=== PATIENT | female | born 1960 | race Caucasian/White ===

== ENCOUNTER 2020-01-10 08:00 | Emergency (ER) | payer OTHER, SELFPAY ==
[2020-01-10] VITALS (7 sets, daily range): BP systolic 115–149; BP diastolic 80–103; PULSE 78–114; RESP 16–20; TEMP 36.8; O2SAT 96–97; BMI 24.5
--- NOTE | 2020-01-10 09:11 | CT_ITS ---
EXAMINATION: CT ABDOMEN AND PELVIS WITH CONTRAST CLINICAL INFORMATION: Abdominal pain COMPARISON: Previous CT scan of the abdomen and pelvis February 2019 TECHNIQUE: Multidetector volumetric images were obtained from the superior aspect of the liver through the pubic symphysis following administration 85 mL of Omnipaque 350 intravenous contrast. Sagittal and coronal reformatted images were obtained on the technologist's workstation. Oral contrast: Yes This CT examination was performed using dose optimization techniques as appropriate, variously including the following: *Automated exposure control *Adjustment of mA and/or kV according to patient size (this includes techniques or standardized protocols for targeted exams where dose is matched to indication/reason for exam; i.e. extremities or head) *Use of iterative reconstruction technique DLP: 442 mGy-cm FINDINGS: LUNG BASES: The visualized lung bases are unremarkable. LIVER, GALLBLADDER, AND BILIARY TREE: The liver is low in attenuation suggestive of fatty infiltration. The gallbladder has been removed. There is mild intrahepatic and extrahepatic biliary duct dilatation. The common bile duct measures 1.3 cm. This appears unchanged. There is a small low-attenuation lesion in the high right lobe of the liver measuring 4 mm axial image 8 series 3 that is unchanged. PANCREAS: Unremarkable. SPLEEN: Unremarkable. ADRENAL GLANDS: Unremarkable. KIDNEYS AND URETERS: The kidneys are normal in size, shape, and attenuation. No hydronephrosis, hydroureter, or calculi seen. No perinephric stranding. BLADDER: Unremarkable. GASTROINTESTINAL TRACT: There are postsurgical changes from total colectomy. There are dilated fluid-filled loops of small bowel. There is an area of nondilated small bowel seen in the right lower quadrant and pelvis adjacent to surgical suture lines. The rectum appears dilated and fluid-filled. Findings are similar to previous CT scan of the abdomen and pelvis February 2019. There is question of mild wall thickening of the small bowel loops in the left mid abdomen. For example axial image 38 series 3 and coronal reconstructed image 71. ABDOMINAL WALL: No significant hernia is appreciated. LYMPH NODES: There are prominent small bowel mesentery lymph nodes. Larger lymph nodes are upper normal in size. There is no ascites. VASCULAR: Unremarkable. PELVIC VISCERA: Unremarkable. OSSEOUS STRUCTURES: There is mild curvature of the lumbar spine to the right and degenerative change of alignment. IMPRESSION: Postsurgical changes following total colectomy. There are dilated fluid-filled loops of small bowel. There are nondistended loops of small bowel seen in the right lower quadrant and pelvis adjacent to a surgical staple lines questionable for transition point and obstruction. The rectum appears dilated and fluid-filled. Findings are similar to February 2019 exam. Question mild small bowel wall thickening in the left mid abdomen. Prominent small bowel mesentery lymph nodes. Dilated intra and extrahepatic bile ducts and fatty liver. Post cholecystectomy.
--- NOTE | 2020-01-10 09:16 | ED_ITS ---
HPI - Abdominal Pain General Chief Complaint: Abdominal Pain Stated Complaint: ABD PAIN Time Seen by Provider: 01/10/20 09:04 Source: patient Mode of arrival: ambulatory Limitations: no limitations History of Present Illness HPI narrative: THIS IS A 59 YEARS OLD FEMALE WELL KNOWN TO ME WITH CHRONIC ABDOMINAL PAIN WHO PRESENTED TO THE ED COMPLAINING OF RECURRENT ABDOMINAL PAIN VOMITING AND DIARRHEA SINCE MONDAY. DENIES ANY FEVER, CHILLS MD elicited complaint: abdominal pain Pertinent past history: other ( CHRONIC ABDOMINAL PAIN) Onset (ago): day(s) (3) Pain Consistency: constant Severity: moderate Quality: cramping Radiation: none Migration to: no migration Relieving factors: nothing Context: history of similar episodes Associated symptoms: vomiting and diarrhea Related Data Allergies Allergy/AdvReac Type Severity Reaction Status Date / Time morphine [MORPHINE] AdvReac Mild NAUSEA & Unverified 12/12/19 14:57 VOMITING Review of Systems Review of Systems Yes all other systems are reviewed and are negative Respiratory: Reports no additional respiratory complaints Musculoskeletal: Reports no additional musculoskeletal complaints Psychiatric: Reports no additional psychiatric complaints Physical Exam Vital Signs: Vital Signs: Vital Signs Temp Pulse Resp BP Pulse Ox 01/10/20 13:44 98.3 F 81 16 115/80 01/10/20 12:13 78 18 132/83 96 01/10/20 12:00 98.3 F 84 17 132/83 96 01/10/20 11:38 18 01/10/20 11:19 98.3 F 81 18 134/85 97 01/10/20 09:45 89 20 139/93 H 97 01/10/20 08:10 98.2 F 114 H 18 149/103 H 96 Body Mass Index 24.5 Const: General: cooperative and healthy appearing Orientation/consciousness: oriented to person and oriented to place HENMT: Head: Yes normal to inspection and Yes No palpable skull fracture present Eyes: General: appearance normal, both eyes and all related structures Neck: Neck: Yes normal visual inspection Chest: Chest palpation & inspection: normal inspection of the chest and normal palpation of entire chest wall Resp: Effort & Inspection: normal respiratory effort and able to speak in complete sentences Cardio: Jugular venous distension: no JVD Rate: regular rate GI: Inspection: Yes normal to inspection Percussion: Yes normal to percussion Auscultation: normal bowel sounds Skin: General skin exam: no rashes or lesions noted and elasticity normal Neuro: General: oriented to person, oriented to place and moves all extremi ties Extrem: General: Yes normal to inspection and Yes full ROM Course Reevaluation(s) Reevaluation #1: patient was re-examined and she is feeling much better labs are reassuring, CT scan is basically unchanged from a prior. I discussed the CT finding in the clinic a patient with Dr. Lauren , will discharge the patient home with abdominal pain precaution. Patient is comfortable the plan she will be returning to vomiting fever worse Time: 14:06 [facility] - Abdominal Pain Lab Data Result diagrams: 01/10/20 09:40 01/10/20 11:07 Labs: Lab Results 01/10/20 01/10/20 01/10/20 Range/Units 09:40 09:40 11:07 WBC 7.6 (4.8-10.8) X10*3/uL RBC 5.59 H (4.20-5.50) X10*6/uL Hgb 15.5 (12.0-16.0) g/dl Hct 47.5 H (37-47) % MCV 85.0 (80-98) fL MCH 27.7 (27.0-33.0) pg MCHC 32.6 (31.0-35.0) g/dl RDW 19.3 H (11.0-16.0) % Plt Count 333 (160-400) X10*3/uL MPV 9.3 L (9.4-12.3) fL Immature Gran % (Auto) 0.3 (0.0-0.4) % Neut % (Auto) 66.8 (45-73) % Lymph % (Auto) 21.1 (20-40) % [place] % (Auto) 10.6 (2-11) % Eos % (Auto) 0.5 (0-4) % Baso % (Auto) 0.7 (0-2) % Lymph # (Auto) 1.6 (1.2-4.9) X10*3/uL [place] # (Auto) 0.8 (0.1-1.2) X10*3/uL Eos # (Auto) 0.0 (0.0-0.4) X10*3/uL Baso # (Auto) 0.1 (0.0-0.2) X10*3/uL Abs Immat Gran (auto) 0.02 (0.00-0.03) X10*3/uL Absolute Neuts (auto) 5.1 (2.0-8.3) X10*3/uL Absolute Nucleated RBC 0.000 (0.0-0.012) X10*3/uL Nucleated RBC % (auto) 0.0 (0.0-0.2) /100WBC Sodium Cancelled 133 L Potassium Cancelled 4.0 Chloride Cancelled 105 Carbon Dioxide Cancelled 21 L Anion Gap Cancelled 11 L BUN Cancelled 27 H Creatinine Cancelled 0.94 Estim Creat Clear Calc Cancelled 56.3 Estimated GFR Cancelled > 60 Random Glucose Cancelled 102 Calcium Cancelled 8.1 L Total Bilirubin Cancelled 0.8 AST Cancelled 27 ALT Cancelled 16 Alkaline Phosphatase Cancelled 68 Total Protein Cancelled 5.9 L Albumin Cancelled 3.7 Lipase Cancelled 48 Urine Color Urine Appearance Urine pH (5.0-8.0) Ur Specific [place] (1.005-1.025) Urine Protein (NEG-TRACE) MG/DL Urine Glucose (UA) (NEG) MG/DL Urine Ketones (NEG) MG/DL Urine Blood (NEG) Urine Nitrite (NEG) Ur Leukocyte Esterase (NEG) Urine RBC (0) /HPF Urine WBC (0-4) /HPF Ur Squamous Epith Cells /LPF Urine Crystals /LPF Urine Bacteria /LPF Urine Mucus /LPF 01/09/ Range/Units 14:07 WBC (4.8-10.8) X10*3/uL RBC (4.20-5.50) X10*6/uL Hgb (12.0-16.0) g/dl Hct (37-47) % MCV (80-98) fL MCH (27.0-33.0) pg MCHC (31.0-35.0) g/dl RDW (11.0-16.0) % Plt Count (160-400) X10*3/uL MPV (9.4-12.3) fL Immature Gran % (Auto) (0.0-0.4) % Neut % (Auto) (45-73) % Lymph % (Auto) (20-40) % [place] % (Auto) (2-11) % Eos % (Auto) (0-4) % Baso % (Auto) (0-2) % Lymph # (Auto) (1.2-4.9) X10*3/uL [place] # (Auto) (0.1-1.2) X10*3/uL Eos # (Auto) (0.0-0.4) X10*3/uL Baso # (Auto) (0.0-0.2) X10*3/uL Abs Immat Gran (auto) (0.00-0.03) X10*3/uL Absolute Neuts (auto) (2.0-8.3) X10*3/uL Absolute Nucleated RBC (0.0-0.012) X10*3/uL Nucleated RBC % (auto) (0.0-0.2) /100WBC Sodium Potassium Chloride Carbon Dioxide Anion Gap BUN Creatinine Estim Creat Clear Calc Estimated GFR Random Glucose Calcium Total Bilirubin AST ALT Alkaline Phosphatase Total Protein Albumin Lipase Urine Color YELLOW Urine Appearance HAZY Urine pH 6.5 (5.0-8.0) Ur Specific [place] <= 1.005 (1.005-1.025) Urine Protein NEG (NEG-TRACE) MG/DL Urine Glucose (UA) NEG (NEG) MG/DL Urine Ketones 5 (NEG) MG/DL Urine Blood TRACE (NEG) Urine Nitrite NEG (NEG) Ur Leukocyte Esterase NEG (NEG) Urine RBC 0-2 (0) /HPF Urine WBC 1-4 (0-4) /HPF Ur Squamous Epith Cells TRACE /LPF Urine Crystals 3+ /LPF Urine Bacteria TRACE /LPF Urine Mucus TRACE /LPF Imaging Data CT scan - abdomen: Attestation: I personally reviewed and interpreted this imaging study as follows: Radiologist's impression: GASTROINTESTINAL TRACT: There are postsurgical changes from total colectomy. There are dilated fluid-filled loops of small bowel. There is an area of nondilated small bowel seen in the right lower quadrant and pelvis adjacent to surgical suture lines. The rectum appears dilated and fluid-filled. Findings are similar to previous CT scan of the abdomen and pelvis February 2019. There is question of mild wall thickening of the small bowel loops in the left mid abdomen. For example axial image 38 series 3 and coronal reconstructed image 71. ABDOMINAL WALL: No significant hernia is appreciated. LYMPH NODES: There are prominent small bowel mesentery lymph nodes. Larger lymph nodes are upper normal in size. There is no ascites. VASCULAR: Unremarkable. PELVIC VISCERA: Unremarkable. OSSEOUS STRUCTURES: There is mild curvature of the lumbar spine to the right and degenerative change of alignment. IMPRESSION: Postsurgical changes following total colectomy. There are dilated fluid-filled loops of small bowel. There are nondistended loops of small bowel seen in the right lower quadrant and pelvis adjacent to a surgical staple lines questionable for transition point and obstruction. The rectum appears dilated and fluid-filled. Findings are similar to February 2019 exam. Question mild small bowel wall thickening in the left mid abdomen. Prominent small bowel mesentery lymph nodes. Dilated intra and extrahepatic bile ducts and fatty liver. Post cholecystectomy. Discharge Plan Discharge Clinical Impression: Abdominal pain Qualifiers: Abdominal location: generalized Qualified Code(s): R10.84 - Generalized abdominal pain Patient Disposition: Home, Self-Care Instructions: Abdominal Pain (ED) Additional Instructions: return to the emergency department if you worsened,fever, vomiting any concerns Interventions: ED Discharge Assessment Last Done: 01/10/20 14:15 Discharge Date/Time: 01/10/20 14:15 [facility] Past Medical History Attestation statement: The following information was validated with the patient. Medical History Stomach spasm Surgical History Hx of cholecystectomy Hx of hernia repair Hx of resection of large bowel Social History Social History Smoking Status: Never smoker Use of substances other than those prescribed or required for medical reasons: No Advance Directives: No Advance Directives Information Provided: Yes
[2020-01-10] MEDS: 0.9 % Sodium Chloride 1,000 ML 999 ML IVCONT (09:41)
[2020-01-10 09:43] LABS: MANUAL DIFF FLAG NO
[2020-01-10 09:44] LABS: Basophils Absolute Auto 0.1 X10*3/uL (0.0-0.2); Basophils Percent Auto 0.7 % (0-2); Eosinophils Percent Auto 0.5 % (0-4); Hematocrit 47.5 % (37-47); Hemoglobin 15.5 g/dl (12.0-16.0); Imm Gran Abs Auto 0.02 X10*3/uL (0.00-0.03); Imm Gran Pct Auto 0.3 % (0.0-0.4); Lymphocytes Absolute Auto 1.6 X10*3/uL (1.2-4.9); Lymphocytes Percent Auto 21.1 % (20-40); Mean Corpuscular HGB Conc 32.6 g/dl (31.0-35.0); Mean Corpuscular Hemoglobin 27.7 pg (27.0-33.0); Mean Platelet Volume 9.3 fL (9.4-12.3); Monocytes Absolute Auto 0.8 X10*3/uL (0.1-1.2); Monocytes Percent Auto 10.6 % (2-11); Neutrophils Absolute Auto 5.1 X10*3/uL (2.0-8.3); Neutrophils Percent Auto 66.8 % (45-73); Platelet Count 333 X10*3/uL (160-400); Red Blood Count 5.59 X10*6/uL (4.20-5.50); Red Cell Distribution Width 19.3 % (11.0-16.0); White Blood Count 7.6 X10*3/uL (4.8-10.8)
--- NOTE | 2020-01-10 11:23 | PC.NURSE ---
pt resting in the stretcher alert and oriented, skin pwd, respirations even and unlabored. pt reports mid abd pain that radiates to her mid back and a headache, pain at 8/10, vs st able at this time,
[2020-01-10] MEDS: HYDROmorphone HCl 0.5 MG/0.5 ML SYRINGE IVPUSH (11:38)
[2020-01-10 11:39] LABS: Lipase 48 U/L (8-78)
[2020-01-10 11:45] LABS: Alanine Aminotransferase 16 U/L (0-31); Albumin Level 3.7 g/dL (3.5-5.0); Alkaline Phosphatase 68 U/L (39-117); Anion Gap 11 (12-20); Aspartate Amino Transferase 27 U/L (5-31); Bilirubin Total 0.8 mg/dL (0.0-1.0); Blood Urea Nitrogen 27 mg/dL (9-16); Calcium 8.1 mg/dL (8.4-10.2); Carbon Dioxide 21 mmol/L (22-29); Chloride 105 mmol/L (96-108); Creatinine Clr Calc Pharmacy 56.3; Estimated Glomerular Filt Rate > 60; Glucose Random 102 mg/dL (60-115); Sodium 133 mmol/L (135-145); Total Protein 5.9 g/dL (6.5-8.0)
--- NOTE | 2020-01-10 12:13 | PC.NURSE ---
pt reports feeling better pain at 2/10 after the diulated
[2020-01-10] MEDS: iohexoL 350 MG/ML 100 ML INFUS..BTL IV (12:38)
[2020-01-10 14:15] LABS: Glucose Urine UA NEG (NEG); Leukocyte Esterase Urine NEG (NEG); Nitrite Urine NEG (NEG); PH 6.5 (5.0-8.0); Specific Gravity - Urine <= 1.005 (1.005-1.025); Urine Blood TRACE (NEG); Urine Ketones 5 MG/DL (NEG); Urine Protein NEG (NEG-TRACE)
[2020-01-10 14:17] LABS: Appearance Urine HAZY; Color Urine YELLOW
[2020-01-10 14:26] LABS: Bacteria Urine TRACE /LPF; Mucus Urine TRACE /LPF; RBC Urine 0-2 /HPF (0); Squamous Epithelial Cell Urine TRACE /LPF; Urine Talc Crystals 3+ /LPF
== END 2020-01-10 14:15 | disposition home or self-care (01) ==
PROVIDERS: Emergency Provider Emergency Medicine; PCP Family Medicine
DX: R10.84 Generalized abdominal pain (principal)
CPT/HCPCS: 36415; 74177; 80053; 81001; 83690; 85025; 96361; 96374; 99284; J1170

== ENCOUNTER 2020-02-20 02:01 | Emergency (ER) | payer OTHER, SELFPAY ==
[2020-02-20 02:12] VITALS: BP 106/82; PULSE 145; RESP 20; TEMP 36.5; O2SAT 97; BMI 20.7
--- NOTE | 2020-02-20 02:31 | CT_ITS ---
EXAMINATION: CT ABDOMEN AND PELVIS WITH CONTRAST CLINICAL INFORMATION: Mid abdominal pain. Nausea and vomiting. COMPARISON: 01/10/2020 TECHNIQUE: Multidetector volumetric images were obtained from the superior aspect of the liver through the pubic symphysis following administration 85 mL of Omnipaque 350 intravenous contrast. Sagittal and coronal reformatted images were obtained on the technologist's workstation. Oral contrast: No This CT examination was performed using dose optimization techniques as appropriate, variously including the following: *Automated exposure control *Adjustment of mA and/or kV according to patient size (this includes techniques or standardized protocols for targeted exams where dose is matched to indication/reason for exam; i.e. extremities or head) *Use of iterative reconstruction technique DLP: 480 mGy-cm FINDINGS: LUNG BASES: The visualized lung bases are unremarkable. LIVER, GALLBLADDER, AND BILIARY TREE: The liver is normal in size and shape with decreased attenuation. No focal hepatic lesion or biliary ductal dilatation is present. Cholecystectomy. PANCREAS: Unremarkable. SPLEEN: Unremarkable. ADRENAL GLANDS: Unremarkable. KIDNEYS AND URETERS: The kidneys are normal in size, shape, and attenuation. No hydronephrosis, hydroureter, or calculi seen. No perinephric stranding. BLADDER: Unremarkable. GASTROINTESTINAL TRACT: The stomach is decompressed. There is diffuse small bowel dilatation extending to the region of the distal anastomosis. Status post total colectomy. The overall appearance is similar to prior imaging. No free air or free fluid. ABDOMINAL WALL: No significant hernia is appreciated. LYMPH NODES: Normal. VASCULAR: Normal caliber aorta with mild atherosclerotic calcification. PELVIC VISCERA: The uterus and adnexa are unremarkable. OSSEOUS STRUCTURES: No acute or suspicious osseous abnormality. Mild degenerative changes in the spine. CT/CT abdomen pelvis w con IMPRESSION: Similar appearance to the previous study. There is diffuse fluid-filled small bowel dilatation extending to the distal anastomosis associated with total colectomy. This could represent a chronic obstructive process.
--- NOTE | 2020-02-20 02:31 | ECG_ITS ---
Test Reason : TACHY Blood Pressure : / mmHG Vent. Rate : 137 BPM Atrial Rate : 137 BPM P-R Int : 142 ms QRS Dur : 080 ms QT Int : 280 ms P-R-T Axes : 039 040 018 degrees QTc Int : 422 ms Sinus tachycardia Nonspecific T wave abnormality Inferior leads Abnormal ECG When compared with ECG of 29-MAY-2018 01:15, Heart rate has increased T-wave inversion in Inferior leads is new Referred By: Rudi Esteves Electronically Signed By:VERNA STODDARD MD
[2020-02-20] MEDS: 0.9 % Sodium Chloride 1,000 ML 999 ML IVCONT ×2 (02:36→03:42)
[2020-02-20] MEDS: ondansetron HCL 4 MG/2 ML VIAL IVPUSH (02:37)
[2020-02-20] MEDS: Famotidine/PF 20 MG/2 ML VIAL IVPUSH (02:41)
[2020-02-20 02:43] VITALS: RESP 18
[2020-02-20] MEDS: HYDROmorphone HCl 1 MG/ML SYRINGE IVPUSH (02:43)
[2020-02-20 02:52] LABS: Basophils Percent Auto 0.3 % (0-2); Eosinophils Absolute Auto 0.1 X10*3/uL (0.0-0.4); Eosinophils Percent Auto 0.4 % (0-4); Hemoglobin 18.7 g/dl (12.0-16.0); Imm Gran Abs Auto 0.05 X10*3/uL (0.00-0.03); Imm Gran Pct Auto 0.4 % (0.0-0.4); Lymphocytes Absolute Auto 2.1 X10*3/uL (1.2-4.9); Lymphocytes Percent Auto 15.8 % (20-40); MANUAL DIFF FLAG NO; Mean Corpuscular HGB Conc 33.9 g/dl (31.0-35.0); Mean Corpuscular Hemoglobin 28.4 pg (27.0-33.0); Mean Corpuscular Volume 83.6 fL (80-98); Monocytes Absolute Auto 0.4 X10*3/uL (0.1-1.2); Monocytes Percent Auto 2.8 % (2-11); Neutrophils Absolute Auto 10.6 X10*3/uL (2.0-8.3); Neutrophils Percent Auto 80.3 % (45-73); Platelet Count 424 X10*3/uL (160-400); Red Blood Count 6.59 X10*6/uL (4.20-5.50); Red Cell Distribution Width 18.7 % (11.0-16.0); White Blood Count 13.3 X10*3/uL (4.8-10.8)
[2020-02-20 02:53] LABS: Hematocrit 55.1 % (37-47)
[2020-02-20 03:44] VITALS: BP 132/93; PULSE 98; RESP 15; TEMP 36.9; O2SAT 95
[2020-02-20 04:08] LABS: Lactic Acid 1.5 mmol/L (0.5-2.0)
[2020-02-20 04:12] LABS: Alanine Aminotransferase 26 U/L (0-31); Albumin Level 3.8 g/dL (3.5-5.0); Alkaline Phosphatase 93 U/L (39-117); Anion Gap 16 (12-20); Aspartate Amino Transferase 32 U/L (5-31); Bilirubin Direct 0.4 mg/dL (0.0-0.5); Bilirubin Total 0.7 mg/dL (0.0-1.0); Blood Urea Nitrogen 32 mg/dL (9-16); Calcium 8.2 mg/dL (8.4-10.2); Carbon Dioxide 19 mmol/L (22-29); Chloride 100 mmol/L (96-108); Creatinine Clr Calc Pharmacy 41.7; Estimated Glomerular Filt Rate 43; Glucose Random 154 mg/dL (60-115); Lipase 19 U/L (8-78); Potassium 3.2 mmol/l (3.3-5.1); Sodium 132 mmol/L (135-145); Total Protein 6.4 g/dL (6.5-8.0)
--- NOTE | 2020-02-20 04:18 | ED_ITS ---
HPI - Nausea/Vomiting/Diarrhea General Chief complaint: Nausea/Vomiting/Diarrhea Stated complaint: Vomiting/Abd pain Time Seen by Provider: 02/20/20 02:23 Source: patient Mode of arrival: ambulatory History of Present Illness HPI Narrative: 59-year-old female states of vomiting for the past several days. Abdominal pain in the mid abdomen. Patient has had bowel resection and few years ago and since then has been having problems as per patient. Patient denies fevers or chills. Denies blood in vomit patient states of mild stool movement. Patient seen here about a month ago and states since then has not been the same MD elicited complaint: nausea and vomiting Pain consistency: constant Severity: moderate Related Data Previous Rx's Medication Instructions Recorded metoclopramide HCl [Reglan] 10 mg PO .q8 PRN #20 tab 02/20/20 potassium chloride 20 meq PO BID 5 Days #30 ea 02/20/20 Allergies Allergy/AdvReac Type Severity Reaction Status Date / Time morphine [MORPHINE] AdvReac Mild NAUSEA & Verified 02/20/20 02:44 VOMITING Review of Systems Review of Systems: Constitutional : No Weight loss, No Fever, No Chills, No Night Sweats, No Fatigue, No Malaise ENT/Mouth : No Hearing loss, No Ear Pain, No Nasal Congestion, No Sinus Pain, No Hoarseness, No sore throat, No Rhinorrhea, No Swallowing Difficulty Eyes: No Eye Pain, No Swelling, No Redness, No Foreign Body, No Discharge, No Vision Changes Cardiovascular : No Chest Pain, No SOB, No Dyspnea on Exertion, No Orthopnea, No Edema, No Palpitations Respiratory : No Cough, No Sputum, No Wheezing, No Smoke Exposure, No Dyspnea Gastrointestinal : Positive Nausea, positive Vomiting, No Diarrhea, No Constipation, No abdominal Pain, No Hematochezia, No Melena Genitourinary : no irregular bleeding, No Dysuria, No Urinary Frequency, No Hematuria, No Urinary Incontinence, No Urgency, No Flank Pain, No Urinary Flow Changes, No Hesitancy Musculoskeletal : No joint pain, No Myalgias, No Joint Swelling Skin : No Skin Lesions, No rash Neuro : No Weakness, No Numbness, No Paresthesias, No Loss of Consciousness, No Dizziness, No Headache Psych : No Anxiety/Panic, No Depression, No SI/HI/AH/VH, No Social Issues, Heme/Lymph: No Bruising, No Bleeding,No Lymphadenopathy Endocrine : No Polyuria, No Polydipsia, No Temperature Intolerance [facility] Past Medical History Medical History Stomach spasm Surgical History Hx of cholecystectomy Hx of hernia repair Hx of resection of large bowel Social History Social History Smoking Status: Former smoker Smoked in Last 30 Days: No Use of substances other than those prescribed or required for medical reasons: No Advance Directives: No Physical Exam Vital Signs: Vital Signs: Last Vital Signs Temp 98.2 F 02/20/20 06:00 Pulse 100 02/20/20 06:00 Resp 15 02/20/20 06:00 BP 114/86 02/20/20 06:00 Pulse Ox 94 02/20/20 06:00 Body Mass Index 20.7 Vital signs reviewed Appearance: Alert. Oriented X3. No acute distress. Eyes: Pupils equal, round and reactive to light. ENT: Pharynx normal. Neck: Normal inspection. Neck supple. No lymph nodes noted. No crepitus CVS: Normal heart rate and rhythm. Pulses normal. Normal S1 and S2 Respiratory: No respiratory distress. Breath sounds normal. No Wheezing. No rales Abdomen: Soft and positive mid tender. No rigidity. No distention. good BS x4 Skin: Skin warm and dry. Normal skin color. Normal skin turgor. Extremities: No lower extremity edema. Neurovascular intact to all extremities. No Lacerations. No Rash Neuro: Oriented X 3. No motor deficit. No sensory deficit. Moving all extermities. No slurred speech. Course Reevaluation(s) Reevaluation #1: Heart rate of 92 much improved Records reviewed by me with CT scan done approximately a month ago with no acute changes Multiple re-evaluations done while the patient was in the ER. No signs of peritonitis with really examine the abdomen. Patient did not vomit in the ER an d she tolerated p.o. intake. CT scan of the abdomen pelvis was done which showed no changes for 1 month ago. I discussed with patient's home regimen which includes multi anti diarrheal medications in which I discussed with her to stop the next week until she follows up with her GI doctor after the holiday weekend patient agrees nontoxic appearing well-appearing vital signs improved at discharge Time: 04:20 MDM - Nausea/Vomiting/Diarrhea MDM Narrative Medical decision making narrative: 59-year-old female with a history of a total colectomy, which she complained of nausea vomiting with abdominal pain. CT scan abdomen pelvis showed no changes from 1 month ago. Tolerated p.o. in ED. Patient on large amounts of antidiarrheals, as per self treated. I discussed with her to hold and to discuss with her GI doctor, Dr. Jimenez for further instructions Lab Data Attestation: I reviewed the patient's lab results. Result diagrams: 02/20/20 02:30 02/20/20 03:33 Labs: Lab Results 02/20/20 02/20/20 02/20/20 Range/Units 02:30 02:30 02:30 WBC 13.3 H (4.8-10.8) X10*3/uL RBC 6.59 H (4.20-5.50) X10*6/uL Hgb 18.7 H D (12.0-16.0) g/dl Hct 55.1 H (37-47) % MCV 83.6 (80-98) fL MCH 28.4 (27.0-33.0) pg MCHC 33.9 (31.0-35.0) g/dl RDW 18.7 H (11.0-16.0) % Plt Count 424 H D (160-400) X10*3/uL MPV 10.0 (9.4-12.3) fL Immature Gran % (Auto) 0.4 (0.0-0.4) % Neut % (Auto) 80.3 H (45-73) % Lymph % (Auto) 15.8 L (20-40) % [place] % (Auto) 2.8 (2-11) % Eos % (Auto) 0.4 (0-4) % Baso % (Auto) 0.3 (0-2) % Lymph # (Auto) 2.1 (1.2-4.9) X10*3/uL [place] # (Auto) 0.4 (0.1-1.2) X10*3/uL Eos # (Auto) 0.1 (0.0-0.4) X10*3/uL Baso # (Auto) 0.0 (0.0-0.2) X10*3/uL Abs Immat Gran (auto) 0.05 H (0.00-0.03) X10*3/uL Absolute Neuts (auto) 10.6 H (2.0-8.3) X10*3/uL Absolute Nucleated RBC 0.000 (0.0-0.012) X10*3/uL Nucleated RBC % (auto) 0.0 (0.0-0.2) /100WBC Sodium Cancelled Potassium Cancelled Chloride Cancelled Carbon Dioxide Cancelled Anion Gap Cancelled BUN Cancelled Creatinine Cancelled Estim Creat Clear Calc Cancelled Estimated GFR Cancelled Random Glucose Cancelled Lactic Acid (0.5-2.0) mmol/L Calcium Cancelled Total Bilirubin Cancelled Direct Bilirubin Cancelled AST Cancelled ALT Cancelled Alkaline Phosphatase Cancelled Troponin I High Sens 5.0 (<3.5-17.0) ng/L Total Protein Cancelled Albumin Cancelled Lipase Cancelled 02/20/20 02/20/20 Range/Units 03:33 03:33 WBC (4.8-10.8) X10*3/uL RBC (4.20-5.50) X10*6/uL Hgb (12.0-16.0) g/dl Hct (37-47) % MCV (80-98) fL MCH (27.0-33.0) pg MCHC (31.0-35.0) g/dl RDW (11.0-16.0) % Plt Count (160-400) X10*3/uL MPV (9.4-12.3) fL Immature Gran % (Auto) (0.0-0.4) % Neut % (Auto) (45-73) % Lymph % (Auto) (20-40) % [place] % (Auto) (2-11) % Eos % (Auto) (0-4) % Baso % (Auto) (0-2) % Lymph # (Auto) (1.2-4.9) X10*3/uL [place] # (Auto) (0.1-1.2) X10*3/uL Eos # (Auto) (0.0-0.4) X10*3/uL Baso # (Auto) (0.0-0.2) X10*3/uL Abs Immat Gran (auto) (0.00-0.03) X10*3/uL Absolute Neuts (auto) (2.0-8.3) X10*3/uL Absolute Nucleated RBC (0.0-0.012) X10*3/uL Nucleated RBC % (auto) (0.0-0.2) /100WBC Sodium 132 L Potassium 3.2 L Chloride 100 Carbon Dioxide 19 L Anion Gap 16 BUN 32 H Creatinine 1.27 Estim Creat Clear Calc 41.7 Estimated GFR 43 Random Glucose 154 H D Lactic Acid 1.5 (0.5-2.0) mmol/L Calcium 8.2 L Total Bilirubin 0.7 Direct Bilirubin 0.4 AST 32 H ALT 26 Alkaline Phosphatase 93 D Troponin I High Sens (<3.5-17.0) ng/L Total Protein 6.4 L Albumin 3.8 Lipase 19 ECG Data Attestation: I personally reviewed and interpreted this ECG as follows: Interpretation: Sinus tachycardia at 137 beats per minute. Normal axis with no ST-T changes Discharge Plan Discharge Clinical Impression: Hypokalemia Abdominal pain Qualifiers: Abdominal location: generalized Qualified Code(s): R10.84 - Generalized abdominal pain Nausea & vomiting Qualifiers: Vomiting type: unspecified Vomiting Intractability: unspecified Qualified Code(s): R11.2 - Nausea with vomiting, unspecified Patient Disposition: Home, Self-Care Instructions: Hypokalemia (ED), Acute Nausea and Vomiting (ED) Additional Instructions: Thank you for visiting the emergency department today. If your symptoms worsen or do not resolve completely please return to the emergency department immediately or call 911. If you have any questions please call your primary care physician Prescriptions: New potassium chloride 20 mEq packet 20 meq PO BID 5 Days Qty: 30 RF: 0 metoclopramide HCl [Reglan] 10 mg tablet 10 mg PO .q8 PRN (Reason: nausea and vomiting) Qty: 20 RF: 0
[2020-02-20] MEDS: Potassium Chloride/H20 10 MEQ/100 ML PIGGYBACK 100 MEQ IV (05:09)
[2020-02-20] MEDS: iohexoL 350 MG/ML 100 ML INFUS..BTL IV (05:21)
[2020-02-20 06:00] VITALS: BP 114/86; PULSE 100; RESP 15; TEMP 36.8; O2SAT 94
== END 2020-02-20 06:23 | disposition home or self-care (01) ==
PROVIDERS: Emergency Provider Emergency Medicine; PCP Family Medicine
DX: E87.6 Hypokalemia (principal); R10.84 Generalized abdominal pain; R11.2 Nausea with vomiting, unspecified; Z87.891 Personal history of nicotine dependence
CPT/HCPCS: 36415; 74177; 80048; 80076; 83605; 83690; 84484; 85025; 87040; 93005; 96361; 96365; 96375; 99284; J1170; J2405; Q9967

== ENCOUNTER 2020-02-24 05:47 | Inpatient (IN) | payer OTHER, SELFPAY ==
[2020-02-24] VITALS (11 sets, daily range): BP systolic 116–141; BP diastolic 84–102; PULSE 96–148; RESP 18–20; TEMP 35.6–37; O2SAT 94–97; BMI 20.7; BMI 21.5
--- NOTE | 2020-02-24 | XR_ITS ---
EXAMINATION: XR CHEST CLINICAL INFORMATION: NG tube placement COMPARISON: Chest radiographs 02/24/2020 03/02/2019 TECHNIQUE: Portable upright AP view of the chest was obtained. FINDINGS: NG tube is present, distal end located at level of esophagogastric junction with tip directed back into the lower thoracic esophagus. Repositioning is recommended. The lungs are clear. The vascularity is normal. The costophrenic sulci are clear. The heart is normal in size. The hilar and mediastinal contours and bony structures are unremarkable. Again, there are surgical clips seen right upper abdomen. Findings called to Dr. Kern in the Emergency Department at 1327 hours. XR/XR chest 1V IMPRESSION: 1. NG tube looped at the esophagogastric junction with tip directed back within lower thoracic esophagus. Repositioning is recommended. 2. Lungs grossly clear.
--- NOTE | 2020-02-24 06:02 | ECG_ITS ---
Test Reason : TACHYCARDIA Blood Pressure : / mmHG Vent. Rate : 143 BPM Atrial Rate : 143 BPM P-R Int : 134 ms QRS Dur : 072 ms QT Int : 270 ms P-R-T Axes : 046 075 041 degrees QTc Int : 416 ms Sinus tachycardia Nonspecific T wave abnormality Inferior leads Abnormal ECG When compared with ECG of 20-FEB-2020 02:36, No significant changes seen Referred By: Macy Mayberry Electronically Signed By:VERNA STODDARD MD
--- NOTE | 2020-02-24 06:02 | XR_ITS ---
EXAMINATION: XR CHEST CLINICAL INFORMATION: Tachycardia COMPARISON: 03/02/2019 TECHNIQUE: Frontal view of the chest was obtained. FINDINGS: Cardiac leads overlie the chest. The lungs are well expanded. There is no focal consolidation, edema, or effusion. No pneumothorax. The cardiomediastinal silhouette is within normal limits. No acute osseous abnormality. XR/XR chest 1V IMPRESSION: Clear lungs.
--- NOTE | 2020-02-24 06:08 | CT_ITS ---
EXAMINATION: CT ABDOMEN AND PELVIS WITHOUT CONTRAST CLINICAL INFORMATION: Abdominal pain. COMPARISON: Abdominal CT from 02/20/2020. TECHNIQUE: Multidetector volumetric imaging was performed from the superior aspect of the liver through the pubic symphysis. Sagittal and coronal reformatted images were obtained on the technologist's workstation. This CT examination was performed using dose optimization techniques as appropriate, variously including the following: *Automated exposure control *Adjustment of mA and/or kV according to patient size (this includes techniques or standardized protocols for targeted exams where dose is matched to indication/reason for exam; i.e. extremities or head) *Use of iterative reconstruction technique DLP: 486 mGy-cm FINDINGS: As seen on the prior examination, there is significant distention of the bowel which is predominantly fluid-filled. Scattered air-fluid levels are present as well. The patient is status post a previous total colectomy. The bowel remains decompressed at the level of the anastomosis in the lower pelvis, also as seen on the prior examination. The rectum is again distended and fluid-filled distal to the anastomosis. There is significant fatty infiltration of the liver. The unenhanced spleen, kidneys, pancreas, and adrenal glands are unremarkable. There is a small anterior pericardial effusion which is mildly increased compared to the prior exam. The lungs are clear. No acute osseous abnormality is seen. Moderate spondylosis at L1-L2 again visible. No free air or free fluid is seen. The uterus remains deviated to the right of midline. The abdominal aorta is normal in caliber with mild atherosclerotic wall calcifications. No bulky adenopathy is seen. CT/CT abdomen pelvis wo con IMPRESSION: Relatively stable diffuse dilatation of the bowel with air-fluid levels, status post previous total colectomy. There remains indeterminate as to whether findings reflect functional ileus versus a chronic partial obstruction at the level of the distal anastomosis; clinically correlate. Hepatic steatosis. Mild increase in size of a small anterior pericardial effusion.
--- NOTE | 2020-02-24 06:16 | ED_ITS ---
HPI - Abdominal Pain General Chief Complaint: Abdominal Pain Stated Complaint: ABD PAIN Time Seen by Provider: 02/24/20 06:02 Source: patient History of Present Illness HPI narrative: This is a 59-year-old female who presents again with similar symptomatology as the past 2 visits mid abdominal pain with nausea and vomiting. Patient was last seen on 02/19 and at that time had a CT scan which showed liquid filled small bowel with chronic obstruction at the anastomotic site ( patient is status post colectomy). Patient states that since her last visit she has only been able to tolerate small amounts food or water and that she has been unable to contact GI, but she has stopped taking her anti diarrheal so as instructed at discharge from her last visit. Otherwise, patient denies fever, chest pain / palpitations, fevers, chills, headache, urinary pain /burning /frequency. Related Data Previous Rx's Medication Instructions Recorded metoclopramide HCl [Reglan] 10 mg PO .q8 PRN #20 tab 02/20/20 potassium chloride 20 meq PO BID 5 Days #30 ea 02/20/20 Allergies Allergy/AdvReac Type Severity Reaction Status Date / Time morphine [MORPHINE] AdvReac Mild NAUSEA & Verified 02/20/20 02:44 VOMITING Review of Systems Review of Systems Pertinent positives and negatives as stated in HPI 10 point review of systems otherwise negative. Physical Exam Vital Signs: Vital Signs: Last Vital Signs Temp 96.0 F L 02/24/20 05:57 Pulse 120 H 02/24/20 06:44 Resp 20 02/24/20 05:57 BP 122/96 H 02/24/20 05:57 Pulse Ox 95 02/24/20 05:57 Body Mass Index 20.7 VITAL SIGNS: Reviewed. GENERAL: Well developed, well nourished, in no acute distress. HEAD: Normocephalic/atraumatic, EYES: PERRLA, EOMI intact without pain, no nystagmus/pallor/icterus noted EARS: Ext canals without abnormality, TMs non-bulging and non-erythematous NOSE: Nares patent bilateral OROPHARYNX: no oral lesions noted, posterior pharynx clear and non-erythematous without noted tonsillar enlargement/erythema/exudates NECK: Supple, no adenopathy LUNGS: Normal breath sounds. No adventitious sounds or accessory muscle use. SpO2<95> CARDIOVASCULAR: Regular rate and rhythm without noted murmurs, no JVD or lower extremity edema. ABDOMEN: Soft, Mild tenderness on palpation of the epigastric region, non- distended with bowel sounds. No rigidity. No guarding. No palpable masses or hernias noted MUSCULOSKELETAL: No tenderness, deformities, or effusions noted on gross inspection. EXTREMITIES: No cyanosis, clubbing or edema. SKIN: Inspection of the skin reveals no rashes, ulcerations, jaundice, pallor, or petechiae. NEUROLOGIC: Alert and oriented x 4. Strength and sensation to light touch were grossly intact x 4. Course Course Course Narrative: This is a 59-year-old female with history and clinical presentation consistent with persistent nausea and vomiting and described to have a chronic obstruction at the anastomotic site. Patient was also noted to be significantly tachycardic although it is sinus in etiology likely secondary to moderate dehydration in addition to abdominal discomfort. Will rule out perforation , but likely will require admission for further evaluation of described chronic obstruction at anastomotic site identified on previous CT scan. Plan: Correct electrolyte abnormalities, consult surgery for recommendations regarding chronic obstruction at the anastomotic site and patient's persistent nausea, vomiting, diarrhea. Signed out to Dr Kern. MDM - Abdominal Pain Lab Data Result diagrams: 02/24/20 06:25 Labs: Lab Results 02/24/20 02/24/20 02/24/20 Range/Units 06:25 06:25 06:27 WBC 11.9 H (4.8-10.8) X10*3/uL RBC 6.75 H (4.20-5.50) X10*6/uL Hgb 19.0 H (12.0-16.0) g/dl Hct 57.4 H (37-47) % MCV 85.0 (80-98) fL MCH 28.1 (27.0-33.0) pg MCHC 33.1 (31.0-35.0) g/dl RDW 18.6 H (11.0-16.0) % Plt Count 388 (160-400) X10*3/uL MPV 9.5 (9.4-12.3) fL Immature Gran % (Auto) 0.8 H (0.0-0.4) % Neut % (Auto) 82.0 H (45-73) % Lymph % (Auto) 13.6 L (20-40) % [place] % (Auto) 3.4 (2-11) % Eos % (Auto) 0.0 (0-4) % Baso % (Auto) 0.2 (0-2) % Lymph # (Auto) 1.6 (1.2-4.9) X10*3/uL [place] # (Auto) 0.4 (0.1-1.2) X10*3/uL Eos # (Auto) 0.0 (0.0-0.4) X10*3/uL Baso # (Auto) 0.0 (0.0-0.2) X10*3/uL Abs Immat Gran (auto) 0.09 H (0.00-0.03) X10*3/uL Absolute Neuts (auto) 9.8 H (2.0-8.3) X10*3/uL Absolute Nucleated RBC 0.000 (0.0-0.012) X10*3/uL Nucleated RBC % (auto) 0.0 (0.0-0.2) /100WBC Hold Blue Top SEE NOTE Troponin I High Sens 8.0 D (<3.5-17.0) ng/L ECG Data Attestation: I personally reviewed and interpreted this ECG as follows: Interpretation: sinus tachycardia, HR -143, no evidence of acute ischemia, [place]/QRS/ QTC are within normal limits. Discharge Plan Discharge Prescriptions: No Action potassium chloride 20 mEq packet 20 meq PO BID 5 Days Qty: 30 RF: 0 metoclopramide HCl [Reglan] 10 mg tablet 10 mg PO .q8 PRN (Reason: nausea and vomiting) Qty: 20 RF: 0 PMFSH Past Medical History Source: nursing notes reviewed Medical History Stomach spasm Surgical History Hx of cholecystectomy Hx of hernia repair Hx of resection of large bowel Social History Social History Smoking Status: Former smoker Advance Directives: No
[2020-02-24] MEDS: 0.9 % Sodium Chloride 1,650 ML 100 ML IV (06:19)
[2020-02-24 06:32] LABS: MANUAL DIFF FLAG NO
[2020-02-24 06:43] LABS: Basophils Percent Auto 0.2 % (0-2); Imm Gran Abs Auto 0.09 X10*3/uL (0.00-0.03); Imm Gran Pct Auto 0.8 % (0.0-0.4); Lymphocytes Absolute Auto 1.6 X10*3/uL (1.2-4.9); Lymphocytes Percent Auto 13.6 % (20-40); Mean Corpuscular HGB Conc 33.1 g/dl (31.0-35.0); Mean Corpuscular Hemoglobin 28.1 pg (27.0-33.0); Mean Platelet Volume 9.5 fL (9.4-12.3); Monocytes Absolute Auto 0.4 X10*3/uL (0.1-1.2); Monocytes Percent Auto 3.4 % (2-11); Neutrophils Absolute Auto 9.8 X10*3/uL (2.0-8.3); Platelet Count 388 X10*3/uL (160-400); Red Blood Count 6.75 X10*6/uL (4.20-5.50); Red Cell Distribution Width 18.6 % (11.0-16.0); White Blood Count 11.9 X10*3/uL (4.8-10.8)
--- NOTE | 2020-02-24 06:44 | PC.NURSE ---
IV established, labs including BCX x 2 and lactic obtained and sent. EKG obtained. at bedside. Pt provided with multiple warm blankets and socks. VSS, awaiting CT.
--- NOTE | 2020-02-24 06:52 | PC.NURSE ---
Pt off to CT on hospital bed.
[2020-02-24 06:56] LABS: Hematocrit 57.4 % (37-47)
--- NOTE | 2020-02-24 07:38 | PC.NURSE ---
pt resting in the stretcher using her phone, pt reports sever abd pain 10/10 and nausea but no active vomiting at this time
[2020-02-24] MEDS: ondansetron HCL 4 MG/2 ML VIAL IVPUSH ×3 (08:07→20:31)
[2020-02-24] MEDS: HYDROmorphone HCl 0.5 MG/0.5 ML SYRINGE IVPUSH ×4 (08:07→20:28)
--- NOTE | 2020-02-24 08:48 | PC.NURSE ---
pt reports feeling better after the diulated, pain at 6/10
[2020-02-24 09:34] LABS: Reflex Lactate? Lactic Acid Added
[2020-02-24 09:50] LABS: Magnesium 1.9 mg/dL (1.6-2.6)
[2020-02-24 09:52] LABS: Alanine Aminotransferase 42 U/L (0-31); Albumin Level 3.4 g/dL (3.5-5.0); Alkaline Phosphatase 85 U/L (39-117); Anion Gap 15 (12-20); Aspartate Amino Transferase 46 U/L (5-31); Bilirubin Total 0.9 mg/dL (0.0-1.0); Blood Urea Nitrogen 27 mg/dL (9-16); Carbon Dioxide 21 mmol/L (22-29); Chloride 104 mmol/L (96-108); Creatinine Clr Calc Pharmacy 55.7; Estimated Glomerular Filt Rate > 60; Glucose Random 113 mg/dL (60-115); Lipase 37 U/L (8-78); Potassium 3.6 mmol/l (3.3-5.1); Sodium 136 mmol/L (135-145); Total Protein 5.8 g/dL (6.5-8.0)
--- NOTE | 2020-02-24 10:38 | PC.NURSE ---
spoke to phlebotomy about the lactic acid not being draw, pt is a hard stick, phlebotomy bharti the chemistry but did not get the lactic at the same time.
--- NOTE | 2020-02-24 11:07 | PC.NURSE ---
patient a&ox3, vss, surgeon in speaking with patient, will continue to monitor.
[2020-02-24 11:21] LABS: ~Lactic Acid-LAB USE ONLY 0.9 mmol/L (0.5-2.0)
--- NOTE | 2020-02-24 11:25 | PM.HPGS ---
History of Present Illness History of Present Illness Date of Service: 02/24/20 Chief complaint: ABD PAIN Narrative: Kala Mccloud is a 59 year old female with hx of ulcerrative colitis, s/p total colectomy with an ileal-pouch anal anastomosis, with abdominal pain periodically since last week. She was here in the ED 4-5 days ago for the same problem. A CT scan was done showing diffuse dilatation of the entire small bowel with suggestion of a stricture in the pouch anastomosis. She has been having watery stools, 3-5 times a day which she says is not unusual for her. She was discharged from the ED as she does have a history of the same CT scan picture in the past. This however kept recurring so she came back last night. She also describes some nausea and vomitting. Review of her records show she was admitted last 2018 for a similar complaint, had an NGT for a few days until she was discharged. She had followed up with her brush holder inspector Dr. Blackwell in [facility]. She had an attempted pill endoscopy last year there but she apparently failed a test pill. She eventually had endoscopy of the pouch showing mild inflammation last year. She had multiple admissions for anemia last year without gross blood per rectum. She had an endoscopic procedure for an ?angiodysplasia at some point. Her original colectomy was done in 2011 in [facility]. She had an ileostomy before and she says she had a leak at that time requiring a prolonged hospital stay and additional surgeries. She says she does not want to go back to [facility]. She continues to have watery BMs and flatus. Her main complaint now is periodic diffuse abdominal discomfort. She denies any bleeding per rectum. Review of Systems Constitutional: Constitutional: Denies chills and Denies fever(s) Cardiovascular: Cardiovascular: Denies chest pain, Denies dyspnea and Denies dyspnea on exertion Respiratory: Respiratory: Denies cough, Denies dyspnea and Denies dyspnea on exertion Gastrointestinal: Gastrointestinal: Denies hematochezia, Denies change in bowel habits and Reports diarrhea (Chronic) Genitourinary: Genitourinary: Denies hematuria Musculoskeletal: Musculoskeletal: Denies back pain and Denies limited range of motion Neurologic: Denies focal weakness and Denies convulsions Psychiatric: Psychiatric: Denies depression and Denies mood swings [facility] Past Medical History Medical History (Updated 02/24/20 @ 11:39 by Lambert Bean MD) Small bowel obstruction Stomach spasm Ulcerative colitis Surgical History Surgical History (Updated 02/24/20 @ 14:15 by Lambert Bean MD) Hx of cholecystectomy Hx of hernia repair Hx of resection of large bowel S/P total colectomy Social History Social History Alcohol intake: former Smoking Status: Never smoker Use of substances other than those prescribed or required for medical reasons: No Advance Directives: No Meds Allergies Allergy/AdvReac Type Severity Reaction Status Date / Time morphine [MORPHINE] AdvReac Mild NAUSEA & Verified 02/20/20 02:44 VOMITING Physical Exam Vital Signs: Vital Signs: Last Vital Signs Temp 98.4 F 02/24/20 11:05 Pulse 99 02/24/20 11:05 Resp 18 02/24/20 11:05 BP 141/93 H 02/24/20 11:05 Pulse Ox 97 02/24/20 09:55 Body Mass Index 20.7 Const: General: comfortable and no acute distress Orientation/consciousness: patient oriented x3 Neck: Neck: Yes no lymphadenopathy Resp: Auscultation: clear to auscultation bilaterally Cardio: Rhythm: regular rhythm GI: Palpation (GI): Soft to palpation, Tenderness to palpation present (GI) (mild diffuse), no guarding and not rigid Neuro: General: patient oriented x3 Results Results Labs: Short CBC 02/24/20 Range/Units 06:25 WBC 11.9 H (4.8-10.8) X10*3/uL Hgb 19.0 H (12.0-16.0) g/dl Hct 57.4 H (37-47) % Plt Count 388 (160-400) X10*3/uL BMP 02/24/20 02/24/20 06:40 09:18 Sodium Cancelled 136 Potassium Cancelled 3.6 Chloride Cancelled 104 Carbon Dioxide Cancelled 21 L BUN Cancelled 27 H Creatinine Cancelled 0.95 Calcium Cancelled 8.0 L Liver Function 02/24/20 02/24/20 Range/Units 06:40 09:18 Total Bilirubin Cancelled 0.9 AST Cancelled 46 H D ALT Cancelled 42 H Alkaline Phosphatase Cancelled 85 Albumin Cancelled 3.4 L Assessment and Plan (1) Small bowel obstruction: Status: Acute Review of her CT shows diffuse dilatation of the small bowel and a question of a stricture at the pouch. The area distal to the pouch however is also distended. Differentials include pouch stricture or pouchitis or severe ileus. I have reviewed her CAT scan with the radiologist. She continues to have watery BMs. In view of her smal bowel dilatation, I have recommended to her to have an NGT inserted to help with her discomfort. She had agreed to this. I will consult Dr. De La Garza who has seen her in the past. She otherwise has a benign exam.. We will start her on IV hydration. She understands that there is a small chance she will have to lose her pouch and end up with a permanent ileostomy, but she wants to ffup with her GI in [place] down the line to explore other options. She will be kept NPO for now.
[2020-02-24] MEDS: Lidocaine HCl 4 % Laryng-O-Jet 4 ML 1 APPL TOPICAL (12:54)
--- NOTE | 2020-02-24 12:55 | PC.NURSE ---
ng tube inserted
--- NOTE | 2020-02-24 13:40 | XR_ITS ---
EXAMINATION: XR CHEST CLINICAL INFORMATION: NG tube repositioning COMPARISON: Previous chest x-ray from earlier the same day TECHNIQUE: Frontal view of the chest was obtained. FINDINGS: There is a nasogastric tube with tip projecting over the proximal stomach. There are dilated loops of bowel with air-fluid levels. The cardiac and mediastinal contours are stable. The lungs are clear. There is no pleural effusion or pneumothorax. Bony structures are unremarkable. XR/XR chest 1V IMPRESSION: Nasogastric tube tip projects over the proximal stomach.
[2020-02-24] MEDS: Lactated Ringers 1,000 ML 100 ML IVCONT ×2 (13:41→22:38)
--- NOTE | 2020-02-24 13:42 | PC.NURSE ---
ng tube adjusted by provider- repeat cxr to be performed, ivf started per order, vss, will continue to monitor.
--- NOTE | 2020-02-24 15:55 | PC.NURSE ---
patient a&ox3, vss, ng tube draining, monitor worker nsr 90s, pt 10/10 abd pain-medicated per order, will continue to monitor.
--- NOTE | 2020-02-24 16:21 | PC.NURSE ---
called [facility] to give report, floor nurse to call ed back
--- NOTE | 2020-02-24 16:40 | PC.NURSE ---
patient will no longer be going to s3, pt will be going to [phone] once available, charge is aware.
[2020-02-24] MEDS: Heparin Sodium,Porcine 5,000 UNIT/ML VIAL 5000 UNIT SUBCUT (18:43)
[2020-02-24] MEDS: diazePAM 5 MG TABLET PO (21:30)
[2020-02-25] VITALS (8 sets, daily range): BP systolic 123–169; BP diastolic 80–100; PULSE 80–100; RESP 16–20; TEMP 35.5–37; O2SAT 94–98
--- NOTE | 2020-02-25 | XR_ITS ---
EXAMINATION: XR ABDOMEN KUB CLINICAL INDICATION: Follow-up for small bowel obstruction COMPARISON: Previous CT of the abdomen and pelvis from yesterday TECHNIQUE: Portable AP supine view of the abdomen and pelvis. FINDINGS: There is a nasogastric tube with tip projecting over the GE junction. There are dilated loops of small bowel similar to yesterday's CT scan. There are postsurgical changes with surgical staple line seen in the right lower quadrant and pelvis. No free air is seen. There is mild curvature of the lumbar spine to the right. XR/XR KUB IMPRESSION: Nasogastric tube tip projects over the GE junction and should be advanced into the stomach. No change in small bowel dilatation compared to yesterday's CT scan.
[2020-02-25] MEDS: HYDROmorphone HCl 0.5 MG/0.5 ML SYRINGE IVPUSH ×6 (00:32→23:34)
[2020-02-25] MEDS: ondansetron HCL 4 MG/2 ML VIAL IVPUSH ×3 (02:52→19:21)
[2020-02-25] MEDS: Heparin Sodium,Porcine 5,000 UNIT/ML VIAL 5000 UNIT SUBCUT ×2 (05:52→16:49)
--- NOTE | 2020-02-25 06:44 | PM.PNGS ---
Subjective Subjective Date of Service: 02/25/20 Interval history: says she had a good night feels better has watery stools - says this is her usual BM abdl pain better Physical Exam Vital Signs: Vital Signs: Last Vital Signs Temp 98.5 F 02/25/20 03:31 Pulse 86 02/25/20 03:31 Resp 17 02/25/20 03:31 BP 136/98 H 02/25/20 03:31 Pulse Ox 96 02/25/20 03:31 Body Mass Index 21.5 Const: General: comfortable, no acute distress and alert Resp: Effort & Inspection: normal respiratory effort Cardio: Rhythm: regular rhythm GI: Other: soft, no guarding or rebound, minimal tenderness Progress Note: A&P Assessment and plan (1) Small bowel obstruction: Status: Acute Assessment and Plan: ? obstruction at ileal pouch anastomosis, pouchitis, ileus her CT shows dilatation of remaining rectum past ileal pouch she is passing watery stools - says this is her usual BM NGT in place - output thick but not a lot check abdl xray today exam benign at this time await GI consult Fall Risk Details Current Medications: Current Medications Generic Name Dose Route Start Last Admin Trade Name Freq PRN Reason Stop Dose Admin Diazepam 5 mg 02/24/20 12:03 02/24/20 21:30 Diazepam 5 Mg Tablet PO 5 mg TID PRN Administration Anxiety Heparin Sodium (Porcine) 5,000 unit 02/24/20 17:00 02/25/20 05:52 Heparin Sodium,Porcine 5,000 Unit/Ml Vial SUBCUT 5,000 unit Q12H WENDY Administration Hydromorphone HCl 0.5 mg 02/24/20 12:03 02/25/20 05:52 Hydromorphone Hcl 0.5 Mg/0.5 Ml Syringe IVPUSH 0.5 mg Q4H PRN Administration pain Lactated Ringer's 1,000 mls @ 100 mls/hr 02/24/20 11:45 02/24/20 22:38 Lr IVCONT 100 mls/hr .Q10H WENDY Administration Ondansetron HCl 4 mg 02/24/20 11:45 02/25/20 02:52 Ondansetron Hcl 4 Mg/2 Ml Vial IVPUSH 4 mg Q6H PRN Administration Nausea Time Spent With Patient Time: Total time spent is greater than 50% in coordination of care (as documented) at patient's floor/unit and/or counseling patient: Time with patient: 15 - 24 minutes
[2020-02-25] MEDS: diazePAM 5 MG TABLET PO ×3 (07:17→23:35)
[2020-02-25 07:46] LABS: Hematocrit 44.8 % (37-47); Hemoglobin 15.1 g/dl (12.0-16.0); Mean Corpuscular HGB Conc 33.7 g/dl (31.0-35.0); Mean Corpuscular Hemoglobin 29.3 pg (27.0-33.0); Mean Platelet Volume 10.1 fL (9.4-12.3); Red Blood Count 5.15 X10*6/uL (4.20-5.50); Red Cell Distribution Width 17.7 % (11.0-16.0); White Blood Count 5.8 X10*3/uL (4.8-10.8)
[2020-02-25 07:53] LABS: Anion Gap 17 (12-20); Blood Urea Nitrogen 32 mg/dL (9-16); Calcium 7.9 mg/dL (8.4-10.2); Carbon Dioxide 16 mmol/L (22-29); Chloride 106 mmol/L (96-108); Creatinine Clr Calc Pharmacy 52.9; Estimated Glomerular Filt Rate 57; Glucose Random 93 mg/dL (60-115); Sodium 135 mmol/L (135-145)
[2020-02-25 08:58] LABS: Platelet Count 226 X10*3/uL (160-400)
[2020-02-25] MEDS: Magnesium Hydrox/Alum Hydrox 30 ML ORAL.SUSP PO (11:33)
--- NOTE | 2020-02-25 11:33 | MHC.CM.PN ---
CM met with Patient. Patient lives in a house with her and 14 yr old Daughter and she is functionally independent. Patient's goal is to return home, no services and CM has initiated and will follow for dc planning. PCP is Dr. John Buck.
--- NOTE | 2020-02-25 13:29 | PM.EVENT ---
Event Note Date of Service: 02/25/20 Event Note: NGT advanced - tip was at GE junction on KUB pt comfortable abd remains soft she is passing watery stools xray seems unchanged but clinically well continue current care
[2020-02-25] MEDS: Throat Lozenge, Medicated LOZENGE 1 LOZENGE MUCOUS MEM ×2 (16:40→19:21)
[2020-02-25] MEDS: Lactated Ringers 1,000 ML 100 ML IVCONT (19:13)
--- NOTE | 2020-02-25 19:25 | CONS_ITS ---
DATE OF SERVICE: 02/25/2020 REFERRING PHYSICIAN: Lambert Bean MD REASON FOR CONSULTATION: Small bowel obstruction. HISTORY OF PRESENT ILLNESS: The patient is a 59-year-old woman, well known to me from prior evaluation. She was admitted to the hospital on February 23 with complaints of nausea and vomiting as well as abdominal pain. Symptoms have been waxing and waning since and recurred after she ate a [place] sandwich on Monday, she developed recurrent abdominal pain with vomiting and presented to the emergency room. She was evaluated with CT scanning which is reviewed. This is interpreted as showing diffuse dilation of the small bowel with air-fluid levels, indeterminate for functional ileus versus a chronic partial obstruction at the level of the distal anastomosis. The patient is status post J-pouch and total colectomy for ulcerative colitis in 2011. She has been followed both locally and in [place] with Dr. Blackwell for chronic GI bleeding and has undergone ileoscopy in January and again in May with treatment of AVMs. Her anemia has improved and she has not required IV iron. The last ileoscopy we have available here showed no obvious stenosis at the anastomosis. She has been still passing liquid stool, which is somewhat watery, which is consistent with her baseline. NG-tube today has drained about 400 mL from 5 a.m. to about 3 p.m. She has had some improvement in her abdominal distention. PAST MEDICAL HISTORY: 1. Ulcerative colitis, status post colectomy with J-pouch. 2. Iron deficiency anemia with small bowel treatments for bleeding. 3. Hernia repair. 4. Cholecystectomy. 5. Hypertension. 6. Gastroesophageal reflux disease. CURRENT MEDICATIONS: Her current medication list is reviewed in the chart. ALLERGIES: MORPHINE. FAMILY HISTORY: This is reviewed with the patient and is noncontributory. SOCIAL HISTORY: There is no current substance abuse. REVIEW OF SYSTEMS: SKIN: No pruritus. HEENT: Negative. CARDIOPULMONARY: No shortness of breath or chest pain. GASTROINTESTINAL: As above. GENITOURINARY: Negative. NEUROPSYCHIATRIC: Negative. PHYSICAL EXAMINATION: GENERAL: Shows a pleasant female, sitting in bed. VITAL SIGNS: Reviewed in electronic medical record and are stable. SKIN: Anicteric. HEENT: Shows an NG tube in place, draining gastric secretions. NECK: Without lymphadenopathy. LUNGS: Clear. HEART: Shows a regular rate and rhythm S1, S2. No murmur. ABDOMEN: Soft without focal masses or tenderness. Bowel sounds are present. No organomegaly is noted. EXTREMITIES: Without edema. IMPRESSION: My impression is that this likely represents more of an ileus picture than an obstruction, but I did recommend she undergo a proctoscopy and this will be arranged for tomorrow. I agree with treating her supportively with IV fluids and NG suction. Thanks for asking me to see her. I will follow her in the hospital with you. MD ANITHA Verde/SOHAM / [id number]
[2020-02-25] MEDS: Famotidine/PF 20 MG/2 ML VIAL IVPUSH (21:32)
[2020-02-26] VITALS (12 sets, daily range): BP systolic 133–161; BP diastolic 85–99; PULSE 82–111; RESP 13–20; TEMP 36.2–37.2; O2SAT 91–98
[2020-02-26] MEDS: ondansetron HCL 4 MG/2 ML VIAL IVPUSH ×3 (03:20→23:17)
[2020-02-26] MEDS: HYDROmorphone HCl 0.5 MG/0.5 ML SYRINGE IVPUSH ×5 (03:20→21:45)
[2020-02-26] MEDS: Throat Lozenge, Medicated LOZENGE 1 LOZENGE MUCOUS MEM (03:24)
[2020-02-26] MEDS: Lactated Ringers 1,000 ML 100 ML IVCONT ×2 (04:58→16:38)
[2020-02-26 07:27] LABS: Anion Gap 14 (12-20); Blood Urea Nitrogen 30 mg/dL (9-16); Carbon Dioxide 26 mmol/L (22-29); Chloride 101 mmol/L (96-108); Creatinine Clr Calc Pharmacy 65.4; Estimated Glomerular Filt Rate > 60; Glucose Random 74 mg/dL (60-115); Potassium 4.1 mmol/l (3.3-5.1); Sodium 137 mmol/L (135-145)
[2020-02-26] MEDS: Famotidine/PF 20 MG/2 ML VIAL IVPUSH ×2 (07:49→21:44)
--- NOTE | 2020-02-26 08:25 | PM.PNGS ---
Subjective Subjective Date of Service: 02/26/20 Interval history: Says the NG tube is bothering her Has water stools Occasional crampy abdominal pain Unable to sleep because of roommate with dementia Physical Exam Vital Signs: Vital Signs: Last Vital Signs Temp 97.7 F 02/26/20 08:00 Pulse 98 02/26/20 08:00 Resp 18 02/26/20 08:00 BP 153/96 H 02/26/20 08:00 Pulse Ox 98 02/26/20 08:00 Body Mass Index 21.5 Chemistry 02/24/20 02/24/20 02/25/20 06:40 09:18 07:08 Sodium Cancelled 136 135 Potassium Cancelled 3.6 4.0 Carbon Dioxide Cancelled 21 L 16 L BUN Cancelled 27 H 32 H Creatinine Cancelled 0.95 1.00 Calcium Cancelled 8.0 L 7.9 L 02/26/20 05:52 Sodium 137 Potassium 4.1 Carbon Dioxide 26 BUN 30 H Creatinine 0.81 Calcium 8.0 L Hematology 02/24/20 02/25/20 06:25 07:08 WBC 11.9 H 5.8 Hgb 19.0 H 15.1 D Plt Count 388 226 D Const: General: comfortable and no acute distress Cardio: Rhythm: regular rhythm GI: Other: Mild tenderness mostly on the left with deep palpation Inspection: No distended Palpation (GI): Soft to palpation, not firm and no guarding Progress Note: A&P Assessment and plan (1) Small bowel obstruction: Status: Acute Assessment and Plan: Looks comfortable Abdomen remained benign Appreciate evaluation by Dr. Jimenez -for but pouchoscopy today Will keep NG tube for now Overall clinical picture appears to be more of pouch dysfunction Labs okay Fall Risk Details Current Medications: Current Medications Generic Name Dose Route Start Last Admin Trade Name Freq PRN Reason Stop Dose Admin Al Hydroxide/Mg Hydroxide 30 ml 02/25/20 11:24 02/25/20 11:33 Magnesium Hydrox/Alum Hydrox 30 Ml Oral.Susp PO 30 ml Q6H PRN Administration Heartburn Benzocaine 1 lozenge 02/25/20 15:38 02/26/20 03:24 Throat Lozenge, Medicated Lozenge MUCOUS MEM 1 lozenge Q2H PRN Administration Sore Throat Diazepam 5 mg 02/24/20 12:03 12/01/20 23:35 Diazepam 5 Mg Tablet PO 5 mg TID PRN Administration Anxiety Famotidine 20 mg 02/25/20 21:00 02/26/20 07:49 Famotidine/Pf 20 Mg/2 Ml Vial IVPUSH 20 mg BID WENDY Administration Heparin Sodium (Porcine) 5,000 unit 02/24/20 17:00 02/25/20 23:36 Heparin Sodium,Porcine 5,000 Unit/Ml Vial SUBCUT Not Given Q12H WENDY Hydromorphone HCl 0.5 mg 02/24/20 12:03 02/26/20 07:49 Hydromorphone Hcl 0.5 Mg/0.5 Ml Syringe IVPUSH 0.5 mg Q4H PRN Administration pain Lactated Ringer's 1,000 mls @ 100 mls/hr 02/24/20 11:45 02/26/20 04:58 Lr IVCONT 100 mls/hr .Q10H WENDY Administration Ondansetron HCl 4 mg 02/24/20 11:45 02/26/20 03:20 Ondansetron Hcl 4 Mg/2 Ml Vial IVPUSH 4 mg Q6H PRN Administration Nausea Time Spent With Patient Time: Total time spent is greater than 50% in coordination of care (as documented) at patient's floor/unit and/or counseling patient: Time with patient: 15 - 24 minutes
[2020-02-26] MEDS: diazePAM 5 MG TABLET PO ×3 (09:15→23:17)
--- NOTE | 2020-02-26 11:40 | MHC.CM.PN ---
Goal for dc is for Patient to return home, no services. Patient has a NGT and is receiving IV Pepcid & Zofran, along with IV Dilaudid. Patient has not yet been medically cleared for dc and CM will continue to follow for dc planning and possible need to adjust the dc plan.
--- NOTE | 2020-02-26 13:50 | P.CONAN_ITS ---
[facility] Past Medical History Medical History Small bowel obstruction Stomach spasm Ulcerative colitis Surgical History Surgical History Hx of cholecystectomy Hx of hernia repair Hx of resection of large bowel S/P total colectomy Social History Social History Household Members: Family Housing: House Do you presently have visiting nurse or other home services: No Alcohol intake: former Smoking Status: Never smoker Use of substances other than those prescribed or required for medical reasons: No Currently Displaying Signs/Symptoms of Drug Intoxication Withdrawal: No Any prior treatment program specific to substance use: No Do you feel safe in your current relationship?: Yes Is there a partner from a previous relationship who is making you feel unsafe now?: No Are you made to feel afraid or neglected: No Advance Directives: No Do you have thoughts of harming others: None Do you have a plan to hurt others: No Plan Recently lost weight without trying: No service: No Current occupational status: disabled Meds Allergies Allergy/AdvReac Type Severity Reaction Status Date / Time morphine [MORPHINE] AdvReac Mild NAUSEA & Verified 02/20/20 02:44 VOMITING Home Medications Medication Instructions Recorded Confirmed Type colesevelam 3 tab PO DAILY 02/24/20 02/24/20 History diazepam 1 tab PO TID PRN 02/24/20 02/24/20 History dicyclomine 1 cap PO QID 02/24/20 02/24/20 History diphenoxylate-atropine 1 - 2 tab PO QID PRN 02/24/20 02/24/20 History hydrocodone-acetaminophen 1 tab PO Q6H 02/24/20 02/24/20 History Exam Exam Date and Time: February 26, 2020 1350 Height,Weight and Vital Signs: Height 5 ft 4 in Weight 56.9 kg Last Vital Signs Temp 98.8 F 02/26/20 13:44 Pulse 95 02/26/20 13:44 Resp 18 02/26/20 13:44 BP 138/99 H 02/26/20 13:44 Pulse Ox 97 02/26/20 13:44 Pertinent Lab Results Pertinent Lab Results: Laboratory Tests 02/24/20 02/24/20 02/24/20 06:25 06:25 06:27 WBC 11.9 H RBC 6.75 H Hgb 19.0 H Hct 57.4 H MCV 85.0 MCH 28.1 MCHC 33.1 RDW 18.6 H Plt Count 388 MPV 9.5 Immature Gran % (Auto) 0.8 H Neut % (Auto) 82.0 H Lymph % (Auto) 13.6 L [place] % (Auto) 3.4 Eos % (Auto) 0.0 Baso % (Auto) 0.2 Lymph # (Auto) 1.6 [place] # (Auto) 0.4 Eos # (Auto) 0.0 Baso # (Auto) 0.0 Abs Immat Gran (auto) 0.09 H Absolute Neuts (auto) 9.8 H Absolute Nucleated RBC 0.000 Nucleated RBC % (auto) 0.0 Hold Blue Top SEE NOTE Sodium Potassium Chloride Carbon Dioxide Anion Gap BUN Creatinine Estim Creat Clear Calc Estimated GFR Random Glucose Lactic Acid Lactic Acid Fup @ 2Hr Calcium Magnesium Total Bilirubin AST ALT Alkaline Phosphatase Troponin I High Sens 8.0 D Total Protein Albumin Lipase 02/24/20 02/24/20 02/24/20 06:40 06:40 06:40 WBC RBC Hgb Hct MCV MCH MCHC RDW Plt Count MPV Immature Gran % (Auto) Neut % (Auto) Lymph % (Auto) [place] % (Auto) Eos % (Auto) Baso % (Auto) Lymph # (Auto) [place] # (Auto) Eos # (Auto) Baso # (Auto) Abs Immat Gran (auto) Absolute Neuts (auto) Absolute Nucleated RBC Nucleated RBC % (auto) Hold Blue Top Sodium Cancelled Potassium Cancelled Chloride Cancelled Carbon Dioxide Cancelled Anion Gap Cancelled BUN Cancelled Creatinine Cancelled Estim Creat Clear Calc Cancelled Estimated GFR Cancelled Random Glucose Cancelled Lactic Acid 3.0 H* Lactic Acid Fup @ 2Hr Calcium Cancelled Magnesium Cancelled Total Bilirubin Cancelled AST Cancelled ALT Cancelled Alkaline Phosphatase Cancelled Troponin I High Sens Total Protein Cancelled Albumin Cancelled Lipase Cancelled 02/24/20 02/24/20 02/24/20 09:18 09:18 09:18 WBC RBC Hgb Hct MCV MCH MCHC RDW Plt Count MPV Immature Gran % (Auto) Neut % (Auto) Lymph % (Auto) [place] % (Auto) Eos % (Auto) Baso % (Auto) Lymph # (Auto) [place] # (Auto) Eos # (Auto) Baso # (Auto) Abs Immat Gran (auto) Absolute Neuts (auto) Absolute Nucleated RBC Nucleated RBC % (auto) Hold Blue Top Sodium 136 Potassium 3.6 Chloride 104 Carbon Dioxide 21 L Anion Gap 15 BUN 27 H Creatinine 0.95 Estim Creat Clear Calc 55.7 Estimated GFR > 60 Random Glucose 113 Lactic Acid Lactic Acid Fup @ 2Hr Calcium 8.0 L Magnesium 1.9 Total Bilirubin 0.9 AST 46 H D ALT 42 H Alkaline Phosphatase 85 Troponin I High Sens Total Protein 5.8 L Albumin 3.4 L Lipase 37 02/24/20 02/25/20 02/25/20 10:54 07:08 07:08 WBC 5.8 RBC 5.15 D Hgb 15.1 D Hct 44.8 D MCV 87.0 MCH 29.3 MCHC 33.7 RDW 17.7 H Plt Count 226 D MPV 10.1 Immature Gran % (Auto) Neut % (Auto) Lymph % (Auto) [place] % (Auto) Eos % (Auto) Baso % (Auto) Lymph # (Auto) [place] # (Auto) Eos # (Auto) Baso # (Auto) Abs Immat Gran (auto) Absolute Neuts (auto) Absolute Nucleated RBC 0.000 Nucleated RBC % (auto) 0.0 Hold Blue Top Sodium 135 Potassium 4.0 Chloride 106 Carbon Dioxide 16 L Anion Gap 17 BUN 32 H Creatinine 1.00 Estim Creat Clear Calc 52.9 Estimated GFR 57 Random Glucose 93 Lactic Acid Lactic Acid Fup @ 2Hr 0.9 Calcium 7.9 L Magnesium Total Bilirubin AST ALT Alkaline Phosphatase Troponin I High Sens Total Protein Albumin Lipase 02/26/20 05:52 WBC RBC Hgb Hct MCV MCH MCHC RDW Plt Count MPV Immature Gran % (Auto) Neut % (Auto) Lymph % (Auto) [place] % (Auto) Eos % (Auto) Baso % (Auto) Lymph # (Auto) [place] # (Auto) Eos # (Auto) Baso # (Auto) Abs Immat Gran (auto) Absolute Neuts (auto) Absolute Nucleated RBC Nucleated RBC % (auto) Hold Blue Top Sodium 137 Potassium 4.1 Chloride 101 Carbon Dioxide 26 Anion Gap 14 BUN 30 H Creatinine 0.81 Estim Creat Clear Calc 65.4 Estimated GFR > 60 Random Glucose 74 Lactic Acid Lactic Acid Fup @ 2Hr Calcium 8.0 L Magnesium Total Bilirubin AST ALT Alkaline Phosphatase Troponin I High Sens Total Protein Albumin Lipase Airway Mallampati Class: II TM Dist: >3cm Neck ROM: Full Loose/Missing/Broken Teeth: No Heart: [id number] Lungs: cta b/l Assessment and Plan Assessment Anesthesia Assessment: Anesthesia Plan Discussed, PAT Visit and Chart Reviewed Final Anesthetic Review ASA Class: II Final Preanesthetic Review: No Changes in Pt Med Stat, Meds/Allgs Chart Reviewed, Consent Obtained/Reviewed and Anes Risks/Benef Reviewed Patient Risk: Intermediate Procedure Risk: Low Assessment/Block/Sedation in SS: Assess/Block/Sedation-SS Anesthetic Plan Anesthetic Plan: MAC: Disposition: Standard PACU
--- NOTE | 2020-02-26 14:31 | PM.OP ---
Brief Operative Note Date of Service: 02/26/20 Pre-op diagnosis: abd pain, abnl ct j pouch Post-op diagnosis: same (normal j pouch ileoscopy) Procedure: j pouch ileoscopy Surgeon: Tee Jimenez Anesthesia: MAC Estimated blood loss (mL): 10 Pathology: other (j pouch biopsies) Condition: stable Disposition: PACU
--- NOTE | 2020-02-26 14:33 | PM.EVENT ---
Event Note Date of Service: 02/26/20 Event Note: Ileoscopy no stricture identified mucosa mildly friable but no pouchitis or evidence of crohns disease biposies taken
--- NOTE | 2020-02-26 15:51 | PM.EVENT ---
Event Note Date of Service: 02/26/20 Event Note: Underwent a pouchoscopy with Dr. Jimenez this afternoon Ileal J-pouch not significant inflamed, anastomosis patent, able to advance scope proximally No obstruction noted Changes on imaging likely due to ileus Plan to DC NG tube today Clear liquid diet Abdomen remained soft and benign Discussed plan with patient
[2020-02-26] MEDS: Heparin Sodium,Porcine 5,000 UNIT/ML VIAL 5000 UNIT SUBCUT (16:30)
--- NOTE | 2020-02-26 19:11 | OP_ITS ---
SURGEON: Tee Jimenez MD INDICATIONS: Abnormal x-ray of the GI tract and abdominal pain. PREOPERATIVE DIAGNOSIS: POSTOPERATIVE DIAGNOSIS: PROCEDURE PERFORMED: J-pouch ileoscopy with biopsy. ESTIMATED BLOOD LOSS: COMPLICATIONS: ANESTHESIA: ASSISTANTS: SPECIMENS: MEDICATIONS: Monitored anesthesia care. DESCRIPTION OF PROCEDURE: History and physical performed. The risks and benefits of the procedure were explained to the patient. Informed consent was obtained. The patient was placed in the left lateral decubitus position. A digital rectal exam was performed and was found to be normal. The Olympus pediatric video colonoscope was introduced into the rectum and advanced through the J-pouch to about 20 to 25 cm. Examination was performed and the scope was removed. She tolerated the procedure well and was returned to recovery area in stable condition. FINDINGS: There were surgical changes consistent with her previous colectomy and J-pouch creation. The J-pouch mucosa appeared normal without evidence of masses or ulcers. Biopsies were obtained at the level of the J-pouch and closer to the ileoanal anastomosis. There were no strictures identified. The scope could only be advanced to about 20 to 25 cm due to the angulation and anatomic changes from surgery. There is no evidence of Crohn disease. No pouchitis was identified. IMPRESSION: Normal J-pouch ileoscopy. RECOMMENDATION: Follow up the biopsy results. MD ANITHA Verde/SOHAM / [id number]
[2020-02-27] VITALS (8 sets, daily range): BP systolic 129–150; BP diastolic 84–106; PULSE 76–119; RESP 16–20; TEMP 36.1–37.1; O2SAT 96–97
--- NOTE | 2020-02-27 | ECG_ITS ---
Test Reason : CHEST PAIN Blood Pressure : / mmHG Vent. Rate : 083 BPM Atrial Rate : 083 BPM P-R Int : 130 ms QRS Dur : 076 ms QT Int : 384 ms P-R-T Axes : 068 -01 003 degrees QTc Int : 451 ms Normal sinus rhythm Possible Inferior infarct , age undetermined Abnormal ECG When compared with ECG of 24-FEB-2020 06:02, Vent. rate has decreased BY 60 BPM Questionable change in QRS axis Inverted T waves have replaced nonspecific T wave abnormality in Inferior leads T wave amplitude has decreased in Anterior leads Referred By: Syd Tineo Electronically Signed By:KLAUS WILL MD
[2020-02-27] MEDS: Lactated Ringers 1,000 ML 100 ML IVCONT ×3 (02:56→19:55)
[2020-02-27] MEDS: HYDROmorphone HCl 0.5 MG/0.5 ML SYRINGE IVPUSH ×4 (03:19→20:02)
[2020-02-27] MEDS: Heparin Sodium,Porcine 5,000 UNIT/ML VIAL 5000 UNIT SUBCUT (05:26)
[2020-02-27] MEDS: Famotidine/PF 20 MG/2 ML VIAL IVPUSH ×2 (07:42→20:12)
--- NOTE | 2020-02-27 08:16 | PM.PNGS ---
Subjective Subjective Date of Service: 02/27/20 Interval history: She states she did not want the NG tube removed last night Pouchoscopy had been done yesterday by Dr. Jimenez - pouch anastomosis patent, pouch only mildly inflamed Complaints of chest pain now, pressure type Continues to have watery stools Physical Exam Vital Signs: Vital Signs: Last Vital Signs Temp 97.5 F 02/27/20 07:58 Pulse 97 02/27/20 07:58 Resp 16 02/27/20 07:58 BP 145/106 H 02/27/20 07:58 Pulse Ox 97 02/27/20 07:58 Body Mass Index 21.5 Const: General: comfortable and no acute distress Cardio: Rhythm: regular rhythm GI: Other: Mild tenderness diffusely Inspection: No distended Palpation (GI): Soft to palpation and no guarding Progress Note: A&P Assessment and plan (1) Paralytic ileus: Status: Acute Assessment and Plan: Examination of the pouch yesterday showed no obstruction of the anastomosis, no significant pouchitis Symptoms and CT scan picture likely due to ileus DC NG tube was ordered yesterday Okay to start clear liquids Patient complaining of chest pain -EKG ordered Consult hospitalist Otherwise, looks well Fall Risk Details Current Medications: Current Medications Generic Name Dose Route Start Last Admin Trade Name Freq PRN Reason Stop Dose Admin Al Hydroxide/Mg Hydroxide 30 ml 02/25/20 11:24 02/25/20 11:33 Magnesium Hydrox/Alum Hydrox 30 Ml Oral.Susp PO 30 ml Q6H PRN Administration Heartburn Benzocaine 1 lozenge 02/25/20 15:38 02/26/20 03:24 Throat Lozenge, Medicated Lozenge MUCOUS MEM 1 lozenge Q2H PRN Administration Sore Throat Diazepam 5 mg 02/24/20 12:03 02/26/20 23:17 Diazepam 5 Mg Tablet PO 5 mg TID PRN Administration Anxiety Famotidine 20 mg 02/25/20 21:00 02/27/20 07:42 Famotidine/Pf 20 Mg/2 Ml Vial IVPUSH 20 mg BID WENDY Administration Heparin Sodium (Porcine) 5,000 unit 02/24/20 17:00 02/27/20 05:26 Heparin Sodium,Porcine 5,000 Unit/Ml Vial SUBCUT 5,000 unit Q12H WENDY Administration Hydromorphone HCl 0.5 mg 02/24/20 12:03 02/27/20 07:42 Hydromorphone Hcl 0.5 Mg/0.5 Ml Syringe IVPUSH 0.5 mg Q4H PRN Administration pain Lactated Ringer's 1,000 mls @ 100 mls/hr 02/24/20 11:45 02/27/20 02:56 Lr IVCONT 100 mls/hr .Q10H WENDY Administration Ondansetron HCl 4 mg 02/24/20 11:45 02/26/20 23:17 Ondansetron Hcl 4 Mg/2 Ml Vial IVPUSH 4 mg Q6H PRN Administration Nausea Ondansetron HCl 4 mg 02/26/20 13:53 Ondansetron Hcl 4 Mg/2 Ml Vial IVPUSH ONCE PRN Nausea and Vomiting Time Spent With Patient Time: Total time spent is greater than 50% in coordination of care (as documented) at patient's floor/unit and/or counseling patient: Time with patient: 15 - 24 minutes
--- NOTE | 2020-02-27 09:15 | PM.GIPN ---
Subjective Subjective Date of Service: 02/27/20 Interval History: ngt removed this am no vomiting Physical Exam Vital Signs: Vital Signs: Last Vital Signs Temp 97.5 F 02/27/20 07:58 Pulse 97 02/27/20 07:58 Resp 16 02/27/20 07:58 BP 145/106 H 02/27/20 07:58 Pulse Ox 97 02/27/20 07:58 Body Mass Index 21.5 Const: General: cooperative, no acute distress and alert Resp: Other: lungs clear Cardio: Other: normal s1,s2 GI: Other: abdomen soft nontender, no masses or guarding Extrem: Other: without edema Objective Data Labs CBC & Chem 7: 02/25/20 07:08 02/26/20 05:52 Microbiology Microbiology Results: Microbiology 02/24/20 06:40 Blood - Venous Blood Culture - Preliminary No growth after 48 hours. 02/24/20 06:25 Blood - Venous Blood Culture - Preliminary No growth after 48 hours. Progress Note: A&P Assessment and plan (1) Paralytic ileus: Status: Acute Assessment and Plan: appears improved starting clear liquids reviewed j pouch ileoscopy findings with patient biopsies pending advance diet as tolerated. Fall Risk Details Current Medications: Current Medications Generic Name Dose Route Start Last Admin Trade Name Freq PRN Reason Stop Dose Admin Al Hydroxide/Mg Hydroxide 30 ml 02/25/20 11:24 02/25/20 11:33 Magnesium Hydrox/Alum Hydrox 30 Ml Oral.Susp PO 30 ml Q6H PRN Administration Heartburn Benzocaine 1 lozenge 02/25/20 15:38 02/26/20 03:24 Throat Lozenge, Medicated Lozenge MUCOUS MEM 1 lozenge Q2H PRN Administration Sore Throat Diazepam 5 mg 02/24/20 12:03 02/26/20 23:17 Diazepam 5 Mg Tablet PO 5 mg TID PRN Administration Anxiety Famotidine 20 mg 02/25/20 21:00 02/27/20 07:42 Famotidine/Pf 20 Mg/2 Ml Vial IVPUSH 20 mg BID WENDY Administration Heparin Sodium (Porcine) 5,000 unit 02/24/20 17:00 02/27/20 05:26 Heparin Sodium,Porcine 5,000 Unit/Ml Vial SUBCUT 5,000 unit Q12H WENDY Administration Hydromorphone HCl 0.5 mg 02/24/20 12:03 02/27/20 07:42 Hydromorphone Hcl 0.5 Mg/0.5 Ml Syringe IVPUSH 0.5 mg Q4H PRN Administration pain Lactated Ringer's 1,000 mls @ 100 mls/hr 02/24/20 11:45 02/27/20 02:56 Lr IVCONT 100 mls/hr .Q10H WENDY Administration Ondansetron HCl 4 mg 02/24/20 11:45 02/26/20 23:17 Ondansetron Hcl 4 Mg/2 Ml Vial IVPUSH 4 mg Q6H PRN Administration Nausea Ondansetron HCl 4 mg 02/26/20 13:53 Ondansetron Hcl 4 Mg/2 Ml Vial IVPUSH ONCE PRN Nausea and Vomiting Time Spent With Patient Time: Total time spent is greater than 50% in coordination of care (as documented) at patient's floor/unit and/or counseling patient: Time with patient: 15 - 24 minutes
--- NOTE | 2020-02-27 09:28 | PM.IMCN ---
History of Present Illness Data of Consult Service Date: 02/27/20 Requesting physician: Lambert Bean Primary Care Provider: John Buck MD [facility] Reason for consult: Chest pain This is a 59 yo F who admitted under the surgical services for ileus. Hospitalist services were consulted for complaints of chest pain. Patient is seen and examined in her room. She denies any current chest pain, but does endorse on and off chest pain which she reports is burning / pressure in sensation in the mid chest/epigastric region. She reports that this happened this morning and was relieved by pepcid and dilaudid. She reports that the pain lasts less than 10 minutes and she thinks that it may be due irritation from the NG that she has in it. She denies any personal or family history of CAD. She denies any anginal symptoms prior to hospitalization. She endorses a prior history of hypertension, but reports that after she lost weight, she was taken off her antihypertensives. She denies any history of tobacco use. She does prior alcohol and cocaine use which she stopped more than 20 years ago. Review of Systems Review of Systems: General - denies fevers or chills, denies weakness or fatigue HEENT -denies blurred vision, denies headache, denies sore throat Cardiovascular - denies current chest pain Respiratory - denies shortness of breath, coughing, wheezing - denies flank pain, denies dysuria, denies frequency or urgency Musculoskeletal - denies back pain, denies hip pain, denies knee pain, denies shoulder pain Neurological - denies any focal weakness or numbness Skin - denies any bruising or redness Psychiatric - denies any suicidal ideation, hallucinations, homicidal ideation Endocrinology - denies intolerance to hot / cold temperatures [facility] Medical History Small bowel obstruction Stomach spasm Ulcerative colitis Surgical History Hx of cholecystectomy Hx of hernia repair Hx of resection of large bowel S/P total colectomy Social History Household Members: Family Housing: House Do you presently have visiting nurse or other home services: No Alcohol intake: former Smoking Status: Never smoker Use of substances other than those prescribed or required for medical reasons: No Currently Displaying Signs/Symptoms of Drug Intoxication Withdrawal: No Any prior treatment program specific to substance use: No Do you feel safe in your current relationship?: Yes Is there a partner from a previous relationship who is making you feel unsafe now?: No Are you made to feel afraid or neglected: No Advance Directives: No Do you have thoughts of harming others: None Do you have a plan to hurt others: No Plan Recently lost weight without trying: No service: No Current occupational status: disabled Meds Allergies Allergy/AdvReac Type Severity Reaction Status Date / Time morphine [MORPHINE] AdvReac Mild NAUSEA & Verified 02/20/20 02:44 VOMITING Home Medications Medication Instructions Recorded Confirmed Type colesevelam 3 tab PO DAILY 02/24/20 02/24/20 History diazepam 1 tab PO TID PRN 02/24/20 02/24/20 History dicyclomine 1 cap PO QID 02/24/20 02/24/20 History diphenoxylate-atropine 1 - 2 tab PO QID PRN 02/24/20 02/24/20 History hydrocodone-acetaminophen 1 tab PO Q6H 02/24/20 02/24/20 History Physical Exam Vital Signs and Narrative: Vital Signs: Last Vital Signs Temp 97.5 F 02/27/20 07:58 Pulse 97 02/27/20 07:58 Resp 16 02/27/20 07:58 BP 145/106 H 02/27/20 07:58 Pulse Ox 97 02/27/20 07:58 Body Mass Index 21.5 Constitutional - Awake and Alert, No apparent distress Eyes - PERRLA, EOMI Cardiovascular - S1S2, RRR, No edema Respiratory - Normal lung expansion, Normal respiratory effort, No respiratory distress, CTA bilaterally Gastrointestinal - mild tenderness, no rebound - No CVA tenderness Skin - Warm/Dry Neurological - Alert & oriented x3, No focal deficit Psychological - Appropriate affect Results Labs CBC and Chem 7: 02/25/20 07:08 02/26/20 05:52 Assessment and Plan (1) Chest pain: Status: Acute This is a 59 yo F admitted under the surgical services for ileus. Medical sevices consulted this AM after she developed some chest pain. 1. Chest pain, now resolved She does not have any major CAD risk factors. Her chest pain resolved with some pepcid. EKG reviewed -- poor quality. Repeat EKG reviewed, doesn't appear to be significantly changed from admission EKG. HS Trop-I negative. Suspect that her symptoms are most likely related to her GI symptoms not cardiac. If recurrent chest pain not explained by GI symptoms -- repeat trop-I and repeat EKG and re-consult. Of note -- BP is on the higher side. She tells me she was previously on antihypertensives but stopped after she lost weight. If he remains high as her GI symptoms improve -- I have advised her to see her PCP and restart antihypertensives as before. Will sign off at this time, please reconsult if needed.
[2020-02-27] MEDS: diazePAM 5 MG TABLET PO ×2 (10:00→22:07)
[2020-02-27 10:04] LABS: Troponin-I High Sensitivity 9.9 ng/L (<3.5-17.0)
[2020-02-27] MEDS: ondansetron HCL 4 MG/2 ML VIAL IVPUSH ×2 (14:46→20:11)
--- NOTE | 2020-02-27 14:57 | HO.POSTANES ---
Post Anesthesia Evaluation Post Anesthesia Evaluation Vital Signs: Vital Signs Temp Pulse Resp BP Pulse Ox 02/27/20 11:30 97.0 F 97 18 130/98 H 96 02/27/20 07:58 97.5 F 97 16 145/106 H 97 02/27/20 06:13 97.6 F 76 18 150/96 H 96 02/27/20 05:21 18 02/27/20 03:00 98.7 F 86 20 146/95 H 97 Anesthesia: Monitored Mental Status: Awake Pain Control: Satisfactory Nausea/Vomiting: None Hydration: Adequate Anesthesia-Related Issues: No Anes. Related Issues
--- NOTE | 2020-02-27 17:34 | PC.NURSE ---
Patient blood pressure elevated 140/106, heart rate 106, patient complaining of pressure to the low mid sternal area. Non radiating, patient experiencing gas and belching and states that it is a relief. MD made aware, prior EKG was done this Am for same symptoms. MD to order repeat Troponin.
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
[2020-02-27 19:23] LABS: Troponin-I High Sensitivity 7.8 ng/L (<3.5-17.0)
[2020-02-28] MEDS: HYDROmorphone HCl 0.5 MG/0.5 ML SYRINGE IVPUSH ×2 (02:18→17:28)
[2020-02-28] MEDS: ondansetron HCL 4 MG/2 ML VIAL IVPUSH ×4 (02:20→20:10)
[2020-02-28 03:00] VITALS: BP 121/95; PULSE 75; RESP 20; TEMP 36.6; O2SAT 97
[2020-02-28] MEDS: Heparin Sodium,Porcine 5,000 UNIT/ML VIAL 5000 UNIT SUBCUT ×2 (05:48→17:24)
[2020-02-28] MEDS: Lactated Ringers 1,000 ML 100 ML IVCONT ×2 (05:49→15:52)
[2020-02-28 06:40] VITALS: BP 148/91; PULSE 86; RESP 18; TEMP 36.8; O2SAT 96
--- NOTE | 2020-02-28 07:35 | PM.PNGS ---
Subjective Subjective Date of Service: 02/28/20 Interval history: has periods of crampy abdl pain passing flatus, water stools ambulating wants to eat Physical Exam Vital Signs: Vital Signs: Last Vital Signs Temp 98.3 F 02/28/20 06:40 Pulse 86 02/28/20 06:40 Resp 18 02/28/20 06:40 BP 148/91 H 02/28/20 06:40 Pulse Ox 96 02/28/20 06:40 Body Mass Index 21.5 Const: General: no acute distress, alert and anxious Resp: Effort & Inspection: normal respiratory effort Cardio: Rhythm: regular rhythm GI: Other: mild diffuse tenderness Palpation (GI): Soft to palpation, not firm and no guarding Progress Note: A&P Assessment and plan (1) Paralytic ileus: Status: Acute Assessment and Plan: ?pouch dysfunction pouchoscopy shows patent pouch anastomosis watery stools seems c/w baseline try full liquids today, advance diet as tolerated pain meds despite periodic crampy pain, looks well Fall Risk Details Current Medications: Current Medications Generic Name Dose Route Start Last Admin Trade Name Freq PRN Reason Stop Dose Admin Al Hydroxide/Mg Hydroxide 30 ml 02/25/20 11:24 02/25/20 11:33 Magnesium Hydrox/Alum Hydrox 30 Ml Oral.Susp PO 30 ml Q6H PRN Administration Heartburn Benzocaine 1 lozenge 02/25/20 15:38 02/26/20 03:24 Throat Lozenge, Medicated Lozenge MUCOUS MEM 1 lozenge Q2H PRN Administration Sore Throat Diazepam 5 mg 02/24/20 12:03 02/27/20 22:07 Diazepam 5 Mg Tablet PO 5 mg TID PRN Administration Anxiety Famotidine 20 mg 02/25/20 21:00 02/27/20 20:12 Famotidine/Pf 20 Mg/2 Ml Vial IVPUSH 20 mg BID WENDY Administration Heparin Sodium (Porcine) 5,000 unit 02/24/20 17:00 02/28/20 05:48 Heparin Sodium,Porcine 5,000 Unit/Ml Vial SUBCUT 5,000 unit Q12H WENDY Administration Hydromorphone HCl 0.5 mg 02/24/20 12:03 02/28/20 02:18 Hydromorphone Hcl 0.5 Mg/0.5 Ml Syringe IVPUSH 0.5 mg Q4H PRN Administration pain Lactated Ringer's 1,000 mls @ 60 mls/hr 02/24/20 11:45 02/28/20 05:49 Lr IVCONT 100 mls/hr .[id number] WENDY Administration Ondansetron HCl 4 mg 02/24/20 11:45 02/28/20 02:20 Ondansetron Hcl 4 Mg/2 Ml Vial IVPUSH 4 mg Q6H PRN Administration Nausea Ondansetron HCl 4 mg 02/26/20 13:53 Ondansetron Hcl 4 Mg/2 Ml Vial IVPUSH ONCE PRN Nausea and Vomiting Time Spent With Patient Time: Total time spent is greater than 50% in coordination of care (as documented) at patient's floor/unit and/or counseling patient: Time with patient: 15 - 24 minutes
[2020-02-28] MEDS: oxyCODONE HCl Immed Release 5 MG TABLET PO ×4 (08:08→23:48)
[2020-02-28] MEDS: Famotidine/PF 20 MG/2 ML VIAL IVPUSH ×2 (08:08→20:11)
[2020-02-28 11:00] VITALS: BP 119/92; PULSE 82; RESP 18; TEMP 36.6; O2SAT 97
--- NOTE | 2020-02-28 12:57 | MHC.CM.PN ---
Patient's B/P still not controlled. Discharge plan is home no services. will provide transportation. CM will continue to follow for discharge needs.
--- NOTE | 2020-02-28 14:42 | PM.GIPN ---
Subjective Subjective Date of Service: 02/28/20 Interval History: some nausea, cramping after eating full liquids today Physical Exam Vital Signs: Vital Signs: Last Vital Signs Temp 97.8 F 02/28/20 11:00 Pulse 82 02/28/20 11:00 Resp 18 02/28/20 11:00 BP 119/92 H 02/28/20 11:00 Pulse Ox 97 02/28/20 11:00 Body Mass Index 21.5 Const: General: alert and awake GI: Other: soft no focal tenderness bowel sounds active. Extrem: Other: no edema Objective Data Labs CBC & Chem 7: 02/25/20 07:08 02/26/20 05:52 Progress Note: A&P Assessment and plan (1) Paralytic ileus: Status: Acute Assessment and Plan: gradually advance diet f/u biopsy results ambulate Time Spent With Patient Time: Total time spent is greater than 50% in coordination of care (as documented) at patient's floor/unit and/or counseling patient: Time with patient: less than 15 minutes
[2020-02-28 15:00] VITALS: BP 146/100; PULSE 100; RESP 19; TEMP 36; O2SAT 95
--- NOTE | 2020-02-28 16:11 | HO.PM.IMPN ---
Subjective Subjective Date of Service: 02/28/20 Interval History: seen and examined this AM no chest pain Physical Exam Vital Signs: Vital Signs: Last Vital Signs Temp 96.8 F 02/28/20 15:00 Pulse 100 02/28/20 15:00 Resp 19 02/28/20 15:00 BP 146/100 H 02/28/20 15:00 Pulse Ox 95 02/28/20 15:00 Body Mass Index 21.5 Const: Other: Constitutional - Awake and Alert, No apparent distress Eyes - PERRLA, EOMI Cardiovascular - S1S2, RRR, No edema Respiratory - Normal lung expansion, Normal respiratory effort, No respiratory distress, CTA bilaterally Gastrointestinal - mild tenderness, no rebound - No CVA tenderness Skin - Warm/Dry Neurological - Alert & oriented x3, No focal deficit Psychological - Appropriate affect Objective Data Current Medications Generic Name Dose Route Start Last Admin Trade Name Freq PRN Reason Stop Dose Admin Al Hydroxide/Mg Hydroxide 30 ml 02/25/20 11:24 02/25/20 11:33 Magnesium Hydrox/Alum Hydrox 30 Ml Oral.Susp PO 30 ml Q6H PRN Administration Heartburn Benzocaine 1 lozenge 02/25/20 15:38 02/26/20 03:24 Throat Lozenge, Medicated Lozenge MUCOUS MEM 1 lozenge Q2H PRN Administration Sore Throat Diazepam 5 mg 02/24/20 12:03 02/27/20 22:07 Diazepam 5 Mg Tablet PO 5 mg TID PRN Administration Anxiety Famotidine 20 mg 02/25/20 21:00 02/28/20 08:08 Famotidine/Pf 20 Mg/2 Ml Vial IVPUSH 20 mg BID WENDY Administration Heparin Sodium (Porcine) 5,000 unit 02/24/20 17:00 02/28/20 05:48 Heparin Sodium,Porcine 5,000 Unit/Ml Vial SUBCUT 5,000 unit Q12H WENDY Administration Hydromorphone HCl 0.5 mg 02/24/20 12:03 02/28/20 02:18 Hydromorphone Hcl 0.5 Mg/0.5 Ml Syringe IVPUSH 0.5 mg Q4H PRN Administration pain Lactated Ringer's 1,000 mls @ 60 mls/hr 02/24/20 11:45 02/28/20 15:52 Lr IVCONT 100 mls/hr .[id number] WENDY Administration Ondansetron HCl 4 mg 02/24/20 11:45 02/28/20 12:59 Ondansetron Hcl 4 Mg/2 Ml Vial IVPUSH 4 mg Q6H PRN Administration Nausea Ondansetron HCl 4 mg 02/26/20 13:53 Ondansetron Hcl 4 Mg/2 Ml Vial IVPUSH ONCE PRN Nausea and Vomiting Oxycodone HCl 5 mg 02/28/20 07:35 02/28/20 12:58 Oxycodone Hcl Immed Release 5 Mg Tablet PO 5 mg Q4H PRN Administration Pain, Moderate (Pain Scale 4-6 Labs CBC & Chem 7: 02/25/20 07:08 02/26/20 05:52 Microbiology Microbiology Results: Microbiology 02/24/20 06:40 Blood - Venous Blood Culture - Preliminary No growth after 48 hours. 02/24/20 06:25 Blood - Venous Blood Culture - Preliminary No growth after 48 hours. Assessment and Plan (1) Chest pain: Status: Acute Assessment and Plan: This is a 59 yo F admitted under the surgical services for ileus. Medical sevices consulted this AM after she developed some chest pain. 1. Chest pain no further episodes ekg without acute ischemic findings HS trop-I checked 12 hours apart negative symptoms likley gi +/- anxiety will sign off
[2020-02-28 19:00] VITALS: BP 147/91; PULSE 85; RESP 19; TEMP 36; O2SAT 96
[2020-02-28] MEDS: diazePAM 5 MG TABLET PO (20:11)
--- NOTE | 2020-02-28 22:56 | PC.NURSE ---
pt reported abdominal pain throughout shift, also reported nausea. She has been able to get up and ambulate to bathroom with no distress. Pt was medicated for pain and is sleeping at time of note.
[2020-02-28 23:56] VITALS: BP 147/100; PULSE 75; RESP 18; TEMP 37; O2SAT 94
[2020-02-29] VITALS (8 sets, daily range): BP systolic 110–138; BP diastolic 64–94; PULSE 74–90; RESP 16–19; TEMP 36–36.9; O2SAT 94–97
[2020-02-29] MEDS: HYDROmorphone HCl 0.5 MG/0.5 ML SYRINGE IVPUSH ×2 (02:42→07:59)
[2020-02-29] MEDS: ondansetron HCL 4 MG/2 ML VIAL IVPUSH ×3 (03:15→15:29)
[2020-02-29] MEDS: Heparin Sodium,Porcine 5,000 UNIT/ML VIAL 5000 UNIT SUBCUT ×2 (05:47→15:29)
[2020-02-29] MEDS: oxyCODONE HCl Immed Release 5 MG TABLET PO ×3 (05:48→23:43)
[2020-02-29] MEDS: Famotidine/PF 20 MG/2 ML VIAL IVPUSH (07:59)
[2020-02-29] MEDS: Lactated Ringers 1,000 ML 60 ML IVCONT (08:00)
[2020-02-29] MEDS: diazePAM 5 MG TABLET PO ×2 (10:13→16:44)
--- NOTE | 2020-02-29 10:48 | PM.PNGS ---
Subjective Subjective Date of Service: 02/29/20 <PARMINDER Anderson - Last Filed: 02/29/20 12:52> 02/29/20 <Marcelina Moses MD - Last Filed: 02/29/20 13:11> Interval history: She states she is feeling well, tolerating her liquid diet and wishes to eat something more substantial. She has had a few loose BM's. She continues to have some nausea. No new complaints. She also expresses the desire to go home. <PARMINDER Anderson - Last Filed: 02/29/20 12:52> Physical Exam Vital Signs: Vital Signs: Last Vital Signs Temp 97.7 F 02/29/20 07:00 Pulse 74 02/29/20 07:00 Resp 16 02/29/20 08:50 BP 122/86 02/29/20 07:00 Pulse Ox 97 02/29/20 07:00 Body Mass Index 21.5 <PARMINDER Anderson - Last Filed: 02/29/20 12:52> Const: General: cooperative and no acute distress <PARMINDER Anderson - Last Filed: 02/29/20 12:52> Resp: Effort & Inspection: normal respiratory effort <PARMINDER Anderson - Last Filed: 02/29/20 12:52> Cardio: Jugular venous distension: no JVD <PARMINDER Anderson - Last Filed: 02/29/20 12:52> GI: Inspection: Yes normal to inspection <PARMINDER Anderson - Last Filed: 02/29/20 12:52> Palpation (GI): Soft to palpation <PARMINDER Anderson - Last Filed: 02/29/20 12:52> Auscultation: Hyperactive bowel sounds present <PARMINDER Anderson - Last Filed: 02/29/20 12:52> Skin: General skin exam: no rashes or lesions noted <PARMINDER Anderson - Last Filed: 02/29/20 12:52> Extrem: General: Yes no calf tenderness <PARMINDER Anderson - Last Filed: 02/29/20 12:52> Psych: Speech and movement: Normal speech and movement present <PARMINDER Anderson Last Filed: 02/29/20 12:52> Progress Note: A&P Assessment and plan (1) Paralytic ileus: Problem details: Symptoms improving, ABD exam soft, no guarding. Small loose BM's <PARMINDER Anderson - Last Filed: 02/29/20 12:52> Status: Acute <PARMINDER Anderson - Last Filed: 02/29/20 12:52> Assessment and Plan: Will switch meds to PO Advance diet to regular for lunch. Told pt to take slow. Depending on how she feels after eating she may be able to go home today, likely tomorrow [facility] O[facility] <PARMINDER Anderson - Last Filed: 02/29/20 12:52> . General Surgery Attending - Bennie Moses M.D. Patient was evaluated and examined at the bedside with Mr. Wild Patino PA-C. I confirm above findings and plan as documented. Abdomen is soft and nontender. She has been tolerating liquids, thus we advanced to the regular diet. Will see how she tolerates today. <Marcelina Moses MD - Last Filed: 02/29/20 13:11> Fall Risk Details Current Medications: Current Medications Generic Name Dose Route Start Last Admin Trade Name Freq PRN Reason Stop Dose Admin Al Hydroxide/Mg Hydroxide 30 ml 02/25/20 11:24 02/25/20 11:33 Magnesium Hydrox/Alum Hydrox 30 Ml Oral.Susp PO 30 ml Q6H PRN Administration Heartburn Benzocaine 1 lozenge 02/25/20 15:38 02/26/20 03:24 Throat Lozenge, Medicated Lozenge MUCOUS MEM 1 lozenge Q2H PRN Administration Sore Throat Diazepam 5 mg 02/24/20 12:03 02/29/20 10:13 Diazepam 5 Mg Tablet PO 5 mg TID PRN Administration Anxiety Famotidine 20 mg 02/25/20 21:00 02/29/20 07:59 Famotidine/Pf 20 Mg/2 Ml Vial IVPUSH 20 mg BID WENDY Administration Heparin Sodium (Porcine) 5,000 unit 02/24/20 17:00 02/29/20 05:47 Heparin Sodium,Porcine 5,000 Unit/Ml Vial SUBCUT 5,000 unit Q12H WENDY Administration Hydromorphone HCl 0.5 mg 02/24/20 12:03 02/29/20 07:59 Hydromorphone Hcl 0.5 Mg/0.5 Ml Syringe IVPUSH 0.5 mg Q4H PRN Administration pain Lactated Ringer's 1,000 mls @ 60 mls/hr 02/24/20 11:45 02/29/20 08:00 Lr IVCONT 60 mls/hr .[id number] WENDY Administration Ondansetron HCl 4 mg 02/24/20 11:45 02/29/20 09:55 Ondansetron Hcl 4 Mg/2 Ml Vial IVPUSH 4 mg Q6H PRN Administration Nausea Ondansetron HCl 4 mg 02/26/20 13:53 Ondansetron Hcl 4 Mg/2 Ml Vial IVPUSH ONCE PRN Nausea and Vomiting Oxycodone HCl 5 mg 02/28/20 07:35 02/29/20 05:48 Oxycodone Hcl Immed Release 5 Mg Tablet PO 5 mg Q4H PRN Administration Pain, Moderate (Pain Scale 4-6 <PARMINDER Anderson - Last Filed: 02/29/20 12:52> Time Spent With Patient Time: Total time spent is greater than 50% in coordination of care (as documented) at patient's floor/unit and/or counseling patient: <PARMINDER Anderson - Last Filed: 02/29/20 12:52> Time with patient: 15 - 24 minutes <Marcelina Moses MD - Last Filed: 02/29/20 13:11>
[2020-03-01 03:00] VITALS: BP 116/76; PULSE 73; RESP 18; TEMP 36.7; O2SAT 98
[2020-03-01] MEDS: Heparin Sodium,Porcine 5,000 UNIT/ML VIAL 5000 UNIT SUBCUT (06:22)
[2020-03-01 07:44] VITALS: BP 127/88; PULSE 73; RESP 18; TEMP 36.2; O2SAT 94
[2020-03-01] MEDS: Famotidine 20 MG TABLET PO (08:25)
[2020-03-01] MEDS: diazePAM 5 MG TABLET PO (08:25)
[2020-03-01] MEDS: oxyCODONE HCl Immed Release 5 MG TABLET PO ×2 (08:25→13:30)
--- NOTE | 2020-03-01 09:17 | MHC.CM.PN ---
pt discharging home today, no services ordered.
--- NOTE | 2020-03-01 12:19 | PM.PNGS ---
Subjective Subjective Date of Service: 03/01/20 <PARMINDER Anderson - Last Filed: 03/01/20 12:22> 03/01/20 <Marcelina Moses MD - Last Filed: 03/01/20 21:47> Patient reports: no new complaints <PARMINDER Anderson - Last Filed: 03/01/20 12:22> Interval history: Kala is doing well. Tolerating a regular diet without pain. She wishes to leave. <PARMINDER Anderson - Last Filed: 03/01/20 12:22> Physical Exam Vital Signs: Vital Signs: Last Vital Signs Temp 97.2 F 03/01/20 07:44 Pulse 73 03/01/20 07:44 Resp 18 03/01/20 07:44 BP 127/88 03/01/20 07:44 Pulse Ox 94 03/01/20 07:44 Body Mass Index 21.5 <PARMINDER Anderson - Last Filed: 03/01/20 12:22> Const: General: healthy appearing and no acute distress <PARMINDER Anderson - Last Filed: 03/01/20 12:22> Progress Note: A&P Assessment and plan (1) Paralytic ileus: Problem details: Symptoms improving. She has no new complaints <PARMINDER Anderson - Last Filed: 03/01/20 12:22> Status: Acute <PARMINDER Anderson - Last Filed: 03/01/20 12:22> Assessment and Plan: We will discharge her later today to home. <PARMINDER Anderson - Last Filed: 03/01/20 12:22> . General Surgery Attending - Bennie Moses M.D. Note from rounding on patient at 8 am Monday: Patient was evaluated and examined at the bedside with Mr. Wild Patino PA-C. I confirm above findings and plan as documented. Patient tolerated regular diet. She wishes to leave. OK to discharge. <Marcelina Moses MD - Last Filed: 03/01/20 21:47> Fall Risk Details Current Medications: Current Medications Generic Name Dose Route Start Last Admin Trade Name Freq PRN Reason Stop Dose Admin Al Hydroxide/Mg Hydroxide 30 ml 02/25/20 11:24 02/25/20 11:33 Magnesium Hydrox/Alum Hydrox 30 Ml Oral.Susp PO 30 ml Q6H PRN Administration Heartburn Benzocaine 1 lozenge 02/25/20 15:38 02/26/20 03:24 Throat Lozenge, Medicated Lozenge MUCOUS MEM 1 lozenge Q2H PRN Administration Sore Throat Diazepam 5 mg 02/29/20 15:45 03/01/20 08:25 Diazepam 5 Mg Tablet PO 5 mg TID PRN Administration anxiety/restlessness Famotidine 20 mg 02/29/20 21:00 03/01/20 08:25 Famotidine 20 Mg Tablet PO 20 mg BID WENDY Administration Heparin Sodium (Porcine) 5,000 unit 02/24/20 17:00 03/01/20 06:22 Heparin Sodium,Porcine 5,000 Unit/Ml Vial SUBCUT 5,000 unit Q12H WENDY Administration Ondansetron HCl 4 mg 02/24/20 11:45 02/29/20 15:29 Ondansetron Hcl 4 Mg/2 Ml Vial IVPUSH 4 mg Q6H PRN Administration Nausea Ondansetron HCl 4 mg 02/26/20 13:53 Ondansetron Hcl 4 Mg/2 Ml Vial IVPUSH ONCE PRN Nausea and Vomiting Oxycodone HCl 5 mg 02/28/20 07:35 03/01/20 08:25 Oxycodone Hcl Immed Release 5 Mg Tablet PO 5 mg Q4H PRN Administration Pain, Moderate (Pain Scale 4-6 <PARMINDER Anderson - Last Filed: 03/01/20 12:22> Time Spent With Patient Time: Total time spent is greater than 50% in coordination of care (as documented) at patient's floor/unit and/or counseling patient: <PARMINDER Anderson - Last Filed: 03/01/20 12:22> Time with patient: less than 15 minutes <Marcelina Moses MD - Last Filed: 03/01/20 21:47>
[2020-03-01 15:05] VITALS: BP 132/90; PULSE 80; RESP 19; TEMP 36; O2SAT 95
--- NOTE | 2020-03-04 07:32 | DS_ITS ---
REASON FOR ADMISSION: Abdominal pain. INDICATIONS: The patient is a 59-year-old female with long history of ulcerative colitis status post colectomy with an ileal pouch anastomosis, who was admitted because of periodic abdominal pain. She had a CAT scan in the ER showing diffuse dilatation of the entire small bowel with question of stricture in the pouch anastomosis. She however had been having 3-5 watery stools every day. There were no other changes on her CAT scan that suggested any other inflammatory process. She had an NG tube in place because of her pain. She was kept on IV fluids. She continued to pass flatus as well as watery stools. Followup abdominal x-ray after her first hospital day showed persistent dilatation of the entire small bowel. Her exam remained benign however. A GI consult was asked in view of the question of stricture versus pouchitis, she was scheduled for a pouchoscopy by Dr. Tee Jimenez. She underwent this procedure on February 26, 2020. The pouch anastomosis appeared patent without any stricture. There was no significant inflammatory changes in the pouch. Her NG tube was therefore removed. She was started on clear liquids, which she tolerated well. She continued to have some mild periodic abdominal pain described as more of cramping. She continued to pass flatus as well as watery stools. She continued to advance her diet, which she tolerated. She was on regular food on February 29, 2020. She continued to do well. Her CAT scan imaging and x-ray imaging studies were therefore deemed to be secondary to diffuse ileus. She continued to tolerate her diet and was eventually discharged on 03/01/2020. She was instructed to see her merchant seaman in [place], Dr. Blackwell, who has been following her for history of Crohn disease. FINAL DIAGNOSES: 1. Generalized ileus. 2. History of ulcerative colitis. OTHER DIAGNOSES: 1. History of total colectomy with ileal pouch anastomosis. 2. Multiple abdominal surgeries for ulcerative colitis. PROCEDURE DONE: Pouchoscopy by Dr. Tee Jimenez. CONSULTATION: Gastroenterology with Dr. Tee Jimenez. PERTINENT LABS: White count is of 5.8, hemoglobin 15. Sodium 137, potassium 4.1, BUN 30, creatinine is 0.81. DISCHARGE MEDICATIONS: Colesevelam 3 tablets p.o. daily, diazepam 1 tab p.o. t.i.d. 0.5 mg, dicyclomine 1 capsule p.o. q.i.d., diphenoxylate/atropine 1-2 tabs q.i.d., hydrocodone/acetaminophen 1 tab p.o. q.6 hours, Reglan 10 mg p.o. q.8., and potassium supplement 20 mEq b.i.d. MD CHAYO Moffett/SOHAM / [id number] MTDD
== END 2020-03-01 15:50 | disposition home or self-care (01) | DRG 247 ==
LOC: HO.ED 11:25 → HO.S3 16:07 → HO.IMC 16:35
PROVIDERS: Family Medicine; Internal Medicine Gastroenterology; Student in an Organized Health Care Education/Training Program; Admitting Provider Surgery; Emergency Provider Internal Medicine; PCP Family Medicine; Visit Provider Surgery
PROC: 0DJD8ZZ Inspection of Lower Intestinal Tract, Via Natural or Artificial Opening Endoscopic (ICD-10-PCS; CPT 45378; principal; 2020-02-26 14:10)
DX: K56.0 Paralytic ileus (principal); R07.9 Chest pain, unspecified; Z79.1 Long term (current) use of non-steroidal anti-inflammatories (NSAID); Z87.891 Personal history of nicotine dependence; Z88.5 Allergy status to narcotic agent; Z79.891 Long term (current) use of opiate analgesic; Z79.899 Other long term (current) drug therapy
CPT/HCPCS: 36415; 71045; 74018; 74176; 80048; 80053; 83605; 83690; 83735; 84484; 85025; 85027; 87040; 88305; 93005; 96374; 96375; 96376; 99231; 99284; 99285; J1170; J2405

== ENCOUNTER 2021-02-20 09:25 | Outpatient (REF) | payer OTHER, SELFPAY ==
--- NOTE | ~2021-02-20 | XR_ITS ---
EXAMINATION: XR HAND, LEFT CLINICAL INFORMATION: Contusion of hand/left arm COMPARISON: None TECHNIQUE: PA, lateral, and oblique views of the left hand. FINDINGS: There is no visible acute fracture, dislocation or subluxation. Mild loss of PIP and DIP joint space of all digits with mild periarticular spurring PIP joint first digit is noted. 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 No abnormality seen involving the first MCP or carpo-metacarpal junction.
== END 2021-02-20 09:26 | disposition home or self-care (01) ==
LOC: HO.HMGCX 09:25
PROVIDERS: PCP Family Medicine; Visit Provider Internal Medicine
DX: S60.222D Contusion of left hand, subsequent encounter (principal)
CPT/HCPCS: 73130

== ENCOUNTER 2021-08-16 10:55 | Inpatient (IN) | payer OTHER, SELFPAY ==
[2021-08-16] VITALS (7 sets, daily range): BP systolic 110–145; BP diastolic 66–100; PULSE 76–120; RESP 14–18; TEMP 36.4–37.2; O2SAT 88–100; BMI 19.5; BMI 22.8
--- NOTE | ~2021-08-16 | XR_ITS ---
EXAMINATION: XR CHEST CLINICAL INFORMATION: Hypoxia COMPARISON: 02/24/2020 TECHNIQUE: Frontal view of the chest was obtained. FINDINGS: There is scarring in the right upper lung and right perihilar region. No change from the prior exam. No infiltrates are not seen. Heart and pulmonary vessels are normal. XR/XR chest 1V IMPRESSION: No active disease. No evidence for congestive change.
--- NOTE | ~2021-08-16 | CT_ITS ---
EXAMINATION: CT ABDOMEN AND PELVIS WITHOUT CONTRAST CLINICAL INFORMATION: Nausea, vomiting, abdominal pain and history of ulcerative colitis. COMPARISON: None TECHNIQUE: Multidetector volumetric imaging was performed from the superior aspect of the liver through the pubic symphysis. Sagittal and coronal reformatted images were obtained on the technologist's workstation. This CT examination was performed using dose optimization techniques as appropriate, variously including the following: *Automated exposure control *Adjustment of mA and/or kV according to patient size (this includes techniques or standardized protocols for targeted exams where dose is matched to indication/reason for exam; i.e. extremities or head) *Use of iterative reconstruction technique DLP: 534 mGy-cm FINDINGS: LUNG BASES: The heart size is normal. The lung bases are clear. LIVER, GALLBLADDER, AND BILIARY TREE: The liver is normal in size, shape, and fused hypoattenuation. No focal hepatic lesion or biliary ductal dilatation is present. The gallbladder has been surgically removed. PANCREAS: Unremarkable. SPLEEN: Unremarkable. ADRENAL GLANDS: Unremarkable. KIDNEYS AND URETERS: The kidneys are normal in size, shape, and attenuation. No hydronephrosis, hydroureter, or calculi seen. No perinephric stranding. BLADDER: Unremarkable. GASTROINTESTINAL TRACT: Patient is most likely a total colectomy with multiple dilated small bowel loops with air-fluid levels likely generalized ileus. There are postsurgical rodriguez along the rectum and the small bowel anastomosis in the lower pelvis with mild narrowing of the anastomotic segment.. The rectum is dilated as well. There is mild mural thickening involving the anorectal junction. Narrowing or stricture cannot be excluded. Postsurgical sutures also seen in the right midabdomen. No free air or free fluid seen. ABDOMINAL WALL: No significant hernia is appreciated. LYMPH NODES: Normal. VASCULAR: Unremarkable. PELVIC VISCERA: There is no free fluid. There is a right presacral electrode. OSSEOUS STRUCTURES: There are degenerative disc changes L1-L2 disc level with ventral and posterior spondylosis. CT/CT abdomen pelvis wo con IMPRESSION: Most likely total colectomy with 2 areas of anastomosis sigmoid small bowel in the lower pelvis and second in the right midabdomen. There is narrowing seen at both these segments. Also visualized is a mural thickening involving the distal anus with mural thickening. A stricture in this region cannot be excluded. A single rectal digital exam should be able to rule out narrowing. A rectal tube may be helpful as well. There is no free fluid or free air. Diffuse fatty infiltration of liver. Fleischner guidelines were followed.
--- NOTE | 2021-08-16 11:24 | ECG_ITS ---
Test Reason : DYSPNEA Blood Pressure : / mmHG Vent. Rate : 120 BPM Atrial Rate : 120 BPM P-R Int : 136 ms QRS Dur : 088 ms QT Int : 326 ms P-R-T Axes : 037 055 004 degrees QTc Int : 460 ms Sinus tachycardia nonspecific ST changes Abnormal ECG When compared with ECG of 27-FEB-2020 09:38, T wave amplitude has increased in Anterior leads Referred By: Generic ED Physician Electronically Signed By:Carlos A Smallwood
--- NOTE | 2021-08-16 11:56 | ED.NAVMDI ---
HPI - Nausea/Vomiting/Diarrhea General Chief complaint: Nausea/Vomiting/Diarrhea Stated complaint: dehydrated, weakness Time Seen by Provider: 08/16/21 11:56 Source: patient Mode of arrival: wheelchair Limitations: no limitations History of Present Illness HPI Narrative: Patient with N/V/D for one week. She has had a complete colectomy with gautamch. When she get these symptoms she has to come in for IV fluids. Her fingers and sides are cramping up. MD elicited complaint: nausea, vomiting and diarrhea Pertinent past history: abdominal surgery Onset (ago): week(s) Description of diarrhea: watery Location of pain: diffuse Pain consistency: intermittent Severity: mild Quality: cramping Related Data Home Medications Medication Instructions Recorded Confirmed colesevelam 625 mg tablet 3 tab PO BEDTIME 02/24/20 08/16/21 diazepam 10 mg tablet 1 tab PO TID PRN muscle spasm 02/24/20 08/16/21 dicyclomine 10 mg capsule 1 cap PO QID 02/24/20 08/16/21 diphenoxylate-atropine 2.5 1 - 2 tab PO QID PRN diarrhea 02/24/20 08/16/21 mg-0.025 mg tablet hydrocodone 10 mg-acetaminophen 1 tab PO BID 02/24/20 08/16/21 325 mg tablet esomeprazole magnesium 20 mg 20 mg PO DAILY 08/16/21 08/16/21 capsule,delayed release (Nexium) psyllium 1 packet PO DAILY 08/16/21 08/16/21 simethicone 80 mg chewable tablet 80 mg PO BID 08/16/21 08/16/21 Previous Rx's Medication Instructions Recorded dexamethasone 6 mg tablet 6 mg PO DAILY #5 tabs 08/19/21 (Decadron) Allergies Allergy/AdvReac Type Severity Reaction Status Date / Time morphine [MORPHINE] AdvReac Mild NAUSEA & Verified 02/20/21 09:14 VOMITING Review of Systems Constitutional: Constitutional: Reports no additional constitutional complaints Eyes: Eyes: Reports no additional eye complaints ENT: Denies dizziness Cardiovascular: Cardiovascular: Reports no additional cardiovascular complaints Respiratory: Respiratory: Reports as per HPI Gastrointestinal: Gastrointestinal: Reports no additional gastrointestinal complaints Genitourinary: Genitourinary: Reports no additional female genitourinary complaints Musculoskeletal: Musculoskeletal: Reports no additional musculoskeletal complaints Integumentary/Breasts: Skin/Breast: Denies rash Neurologic: Reports system reviewed and no additional complaints, except as documented, Denies dizziness and Denies Sensory deficit (Neuro) Psychiatric: Psychiatric: Denies anxiety [facility] Past Medical History Medical History Small bowel obstruction Stomach spasm Ulcerative colitis Surgical History Hx of cholecystectomy Hx of hernia repair Hx of resection of large bowel S/P total colectomy Social History Social History Household Members: Significant Other Housing: House Do you presently have visiting nurse or other home services: No Alcohol intake: never Patient Tobacco Use Status: Never used Tobacco Advance Directives Date on File: 02/24/20 service: No Current occupational status: disabled Physical Exam Vital Signs: Vital Signs: Last Vital Signs Temp 97.7 F 08/19/21 11:13 Pulse 74 08/19/21 11:13 Resp 19 08/19/21 11:13 BP 126/75 08/19/21 11:13 Pulse Ox 100 08/19/21 11:13 O2 Del Method 08/19/21 11:13 O2 Flow Rate 4 08/16/21 23:52 BMI result Body Mass Index 19.5 Const: Other: thin female, frail Orientation/consciousness: oriented to person and patient oriented x3 Limitations: no limitations HEENT: Head: Yes normal to inspection Ears: external ears normal General nose exam: Normal external nose present Mouth: Normal oral and palatal mucosa present and oropharynx normal Throat: Yes posterior oropharynx normal Eyes: General: appearance normal, both eyes and all related structures Neck: Other: supple Neck: Yes normal visual inspection Chest: Chest palpation & inspection: normal inspection of the chest Resp: Auscultation: clear to auscultation bilaterally Cardio: Jugular venous distension: no JVD Rate: regular rate Rhythm: regular rhythm Heart sounds: S1 normal heart sound present and S2 normal heart sound present GI: Inspection: Yes normal to inspection Palpation (GI): Soft to palpation, nontender and No hepatosplenomegaly present Auscultation: normal bowel sounds : General: Yes no CVA tenderness Back/Spine/Pelvis: Back: no CVA tenderness Skin: General skin exam: no rashes or lesions noted Neuro: General: oriented to person and patient oriented x3 Cranial nerves: Yes CN's II-XII intact bilaterally Motor exam (neuro): 5/5 motor strength present throughout Sensory Exam: No Sensory deficit (Neuro) Extrem: General: Yes normal to inspection Psych: Appearance: grossly normal MDM - Nausea/Vomiting/Diarrhea Lab Data Result diagrams: 08/19/21 09:18 08/19/21 08:19 Labs: Lab Results 08/16/21 08/16/21 08/16/21 Range/Units 12:25 12:25 12:25 WBC 5.9 (4.8-10.8) X10*3/uL RBC 6.95 H (4.20-5.50) X10*6/uL Hgb 15.2 (12.0-16.0) g/dl Hct 48.1 H (37.0-47.0) % MCV 69.2 L (80.0-98.0) fL MCH 21.9 L (27.0-33.0) pg MCHC 31.6 (31.0-35.0) g/dl RDW 18.9 H (11.0-16.0) % Plt Count 391 (160-400) X10*3/uL MPV 10.1 (9.4-12.3) fL Immature Gran % (Auto) 0.3 (0.0-0.4) % Neut % (Auto) 78.4 H (45-73) % Lymph % (Auto) 16.0 L (20-40) % [place] % (Auto) 5.1 (2-11) % Eos % (Auto) 0.0 (0-4) % Baso % (Auto) 0.2 (0-2) % Lymph # (Auto) 0.9 L (1.2-4.9) X10*3/uL [place] # (Auto) 0.3 (0.1-1.2) X10*3/uL Eos # (Auto) 0.0 (0.0-0.4) X10*3/uL Baso # (Auto) 0.0 (0.0-0.2) X10*3/uL Abs Immat Gran (auto) 0.02 (0.00-0.03) X10*3/uL Absolute Neuts (auto) 4.6 (2.0-8.3) x10*3/uL Absolute Nucleated RBC 0.000 (0.0-0.012) X10*3/uL Nucleated RBC % (auto) 0.0 (0.0-0.2) /100WBC O2 Saturation % ABG pH at Pt Temp (7.35-7.45) ABG pCO2 at Pt Temp (32-45) mmHg ABG pO2 at Pt Temp (83-108) mmHg ABG HCO3 (22-26) mmol/L ABG Base Excess (Actual) mmol/L Sodium 125 L (135-145) mmol/L Potassium 3.6 (3.3-5.1) mmol/L Chloride 81 L (96-108) mmol/L Carbon Dioxide 20 L (22-29) mmol/L Anion Gap 28 H (12-20) BUN 51 H (9-16) mg/dL Creatinine 3.93 H (0.5-1.4) mg/dL Estim Creat Clear Calc 12.4 Estimated GFR 12 Random Glucose 258 H (60-115) mg/dL Calcium 9.9 D (8.4-10.2) mg/dL Magnesium 2.3 (1.6-2.6) mg/dL Total Bilirubin 0.7 (0.0-1.0) mg/dL Direct Bilirubin 0.3 (0.0-0.5) mg/dL AST 116 H (5-31) U/L ALT 78 H (0-31) U/L Alkaline Phosphatase 121 H D (39-117) U/L Total Protein 9.7 H D (6.5-8.0) g/dL Albumin 5.5 H D (3.5-5.0) g/dL Lipase 86 H (8-78) U/L COVID-19 (YODIT) (Negative) COVID-19 Clin Com Influenza Type A (PCR) (Negative) Influenza Type B (PCR) (Negative) RSV RNA Qual (PCR) (Negative) SARS-CoV-2 RNA (RT-PCR) (Negative) 08/16/21 08/16/21 08/16/21 Range/Units 12:25 12:28 12:28 WBC (4.8-10.8) X10*3/uL RBC (4.20-5.50) X10*6/uL Hgb (12.0-16.0) g/dl Hct (37.0-47.0) % MCV (80.0-98.0) fL MCH (27.0-33.0) pg MCHC (31.0-35.0) g/dl RDW (11.0-16.0) % Plt Count (160-400) X10*3/uL MPV (9.4-12.3) fL Immature Gran % (Auto) (0.0-0.4) % Neut % (Auto) (45-73) % Lymph % (Auto) (20-40) % [place] % (Auto) (2-11) % Eos % (Auto) (0-4) % Baso % (Auto) (0-2) % Lymph # (Auto) (1.2-4.9) X10*3/uL [place] # (Auto) (0.1-1.2) X10*3/uL Eos # (Auto) (0.0-0.4) X10*3/uL Baso # (Auto) (0.0-0.2) X10*3/uL Abs Immat Gran (auto) (0.00-0.03) X10*3/uL Absolute Neuts (auto) (2.0-8.3) x10*3/uL Absolute Nucleated RBC (0.0-0.012) X10*3/uL Nucleated RBC % (auto) (0.0-0.2) /100WBC O2 Saturation % ABG pH at Pt Temp (7.35-7.45) ABG pCO2 at Pt Temp (32-45) mmHg ABG pO2 at Pt Temp (83-108) mmHg ABG HCO3 (22-26) mmol/L ABG Base Excess (Actual) mmol/L Sodium (135-145) mmol/L Potassium (3.3-5.1) mmol/L Chloride (96-108) mmol/L Carbon Dioxide (22-29) mmol/L Anion Gap (12-20) BUN (9-16) mg/dL Creatinine (0.5-1.4) mg/dL Estim Creat Clear Calc Estimated GFR Random Glucose (60-115) mg/dL Calcium 10.0 (8.4-10.2) mg/dL Magnesium (1.6-2.6) mg/dL Total Bilirubin (0.0-1.0) mg/dL Direct Bilirubin (0.0-0.5) mg/dL AST (5-31) U/L ALT (0-31) U/L Alkaline Phosphatase (39-117) U/L Total Protein (6.5-8.0) g/dL Albumin (3.5-5.0) g/dL Lipase (8-78) U/L COVID-19 (YDOIT) Positive A (Negative) COVID-19 Clin Com See Note Influenza Type A (PCR) NEGATIVE (Negative) Influenza Type B (PCR) NEGATIVE (Negative) RSV RNA Qual (PCR) NEGATIVE (Negative) SARS-CoV-2 RNA (RT-PCR) POSITIVE A (Negative) 08/16/21 Range/Units 13:59 WBC (4.8-10.8) X10*3/uL RBC (4.20-5.50) X10*6/uL Hgb (12.0-16.0) g/dl Hct (37.0-47.0) % MCV (80.0-98.0) fL MCH (27.0-33.0) pg MCHC (31.0-35.0) g/dl RDW (11.0-16.0) % Plt Count (160-400) X10*3/uL MPV (9.4-12.3) fL Immature Gran % (Auto) (0.0-0.4) % Neut % (Auto) (45-73) % Lymph % (Auto) (20-40) % [place] % (Auto) (2-11) % Eos % (Auto) (0-4) % Baso % (Auto) (0-2) % Lymph # (Auto) (1.2-4.9) X10*3/uL [place] # (Auto) (0.1-1.2) X10*3/uL Eos # (Auto) (0.0-0.4) X10*3/uL Baso # (Auto) (0.0-0.2) X10*3/uL Abs Immat Gran (auto) (0.00-0.03) X10*3/uL Absolute Neuts (auto) (2.0-8.3) x10*3/uL Absolute Nucleated RBC (0.0-0.012) X10*3/uL Nucleated RBC % (auto) (0.0-0.2) /100WBC O2 Saturation 90.0 % ABG pH at Pt Temp 7.58 H (7.35-7.45) ABG pCO2 at Pt Temp 20 L* (32-45) mmHg ABG pO2 at Pt Temp 88 (83-108) mmHg ABG HCO3 19 L (22-26) mmol/L ABG Base Excess (Actual) 0.6 mmol/L Sodium (135-145) mmol/L Potassium (3.3-5.1) mmol/L Chloride (96-108) mmol/L Carbon Dioxide (22-29) mmol/L Anion Gap (12-20) BUN (9-16) mg/dL Creatinine (0.5-1.4) mg/dL Estim Creat Clear Calc Estimated GFR Random Glucose (60-115) mg/dL Calcium (8.4-10.2) mg/dL Magnesium (1.6-2.6) mg/dL Total Bilirubin (0.0-1.0) mg/dL Direct Bilirubin (0.0-0.5) mg/dL AST (5-31) U/L ALT (0-31) U/L Alkaline Phosphatase (39-117) U/L Total Protein (6.5-8.0) g/dL Albumin (3.5-5.0) g/dL Lipase (8-78) U/L COVID-19 (YODIT) (Negative) COVID-19 Clin Com Influenza Type A (PCR) (Negative) Influenza Type B (PCR) (Negative) RSV RNA Qual (PCR) (Negative) SARS-CoV-2 RNA (RT-PCR) (Negative) Critical Care Time Critical Care Time Attestation: I spent 40 minutes of critical care, with interventions, assessments, speaking to patient, consultants, and family. Discharge Plan Discharge Clinical Impression: Dehydration, Acute kidney injury, COVID-19 Patient Disposition: Admitted As Inpatient Interventions: Admission Worksheet (ED) Last Done: 08/16/21 20:38 Discharge Date/Time: 08/16/21 20:51
[2021-08-16 12:32] LABS: MANUAL DIFF FLAG NO
[2021-08-16 12:33] LABS: Basophils Percent Auto 0.2 % (0-2); Hematocrit 48.1 % (37.0-47.0); Hemoglobin 15.2 g/dl (12.0-16.0); Imm Gran Abs Auto 0.02 X10*3/uL (0.00-0.03); Imm Gran Pct Auto 0.3 % (0.0-0.4); Lymphocytes Absolute Auto 0.9 X10*3/uL (1.2-4.9); Mean Corpuscular HGB Conc 31.6 g/dl (31.0-35.0); Mean Corpuscular Hemoglobin 21.9 pg (27.0-33.0); Mean Corpuscular Volume 69.2 fL (80.0-98.0); Mean Platelet Volume 10.1 fL (9.4-12.3); Monocytes Absolute Auto 0.3 X10*3/uL (0.1-1.2); Monocytes Percent Auto 5.1 % (2-11); Neutrophils Absolute Auto 4.6 x10*3/uL (2.0-8.3); Neutrophils Percent Auto 78.4 % (45-73); Platelet Count 391 X10*3/uL (160-400); Red Blood Count 6.95 X10*6/uL (4.20-5.50); Red Cell Distribution Width 18.9 % (11.0-16.0); White Blood Count 5.9 X10*3/uL (4.8-10.8)
[2021-08-16 12:52] LABS: Alanine Aminotransferase 78 U/L (0-31); Albumin Level 5.5 g/dL (3.5-5.0); Alkaline Phosphatase 121 U/L (39-117); Aspartate Amino Transferase 116 U/L (5-31); Bilirubin Direct 0.3 mg/dL (0.0-0.5); Bilirubin Total 0.7 mg/dL (0.0-1.0); Lipase 86 U/L (8-78); Magnesium 2.3 mg/dL (1.6-2.6); Total Protein 9.7 g/dL (6.5-8.0)
[2021-08-16 12:57] LABS: Blood Urea Nitrogen 51 mg/dL (9-16); Calcium 9.9 mg/dL (8.4-10.2); Carbon Dioxide 20 mmol/L (22-29); Chloride 81 mmol/L (96-108); Creatinine Clr Calc Pharmacy 12.4; Estimated Glomerular Filt Rate 12; Glucose Random 258 mg/dL (60-115); Potassium 3.6 mmol/L (3.3-5.1); Sodium 125 mmol/L (135-145)
[2021-08-16 12:58] LABS: Anion Gap 28 (12-20)
[2021-08-16 13:03] LABS: COVID-19 Test Positive (Negative); IDNOW Serial# 9DD0AD1C
[2021-08-16 13:15] LABS: Influenza A PCR NEGATIVE (Negative); Influenza B PCR NEGATIVE (Negative); Resp Syncy Virus RNA Qual PCR NEGATIVE (Negative); SARS COV2 PCR INHOUSE POSITIVE (Negative)
--- NOTE | 2021-08-16 13:36 | PC.NURSE ---
pt with low O2 sat with forehead prob it is 82-83% on 4L MD aware and oxygen increased to 6L
[2021-08-16] MEDS: 0.9 % Sodium Chloride 1,000 ML 999 ML IVCONT ×2 (13:54→21:19)
[2021-08-16] MEDS: ondansetron HCL 4 MG/2 ML VIAL IVPUSH (13:56)
[2021-08-16 14:07] LABS: ABG Base Excess 0.6 mmol/L; ABG HCO3 19 mmol/L (22-26); ABG pCO2 20 mmHg (32-45); ABG pH 7.58 (7.35-7.45); ABG pO2 88 mmHg (83-108)
[2021-08-16 14:14] LABS: ABG Refer to POC result
--- NOTE | 2021-08-16 14:17 | P.HPHOSP_ITS ---
History of Present Illness Date of Service: 08/16/21 Chief Complaint: nausea, vomitting and abdominal pain 61 year old female with hx of ulcerrative colitis, s/p total colectomy with an ileal-pouch anal anastomosis (J-pucch) who is presenting 1 week of abdominal pain, nausea and vomitting and not albe to keep oral intake down, as result has been feeling week and having cramps, J ouch seem to be fuctioning. Creatine is 3.93, baseline is less than 1. She also reports some shortness of breath and is positive for covid, oxygen saturation was 88% on room, she is not at all vaccinated. Review of Systems Review of Systems: Gen: no fever Resp: + sob, no cough CV: no chest, no ZALDIVAR, no leg edema GI: + n/v, + abd pain Neuro: No confusion PMFSH Medical History Small bowel obstruction Stomach spasm Ulcerative colitis Pertinent family history: Family history of heart disease Surgical History Hx of cholecystectomy Hx of hernia repair Hx of resection of large bowel S/P total colectomy Social History Household Members: Family Housing: House Do you presently have visiting nurse or other home services: No Alcohol intake: former Advance Directives: Yes Advance Directives on File: Yes Advance Directives Date on File: 02/24/20 service: No Current occupational status: disabled Meds Allergies Allergy/AdvReac Type Severity Reaction Status Date / Time morphine [MORPHINE] AdvReac Mild NAUSEA & Verified 02/20/21 09:14 VOMITING Active Medications: Current Medications Pharmacy Consult (Consult Rx Perform Med Rec) 1 each MISCELLANE ONCE PRN PRN Reason: Consult order Home Medications Medication Instructions Recorded Confirmed Last Taken Type colesevelam 625 mg tablet 3 tab PO DAILY 02/24/20 02/24/20 Unknown History diazepam 10 mg tablet 1 tab PO TID PRN 02/24/20 02/24/20 Unknown History dicyclomine 10 mg capsule 1 cap PO QID 02/24/20 02/24/20 Unknown History diphenoxylate-atropine 2.5 1 - 2 tab PO QID PRN 02/24/20 02/24/20 Unknown History mg-0.025 mg tablet hydrocodone 10 mg-acetaminophen 1 tab PO Q6H 02/24/20 02/24/20 Unknown History 325 mg tablet ibuprofen 600 mg tablet 1 tab PO Q6H PRN 08/16/21 08/16/21 Unknown History Physical Exam Vital Signs and Narrative: Vital Signs: Last Vital Signs Temp 97.6 F 08/16/21 12:10 Pulse 108 H 08/16/21 12:10 Resp 14 08/16/21 12:10 BP 110/82 08/16/21 12:10 Pulse Ox 94 08/16/21 12:10 BMI result Body Mass Index 19.5 Const: Other: Constitutional: Alert, in no distress Mental Status: Oriented to person, place and time. Eyes: Pupils are equal, round and reactive to light. Ear, Nose and Throat: Oropharynx clear, mucous membranes moist. Ears and nose without eformities. Respiratory: Clear to auscultation. No wheezing, rales or rhonchi. Cardiovascular: S1 S2 regular. No murmurs, rubs or gallops. Gastrointestinal: Abdomen soft, non-tender, non-distended. Normal bowel sounds.? Neurologic: Cranial nerves II-XII grossly intact. No focal neurological deficits. Moves all extremities spontaneously.? Skin: No rashes or lesions.? Musculoskeletal: No cyanosis or clubbing. Psychiatric: Normal mood and affect? Results Labs CBC and Chem 7: 08/16/21 12:25 08/16/21 12:25 Labs: Laboratory Results - last 24 hr 08/16/21 08/16/21 08/16/21 12:25 12:25 12:25 MCV 69.2 L MCH 21.9 L MCHC 31.6 RDW 18.9 H Plt Count 391 MPV 10.1 Immature Gran % (Auto) 0.3 Neut % (Auto) 78.4 H Lymph % (Auto) 16.0 L [place] % (Auto) 5.1 Eos % (Auto) 0.0 Baso % (Auto) 0.2 Lymph # (Auto) 0.9 L [place] # (Auto) 0.3 Eos # (Auto) 0.0 Baso # (Auto) 0.0 Abs Immat Gran (auto) 0.02 Absolute Neuts (auto) 4.6 Absolute Nucleated RBC 0.000 Nucleated RBC % (auto) 0.0 O2 Saturation ABG pH at Pt Temp ABG pCO2 at Pt Temp ABG pO2 at Pt Temp ABG HCO3 ABG Base Excess (Actual) Sodium 125 L Anion Gap 28 H Estim Creat Clear Calc 12.4 Estimated GFR 12 Random Glucose 258 H Calcium 9.9 D Magnesium 2.3 Total Bilirubin 0.7 Direct Bilirubin 0.3 AST 116 H ALT 78 H Alkaline Phosphatase 121 H D Total Protein 9.7 H D Albumin 5.5 H D Lipase 86 H COVID-19 (YODIT) COVID-19 Clin Com Influenza Type A (PCR) Influenza Type B (PCR) RSV RNA Qual (PCR) SARS-CoV-2 RNA (RT-PCR) 08/16/21 08/16/21 08/16/21 12:25 12:28 12:28 MCV MCH MCHC RDW Plt Count MPV Immature Gran % (Auto) Neut % (Auto) Lymph % (Auto) [place] % (Auto) Eos % (Auto) Baso % (Auto) Lymph # (Auto) [place] # (Auto) Eos # (Auto) Baso # (Auto) Abs Immat Gran (auto) Absolute Neuts (auto) Absolute Nucleated RBC Nucleated RBC % (auto) O2 Saturation ABG pH at Pt Temp ABG pCO2 at Pt Temp ABG pO2 at Pt Temp ABG HCO3 ABG Base Excess (Actual) Sodium Anion Gap Estim Creat Clear Calc Estimated GFR Random Glucose Calcium 10.0 Magnesium Total Bilirubin Direct Bilirubin AST ALT Alkaline Phosphatase Total Protein Albumin Lipase COVID-19 (YODIT) Positive A COVID-19 Clin Com See Note Influenza Type A (PCR) NEGATIVE Influenza Type B (PCR) NEGATIVE RSV RNA Qual (PCR) NEGATIVE SARS-CoV-2 RNA (RT-PCR) POSITIVE A 08/16/21 13:59 MCV MCH MCHC RDW Plt Count MPV Immature Gran % (Auto) Neut % (Auto) Lymph % (Auto) [place] % (Auto) Eos % (Auto) Baso % (Auto) Lymph # (Auto) [place] # (Auto) Eos # (Auto) Baso # (Auto) Abs Immat Gran (auto) Absolute Neuts (auto) Absolute Nucleated RBC Nucleated RBC % (auto) O2 Saturation 90.0 ABG pH at Pt Temp 7.58 H ABG pCO2 at Pt Temp 20 L* ABG pO2 at Pt Temp 88 ABG HCO3 19 L ABG Base Excess (Actual) 0.6 Sodium Anion Gap Estim Creat Clear Calc Estimated GFR Random Glucose Calcium Magnesium Total Bilirubin Direct Bilirubin AST ALT Alkaline Phosphatase Total Protein Albumin Lipase COVID-19 (YODIT) COVID-19 Clin Com Influenza Type A (PCR) Influenza Type B (PCR) RSV RNA Qual (PCR) SARS-CoV-2 RNA (RT-PCR) Imaging Radiologist's Impressions: Impressions Chest X-Ray 08/16/21 12:35 IMPRESSION: No active disease. No evidence for congestive change. Assessment and Plan (1) Acute kidney injury: Status: Acute (2) Dehydration: Status: Acute (3) COVID-19: Status: Acute (4) Hyponatremia: Status: Acute Plan 61 year old female with hx of ulcerrative colitis, s/p total colectomy with an ileal-pouch anal anastomosis (J-pucch) who is presenting 1 week of abdominal pain, nausea and vomitting, diarrhea and not albe to keep oral intake down, as result has been feeling week and having cramps. Creatine is 3.93, baseline less than 1 and has covid with acute hypoxic respiratory failure 1. JOBY d/t pre renal azotemia from dedhydration from vomitting, diarhea -IVF hydration and repeat labs tomorrow and if not improving, nephrology consult -avoid nephrotoxin 2. Nausea/vomitting diarrhea, abd pain.. history of ulcerative colitis -request CT of abdomen and Pelvis--without contrast -IV morphine for pain 3. Covid 19 with acute hypOxic respiratory failure--O2 sat was 88 on room air, not vaccinated and therefore risk of severe disease, timeline of her ilness is hard to pin down -meets guideline for IV steroid -No candate for Remdesevir d/t renal failure, elevated LFTs -Titrate O2 to sat of 90 or better 4. Hypovelemic hyponatremia--excpet improvement with hydration 5. Tranaminitis--Elevated LFTs date back to 2019, check hep serology DVT prophylaixis: Heparin Full code Admission to span at least 2 midnight for treatment of covid 19 with hypoxia, JOBY with marked dehydration and need IV fluid, this cannot be done in less acute setting at this time. Quality Stroke Does the patient have a stroke diagnosis?: No VTE Prior VTE?: No VTE Risk Level:: Medical - moderate - high VTE Device Contraindication: Treatment Not Indicated VTE Drug Contraindication: N/A - Med Ordered
--- NOTE | 2021-08-16 14:56 | PHA.MEDREC ---
Pharmacy Consult ? Medication Reconciliation Pharmacy has completed the medication reconciliation.
[2021-08-16] MEDS: Heparin Sodium,Porcine 5,000 UNIT/ML VIAL 5000 UNIT SUBCUT (16:03)
[2021-08-16] MEDS: dexAMETHasone sod phosphate 4 MG/ML VIAL 6 MG IVPUSH (16:04)
[2021-08-16] MEDS: 0.9 % Sodium Chloride Flush 3 ML SYRINGE IVFLUSH ×2 (16:09→21:54)
[2021-08-16] MEDS: 0.9 % Sodium Chloride 1,000 ML 125 ML IVCONT ×2 (16:23→23:36)
[2021-08-16] MEDS: HYDROmorphone HCl 1 MG/ML SYRINGE 0.6 MG IM ×2 (17:07→21:53)
--- NOTE | 2021-08-16 18:26 | MHC.CM.PN ---
CM met with admitted patient with bed assignment pending.+ Covid. NO vaccinations. HCP on file. HCP/ Devante Mccloud ([phone]). Lives with /daughter. No DME/Services. D/C plan: Home without services. to transport. CM to follow for d/c needs.
[2021-08-17] MEDS: ondansetron HCL 4 MG/2 ML VIAL IVPUSH (02:58)
[2021-08-17] MEDS: HYDROmorphone HCl 1 MG/ML SYRINGE 0.6 MG IM ×2 (03:17→12:59)
[2021-08-17 03:40] VITALS: BP 124/81; PULSE 75; RESP 18; TEMP 36.1; O2SAT 95
[2021-08-17] MEDS: 0.9 % Sodium Chloride 1,000 ML 125 ML IVCONT ×2 (06:36→15:09)
[2021-08-17 07:05] LABS: Creatinine Urine 202.43 mg/dL; Potassium Urine Random 49.1 mmol/L
[2021-08-17 07:16] LABS: Osmolality Urine 385 mosm/kg (373-1093)
[2021-08-17 07:33] LABS: Anion Gap 22 (12-20); Blood Urea Nitrogen 62 mg/dL (9-16); Calcium 8.2 mg/dL (8.4-10.2); Carbon Dioxide 22 mmol/L (22-29); Chloride 90 mmol/L (96-108); Creatinine Clr Calc Pharmacy 15.5; Estimated Glomerular Filt Rate 14; Glucose Random 144 mg/dL (60-115); Potassium 3.5 mmol/L (3.3-5.1); Sodium 130 mmol/L (135-145)
[2021-08-17 07:52] VITALS: BP 135/91; PULSE 83; RESP 20; TEMP 36.3; O2SAT 99
[2021-08-17] MEDS: dexAMETHasone sod phosphate 4 MG/ML VIAL 6 MG IVPUSH (09:52)
--- NOTE | 2021-08-17 09:53 | HO.PM.IMPN ---
Subjective Subjective Date of Service: 08/17/21 Interval History: Follow-up on acute kidney injury, COVID-19 and abdominal pain Physical Exam Vital Signs: Vital Signs: Last Vital Signs Temp 97.4 F 08/17/21 07:52 Pulse 83 08/17/21 07:52 Resp 20 08/17/21 07:52 BP 135/91 H 08/17/21 07:52 Pulse Ox 99 08/17/21 07:52 BMI result Body Mass Index 22.8 Const: Other: General: AO X 3, no acute distress Resp: CTA bilateral CVS: S1,S2,RRR GI: +BS, NT, no distention Skin: No rash Neuro: motor grossly intact Psych: appropriate affect Objective Data Active Medications Dexamethasone Sodium Phosphate (Dexamethasone Sod Phosphate 4 Mg/Ml Vial) 6 mg IVPUSH DAILY [facility] Last Admin: 08/17/21 09:52 Dose: 6 mg Documented by: MARYAM Heparin Sodium (Porcine) (Heparin Sodium,Porcine 5,000 Unit/Ml Vial) 5,000 unit SUBCUT Q12H [facility] Last Admin: 08/17/21 02:05 Dose: Not Given Documented by: ALEJANDRA Non-Admin Reason: Patient Refused Hydromorphone HCl (Hydromorphone Hcl 1 Mg/Ml Syringe) 0.6 mg IM Q4H PRN; Protocol PRN Reason: Pain, Severe (Pain Scale 7-10) Last Admin: 08/17/21 03:17 Dose: 0.6 mg Documented by: CAMDEN Sodium Chloride (Ns) 1,000 mls @ 125 mls/hr IVCONT .Q8H [facility] Last Admin: 08/17/21 06:36 Dose: 125 mls/hr Documented by: ALEJANDRA Melatonin (Melatonin 3 Mg Tablet) 6 mg PO BEDTIME PRN PRN Reason: Insomnia Ondansetron HCl (Ondansetron Hcl 4 Mg/2 Ml Vial) 4 mg IVPUSH Q8H PRN PRN Reason: Nausea and Vomiting Last Admin: 08/17/21 02:58 Dose: 4 mg Documented by: CAMDEN Pharmacy Consult (Consult Rx Perform Med Rec) 1 each MISCELLANE ONCE PRN PRN Reason: Consult order Sodium Chloride (0.9 % Sodium Chloride Flush 3 Ml Syringe) 3 ml IVFLUSH QSHIFT [facility] Last Admin: 08/17/21 09:48 Dose: Not Given Documented by: MARYAM Non-Admin Reason: IV Running Labs CBC & Chem 7: 08/16/21 12:25 08/17/21 06:46 Labs: Laboratory Results - last 24 hr 08/16/21 08/16/21 08/16/21 12:25 12:25 12:25 WBC 5.9 MCV 69.2 L MCH 21.9 L MCHC 31.6 RDW 18.9 H Plt Count 391 MPV 10.1 Immature Gran % (Auto) 0.3 Neut % (Auto) 78.4 H Lymph % (Auto) 16.0 L Eagle % (Auto) 5.1 Eos % (Auto) 0.0 Baso % (Auto) 0.2 Lymph # (Auto) 0.9 L Eagle # (Auto) 0.3 Eos # (Auto) 0.0 Baso # (Auto) 0.0 Abs Immat Gran (auto) 0.02 Absolute Neuts (auto) 4.6 Absolute Nucleated RBC 0.000 Nucleated RBC % (auto) 0.0 O2 Saturation ABG pH at Pt Temp ABG pCO2 at Pt Temp ABG pO2 at Pt Temp ABG HCO3 ABG Base Excess (Actual) Anion Gap 28 H Creatinine 3.93 H Estim Creat Clear Calc 12.4 Estimated GFR 12 Random Glucose 258 H Calcium 9.9 D Magnesium 2.3 Total Bilirubin 0.7 Direct Bilirubin 0.3 AST 116 H ALT 78 H Alkaline Phosphatase 121 H D Total Protein 9.7 H D Albumin 5.5 H D Lipase 86 H Urine Osmolality Ur Random Sodium Ur Random Potassium Urine Creatinine COVID-19 ([facility]) COVID-19 Clin Com Influenza Type A (PCR) Influenza Type B (PCR) RSV RNA Qual (PCR) SARS-CoV-2 RNA (RT-PCR) 08/16/21 08/16/21 08/16/21 12:25 12:28 12:28 WBC MCV MCH MCHC RDW Plt Count MPV Immature Gran % (Auto) Neut % (Auto) Lymph % (Auto) Eagle % (Auto) Eos % (Auto) Baso % (Auto) Lymph # (Auto) Eagle # (Auto) Eos # (Auto) Baso # (Auto) Abs Immat Gran (auto) Absolute Neuts (auto) Absolute Nucleated RBC Nucleated RBC % (auto) O2 Saturation ABG pH at Pt Temp ABG pCO2 at Pt Temp ABG pO2 at Pt Temp ABG HCO3 ABG Base Excess (Actual) Anion Gap Creatinine Estim Creat Clear Calc Estimated GFR Random Glucose Calcium 10.0 Magnesium Total Bilirubin Direct Bilirubin AST ALT Alkaline Phosphatase Total Protein Albumin Lipase Urine Osmolality Ur Random Sodium Ur Random Potassium Urine Creatinine COVID-19 ([facility]IT) Positive A COVID-19 Clin Com See Note Influenza Type A (PCR) NEGATIVE Influenza Type B (PCR) NEGATIVE RSV RNA Qual (PCR) NEGATIVE SARS-CoV-2 RNA (RT-PCR) POSITIVE A 08/16/21 08/17/21 08/17/21 13:59 06:40 06:40 WBC MCV MCH MCHC RDW Plt Count MPV Immature Gran % (Auto) Neut % (Auto) Lymph % (Auto) Eagle % (Auto) Eos % (Auto) Baso % (Auto) Lymph # (Auto) Eagle # (Auto) Eos # (Auto) Baso # (Auto) Abs Immat Gran (auto) Absolute Neuts (auto) Absolute Nucleated RBC Nucleated RBC % (auto) O2 Saturation 90.0 ABG pH at Pt Temp 7.58 H ABG pCO2 at Pt Temp 20 L* ABG pO2 at Pt Temp 88 ABG HCO3 19 L ABG Base Excess (Actual) 0.6 Anion Gap Creatinine Estim Creat Clear Calc Estimated GFR Random Glucose Calcium Magnesium Total Bilirubin Direct Bilirubin AST ALT Alkaline Phosphatase Total Protein Albumin Lipase Urine Osmolality 385 Ur Random Sodium 24.0 Ur Random Potassium 49.1 Urine Creatinine 202.43 COVID-19 (YODIT) COVID-19 Clin Com Influenza Type A (PCR) Influenza Type B (PCR) RSV RNA Qual (PCR) SARS-CoV-2 RNA (RT-PCR) 08/17/21 06:46 WBC MCV MCH MCHC RDW Plt Count MPV Immature Gran % (Auto) Neut % (Auto) Lymph % (Auto) Eagle % (Auto) Eos % (Auto) Baso % (Auto) Lymph # (Auto) Eagle # (Auto) Eos # (Auto) Baso # (Auto) Abs Immat Gran (auto) Absolute Neuts (auto) Absolute Nucleated RBC Nucleated RBC % (auto) O2 Saturation ABG pH at Pt Temp ABG pCO2 at Pt Temp ABG pO2 at Pt Temp ABG HCO3 ABG Base Excess (Actual) Anion Gap 22 H Creatinine 3.33 H Estim Creat Clear Calc 15.5 Estimated GFR 14 Random Glucose 144 H Calcium 8.2 L D Magnesium Total Bilirubin Direct Bilirubin AST ALT Alkaline Phosphatase Total Protein Albumin Lipase Urine Osmolality Ur Random Sodium Ur Random Potassium Urine Creatinine COVID-19 (YODIT) COVID-19 Clin Com Influenza Type A (PCR) Influenza Type B (PCR) RSV RNA Qual (PCR) SARS-CoV-2 RNA (RT-PCR) Assessment and Plan Plan 61 year old female with hx of ulcerrative colitis, s/p total colectomy with an ileal-pouch anal anastomosis (J-pucch) who is presenting 1 week of abdominal pain, nausea and vomitting, diarrhea and not albe to keep oral intake down, as result has been feeling week and having cramps. Creatine is 3.93, baseline less than 1 and has covid with acute hypoxic respiratory failure 1. JOBY d/t pre renal azotemia from dedhydration from vomitting, diarhea -Creatine is better but still signficantly worse than baseline -Nephrology to assess -IVF hydration and repeat labs tomorrow -avoid nephrotoxin 2. Nausea/vomitting diarrhea, abd pain, CT showing thinkening and possible stricture, history of ulcerative colitis -continue Pain management and GI evalation -IV Dilaudid for pain 3. Covid 19 with acute hypOxic respiratory failure--O2 sat was 88 on room air on arrival but remains normal, not vaccinated and therefore risk of severe disease, timeline? of her ilness is hard to pin down -continue Dexamethasone -No candidate for for Remdesevir d/t renal failure, elevated LFTs -Titrate O2 to sat of 90 or better 4. Hypovelemic hyponatremia--improved with hydration, sodium 130 today 5. Tranaminitis--Elevated LFTs date back to 2019, check hep serology DVT prophylaixis: Heparin Full code Inpatient need for treatment of covid 19 with hypoxia, JOBY with marked dehydration and need IV fluid to correct renal function this cannot be done in less acute setting at this time. Quality Stroke Does the patient have a stroke diagnosis?: No VTE Prior VTE?: No VTE Risk Level:: Medical - moderate - high VTE Device Contraindication: Treatment Not Indicated VTE Drug Contraindication: N/A - Med Ordered
[2021-08-17 11:56] VITALS: BP 123/85; PULSE 68; RESP 16; TEMP 36.4; O2SAT 99
[2021-08-17] MEDS: Simethicone 80 MG TAB.CHEW PO ×2 (12:45→20:47)
[2021-08-17] MEDS: Dicyclomine HCl 10 MG CAPSULE PO ×3 (12:45→20:47)
--- NOTE | 2021-08-17 13:36 | MHC.CM.PN ---
pt lives with and dgter she is fully indepdent cm intervention is not expected to be indicated has own ride home
--- NOTE | 2021-08-17 13:53 | W.PM.IDCN ---
History of Present Illness Data of Consult Service Date: 08/17/21 [facility] Care Provider: John Buck MD HPI Reason for consult: COVID,pneumonia She presents with nausea,vomiting and diarrhea for a week. She has ulcerative colitis and has a Jpouch She presents with JOBY and was found to have COVID 19. She was 88% on room air on admission. She has not had Paxlovid or monoclonal antibodies. She is not vaccinated for COVID. Review of Systems Review of Systems: Yes all other systems are reviewed and are negative [facility] Past Medical History Medical History Small bowel obstruction Stomach spasm Ulcerative colitis Family History Family history: reviewed and not pertinent Surgical History Surgical History Hx of cholecystectomy Hx of hernia repair Hx of resection of large bowel S/P total colectomy Social History Social History Household Members: Significant Other Housing: House Do you presently have visiting nurse or other home services: No Alcohol intake: never Patient Tobacco Use Status: Never used Tobacco Use of substances other than those prescribed or required for medical reasons: No Currently Displaying Signs/Symptoms of Drug Intoxication Withdrawal: No Have you been hit, kicked, punched, or otherwise hurt by someone within the past year? If so, by whom?: No Do you feel safe in your current relationship?: Yes Is there a partner from a previous relationship who is making you feel unsafe now?: No Are you made to feel afraid or neglected: No Advance Directives: Yes Advance Directives on File: Yes Advance Directives Date on File: 02/24/20 Do you have thoughts of harming others: None Do you have a plan to hurt others: No Plan Recently lost weight without trying: Unsure Nutrition Risks: No Nutritional Risk Patient : No : No Poor oral hygiene: No service: No Current occupational status: disabled Meds Allergies Allergy/AdvReac Type Severity Reaction Status Date / Time morphine [MORPHINE] AdvReac Mild NAUSEA & Verified 02/20/21 09:14 VOMITING Active Medications: Current Medications Hydrocodone Bitart/Acetaminophen (Hydrocodone Bit/Acetam 10/325 Tablet) 1 tab PO BID [facility] Dexamethasone Sodium Phosphate (Dexamethasone Sod Phosphate 4 Mg/Ml Vial) 6 mg IVPUSH DAILY [facility] Last Admin: 08/17/21 09:52 Dose: 6 mg Documented by: Diazepam (Diazepam 5 Mg Tablet) 10 mg PO TID PRN PRN Reason: muscle spasm Dicyclomine HCl (Dicyclomine Hcl 10 Mg Capsule) 10 mg PO QID [facility] Last Admin: 08/17/21 12:45 Dose: 10 mg Documented by: Diphenoxylate HCl/Atropine (Diphenoxylate/Atrop 2.5/0.025 Tablet) 1 - 2 tab PO QID PRN PRN Reason: diarrhea Heparin Sodium (Porcine) (Heparin Sodium,Porcine 5,000 Unit/Ml Vial) 5,000 unit SUBCUT Q12H [facility] Last Admin: 08/17/21 02:05 Dose: Not Given Documented by: Hydromorphone HCl (Hydromorphone Hcl 1 Mg/Ml Syringe) 0.6 mg IM Q4H PRN; Protocol PRN Reason: Pain, Severe (Pain Scale 7-10) Last Admin: 08/17/21 12:59 Dose: 0.6 mg Documented by: Sodium Chloride (Ns) 1,000 mls @ 125 mls/hr IVCONT .Q8H [facility] Last Admin: 08/17/21 06:36 Dose: 125 mls/hr Documented by: Melatonin (Melatonin 3 Mg Tablet) 6 mg PO BEDTIME PRN PRN Reason: Insomnia Non-Formulary Medication (Colesevelam) 3 tab PO BEDTIME [facility] Omeprazole (Omeprazole 20 Mg Capsule.Dr) 20 mg PO DAILY [facility] Ondansetron HCl (Ondansetron Hcl 4 Mg/2 Ml Vial) 4 mg IVPUSH Q8H PRN PRN Reason: Nausea and Vomiting Last Admin: 08/17/21 02:58 Dose: 4 mg Documented by: Pharmacy Consult (Consult Rx Perform Med Rec) 1 each MISCELLANE ONCE PRN PRN Reason: Consult order Psyllium Hydrophilic Mucilloid (Psyllium Seed 3.4 Gm Powd.Pack) 3.4 gm PO DAILY [facility] Simethicone (Simethicone 80 Mg Tab.Chew) 80 mg PO BID [facility] Last Admin: 08/17/21 12:45 Dose: 80 mg Documented by: Sodium Chloride (0.9 % Sodium Chloride Flush 3 Ml Syringe) 3 ml IVFLUSH QSHIFT [facility] Last Admin: 08/17/21 09:48 Dose: Not Given Documented by: Home Medications Medication Instructions Recorded Confirmed Last Taken Type colesevelam 625 mg tablet 3 tab PO BEDTIME 02/24/20 08/16/21 08/15/21 History diazepam 10 mg tablet 1 tab PO TID PRN 02/24/20 08/16/21 Unknown History dicyclomine 10 mg capsule 1 cap PO QID 02/24/20 08/16/21 08/15/21 History diphenoxylate-atropine 2.5 1 - 2 tab PO QID PRN 02/24/20 08/16/21 Unknown History mg-0.025 mg tablet hydrocodone 10 mg-acetaminophen 1 tab PO BID 02/24/20 08/16/21 08/16/21 History 325 mg tablet esomeprazole magnesium 20 mg 20 mg PO DAILY 08/16/21 08/16/21 08/16/21 History capsule,delayed release (Nexium) psyllium 1 packet PO DAILY 08/16/21 08/16/21 Unknown History simethicone 80 mg chewable tablet 80 mg PO BID 08/16/21 08/16/21 Unknown History Physical Exam Vital Signs: Vital Signs: Last Vital Signs Temp 97.5 F 08/17/21 11:56 Pulse 68 08/17/21 11:56 Resp 16 08/17/21 11:56 BP 123/85 08/17/21 11:56 Pulse Ox 99 08/17/21 11:56 BMI result Body Mass Index 22.8 Const: General: cooperative HEENT: Head: Yes normal to inspection Mouth: Normal oral and palatal mucosa present Resp: Effort & Inspection: normal respiratory effort Cardio: Rate: regular rate Rhythm: regular rhythm GI: Palpation (GI): nontender Results Labs CBC & Chem 7: 08/16/21 12:25 08/17/21 06:46 Labs: BMP 08/17/21 06:46 Sodium 130 L Potassium 3.5 Chloride 90 L Carbon Dioxide 22 BUN 62 H Creatinine 3.33 H Calcium 8.2 L D Assessment and Plan (1) COVID-19: Status: Acute She has COVID and has dehydration and likely prerenal JOBY. She has evidence of pneumonia and has immunosuppression with ulcerative colitis. She has not been vaccinated and has been ill for over a week She has elevated liver and kidney function and has been ill over a week so hold Remdesivir. (2) Acute kidney injury: Status: Acute Plan Oxygen as needed. Dexamethasone 6 mg daily for 10 days. No Remdesivir or Baricitinib.
--- NOTE | 2021-08-17 14:21 | PM.EVENT ---
Event Note Date of Service: 08/17/21 Event Note: GI pt seen and examined, consult dictated CT reviewed with Dr Leyva Clinically she is improving since admission Based on her prior ileoscopy and previous CT in 2019 I recommend continuing present management and treating renal failure and COVID. LGI endoscopy is not likely to be useful in this situation.
[2021-08-17 15:21] VITALS: BP 114/88; PULSE 78; RESP 20; TEMP 36.1; O2SAT 97
[2021-08-17] MEDS: Heparin Sodium,Porcine 5,000 UNIT/ML VIAL 5000 UNIT SUBCUT (17:24)
--- NOTE | 2021-08-17 18:52 | P.CONNP_ITS ---
History of Present Illness Reason for Consult Consult date: 08/17/21 Reason for consult: JOBY Chief Complaint Chief complaint: COVID JOBY HYPLXIA History of Present Illness Narrative: 61 year old female with hx of UC, s/p total colectomy with an ileal-pouch anal anastomosis (J-pouch) who [place] [facility] [place] with 1 week of abdominal pain, nausea, vomiting and poor po intake. In ED, oxygen saturation was 88% on RA. Patient is not vaccinated and tested positive for covid. Initial S-Cr was noted to be 3.93 mg/dL with prior BL ~ 1.0 mg/dL. She is making urine. ROS otherwise negative. Review of Systems Review of Systems Yes all other systems are reviewed and are negative [facility] Past Medical History Medical History Small bowel obstruction Stomach spasm Ulcerative colitis Family History Family history: reviewed and not pertinent Surgical History Surgical History Hx of cholecystectomy Hx of hernia repair Hx of resection of large bowel S/P total colectomy Social History Social History Household Members: Significant Other Housing: House Do you presently have visiting nurse or other home services: No Alcohol intake: never Patient Tobacco Use Status: Never used Tobacco Use of substances other than those prescribed or required for medical reasons: No Currently Displaying Signs/Symptoms of Drug Intoxication Withdrawal: No Have you been hit, kicked, punched, or otherwise hurt by someone within the past year? If so, by whom?: No Do you feel safe in your current relationship?: Yes Is there a partner from a previous relationship who is making you feel unsafe now?: No Are you made to feel afraid or neglected: No Advance Directives: Yes Advance Directives on File: Yes Advance Directives Date on File: 02/24/20 Do you have thoughts of harming others: None Do you have a plan to hurt others: No Plan Recently lost weight without trying: Unsure Nutrition Risks: No Nutritional Risk Patient : No : No Poor oral hygiene: No service: No Current occupational status: disabled Meds Allergies Allergy/AdvReac Type Severity Reaction Status Date / Time morphine [MORPHINE] AdvReac Mild NAUSEA & Verified 02/20/21 09:14 VOMITING Active Medications: Current Medications Hydrocodone Bitart/Acetaminophen (Hydrocodone Bit/Acetam 10/325 Tablet) 1 tab PO BID [facility] Dexamethasone Sodium Phosphate (Dexamethasone Sod Phosphate 4 Mg/Ml Vial) 6 mg IVPUSH DAILY [facility] Last Admin: 08/17/21 09:52 Dose: 6 mg Documented by: Diazepam (Diazepam 5 Mg Tablet) 10 mg PO TID PRN PRN Reason: muscle spasm Dicyclomine HCl (Dicyclomine Hcl 10 Mg Capsule) 10 mg PO QID [facility] Last Admin: 08/17/21 17:25 Dose: 10 mg Documented by: Diphenoxylate HCl/Atropine (Diphenoxylate/Atrop 2.5/0.025 Tablet) 1 - 2 tab PO QID PRN PRN Reason: diarrhea Heparin Sodium (Porcine) (Heparin Sodium,Porcine 5,000 Unit/Ml Vial) 5,000 unit SUBCUT Q12H [facility] Last Admin: 08/17/21 17:24 Dose: 5,000 unit Documented by: Hydromorphone HCl (Hydromorphone Hcl 1 Mg/Ml Syringe) 0.6 mg IM Q4H PRN; Protocol PRN Reason: Pain, Severe (Pain Scale 7-10) Last Admin: 08/17/21 12:59 Dose: 0.6 mg Documented by: Sodium Chloride (Ns) 1,000 mls @ 125 mls/hr IVCONT .Q8H [facility] Last Admin: 08/17/21 15:09 Dose: 125 mls/hr Documented by: Melatonin (Melatonin 3 Mg Tablet) 6 mg PO BEDTIME PRN PRN Reason: Insomnia Non-Formulary Medication (Colesevelam) 3 tab PO BEDTIME [facility] Omeprazole (Omeprazole 20 Mg Capsule.Dr) 20 mg PO DAILY [facility] Ondansetron HCl (Ondansetron Hcl 4 Mg/2 Ml Vial) 4 mg IVPUSH Q8H PRN PRN Reason: Nausea and Vomiting Last Admin: 08/17/21 02:58 Dose: 4 mg Documented by: Pharmacy Consult (Consult Rx Perform Med Rec) 1 each MISCELLANE ONCE PRN PRN Reason: Consult order Psyllium Hydrophilic Mucilloid (Psyllium Seed 3.4 Gm Powd.Pack) 3.4 gm PO DAILY [facility] Simethicone (Simethicone 80 Mg Tab.Chew) 80 mg PO BID [facility] Last Admin: 08/17/21 12:45 Dose: 80 mg Documented by: Sodium Chloride (0.9 % Sodium Chloride Flush 3 Ml Syringe) 3 ml IVFLUSH QSHIFT [facility] Last Admin: 08/17/21 16:10 Dose: Not Given Documented by: Home Medications Medication Instructions Recorded Confirmed Last Taken Type colesevelam 625 mg tablet 3 tab PO BEDTIME 02/24/20 08/16/21 08/15/21 History diazepam 10 mg tablet 1 tab PO TID PRN 02/24/20 08/16/21 Unknown History dicyclomine 10 mg capsule 1 cap PO QID 02/24/20 08/16/21 08/15/21 History diphenoxylate-atropine 2.5 1 - 2 tab PO QID PRN 02/24/20 08/16/21 Unknown History mg-0.025 mg tablet hydrocodone 10 mg-acetaminophen 1 tab PO BID 02/24/20 08/16/21 08/16/21 History 325 mg tablet esomeprazole magnesium 20 mg 20 mg PO DAILY 08/16/21 08/16/21 08/16/21 History capsule,delayed release (Nexium) psyllium 1 packet PO DAILY 08/16/21 08/16/21 Unknown History simethicone 80 mg chewable tablet 80 mg PO BID 08/16/21 08/16/21 Unknown History Physical Exam Vital Signs: Last Vital Signs Temp 97.0 F 08/17/21 15:21 Pulse 78 08/17/21 15:21 Resp 20 08/17/21 15:21 BP 114/88 08/17/21 15:21 Pulse Ox 97 08/17/21 15:21 BMI result Body Mass Index 22.8 Const General: comfortable and no acute distress HEENT Head: Yes normocephalic Resp Auscultation: clear to auscultation bilaterally Cardio Jugular venous distension: no JVD Rate: regular rate Rhythm: regular rhythm Heart sounds: S1 normal heart sound present and S2 normal heart sound present GI Auscultation: normal bowel sounds Extrem General: Yes no clubbing, cyanosis or edema Results Lab Results Result Diagrams: 08/16/21 12:25 08/17/21 06:46 Lab results: Chemistry 08/16/21 08/16/21 08/17/21 12:25 12:25 06:46 Sodium 125 L 130 L Potassium 3.6 3.5 Carbon Dioxide 20 L 22 BUN 51 H 62 H Creatinine 3.93 H 3.33 H Calcium 9.9 D 10.0 8.2 L D Hematology 08/16/21 12:25 WBC 5.9 Hgb 15.2 Plt Count 391 Urine Studies 08/17/21 08/17/21 06:40 06:40 Urine Osmolality 385 Urine Creatinine 202.43 Assessment and Plan (1) Hyponatremia: Status: Acute (2) Acute kidney injury: Status: Acute 61 year old female with hx of UC, s/p total colectomy with an ileal-pouch anal anastomosis (J-pouch) who [place] [facility] [place] 1 week of abdominal pain, nausea, vomiting and poor po intake. In ED, oxygen saturation was 88% on RA. Patient is not vaccinated and tested positive for covid. Initial S-Cr was noted to be 3.93 mg/dL with prior BL ~ 1.0 mg/dL. preserved uop. Problem List: JOBY Hyponatremia hyperglycemia #) JOBY, non-oliguric: In setting of poor po intake, n/v, she likely has JOBY from intravascular volume depletion. Suspect glucosuria from hyperglycemia further induced osmotic diuresis and pre-renal injury. There may be a component of covid induced injury from cytokine mediated inflammation however I would trial IVF?s as you are doing. Glucose control. Renal panel daily Lokelma 10 G prn K> 5.0 I/O?s Avoidance of nsaids, acei/arb, IV contrast, renal dosing abx. Urine studies added. (3) COVID-19: Status: Acute Procedures Date of Service Date of Service: 08/17/21
[2021-08-17 19:05] VITALS: BP 116/76; PULSE 68; RESP 20; TEMP 36.3; O2SAT 97
[2021-08-17 23:49] VITALS: BP 111/70; PULSE 63; RESP 16; TEMP 36.7; O2SAT 97
[2021-08-18] MEDS: 0.9 % Sodium Chloride Flush 3 ML SYRINGE IVFLUSH ×2 (00:14→16:40)
[2021-08-18] MEDS: 0.9 % Sodium Chloride 1,000 ML 125 ML IVCONT ×2 (00:14→09:50)
[2021-08-18] MEDS: HYDROmorphone HCl 1 MG/ML SYRINGE 0.6 MG IM ×3 (01:20→23:07)
--- NOTE | 2021-08-18 03:35 | CONS_ITS ---
DATE OF SERVICE: 08/17/2021 REFERRING PHYSICIAN: Jamey Moreno MD REASON FOR CONSULTATION: Abnormal CT scan of the small intestine. HISTORY OF PRESENT ILLNESS: The patient is a pleasant 61-year-old woman known to me from prior evaluation. She has a longstanding history of J-pouch surgery since 2011 for ulcerative colitis and has had problems with small bowel blood loss as well as episodes of diarrhea. She recently had a sacral stimulator placed because of chronic leakage and has had significant improvement in her symptoms. She was admitted to the hospital with 1 week of abdominal pain, nausea, vomiting, and diarrheal symptoms as well as abdominal cramping. She was evaluated in the emergency department and lab work noted significant acute kidney injury with a BUN of 51 and a creatinine of 3.9. She has been admitted to the hospital and treated with IV fluids. She was also noted to be positive for COVID and has been started on dexamethasone. She reports prior to this illness her J-pouch had been working at baseline, although she reports significant improvement since her sacral stimulator was placed in terms of her urgency and leakage. CT scanning was done, which is interpreted as showing some narrowing related to her previous surgery as well as mural thickening involving the distal anus. CT scanning is compared to her prior scan from January 2020 and is basically similar. She last underwent pouchoscopy on February 24, 2020, which showed no stricturing on examination. Biopsies at that time showed no evidence of pouchitis. PAST MEDICAL HISTORY: 1. Hypertension. 2. Ulcerative colitis with J-pouch. 3. Anemia. 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 5. Chronic pain. 6. Sacral stimulator placement. CURRENT MEDICATIONS: Her current medication list is reviewed in the chart. ALLERGIES: MORPHINE. FAMILY HISTORY: This is reviewed with the patient and is noncontributory. SOCIAL HISTORY: There is no current tobacco, alcohol, or substance abuse. REVIEW OF SYSTEMS: SKIN: No pruritus. HEENT: Negative. CARDIOPULMONARY: No shortness of breath or chest pain. GASTROINTESTINAL: As above. GENITOURINARY: Negative. NEUROPSYCHIATRIC: Negative. PHYSICAL EXAMINATION: GENERAL: Shows a pleasant female, lying comfortably in bed. VITAL SIGNS: Reviewed in the electronic medical record and are stable. SKIN: Anicteric. HEENT: Shows no scleral icterus. NECK: Without lymphadenopathy or thyromegaly. LUNGS: Clear. HEART: Shows regular rate and rhythm. S1, S2. No murmur. ABDOMEN: Soft. Bowel sounds are present. No organomegaly is noted. There is no tenderness to palpation. EXTREMITIES: Without edema. LABORATORY DATA: Shows a white blood cell count of 5.9, hematocrit 48.1, BUN 62, creatinine 3.33. IMPRESSION: Abnormal CT scan of small bowel. Reviewing her previous imaging, the findings on this CT do not see much different from earlier and she has had no problems with her J-pouch function prior to her recent illness, so this may be reflective of her underlying viral infection. She has actually had significant improvement in quality of life since placement of her sacral stimulator. At this time, I would recommend supportive care with IV fluids and gradual advancement of her diet as tolerated. I do not think lower GI tract endoscopy is necessary at this time. Thanks for asking me to see her. I will follow her in the hospital with you. MD ANITHA Verde/SOHAM / [id number]
[2021-08-18 04:00] VITALS: BP 119/80; PULSE 67; RESP 16; TEMP 36.3; O2SAT 97
[2021-08-18 08:00] VITALS: BP 123/69; PULSE 68; RESP 20; TEMP 36.4; O2SAT 98
[2021-08-18] MEDS: dexAMETHasone sod phosphate 4 MG/ML VIAL 6 MG IVPUSH (09:52)
[2021-08-18] MEDS: Dicyclomine HCl 10 MG CAPSULE PO ×4 (09:55→20:26)
[2021-08-18] MEDS: Simethicone 80 MG TAB.CHEW PO ×2 (09:55→20:26)
[2021-08-18] MEDS: Omeprazole 20 MG CAPSULE.DR PO (09:55)
[2021-08-18] MEDS: ondansetron HCL 4 MG/2 ML VIAL IVPUSH (09:56)
[2021-08-18 11:32] VITALS: BP 123/69; PULSE 78; RESP 20; TEMP 36.6; O2SAT 96
[2021-08-18 12:08] LABS: Anion Gap 12 (12-20); Blood Urea Nitrogen 31 mg/dL (9-16); C Reactive Protein 0.06 mg/dL (< or = 0.50); Carbon Dioxide 23 mmol/L (22-29); Chloride 102 mmol/L (96-108); Creatinine Clr Calc Pharmacy 43.4; Estimated Glomerular Filt Rate 46; Glucose Random 150 mg/dL (60-115); Potassium 3.2 mmol/L (3.3-5.1); Sodium 134 mmol/L (135-145)
[2021-08-18] MEDS: Cholestyramine (With Sugar) 4 GM POWD.PACK PO ×2 (14:14→20:26)
[2021-08-18] MEDS: Heparin Sodium,Porcine 5,000 UNIT/ML VIAL 5000 UNIT SUBCUT (14:17)
--- NOTE | 2021-08-18 14:32 | HO.PM.IMPN ---
Subjective Subjective Date of Service: 08/18/21 Interval History: cc: weakness, diarrhea interval history: feeling better Cardiovascular Cardiovascular: Reports no additional cardiovascular complaints Respiratory Respiratory: Reports no additional respiratory complaints Physical Exam Vital Signs: Vital Signs: Last Vital Signs Temp 97.8 F 08/18/21 11:32 Pulse 78 08/18/21 11:32 Resp 20 08/18/21 11:32 BP 123/69 08/18/21 11:32 Pulse Ox 96 08/18/21 11:32 BMI result Body Mass Index 22.8 General: AO X 3, no acute distress Resp: CTA bilateral, no accessory muscles used CVS: S1,S2,RRR GI: soft, non tender, non distended Neuro: motor grossly intact, alert Psych: appropriate affect, appropriate insight Objective Data Active Medications Hydrocodone Bitart/Acetaminophen (Hydrocodone Bit/Acetam 10/325 Tablet) 1 tab PO BID [facility] Last Admin: 08/18/21 09:54 Dose: 1 tab Documented by: KELLEN Cholestyramine Resin (Cholestyramine (With Sugar) 4 Gm Powd.Pack) 4 gm PO TID [facility] Last Admin: 08/18/21 14:14 Dose: 4 gm Documented by: KELLEN Dexamethasone Sodium Phosphate (Dexamethasone Sod Phosphate 4 Mg/Ml Vial) 6 mg IVPUSH DAILY [facility] Last Admin: 08/18/21 09:52 Dose: 6 mg Documented by: KELLEN Diazepam (Diazepam 5 Mg Tablet) 10 mg PO TID PRN PRN Reason: muscle spasm Dicyclomine HCl (Dicyclomine Hcl 10 Mg Capsule) 10 mg PO QID [facility] Last Admin: 08/18/21 14:14 Dose: 10 mg Documented by: KELLEN Diphenoxylate HCl/Atropine (Diphenoxylate/Atrop 2.5/0.025 Tablet) 1 - 2 tab PO QID PRN PRN Reason: diarrhea Guaifenesin (Guaifenesin 100 Mg/5 Ml Liquid) 5 ml PO Q4H PRN PRN Reason: cough Heparin Sodium (Porcine) (Heparin Sodium,Porcine 5,000 Unit/Ml Vial) 5,000 unit SUBCUT Q12H [facility] Last Admin: 08/18/21 14:17 Dose: 5,000 unit Documented by: KELLEN Hydromorphone HCl (Hydromorphone Hcl 1 Mg/Ml Syringe) 0.6 mg IM Q4H PRN; Protocol PRN Reason: Pain, Severe (Pain Scale 7-10) Last Admin: 08/18/21 09:58 Dose: 0.6 mg Documented by: KELLEN Sodium Chloride (Ns) 1,000 mls @ 125 mls/hr IVCONT .Q8H [facility] Last Admin: 08/18/21 09:50 Dose: 125 mls/hr Documented by: KELLEN Melatonin (Melatonin 3 Mg Tablet) 6 mg PO BEDTIME PRN PRN Reason: Insomnia Omeprazole (Omeprazole 20 Mg Capsule.Dr) 20 mg PO DAILY [facility] Last Admin: 08/18/21 09:55 Dose: 20 mg Documented by: KELLEN Ondansetron HCl (Ondansetron Hcl 4 Mg/2 Ml Vial) 4 mg IVPUSH Q8H PRN PRN Reason: Nausea and Vomiting Last Admin: 08/18/21 09:56 Dose: 4 mg Documented by: KELLEN Pharmacy Consult (Consult Rx Perform Med Rec) 1 each MISCELLANE ONCE PRN PRN Reason: Consult order Psyllium Hydrophilic Mucilloid (Psyllium Seed 3.4 Gm Powd.Pack) 3.4 gm PO DAILY [facility] Last Admin: 08/18/21 12:24 Dose: Not Given Documented by: KELLEN Non-Admin Reason: Patient Refused Simethicone (Simethicone 80 Mg Tab.Chew) 80 mg PO BID [facility] Last Admin: 08/18/21 09:55 Dose: 80 mg Documented by: KELLEN Sodium Chloride (0.9 % Sodium Chloride Flush 3 Ml Syringe) 3 ml IVFLUSH QSHIFT [facility] Last Admin: 08/18/21 09:52 Dose: Not Given Documented by: KELLEN Non-Admin Reason: IV Running Labs CBC & Chem 7: 08/16/21 12:25 08/18/21 11:44 Labs: Laboratory Results - last 24 hr 08/18/21 11:44 Anion Gap 12 Estim Creat Clear Calc 43.4 Estimated GFR 46 Random Glucose 150 H Calcium 8.0 L C-Reactive Protein 0.06 Assessment and Plan (1) Hyponatremia: Status: Acute Plan 61 year old female with hx of ulcerrative colitis, s/p total colectomy with an ileal-pouch anal anastomosis (J-pucch) who is presenting 1 week of abdominal pain, nausea and vomitting, diarrhea and not able to keep oral intake down, as result has been feeling weak and having cramps. found to have JOBY, and covid positive JOBY and hyponatremia due to hypovolemia from diarrhea and vomiting related to history of colectomy with jpouch (UC) and covid improving with ivf, monitor BMP covid with brief episode of hypoxia continue decadron day 06/03 unlikely to benefit from antiviral due to late presentation DVT prophylaixis: Heparin Full code Inpatient need for treatment of covid 19 with hypoxia, JOBY with marked dehydration and need IV fluid to correct renal function this cannot be done in less acute setting at this time. Quality Stroke Does the patient have a stroke diagnosis?: No VTE Prior VTE?: No VTE Risk Level:: Medical - moderate - high VTE Device Contraindication: Treatment Not Indicated VTE Drug Contraindication: N/A - Med Ordered
[2021-08-18] MEDS: guaiFENesin 100 MG/5 ML LIQUID PO (14:34)
[2021-08-18 15:39] VITALS: BP 126/74; PULSE 75; RESP 18; TEMP 36.9; O2SAT 97
[2021-08-18] MEDS: Potassium Chloride ER 20 MEQ TAB.ER.PRT 40 MEQ PO (16:39)
[2021-08-18 17:56] LABS: Urea, Random Urine 367 mg/dL
[2021-08-18 19:24] VITALS: BP 125/74; PULSE 70; RESP 18; TEMP 37.1; O2SAT 97
--- NOTE | 2021-08-18 19:42 | P.PNNP_ITS ---
Subjective Subjective Date of Service: 08/18/21 Interval history: cc: weakness, diarrhea interval history: feeling better Chart Reviewed. Events noted. Physical Exam Vital Signs: Vital Signs: Last Vital Signs Temp 98.8 F 08/18/21 19:24 Pulse 70 08/18/21 19:24 Resp 18 08/18/21 19:24 BP 125/74 08/18/21 19:24 Pulse Ox 97 08/18/21 19:24 BMI result Body Mass Index 22.8 Const: General: cooperative, comfortable and no acute distress Orientation/consciousness: patient oriented x3 HEENT: Head: Yes normocephalic Neck: Neck: Yes no JVD Resp: Auscultation: clear to auscultation bilaterally Cardio: Jugular venous distension: no JVD Rate: regular rate Rhythm: regular rhythm Heart sounds: S1 normal heart sound present and S2 normal heart sound present GI: Auscultation: normal bowel sounds Neuro: General: patient oriented x3 and no focal motor deficits Extrem: General: Yes no clubbing, cyanosis or edema Objective Data Labs CBC & Chem 7: 08/16/21 12:25 08/18/21 11:44 Labs: Laboratory Results - last 24 hr 08/17/21 08/18/21 06:40 11:44 Sodium 134 L Potassium 3.2 L Chloride 102 Carbon Dioxide 23 Anion Gap 12 BUN 31 H Creatinine 1.19 Estim Creat Clear Calc 43.4 Estimated GFR 46 Random Glucose 150 H Calcium 8.0 L C-Reactive Protein 0.06 Ur Random Urea 367 Procedures Date of Service Date of Service: 08/18/21 Assessment & Plan Assessment and plan (1) Hyponatremia: Status: Acute (2) Acute kidney injury: Status: Acute Assessment and Plan: 61 year old female with hx of UC, s/p total colectomy with an ileal-pouch anal anastomosis (J-pouch) who presented to [facility] ED with 1 week of abdominal pain, nausea, vomiting and poor po intake. In ED, oxygen saturation was 88% on RA. Patient is not vaccinated and tested positive for covid. Initial S-Cr was noted to be 3.93 mg/dL with prior BL ~ 1.0 mg/dL. preserved uop. Problem List: JOBY Hyponatremia hyperglycemia #) JOBY, non-oliguric: In setting of poor po intake, n/v, she likely has JOBY from intravascular volume depletion. Suspect glucosuria from hyperglycemia further induced osmotic diuresis and pre-renal injury. There may be a component of covid induced injury from cytokine mediated inflammation however I would trial IVF?s as you are doing. Glucose control. Renal panel daily Lokelma 10 G prn K> 5.0 I/O?s Avoidance of nsaids, acei/arb, IV contrast, renal dosing abx. Urine studies added. S-Cr has already recovered to prior BL with IVF support and glucose control. Nephrology will sign off and coordinate outpatient follow up. Thank your for this consult. Time Spent With Patient Time: Total time spent is greater than 50% in coordination of care (as documented) at patient's floor/unit and/or counseling patient: Progress Note: Quality Stroke Does the patient have a stroke diagnosis?: No
[2021-08-18 23:53] VITALS: BP 127/68; PULSE 75; RESP 18; TEMP 36.7; O2SAT 98
[2021-08-19] MEDS: 0.9 % Sodium Chloride Flush 3 ML SYRINGE IVFLUSH ×2 (00:24→10:14)
[2021-08-19] MEDS: Heparin Sodium,Porcine 5,000 UNIT/ML VIAL 5000 UNIT SUBCUT (03:49)
[2021-08-19 03:53] VITALS: BP 121/78; PULSE 65; RESP 18; TEMP 36.6; O2SAT 97
[2021-08-19 07:35] VITALS: BP 128/77; PULSE 65; RESP 19; TEMP 37; O2SAT 97
[2021-08-19 09:03] LABS: Anion Gap 13 (12-20); Blood Urea Nitrogen 19 mg/dL (9-16); Calcium 8.4 mg/dL (8.4-10.2); Carbon Dioxide 26 mmol/L (22-29); Chloride 104 mmol/L (96-108); Creatinine Clr Calc Pharmacy 56.1; Estimated Glomerular Filt Rate > 60; Glucose Fasting 96 mg/dL (60-99); Potassium 3.5 mmol/L (3.3-5.1); Sodium 139 mmol/L (135-145)
[2021-08-19 09:39] LABS: Hematocrit 34.3 % (37.0-47.0); Mean Corpuscular HGB Conc 29.4 g/dl (31.0-35.0); Mean Corpuscular Hemoglobin 21.4 pg (27.0-33.0); Mean Corpuscular Volume 72.7 fL (80.0-98.0); Mean Platelet Volume 9.8 fL (9.4-12.3); Platelet Count 208 X10*3/uL (160-400); Red Blood Count 4.72 X10*6/uL (4.20-5.50); Red Cell Distribution Width 16.9 % (11.0-16.0); White Blood Count 6.1 X10*3/uL (4.8-10.8)
[2021-08-19 09:46] LABS: Hemoglobin 10.1 g/dl (12.0-16.0)
[2021-08-19] MEDS: Simethicone 80 MG TAB.CHEW PO (10:13)
[2021-08-19] MEDS: Omeprazole 20 MG CAPSULE.DR PO (10:14)
[2021-08-19] MEDS: Cholestyramine (With Sugar) 4 GM POWD.PACK PO (10:14)
[2021-08-19] MEDS: Dicyclomine HCl 10 MG CAPSULE PO (10:15)
[2021-08-19] MEDS: dexAMETHasone sod phosphate 4 MG/ML VIAL 6 MG IVPUSH (10:15)
--- NOTE | 2021-08-19 11:00 | P.DS_ITS ---
DS: Providers Provider Date of Service: 08/19/21 Date of admission: 08/16/21 14:36 Primary care physician: John Buck MD Consults: 08/16/21 14:35 Consult to Infectious Diseases Routine Consulting Provider: Jessica Woods Reason for consultation: COVID Has provider been notified: No Consult to Nephrology Routine Consulting Provider: Lorne Correa Reason for consultation: emma, HYPONATREMIA Has provider been notified: No 08/17/21 11:50 Consult to Gastroenterology Routine Consulting Provider: Tee Jimenez Reason for consultation: colitis, stricture Has provider been notified: No DS: Diagnosis Discharge Diagnosis (1) Hyponatremia: Status: Acute (2) Acute kidney injury: Status: Acute DS: Summary Hospital Course Hospital Course: from initial hpi: Chief Complaint: ? Not feeling well /fever ?75-year-old female with a past medical history of hypertension, hyperlipidemia, hypothyroidism, asthma/ COPD, atrial fibrillation on Eliquis, CHF, history of cerebral aneurysm status post rupture-prolonged coma state in 2009 with resultant mild left-sided weakness; chronic kidney disease; recent admission to the hospital for AFib with RVR/acute CHF exacerbation/anemia status post EGD/colonoscopy -showing multiple polyps; presented to the hospital today with a chief complaint of not feeling well.? Patient reports that over the past 2 days she has been not feeling well; also had subjective fevers; patient reports intermittent dry cough; denies any chest pain or palpitations.? Denies any nausea vomiting or diarrhea.? Denies any urinary symptoms.? Review of all other systems is negative except mentioned above ER course: Per ER team patient on presentation noted to be febrile to 102 F; blood cultures were sent; CT chest showed bilateral small pleural effusions; no evidence of pneumonia; noted prominent mediastinal lymph nodes likely reactive; patient was given antibiotics; lab showed mild leukocytosis; admitted to the hospital for further management hospital course: Patient was admitted for acute kidney injury and hyponatremia due to hypovolemia from diarrhea and vomiting related to a history of colectomy with J-pouch due to ulcerative colitis and COVID-19 infection. Patient was given IV fluids, her sodium and creatinine significantly improved. Patient was also noted to have acute hypoxic respiratory failure due to her COVID, this was a brief episode and patient was weaned off oxygen by the next day, she was started on Decadron, she was not deemed to be a candidate for antibiotic treatment due to late presentat ion. She will be discharged on 5 more days of Decadron p.o.. Patient is feeling much better will be discharged home. Time Spent with Patient Time attestation: Total time spent providing and/or coordinating discharge services: Discharge coordination time: Greater than 30 minutes Quality: Safe Use of Opioids Does Pt have an Active Cancer Diagnosis on the Problem List?: No Quality: Stroke Does the patient have a stroke diagnosis?: No Physical Exam Vital Signs: Vital Signs: Last Vital Signs Temp 98.6 F 08/19/21 07:35 Pulse 65 08/19/21 07:35 Resp 19 08/19/21 07:35 BP 128/77 08/19/21 07:35 Pulse Ox 97 08/19/21 07:35 BMI result Body Mass Index 22.8 General: AO X 3, no acute distress Resp: CTA bilateral, no accessory muscles used CVS: S1,S2,RRR GI: soft, non tender, non distended Neuro: motor grossly intact, alert Psych: appropriate affect, appropriate insight DS: Data Data Completed and Pending Completed studies during hospitalization [Text1]: Procedures Excision of Ileum, Via Natural or Artificial Opening Endoscopic, Diagnostic (02/24/20) Labs on day of discharge: Laboratory Results - last 24 hr 08/17/21 08/18/21 08/19/21 06:40 11:44 08:19 WBC RBC Hgb Hct MCV MCH MCHC RDW Plt Count MPV Absolute Nucleated RBC Nucleated RBC % (auto) Sodium 134 L 139 Potassium 3.2 L 3.5 Chloride 102 104 Carbon Dioxide 23 26 Anion Gap 12 13 BUN 31 H 19 H Creatinine 1.19 0.92 Estim Creat Clear Calc 43.4 56.1 Estimated GFR 46 > 60 Random Glucose 150 H Fasting Glucose 96 Calcium 8.0 L 8.4 C-Reactive Protein 0.06 Ur Random Urea 367 08/19/21 09:18 WBC 6.1 RBC 4.72 D Hgb 10.1 L D Hct 34.3 L D MCV 72.7 L MCH 21.4 L MCHC 29.4 L RDW 16.9 H Plt Count 208 D MPV 9.8 Absolute Nucleated RBC 0.000 Nucleated RBC % (auto) 0.0 Sodium Potassium Chloride Carbon Dioxide Anion Gap BUN Creatinine Estim Creat Clear Calc Estimated GFR Random Glucose Fasting Glucose Calcium C-Reactive Protein Ur Random Urea Discharge Plan Discharge Patient Disposition: Home, Self-Care Discharge Diagnosis: emma, hyponatremia, covid Referrals: John Buck MD [Primary Care Provider] - 1 Week Discharge Medications: New dexamethasone [Decadron] 6 mg tablet 6 mg PO DAILY Qty: 5 0RF Continued diphenoxylate-atropine 2.5-0.025 mg tablet 1 - 2 tab PO QID PRN (Reason: diarrhea) 0RF hydrocodone-acetaminophen 10-325 mg tablet 1 tab PO BID 0RF colesevelam 625 mg tablet 3 tab PO BEDTIME 0RF diazepam 10 mg tablet 1 tab PO TID PRN (Reason: muscle spasm) 0RF dicyclomine 10 mg capsule 1 cap PO QID 0RF psyllium Packet 1 packet PO DAILY 0RF Rx Instructions: mix into at least 8 oz of water or juice before administering simethicone 80 mg Tablet,Chewable 80 mg PO BID 0RF esomeprazole magnesium [Nexium] 20 mg Capsule,Delayed Release(Dr/Ec) 20 mg PO DAILY 0RF Discharge Orders: Discharge Order (Routine); Ordered 08/19/21 Ordered By: Brayan Acosta Diet: advance to usual diet Activity on Discharge: As tolerated Stand Alone Forms: Patient Portal Discharge page Care Plan Goals: recovery Health Concerns: emma, covid Plan of Treatment: 5 more days of decadron Assessment: see above Discharge Date/Time: 08/19/21 12:00
[2021-08-19 11:13] VITALS: BP 126/75; PULSE 74; RESP 19; TEMP 36.5; O2SAT 100
--- NOTE | 2021-08-19 11:19 | MHC.CM.PN ---
Patient has been medically cleared for dc to home today, self care.
== END 2021-08-19 12:00 | disposition home or self-care (01) | DRG 469 ==
LOC: HO.ED 13:47 → HO.EDOVER 14:59 → HO.IMC 19:37
PROVIDERS: Internal Medicine Nephrology; Admitting Provider Internal Medicine; Emergency Provider Emergency Medicine; PCP Family Medicine; Visit Provider Internal Medicine
DX: N17.9 Acute kidney failure, unspecified (principal); J96.01 Acute respiratory failure with hypoxia; U07.1 COVID-19; R73.9 Hyperglycemia, unspecified; I10 Essential (primary) hypertension; G89.29 Other chronic pain; E87.1 Hypo-osmolality and hyponatremia; E86.1 Hypovolemia; E86.0 Dehydration; Z96.82 Presence of neurostimulator; Z28.310 Unvaccinated for COVID-19; Z93.3 Colostomy status; Z88.5 Allergy status to narcotic agent; Z79.899 Other long term (current) drug therapy
CPT/HCPCS: 0241U; 36415; 71045; 74176; 80048; 80076; 82310; 82803; 83690; 83735; 83935; 84133; 84300; 84540; 85025; 85027; 86140; 87635; 93005; 96361; 96374; 99285; J1100; J1170; J2405

== ENCOUNTER 2021-11-28 14:19 | Inpatient (IN) | payer OTHER, SELFPAY ==
--- NOTE | ~2021-11-28 | CT_ITS ---
EXAMINATION: CT ABDOMEN AND PELVIS WITHOUT CONTRAST CLINICAL INFORMATION: Lower abdominal pain COMPARISON: CT abdomen and pelvis 08/16/2021 TECHNIQUE: Multidetector volumetric imaging was performed from the superior aspect of the liver through the pubic symphysis. Sagittal and coronal reformatted images were obtained on the technologist's workstation. This CT examination was performed using dose optimization techniques as appropriate, variously including the following: *Automated exposure control *Adjustment of mA and/or kV according to patient size (this includes techniques or standardized protocols for targeted exams where dose is matched to indication/reason for exam; i.e. extremities or head) *Use of iterative reconstruction technique DLP: 507 mGy-cm FINDINGS: LUNG BASES: The visualized lung bases are unremarkable. LIVER, GALLBLADDER, AND BILIARY TREE: Liver is at the upper limits of normal for size and diffusely low in attenuation compatible steatosis. There is a small region of sparing adjacent to the hilum/gallbladder fossa. No intra or extra hepatic duct dilation is seen. The gallbladder is surgically absent. PANCREAS: Unremarkable. SPLEEN: Unremarkable. ADRENAL GLANDS: Unremarkable. KIDNEYS AND URETERS: The kidneys are normal in size, shape, and attenuation. No hydronephrosis, hydroureter, or calculi seen. No perinephric stranding. BLADDER: Minimally distended. GASTROINTESTINAL TRACT: Distal esophagus and stomach are unremarkable. Surgical changes from total colectomy are again seen. There are small bowel anastomoses in the right hemiabdomen. There is extensive dilation of nearly all of the small bowel with abrupt focal narrowing at the ileorectal anastomosis. At the rectum is filled with fluid as well. This appearance is similar to prior studies and could represent generalized ileus. Stricture or partial obstruction at the level of the ileorectal anastomosis could be a consideration. ABDOMINAL WALL: No significant hernia is appreciated. Within the right lumbar soft tissues there is a sacral nerve stimulator generator which is contiguous with its associated leads and wires. LYMPH NODES: Normal. VASCULAR: Unremarkable. PELVIC VISCERA: The uterus and adnexa are unremarkable. OSSEOUS STRUCTURES: Mild endplate degenerative changes of the thoracolumbar spine without acute or aggressive bony abnormality. CT/CT abdomen pelvis wo IV con IMPRESSION: Surgical changes relating to prior colectomy with ileorectal anastomosis with generalized dilation of small bowel with abrupt narrowing at the level of the anastomosis with fluid distention of the rectum as well. The appearance is similar to prior studies and could relate to generalized ileus, partial obstruction or stricture at the ileorectal anastomosis or other process. Hepatic steatosis. Fleischner guidelines were followed.
--- NOTE | ~2021-11-28 | XR_ITS ---
EXAMINATION: XR ABDOMEN KUB CLINICAL INDICATION: Follow-up partial small bowel obstruction COMPARISON: CT of the abdomen and pelvis 11/28/2021 TECHNIQUE: AP view of the abdomen. FINDINGS: Enteric tube with tip in the stomach. Surgical clips are seen in the right upper quadrant. Stimulator device projects over the right back. Postsurgical changes in the lower quadrant and pelvis with chain sutures in place. Again demonstrated are diffusely dilated loops of bowel throughout the abdomen, similar in appearance the prior study. No definite free air is demonstrated. No acute osseous abnormality. XR/XR KUB IMPRESSION: Redemonstration of diffusely dilated loops of bowel throughout the abdomen from a similar to the prior study.
[2021-11-28 15:42] VITALS: BP 156/111; PULSE 135; RESP 20; TEMP 36.9; O2SAT 93; BMI 24.9
[2021-11-28 16:20] LABS: MANUAL DIFF FLAG NO
[2021-11-28 16:24] LABS: Basophils Percent Auto 0.3 % (0-2); Eosinophils Absolute Auto 0.1 X10*3/uL (0.0-0.4); Eosinophils Percent Auto 0.5 % (0-4); Hemoglobin 12.9 g/dl (12.0-16.0); Imm Gran Abs Auto 0.03 X10*3/uL (0.00-0.03); Imm Gran Pct Auto 0.3 % (0.0-0.4); Lymphocytes Absolute Auto 2.2 X10*3/uL (1.2-4.9); Lymphocytes Percent Auto 18.3 % (20-40); Mean Corpuscular HGB Conc 29.3 g/dl (31.0-35.0); Mean Corpuscular Volume 68.3 fL (80.0-98.0); Mean Platelet Volume 9.6 fL (9.4-12.3); Monocytes Absolute Auto 1.1 X10*3/uL (0.1-1.2); Monocytes Percent Auto 9.5 % (2-11); Neutrophils Absolute Auto 8.5 x10*3/uL (2.0-8.3); Neutrophils Percent Auto 71.1 % (45-73); Platelet Count 637 X10*3/uL (160-400); Red Blood Count 6.44 X10*6/uL (4.20-5.50); Red Cell Distribution Width 20.8 % (11.0-16.0); White Blood Count 11.9 X10*3/uL (4.8-10.8)
[2021-11-28 16:41] LABS: Anion Gap 23 (12-20); Blood Urea Nitrogen 48 mg/dL (9-16); Calcium 9.1 mg/dL (8.4-10.2); Carbon Dioxide 17 mmol/L (22-29); Chloride 99 mmol/L (96-108); Creatinine Clr Calc Pharmacy 37.4; Estimated Glomerular Filt Rate 36; Glucose Random 166 mg/dL (60-115); Potassium 4.9 mmol/L (3.3-5.1); Sodium 134 mmol/L (135-145)
[2021-11-28 16:43] LABS: COVID-19 Test Negative (Negative); IDNOW Serial# 16C4AD1C
--- NOTE | 2021-11-28 16:45 | ED_ITS ---
HPI - Abdominal Pain General Chief Complaint: Abdominal Pain Stated Complaint: stomach pain hasn't ate in 3xdays, vomiting Time Seen by Provider: 11/28/21 16:38 Source: patient Mode of arrival: ambulatory Limitations: no limitations History of Present Illness HPI narrative: 61-year-old female past medical history significant for ulcerative colitis s/p colectomy, presenting to the emergency department with complaints of abdominal pain, chest discomfort, headache, nausea, vomiting, diarrhea, fatigue, weakness, malaise x3 days worsening. Patient tells me that she is having abdominal cramping /gas pain she rates it a 15/10, she tells me it is intolerable. She also reports some chest discomfort in the substernal region, described as pressure, nonradiating. Patient tells me she has been having nausea, vomiting and diarrhea a few times a day, particularly after she eats. Reports a b/l frontal headache described as pressure, feels like her typical no vision changes or dizziness. She tells me he she has not been able to eat much however her last full meal was on Monday, she had a turkey sandwich, since then she has been it drinking fluids however unable to keep down food. She tells me she is followed by Dr. Jimenez for GI, she tells me she took a Vicodin and Valium at home and was able to rest. MD elicited complaint: abdominal pain Pertinent past history: none Related Data Home Medications Medication Instructions Recorded Confirmed colesevelam 625 mg tablet 3 tab PO BEDTIME 02/24/20 08/16/21 diazepam 10 mg tablet 1 tab PO TID PRN muscle spasm 02/24/20 08/16/21 dicyclomine 10 mg capsule 1 cap PO QID 02/24/20 08/16/21 diphenoxylate-atropine 2.5 1 - 2 tab PO QID PRN diarrhea 02/24/20 08/16/21 mg-0.025 mg tablet hydrocodone 10 mg-acetaminophen 1 tab PO BID 02/24/20 08/16/21 325 mg tablet esomeprazole magnesium 20 mg 20 mg PO DAILY 08/16/21 08/16/21 capsule,delayed release (Nexium) psyllium 1 packet PO DAILY 08/16/21 08/16/21 simethicone 80 mg chewable tablet 80 mg PO BID 08/16/21 08/16/21 Previous Rx's Medication Instructions Recorded dexamethasone 6 mg tablet 6 mg PO DAILY #5 tabs 08/19/21 (Decadron) Allergies Allergy/AdvReac Type Severity Reaction Status Date / Time morphine [MORPHINE] AdvReac Mild NAUSEA & Verified 02/20/21 09:14 VOMITING Review of Systems Review of Systems Constitutional : No Weight loss, No Fever, No Chills, No Fatigue, No Malaise ENT/Mouth : No sore throat, No Rhinorrhea Eyes: No Eye Pain, No Swelling, No Redness Cardiovascular : + Chest Pain, No SOB, No Dyspnea on Exertion, No Orthopnea, No Edema, No Palpitations Respiratory : No Cough, No Sputum, No Wheezing Gastrointestinal : + Nausea, + Vomiting, + Diarrhea, No Constipation, + abdominal Pain, No Hematochezia, No Melena Genitourinary : No Dysuria, No Urinary Frequency, No Hematuria, Musculoskeletal : No joint pain, No Myalgias, No Joint Swelling Skin : No Skin Lesions, No rash Neuro : No Weakness, No Numbness, No Dizziness, + Headache Psych : No Anxiety/Panic, No Depression All other systems reviewed and are negative Yes all other systems are reviewed and are negative [facility] Past Medical History Attestation statement: The following information was validated with the patient. Source: old records reviewed and nursing notes reviewed Medical History Small bowel obstruction Stomach spasm Ulcerative colitis Surgical History Hx of cholecystectomy Hx of hernia repair Hx of resection of large bowel S/P total colectomy Social History Social History Household Members: Significant Other Housing: House Do you presently have visiting nurse or other home services: No Alcohol intake: never Patient Tobacco Use Status: Never used Tobacco Advance Directives: Yes Advance Directives on File: Yes Advance Directives Date on File: 02/24/20 service: No Current occupational status: disabled Physical Exam ED Vital Signs: Vital Signs - 24 hr 11/28/21 15:42 11/28/21 17:22 Temperature 98.4 F 98.3 F Pulse Rate 135 H 118 H Respiratory Rate 20 18 Blood Pressure 156/111 H 146/105 H Pulse Oximetry 93 94 Oxygen Delivery Method Room Air Room Air BMI result Body Mass Index 24.9 Patient noted to be hypertensive, tachycardic. Appearance: Alert.? Oriented X3.? No acute distress.? Head: Normocephalic, atraumatic, no step-offs or deformities Eyes: Pupils equal, round and reactive to light.? Neck: Normal inspection.? Neck supple.? CVS: Normal heart rate and rhythm.? Pulses normal.? Respiratory: No respiratory distress.? Breath sounds normal.? Abdomen: Soft and + diffusely tender. Normoactive BS ? Skin: Skin warm and dry.? Normal skin color.? Normal skin turgor.? Extremities: No lower extremity edema.? No calf ttp. 5/5 strength to bilateral upper and lower extremities Neuro: Oriented X 3.? No motor deficit.? No sensory deficit. CN 2-12 intact . Normal finger to nose, heel to faulkner, steady tandem gait. Course Reevaluation(s) Reevaluation #1: Patient with slight leukocytosis, RBCs elevated likely secondary to poor p.o. intake, dehydration, patient is noted to have an acute kidney injury, and an anion gap likely secondary to nausea, vomiting and dehydration. Initial troponin elevated 17.7, EKG nonischemic. I do not suspect ACS. Patient's CT of the abdomen and pelvis with Surgical changes relating to prior colectomy with ileorectal anastomosis with dilation of small bowel w/ abrupt narrowing at the level of the anastomosis with fluid distention of the rectum. Discussed this with Dr. Bean who agrees with NGT placement and admission to surgical team. Time: 20:33 Reevaluation #2: Second trop not meeting delta criteria unlikley acs patient not complaing of CP at this time. Time: 20:38 MDM - Abdominal Pain MDM Narrative Medical decision making narrative: 1700 61-year-old female presents diffuse abdominal pain, nausea, vomiting, diarrhea, chest pain, frontal headache x3 days worsening. also reports fatigue, malaise, poor p.o. intake. Physical examination significant for hypertension, tachycardia, diffusely tender abdomen, regular rate rhythm, lungs clear, abdomen soft normoactive bowel sounds. Neuro exam nonfocal. Patient appears comfortable and in no acute distress. I do not suspect ACS, PE, ICH, posterior stroke on this patient. Likely viral in origin. Will obtain labs, imaging, urine. Will rule out post operative changes. Medical Records Attestation: I reviewed the patient's medical records. Lab Data Attestation: I reviewed the patient's lab results. Result diagrams: 11/28/21 16:14 11/28/21 16:14 Labs: Lab Results 11/28/21 11/28/21 11/28/21 Range/Units 16:13 16:14 16:14 WBC 11.9 H (4.8-10.8) X10*3/uL RBC 6.44 H D (4.20-5.50) X10*6/uL Hgb 12.9 D (12.0-16.0) g/dl Hct 44.0 D (37.0-47.0) % MCV 68.3 L (80.0-98.0) fL MCH 20.0 L (27.0-33.0) pg MCHC 29.3 L (31.0-35.0) g/dl RDW 20.8 H (11.0-16.0) % Plt Count 637 H D (160-400) X10*3/uL MPV 9.6 (9.4-12.3) fL Immature Gran % (Auto) 0.3 (0.0-0.4) % Neut % (Auto) 71.1 (45-73) % Lymph % (Auto) 18.3 L (20-40) % Madison % (Auto) 9.5 (2-11) % Eos % (Auto) 0.5 (0-4) % Baso % (Auto) 0.3 (0-2) % Lymph # (Auto) 2.2 (1.2-4.9) X10*3/uL Madison # (Auto) 1.1 (0.1-1.2) X10*3/uL Eos # (Auto) 0.1 (0.0-0.4) X10*3/uL Baso # (Auto) 0.0 (0.0-0.2) X10*3/uL Abs Immat Gran (auto) 0.03 (0.00-0.03) X10*3/uL Absolute Neuts (auto) 8.5 H (2.0-8.3) x10*3/uL Absolute Nucleated RBC 0.000 (0.0-0.012) X10*3/uL Nucleated RBC % (auto) 0.0 (0.0-0.2) /100WBC Sodium 134 L (135-145) mmol/L Potassium 4.9 D (3.3-5.1) mmol/L Chloride 99 (96-108) mmol/L Carbon Dioxide 17 L (22-29) mmol/L Anion Gap 23 H (12-20) BUN 48 H D (9-16) mg/dL Creatinine 1.49 H (0.5-1.4) mg/dL Estim Creat Clear Calc 37.4 Estimated GFR 36 Random Glucose 166 H (60-115) mg/dL Calcium 9.1 D (8.4-10.2) mg/dL Troponin I High Sens (<3.5-17.0) ng/L COVID-19 (YODIT) Negative (Negative) COVID-19 Clin Com See Note 11/28/21 Range/Units 16:14 WBC (4.8-10.8) X10*3/uL RBC (4.20-5.50) X10*6/uL Hgb (12.0-16.0) g/dl Hct (37.0-47.0) % MCV (80.0-98.0) fL MCH (27.0-33.0) pg MCHC (31.0-35.0) g/dl RDW (11.0-16.0) % Plt Count (160-400) X10*3/uL MPV (9.4-12.3) fL Immature Gran % (Auto) (0.0-0.4) % Neut % (Auto) (45-73) % Lymph % (Auto) (20-40) % Madison % (Auto) (2-11) % Eos % (Auto) (0-4) % Baso % (Auto) (0-2) % Lymph # (Auto) (1.2-4.9) X10*3/uL Madison # (Auto) (0.1-1.2) X10*3/uL Eos # (Auto) (0.0-0.4) X10*3/uL Baso # (Auto) (0.0-0.2) X10*3/uL Abs Immat Gran (auto) (0.00-0.03) X10*3/uL Absolute Neuts (auto) (2.0-8.3) x10*3/uL Absolute Nucleated RBC (0.0-0.012) X10*3/uL Nucleated RBC % (auto) (0.0-0.2) /100WBC Sodium (135-145) mmol/L Potassium (3.3-5.1) mmol/L Chloride (96-108) mmol/L Carbon Dioxide (22-29) mmol/L Anion Gap (12-20) BUN (9-16) mg/dL Creatinine (0.5-1.4) mg/dL Estim Creat Clear Calc Estimated GFR Random Glucose (60-115) mg/dL Calcium (8.4-10.2) mg/dL Troponin I High Sens 17.7 H (<3.5-17.0) ng/L COVID-19 (YODIT) (Negative) COVID-19 Clin Com Critical Care Time Critical Care Time Critical Care Time: Yes Total Critical Care Time: 35 Attestation: I attest to this time spent taking care of the patient, obtaining history, physical, reviewing labs, imaging, speaking to my attending, speaking to specialist. Discharge Plan Discharge Clinical Impression: Abdominal pain, JOBY (acute kidney injury), Nausea & vomiting, Diarrhea, Small bowel anastomotic dilation, Chest pain not due to acute coronary syndrome Patient Disposition: Admitted As Inpatient Prescriptions: No Action diphenoxylate-atropine 2.5-0.025 mg tablet 1 - 2 tab PO QID PRN (Reason: diarrhea) hydrocodone-acetaminophen 10-325 mg tablet 1 tab PO BID colesevelam 625 mg tablet 3 tab PO BEDTIME diazepam 10 mg tablet 1 tab PO TID PRN (Reason: muscle spasm) dicyclomine 10 mg capsule 1 cap PO QID psyllium Packet 1 packet PO DAILY Rx Instructions: mix into at least 8 oz of water or juice before administering simethicone 80 mg Tablet,Chewable 80 mg PO BID esomeprazole magnesium [Nexium] 20 mg Capsule,Delayed Release(Dr/Ec) 20 mg PO DAILY dexamethasone [Decadron] 6 mg tablet 6 mg PO DAILY Qty: 5 0RF
[2021-11-28 17:22] VITALS: BP 146/105; PULSE 118; RESP 18; TEMP 36.8; O2SAT 94
[2021-11-28] MEDS: 0.9 % Sodium Chloride 1,000 ML 999 ML IV ×2 (17:27→19:17)
--- NOTE | 2021-11-28 17:47 | ECG_ITS ---
Test Reason : ABDOMINAL PAIN Blood Pressure : / mmHG Vent. Rate : 098 BPM Atrial Rate : 098 BPM P-R Int : 142 ms QRS Dur : 080 ms QT Int : 352 ms P-R-T Axes : 018 002 -05 degrees QTc Int : 449 ms Normal sinus rhythm Inferior infarct (cited on or before 28-NOV-2021) Abnormal ECG When compared with ECG of 16-AUG-2021 11:30, Questionable change in initial forces of Inferior leads T wave amplitude has decreased in Anterolateral leads Heart rate has decreased Referred By: Do Seals Electronically Signed By:TREV NIXON
[2021-11-28 18:30] LABS: Troponin-I High Sensitivity 17.7 ng/L (<3.5-17.0)
[2021-11-28] MEDS: Simethicone 80 MG TAB.CHEW 160 MG PO (18:40)
[2021-11-28] MEDS: ondansetron HCL 4 MG/2 ML VIAL IVPUSH (19:17)
[2021-11-28] MEDS: Morphine Sulfate 4 MG/ML CARTRIDGE IVPUSH (19:17)
[2021-11-28 20:35] LABS: Troponin-I High Sensitivity 25.7 ng/L (<3.5-17.0)
[2021-11-28 21:04] LABS: Alanine Aminotransferase 65 U/L (0-31); Albumin Level 4.2 g/dL (3.5-5.0); Alkaline Phosphatase 93 U/L (39-117); Aspartate Amino Transferase 85 U/L (5-31); Bilirubin Direct 0.3 mg/dL (0.0-0.5); Bilirubin Total 0.8 mg/dL (0.0-1.0); Total Protein 7.7 g/dL (6.5-8.0)
[2021-11-28 22:10] VITALS: BP 131/64; BP 131/84; PULSE 89; RESP 14; RESP 16; TEMP 37.3; O2SAT 97
[2021-11-28] MEDS: Lactated Ringers 1,000 ML 100 ML IVCONT (22:55)
--- NOTE | 2021-11-28 23:05 | PC.NURSE ---
Pt reported 10/10 pein prior to first dose of dilaudid. Pt then stated her pain for down to 3/10, still asking for dilaudid. I told her she may get more morphine, she wasn't thrilled with it but will accept it. NG Tube placement was successful, placement verified by auscultation. Stomach contents were yellow and cloudy. Some blood noted but no longer present. Pt stating her throat hurts and it hurts to swallow. Pt still complaining of 8/10 pain and seems very depressed. Stating she's going to start drinking alcohol again and that she hates her life. I spoke to the patient an she became slightly more pleasant. Pt asking for sleep medication. I will reach out to provider.
[2021-11-28 23:49] VITALS: BP 137/94; PULSE 91; RESP 13; TEMP 36.4; O2SAT 96
[2021-11-28] MEDS: 0.9 % Sodium Chloride Flush 3 ML SYRINGE IVFLUSH (23:49)
[2021-11-29] MEDS: Morphine Sulfate 4 MG/ML CARTRIDGE 3 MG IVPUSH ×6 (00:03→22:21)
[2021-11-29 02:11] LABS: Appearance Urine Clear; Color Urine Yellow; Glucose Urine UA Negative (Negative); Leukocyte Esterase Urine Negative (Negative); Nitrite Urine Negative (Negative); PH 5.5 (5.0-9.0); Specific Gravity - Urine >= 1.030 (1.005-1.025); Urine Blood Negative (Negative); Urine Ketones Negative (Negative); Urine Protein 30 (1+) mg/dL (Neg-Trace)
[2021-11-29 02:23] LABS: Bacteria Urine 1+ (None Seen); Hyaline Casts Urine 0-2 /LPF (0-2); Squamous Epithelial Cell Urine 0-2 /HPF (0-2); WBC Urine 0-5 /HPF (0-5)
[2021-11-29 03:11] VITALS: BP 157/89; PULSE 81; RESP 16; TEMP 36.7; O2SAT 95
[2021-11-29] MEDS: ondansetron HCL 4 MG/2 ML VIAL IVPUSH ×2 (05:56→22:00)
[2021-11-29 07:55] VITALS: BP 163/86; PULSE 79; RESP 13; TEMP 37.1; O2SAT 98
--- NOTE | 2021-11-29 08:05 | PHA.MEDREC ---
Pharmacy Consult ? Medication Reconciliation Pharmacy has completed the medication reconciliation.
[2021-11-29] MEDS: Pantoprazole Sodium 40 MG/10 ML VIAL IVPUSH (09:05)
--- NOTE | 2021-11-29 09:06 | PM.HPGS ---
History of Present Illness History of Present Illness Date of Service: 12/01/21 Chief complaint: abdominal pain Narrative: She is a 61 year old female with hx of ulcerrative colitis, s/p total colectomy with an ileal-pouch anal anastomosis, with abdominal pain for about 3 days. She says she had grinders 4 days ago and started to have abdominal pain the day after that. She says this was diffuse. She had some nausea and vomitting as well. She does state that she stil passes flatus and some watery stool. She had a CT done last night showing some dilatation of the entire small bowel with suggestion? of a stricture in the pouch anastomosis. She was admitted here in Feb 2020 for a similar presentation. Her CT picture was also similar to that at that time. She was also admitted for the same issue in Feb 2019.. 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 Blackwell in [facility] as well as by Dr. Jimenez. . Her original colectomy was done in 2011 in [facility]. She had an ileostomy before and she says she had a leak at that time requiring a prolonged hospital stay and additional surgeries. She says she does not want to go back to [facility]. She continues to have watery BMs and flatus. She says her abdominal pain is much improved this morning. She says the NGT is causing pain on her throat and head. She also says she had a sacral nerve stimulator implanted for her fecal incontinence and this has helped her a lot. Review of Systems Constitutional: Constitutional: Denies chills and Denies fever(s) Cardiovascular: Cardiovascular: Denies chest pain, Denies dyspnea and Denies dyspnea on exertion Respiratory: Respiratory: Denies cough, Denies dyspnea and Denies dyspnea on exertion Gastrointestinal: Gastrointestinal: Denies hematochezia, Denies change in bowel habits, Reports diarrhea and Reports loose stools Genitourinary: Genitourinary: Denies hematuria Musculoskeletal: Musculoskeletal: Denies back pain and Denies limited range of motion Neurologic: Denies focal weakness and Denies convulsions Psychiatric: Psychiatric: Denies depression and Denies mood swings [facility] Past Medical History Medical History Small bowel obstruction Stomach spasm Ulcerative colitis Surgical History Surgical History Hx of cholecystectomy Hx of hernia repair Hx of resection of large bowel S/P total colectomy Social History Social History Household Members: Spouse and Family Housing: House Do you presently have visiting nurse or other home services: No Alcohol intake: never Patient Tobacco Use Status: Never used Tobacco Use of substances other than those prescribed or required for medical reasons: No Currently Displaying Signs/Symptoms of Drug Intoxication Withdrawal: No Have you been hit, kicked, punched, or otherwise hurt by someone within the past year? If so, by whom?: No Do you feel safe in your current relationship?: Yes Is there a partner from a previous relationship who is making you feel unsafe now?: No Are you made to feel afraid or neglected: No Advance Directives: Yes Advance Directives on File: Yes Advance Directives Date on File: 02/24/20 Do you have thoughts of harming others: None Do you have a plan to hurt others: No Plan Recently lost weight without trying: Yes How much weight loss: 2-13 pounds Nutrition Risks: Poor intake 0-25% >4 days Patient : No : No Poor oral hygiene: No service: No Current occupational status: unemployed and disabled Meds Allergies Allergy/AdvReac Type Severity Reaction Status Date / Time morphine [MORPHINE] AdvReac Mild NAUSEA & Verified 02/20/21 09:14 VOMITING Active Medications: Current Medications Lactated Ringer's (Lr) 1,000 mls @ 100 mls/hr IVCONT .Q10H WENDY Last Admin: 11/28/21 22:55 Dose: 100 mls/hr Diphenhydramine HCl 25 mg/ (Sodium Chloride) 50.5 mls @ 200 mls/hr IV ONCE WENDY Last Infusion: 11/29/21 02:06 Dose: Infused Morphine Sulfate (Morphine Sulfate 4 Mg/Ml Cartridge) 3 mg IVPUSH Q4H PRN; Protocol PRN Reason: Pain, Severe (Pain Scale 7-10) Last Admin: 11/29/21 05:48 Dose: 3 mg Ondansetron HCl (Ondansetron Hcl 4 Mg/2 Ml Vial) 4 mg IVPUSH Q6H PRN PRN Reason: nausea Last Admin: 11/29/21 05:56 Dose: 4 mg Pantoprazole Sodium (Pantoprazole Sodium 40 Mg/10 Ml Vial) 40 mg IVPUSH DAILY [facility] Sodium Chloride (0.9 % Sodium Chloride Flush 3 Ml Syringe) 3 ml IVFLUSH QSHIFT [facility] Last Admin: 11/29/21 09:01 Dose: Not Given Home Medications Medication Instructions Recorded Confirmed Last Taken Type colesevelam 625 mg tablet 3 tab PO BEDTIME 02/24/20 11/29/21 4 Days Ago History ~11/25/21 diazepam 10 mg tablet 1 tab PO TID PRN muscle spasm 02/24/20 11/29/21 4 Days Ago History ~11/25/21 dicyclomine 10 mg capsule 2 cap PO BID 02/24/20 11/29/21 4 Days Ago History ~11/25/21 diphenoxylate-atropine 2.5 4 tab PO BID PRN diarrhea 02/24/20 11/29/21 4 Days Ago History mg-0.025 mg tablet ~11/25/21 hydrocodone 10 mg-acetaminophen 1 tab PO Q6H PRN Pain 02/24/20 11/29/21 4 Days Ago History 325 mg tablet ~11/25/21 esomeprazole magnesium 20 mg 20 mg PO DAILY 08/16/21 11/29/21 4 Days Ago History capsule,delayed release (Nexium) ~11/25/21 gabapentin 600 mg tablet 1 tab PO BEDTIME 11/28/21 11/29/21 4 Days Ago History ~11/25/21 calcium polycarbophil 625 mg 1,250 mg PO BID 11/29/21 11/29/21 4 Days Ago History tablet (FiberCon) ~11/25/21 Physical Exam Vital Signs: Vital Signs: Last Vital Signs Temp 98.7 F 11/29/21 07:55 Pulse 79 11/29/21 07:55 Resp 13 11/29/21 07:55 BP 163/86 H 11/29/21 07:55 Pulse Ox 98 11/29/21 07:55 O2 Del Method 11/29/21 07:55 BMI result Body Mass Index 24.9 Const: General: comfortable and no acute distress Orientation/consciousness: patient oriented x3 Neck: Neck: Yes no lymphadenopathy Resp: Auscultation: clear to auscultation bilaterally Cardio: Rhythm: regular rhythm GI: Palpation (GI): Soft to palpation, nontender and no guarding Neuro: General: patient oriented x3 Results Results Labs: Short CBC 11/28/21 Range/Units 16:14 WBC 11.9 H (4.8-10.8) X10*3/uL Hgb 12.9 D (12.0-16.0) g/dl Hct 44.0 D (37.0-47.0) % Plt Count 637 H D (160-400) X10*3/uL BMP 11/28/21 16:14 Sodium 134 L Potassium 4.9 D Chloride 99 Carbon Dioxide 17 L BUN 48 H D Creatinine 1.49 H Calcium 9.1 D Liver Function 11/28/21 Range/Units 16:14 Total Bilirubin 0.8 (0.0-1.0) mg/dL Direct Bilirubin 0.3 (0.0-0.5) mg/dL AST 85 H (5-31) U/L ALT 65 H (0-31) U/L Alkaline Phosphatase 93 D (39-117) U/L Albumin 4.2 D (3.5-5.0) g/dL Urine 11/29/21 Range/Units 01:30 Urine Color Yellow Urine Appearance Clear Urine pH 5.5 (5.0-9.0) Ur Specific [place] >= 1.030 H (1.005-1.025) Urine Protein 30 (1+) H (Neg-Trace) mg/dL Urine Glucose (UA) Negative (Negative) mg/dL Additional studies: Laboratory Results WBC 11.9 X10*3/uL (4.8-10.8) H 11/28/21 16:14 RBC 6.44 X10*6/uL (4.20-5.50) H D 11/28/21 16:14 Hgb 12.9 g/dl (12.0-16.0) D 11/28/21 16:14 Hct 44.0 % (37.0-47.0) D 11/28/21 16:14 MCV 68.3 fL (80.0-98.0) L 11/28/21 16:14 MCH 20.0 pg (27.0-33.0) L 11/28/21 16:14 MCHC 29.3 g/dl (31.0-35.0) L 11/28/21 16:14 RDW 20.8 % (11.0-16.0) H 11/28/21 16:14 Plt Count 637 X10*3/uL (160-400) H D 11/28/21 16:14 MPV 9.6 fL (9.4-12.3) 11/28/21 16:14 Immature Gran % (Auto) 0.3 % (0.0-0.4) 11/28/21 16:14 Neut % (Auto) 71.1 % (45-73) 11/28/21 16:14 Lymph % (Auto) 18.3 % (20-40) L 11/28/21 16:14 Bacon % (Auto) 9.5 % (2-11) 11/28/21 16:14 Eos % (Auto) 0.5 % (0-4) 11/28/21 16:14 Baso % (Auto) 0.3 % (0-2) 11/28/21 16:14 Lymph # (Auto) 2.2 X10*3/uL (1.2-4.9) 11/28/21 16:14 Bacon # (Auto) 1.1 X10*3/uL (0.1-1.2) 11/28/21 16:14 Eos # (Auto) 0.1 X10*3/uL (0.0-0.4) 11/28/21 16:14 Baso # (Auto) 0.0 X10*3/uL (0.0-0.2) 11/28/21 16:14 Abs Immat Gran (auto) 0.03 X10*3/uL (0.00-0.03) 11/28/21 16:14 Absolute Neuts (auto) 8.5 x10*3/uL (2.0-8.3) H 11/28/21 16:14 Absolute Nucleated RBC 0.000 X10*3/uL (0.0-0.012) 11/28/21 16:14 Nucleated RBC % (auto) 0.0 /100WBC (0.0-0.2) 11/28/21 16:14 Sodium 134 mmol/L (135-145) L 11/28/21 16:14 Potassium 4.9 mmol/L (3.3-5.1) D 11/28/21 16:14 Chloride 99 mmol/L (96-108) 11/28/21 16:14 Carbon Dioxide 17 mmol/L (22-29) L 11/28/21 16:14 Anion Gap 23 (12-20) H 11/28/21 16:14 BUN 48 mg/dL (9-16) H D 11/28/21 16:14 Creatinine 1.49 mg/dL (0.5-1.4) H 11/28/21 16:14 Estim Creat Clear Calc 37.4 11/28/21 16:14 Estimated GFR 36 11/28/21 16:14 Random Glucose 166 mg/dL (60-115) H 11/28/21 16:14 Calcium 9.1 mg/dL (8.4-10.2) D 11/28/21 16:14 Total Bilirubin 0.8 mg/dL (0.0-1.0) 11/28/21 16:14 Direct Bilirubin 0.3 mg/dL (0.0-0.5) 11/28/21 16:14 AST 85 U/L (5-31) H 11/28/21 16:14 ALT 65 U/L (0-31) H 11/28/21 16:14 Alkaline Phosphatase 93 U/L (39-117) D 11/28/21 16:14 Troponin I High Sens 25.7 ng/L (<3.5-17.0) H 11/28/21 20:04 Total Protein 7.7 g/dL (6.5-8.0) D 11/28/21 16:14 Albumin 4.2 g/dL (3.5-5.0) D 11/28/21 16:14 Urine Color Yellow 11/29/21 01:30 Urine Appearance Clear 11/29/21 01:30 Urine pH 5.5 (5.0-9.0) 11/29/21 01:30 Ur Specific [place] >= 1.030 (1.005-1.025) H 11/29/21 01:30 Urine Protein 30 (1+) mg/dL (Neg-Trace) H 11/29/21 01:30 Urine Glucose (UA) Negative mg/dL (Negative) 11/29/21 01:30 Urine Ketones Negative mg/dL (Negative) 11/29/21 01:30 Urine Blood Negative (Negative) 11/29/21 01:30 Urine Nitrite Negative (Negative) 11/29/21 01:30 Ur Leukocyte Esterase Negative (Negative) 11/29/21 01:30 Urine RBC 6-10 /HPF (0-2) H 11/29/21 01:30 Urine WBC 0-5 /HPF (0-5) 11/29/21 01:30 Ur Squamous Epith Cells 0-2 /HPF (0-2) 11/29/21 01:30 Urine Bacteria 1+ (None Seen) 11/29/21 01:30 Hyaline Casts 0-2 /LPF (0-2) 11/29/21 01:30 COVID-19 (YODIT) Negative (Negative) 11/28/21 16:13 COVID-19 Clin Com See Note 11/28/21 16:13 Impressions Abdomen/Pelvis CT 11/28/21 17:55 IMPRESSION: Surgical changes relating to prior colectomy with ileorectal anastomosis with generalized dilation of small bowel with abrupt narrowing at the level of the anastomosis with fluid distention of the rectum as well. The appearance is similar to prior studies and could relate to generalized ileus, partial obstruction or stricture at the ileorectal anastomosis or other process. Hepatic steatosis. Fleischner guidelines were followed. Assessment and Plan (1) Abdominal pain: Status: Acute Plan She was admitted for abdominal pain for about [address] shows a similar pattern of diffuse SB dilatation all the way to the pouch anastomosis. This may be secondary to diffuse ileus or narrowing of the anastomosis. She feels better this morning. I will do a ffup xray. I told her that it is possible that her NGT may be removed later today, as there has not been much output. Her abdominal exam is very benign as well. I will ask Dr. Jimenez to see her as a consult. She understands the plan well and is comfortable with this. Quality Stroke Does the patient have a stroke diagnosis?: No VTE Prior VTE?: No VTE Risk Level:: Medical - moderate - high VTE Device Contraindication: N/A - Device Ordered VTE Drug Contraindication: N/A - Med Ordered Procedures Date of Service Date of Service: 11/29/21
[2021-11-29 10:04] LABS: Anion Gap 14 (12-20); Blood Urea Nitrogen 38 mg/dL (9-16); Calcium 7.9 mg/dL (8.4-10.2); Carbon Dioxide 19 mmol/L (22-29); Chloride 107 mmol/L (96-108); Estimated Glomerular Filt Rate > 60; Glucose Random 103 mg/dL (60-115); Sodium 136 mmol/L (135-145)
--- NOTE | 2021-11-29 10:30 | MHC.CM.PN ---
PT REPORTS SHE LIVES WITH HER AND IS INDEPENDENT WITH ALL CARE SHE DENIES USE OF DME OR HOME SERVICES PT REPORTS SHE IS NOT COVID VACCINATED PT HAS A HCP ON FILE PCP: MOSES CARVAJAL DCP: HOME NO SERVICES TO TRANSPORT
[2021-11-29] MEDS: Lactated Ringers 1,000 ML 100 ML IVCONT ×2 (10:52→19:24)
[2021-11-29 11:24] VITALS: BP 143/87; PULSE 83; RESP 17; TEMP 36.9; O2SAT 96
[2021-11-29] MEDS: Throat Lozenge, Medicated LOZENGE 1 LOZENGE MUCOUS MEM ×2 (13:12→15:29)
[2021-11-29] MEDS: 0.9 % Sodium Chloride Flush 3 ML SYRINGE IVFLUSH (15:19)
--- NOTE | 2021-11-29 15:24 | PM.EVENT ---
Event Note Date of Service: 11/29/21 Event Note: KUB seen - still with distended small bowel loops abdomen soft explained to patient that we will keep the NG tube in place for now exam remains benign plan to consult Dr. Jimenez tomorrow
[2021-11-29 15:27] VITALS: BP 134/80; PULSE 85; RESP 17; TEMP 36.4; O2SAT 97
[2021-11-29 19:49] VITALS: BP 140/80; PULSE 95; RESP 16; TEMP 36.4; O2SAT 95
[2021-11-29] MEDS: Famotidine 20 MG TABLET PO (20:54)
[2021-11-29] MEDS: diazePAM 5 MG TABLET 10 MG PO (21:45)
[2021-11-29 23:42] VITALS: BP 150/93; PULSE 96; RESP 16; TEMP 36.5; O2SAT 94
[2021-11-30] MEDS: Morphine Sulfate 4 MG/ML CARTRIDGE 3 MG IVPUSH ×4 (02:05→20:20)
[2021-11-30] MEDS: Throat Lozenge, Medicated LOZENGE 1 LOZENGE MUCOUS MEM ×2 (02:06→06:41)
[2021-11-30 02:59] VITALS: BP 140/87; PULSE 88; RESP 14; TEMP 36.5; O2SAT 94
[2021-11-30] MEDS: ondansetron HCL 4 MG/2 ML VIAL IVPUSH (05:50)
[2021-11-30] MEDS: Lactated Ringers 1,000 ML 100 ML IVCONT ×2 (06:17→16:39)
[2021-11-30] MEDS: Pantoprazole Sodium 40 MG/10 ML VIAL IVPUSH (07:34)
[2021-11-30 07:53] VITALS: BP 138/90; PULSE 87; RESP 15; TEMP 37.2; O2SAT 95
--- NOTE | 2021-11-30 09:01 | PM.PNGS ---
Subjective Subjective Date of Service: 12/01/21 Interval history: says she has a headache and sorethroat from the NG tube passing flatus says she has loose stools denies abdl pain Physical Exam Vital Signs: Vital Signs: Last Vital Signs Temp 98.9 F 11/30/21 07:53 Pulse 87 11/30/21 07:53 Resp 15 11/30/21 07:53 BP 138/90 H 11/30/21 07:53 Pulse Ox 95 11/30/21 07:53 O2 Del Method 11/30/21 07:53 BMI result Body Mass Index 24.9 Const: General: comfortable and no acute distress Resp: Effort & Inspection: normal respiratory effort Cardio: Rate: regular rate GI: Palpation (GI): Soft to palpation, not firm, nontender, no guarding and not rigid Objective Data Active Medications Benzocaine (Throat Lozenge, Medicated Lozenge) 1 lozenge MUCOUS MEM Q2H PRN PRN Reason: Sore Throat Last Admin: 11/30/21 06:41 Dose: 1 lozenge Documented By: CHASTITY Diazepam (Diazepam 5 Mg Tablet) 10 mg PO BEDTIME PRN PRN Reason: Sleep Last Admin: 11/29/21 21:45 Dose: 10 mg Documented By: LAURA Famotidine (Famotidine 20 Mg Tablet) 20 mg PO BID PRN PRN Reason: Heartburn Last Admin: 11/29/21 20:54 Dose: 20 mg Documented By: LAURA Lactated Ringer's (Lr) 1,000 mls @ 100 mls/hr IVCONT .Q10H WENDY Last Admin: 11/30/21 06:17 Dose: 100 mls/hr Documented By: CHASTITY Diphenhydramine HCl 25 mg/ (Sodium Chloride) 50.5 mls @ 200 mls/hr IV ONCE WENDY Last Infusion: 11/29/21 02:06 Dose: 0 mls/hr Documented By: LAURA Morphine Sulfate (Morphine Sulfate 4 Mg/Ml Cartridge) 3 mg IVPUSH Q4H PRN; Protocol PRN Reason: Pain, Severe (Pain Scale 7-10) Last Admin: 11/30/21 06:12 Dose: 3 mg Documented By: CHASTITY Ondansetron HCl (Ondansetron Hcl 4 Mg/2 Ml Vial) 4 mg IVPUSH Q6H PRN PRN Reason: nausea Last Admin: 11/30/21 05:50 Dose: 4 mg Documented By: CHASTITY Pantoprazole Sodium (Pantoprazole Sodium 40 Mg/10 Ml Vial) 40 mg IVPUSH DAILY [facility] Last Admin: 11/30/21 07:34 Dose: 40 mg Documented By: GODFREY Sodium Chloride (0.9 % Sodium Chloride Flush 3 Ml Syringe) 3 ml IVFLUSH QSHIFT [facility] Last Admin: 11/30/21 02:14 Dose: Not Given Documented By: LAURA Non-Admin Reason: IV Running Labs CBC & Chem 7: 11/28/21 16:14 11/29/21 09:35 Labs: Laboratory Results - last 24 hr 11/29/21 09:35 Anion Gap 14 Estim Creat Clear Calc 60.0 Estimated GFR > 60 Random Glucose 103 Calcium 7.9 L D Procedures Date of Service Date of Service: 11/30/21 Progress Note: A&P Assessment and plan (1) Abdominal pain: Status: Acute Assessment and Plan: likely SBO from stenosis of her pouch anastomosis not much of NGT output abd soft and benign passing flatus will monitor NGT output today and possibly dc NGT later Dr. Jimenez consulted Time Spent With Patient Time: Total time spent is greater than 50% in coordination of care (as documented) at patient's floor/unit and/or counseling patient: Quality Stroke Does the patient have a stroke diagnosis?: No VTE Prior VTE?: No VTE Risk Level:: Medical - moderate - high VTE Device Contraindication: N/A - Device Ordered VTE Drug Contraindication: N/A - Med Ordered
[2021-11-30] MEDS: Famotidine 20 MG TABLET PO ×2 (10:15→20:21)
[2021-11-30] MEDS: 0.9 % Sodium Chloride Flush 3 ML SYRINGE IVFLUSH ×2 (10:29→20:21)
[2021-11-30 11:22] VITALS: BP 162/91; PULSE 95; RESP 13; TEMP 37; O2SAT 95
--- NOTE | 2021-11-30 13:55 | PM.EVENT ---
Event Note Date of Service: 11/30/21 Event Note: GI consult dictated Nausea and vomiting with diarrhea CT seems similar to previous exams ? component of ileus and gastroenteritis. Ileoscopy of J pouch in 03/15 showed no pouchitis or stricture. Agree with present management, continue ppi and lozenges for UGI complaints. Stool testing ordered.
[2021-11-30 16:00] VITALS: BP 144/80; PULSE 90; RESP 18; TEMP 36.5; O2SAT 95
--- NOTE | 2021-11-30 16:09 | PM.EVENT ---
Event Note Date of Service: 11/30/21 Event Note: She continues to feel well Denies any abdominal pain Passing flatus NG tube output has been very minimal since this morning I therefore ordered for the NG tube to be removed Okay to have sips of clears and ice chips Exam remains benign, no tenderness at this time
[2021-11-30 20:00] VITALS: BP 170/94; PULSE 107; RESP 18; TEMP 36.2; O2SAT 98
[2021-12-01] VITALS: BP 167/90; PULSE 89; RESP 17; TEMP 36.3; O2SAT 95
--- NOTE | 2021-12-01 01:24 | CONS_ITS ---
DATE OF SERVICE: 11/30/2021 REFERRING PHYSICIAN: Lambert Bean MD REASON FOR CONSULTATION: History of ulcerative colitis, J-pouch with nausea and vomiting. HISTORY OF PRESENT ILLNESS: Patient is a pleasant 61-year-old woman, well known to me from prior evaluation. She was admitted to the hospital after presenting to the emergency room on November 28, with complaints of abdominal pain. She states she was well until about 3 days before admission when she developed the onset of nausea after eating half a turkey rotary surface grinder. She had traveled earlier in the week to [place] and had felt unwell for a short period of time, but then felt better. The nausea became worse and she was started on a clear liquid diet as she has had problems before similar to this. The discomfort became associated with generalized abdominal pain and she had vomiting. She presented to the emergency room. There was also diarrhea, but no history of upper or lower GI bleeding. In the Emergency Department, she was evaluated with imaging studies, which are reviewed. CT scanning was done of the abdomen and pelvis showing her surgical changes because of her previous colectomy. She had generalized dilation of the small bowel with narrowing at the level of the anastomosis and fluid distention of the rectum, thought partially related to general ileus or partial obstruction or stricture. She has had similar presentations with CT scans with similar findings and underwent ileoscopy of her J-pouch on February 23, which showed no stricture identified in 20-25 cm of the distal ileum. She had NG tube inserted and has been treated with IV fluids, pain medications, and NG suction. She is still passing liquid, in fact reports diarrhea prior to admission. She also had chills at home but no documented fevers. PAST MEDICAL HISTORY: 1. Ulcerative colitis with a total colectomy and J-pouch in 2011. 2. Hypertension. 3. Anemia. 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 5. Sacral stimulator placement for fecal incontinence. CURRENT MEDICATIONS: Her current medication list is reviewed in the chart. ALLERGIES: MORPHINE HAS BEEN ASSOCIATED WITH NAUSEA AND VOMITING. FAMILY HISTORY: This is reviewed with the patient and is noncontributory. SOCIAL HISTORY: There is no current tobacco, alcohol, or substance abuse. REVIEW OF SYSTEMS: SKIN: No pruritus. HEENT: Negative. CARDIOPULMONARY: No shortness of breath or chest pain. GASTROINTESTINAL: As above. GENITOURINARY: Negative. NEUROPSYCHIATRIC: Negative. PHYSICAL EXAMINATION: GENERAL: Shows a pleasant female, lying comfortably in bed, complaining of throat irritation from the NG-tube. VITAL SIGNS: Reviewed in electronic medical record and are stable. SKIN: Anicteric. HEENT: Shows no scleral icterus. NECK: Without lymphadenopathy or thyromegaly. LUNGS: Clear. HEART: Regular rate and rhythm. S1, S2. No murmur. ABDOMEN: Soft. No focal masses or tenderness. Bowel sounds are present. No organomegaly is noted. EXTREMITIES: Without edema. LABORATORY DATA: Reviewed, including chemistry specimens as well as hematology specimens and her CT scan is also reviewed. IMPRESSION AND PLAN: Abdominal pain with nausea and vomiting. Her CT scan remains very similar to previous admissions with similar problems. No stricture was identified on prior ileoscopy and she had no evidence of pouchitis. It is possible there may be a component of gastroenteritis with ileus causing her symptoms at this time as she is still continuing to have loose stools. I would recommend obtaining stool studies when her NG tube output has decreased. This can be clamped and if she tolerates this, she can be advanced to clear liquid diet and after the tube is removed. I do not think lower GI tract endoscopy would be useful at this time as no stricture has been identified on previous studies. I agree with treating her with supportive care with acid suppressive therapy for her symptoms of reflux and throat discomfort with local analgesics. Thank you for asking me to see her. I will follow her in the hospital with you. MD ANITHA Verde/SOHAM / [id number]
[2021-12-01] MEDS: Morphine Sulfate 4 MG/ML CARTRIDGE 3 MG IVPUSH (02:47)
[2021-12-01 04:00] VITALS: BP 169/90; PULSE 71; RESP 18; TEMP 36.1; O2SAT 97
[2021-12-01 08:00] VITALS: BP 147/82; PULSE 79; RESP 20; TEMP 36.5; O2SAT 96
[2021-12-01] MEDS: Acetaminophen 325 MG TABLET 650 MG PO (08:24)
[2021-12-01] MEDS: Pantoprazole Sodium 40 MG/10 ML VIAL IVPUSH (08:24)
[2021-12-01] MEDS: 0.9 % Sodium Chloride Flush 3 ML SYRINGE IVFLUSH ×2 (08:26→17:04)
[2021-12-01 11:33] VITALS: BP 167/83; PULSE 71; RESP 20; TEMP 36.3; O2SAT 97
[2021-12-01 15:41] VITALS: BP 146/79; PULSE 83; RESP 18; TEMP 36.4; O2SAT 96
[2021-12-01 15:48] VITALS: BP 146/79; PULSE 79; RESP 18; TEMP 36.6; O2SAT 98
--- NOTE | 2021-12-01 16:43 | PM.EVENT ---
Event Note Date of Service: 12/01/21 Event Note: she had asked to be discharged today tolerating diet passing flatus says she feels well no abdl pain no tenderness stable VS ok to dc home I instructed her to check with Dr Jimenez to see if she needs a ffup with Dr. Blackwell in [facility]
--- NOTE | 2021-12-02 13:31 | PM.DS ---
DS: Providers Provider Date of Service: 12/01/21 Date of admission: 11/28/21 22:25 Date of discharge: 12/01/21 Primary care physician: John Buck MD Consults: 11/30/21 07:25 Consult to Gastroenterology Routine Consulting Provider: Tee Jimenez Reason for consultation: history of ulcerative colitis DS: Diagnosis Discharge Diagnosis (1) Abdominal pain: Status: Acute (2) Ulcerative colitis: Status: Acute DS: Summary Hospital Course Hospital Course: 61-year-old female, with history of ulcerative colitis and total colectomy with an ileal pouch anastomosis, admitted on November 28, 2021 because of abdominal pain. She had described abdominal pain diffusely along with nausea and vomiting. She had a CAT scan showing diffuse dilatation of the small bowel all the way to the ileal pouch anastomosis. This was suggestive of narrowing on the anastomosis. She however continued to have good passage of stool as well as flatus. She had an NG tube in place because of this diffuse dilatation. She had a follow-up KUB on her 1st hospital day showing persistent dilatation. However, NG tube output had decreased significantly. She continued to have good passage of stool and flatus. Removed her NG tube on her 2nd hospital day. Her abdominal exam continued to be benign. She did not have any significant pain or tenderness from then on so her diet was slowly advanced. She continued to tolerate regular diet so she was discharged on 12/01/2021. She was seen by Dr. Jimenez on consultation. No other intervention was planned. She was advised as well to see if she can follow up with her spinal surgeon Dr. Blackwell in [facility]. Time Spent with Patient Time attestation: Total time spent providing and/or coordinating discharge services: Discharge coordination time: Less than 30 minutes Quality: Safe Use of Opioids Does Pt have an Active Cancer Diagnosis on the Problem List?: No Quality: Stroke Does the patient have a stroke diagnosis?: No Physical Exam Vital Signs: Vital Signs: Last Vital Signs Temp 97.8 F 12/01/21 15:48 Pulse 79 12/01/21 15:48 Resp 18 12/01/21 15:48 BP 146/79 H 12/01/21 15:48 Pulse Ox 98 12/01/21 15:48 O2 Del Method 12/01/21 15:48 BMI result Body Mass Index 24.9 Const: General: comfortable and no acute distress Orientation/consciousness: patient oriented x3 Neck: Neck: Yes no lymphadenopathy Resp: Auscultation: clear to auscultation bilaterally Cardio: Rhythm: regular rhythm GI: Palpation (GI): Soft to palpation, nontender and no guarding Neuro: General: patient oriented x3 DS: Data Data Completed and Pending Completed studies during hospitalization [Text1]: Procedures Excision of Ileum, Via Natural or Artificial Opening Endoscopic, Diagnostic (02/24/20) Additional Comments Additional comments: Laboratory Results WBC 11.9 X10*3/uL (4.8-10.8) H 11/28/21 16:14 RBC 6.44 X10*6/uL (4.20-5.50) H D 11/28/21 16:14 Hgb 12.9 g/dl (12.0-16.0) D 11/28/21 16:14 Hct 44.0 % (37.0-47.0) D 11/28/21 16:14 MCV 68.3 fL (80.0-98.0) L 11/28/21 16:14 MCH 20.0 pg (27.0-33.0) L 11/28/21 16:14 MCHC 29.3 g/dl (31.0-35.0) L 11/28/21 16:14 RDW 20.8 % (11.0-16.0) H 11/28/21 16:14 Plt Count 637 X10*3/uL (160-400) H D 11/28/21 16:14 MPV 9.6 fL (9.4-12.3) 11/28/21 16:14 Immature Gran % (Auto) 0.3 % (0.0-0.4) 11/28/21 16:14 Neut % (Auto) 71.1 % (45-73) 11/28/21 16:14 Lymph % (Auto) 18.3 % (20-40) L 11/28/21 16:14 Grand % (Auto) 9.5 % (2-11) 11/28/21 16:14 Eos % (Auto) 0.5 % (0-4) 11/28/21 16:14 Baso % (Auto) 0.3 % (0-2) 11/28/21 16:14 Lymph # (Auto) 2.2 X10*3/uL (1.2-4.9) 11/28/21 16:14 Grand # (Auto) 1.1 X10*3/uL (0.1-1.2) 11/28/21 16:14 Eos # (Auto) 0.1 X10*3/uL (0.0-0.4) 11/28/21 16:14 Baso # (Auto) 0.0 X10*3/uL (0.0-0.2) 11/28/21 16:14 Abs Immat Gran (auto) 0.03 X10*3/uL (0.00-0.03) 11/28/21 16:14 Absolute Neuts (auto) 8.5 x10*3/uL (2.0-8.3) H 11/28/21 16:14 Absolute Nucleated RBC 0.000 X10*3/uL (0.0-0.012) 11/28/21 16:14 Nucleated RBC % (auto) 0.0 /100WBC (0.0-0.2) 11/28/21 16:14 Sodium 136 mmol/L (135-145) 11/29/21 09:35 Potassium 4.0 mmol/L (3.3-5.1) 11/29/21 09:35 Chloride 107 mmol/L (96-108) 11/29/21 09:35 Carbon Dioxide 19 mmol/L (22-29) L 11/29/21 09:35 Anion Gap 14 (12-20) 11/29/21 09:35 BUN 38 mg/dL (9-16) H 11/29/21 09:35 Creatinine 0.93 mg/dL (0.5-1.4) 11/29/21 09:35 Estim Creat Clear Calc 60.0 11/29/21 09:35 Estimated GFR > 60 11/29/21 09:35 Random Glucose 103 mg/dL (60-115) 11/29/21 09:35 Calcium 7.9 mg/dL (8.4-10.2) L D 11/29/21 09:35 Total Bilirubin 0.8 mg/dL (0.0-1.0) 11/28/21 16:14 Direct Bilirubin 0.3 mg/dL (0.0-0.5) 11/28/21 16:14 AST 85 U/L (5-31) H 11/28/21 16:14 ALT 65 U/L (0-31) H 11/28/21 16:14 Alkaline Phosphatase 93 U/L (39-117) D 11/28/21 16:14 Troponin I High Sens 25.7 ng/L (<3.5-17.0) H 11/28/21 20:04 Total Protein 7.7 g/dL (6.5-8.0) D 11/28/21 16:14 Albumin 4.2 g/dL (3.5-5.0) D 11/28/21 16:14 Urine Color Yellow 11/29/21 01:30 Urine Appearance Clear 11/29/21 01:30 Urine pH 5.5 (5.0-9.0) 11/29/21 01:30 Ur Specific [place] >= 1.030 (1.005-1.025) H 11/29/21 01:30 Urine Protein 30 (1+) mg/dL (Neg-Trace) H 11/29/21 01:30 Urine Glucose (UA) Negative mg/dL (Negative) 11/29/21 01:30 Urine Ketones Negative mg/dL (Negative) 11/29/21 01:30 Urine Blood Negative (Negative) 11/29/21 01:30 Urine Nitrite Negative (Negative) 11/29/21 01:30 Ur Leukocyte Esterase Negative (Negative) 11/29/21 01:30 Urine RBC 6-10 /HPF (0-2) H 11/29/21 01:30 Urine WBC 0-5 /HPF (0-5) 11/29/21 01:30 Ur Squamous Epith Cells 0-2 /HPF (0-2) 11/29/21 01:30 Urine Bacteria 1+ (None Seen) 11/29/21 01:30 Hyaline Casts 0-2 /LPF (0-2) 11/29/21 01:30 COVID-19 (YODIT) Negative (Negative) 11/28/21 16:13 COVID-19 Clin Com See Note 11/28/21 16:13 Impressions Abdomen/Pelvis CT 11/28/21 17:55 IMPRESSION: Surgical changes relating to prior colectomy with ileorectal anastomosis with generalized dilation of small bowel with abrupt narrowing at the level of the anastomosis with fluid distention of the rectum as well. The appearance is similar to prior studies and could relate to generalized ileus, partial obstruction or stricture at the ileorectal anastomosis or other process. Hepatic steatosis. Fleischner guidelines were followed. KUB X-Ray 11/29/21 09:35 IMPRESSION: Redemonstration of diffusely dilated loops of bowel throughout the abdomen from a similar to the prior study. Discharge Plan Discharge Patient Disposition: Home, Self-Care Discharge Diagnosis: Small-bowel obstruction, possible narrowing of pouch anastomosis Referrals: John Buck MD [Primary Care Provider] - 1 Week Discharge Medications: Continued diphenoxylate-atropine 2.5-0.025 mg tablet 4 tab PO BID PRN (Reason: diarrhea) hydrocodone-acetaminophen 10-325 mg tablet 1 tab PO Q6H PRN (Reason: Pain) colesevelam 625 mg tablet 3 tab PO BEDTIME diazepam 10 mg tablet 1 tab PO TID PRN (Reason: muscle spasm) dicyclomine 10 mg capsule 2 cap PO BID gabapentin 600 mg tablet 1 tab PO BEDTIME calcium polycarbophil [FiberCon] 625 mg Tablet 1,250 mg PO BID esomeprazole magnesium [Nexium] 20 mg Capsule,Delayed Release(Dr/Ec) 20 mg PO DAILY Discharge Orders: Discharge Order (Routine); Ordered 12/01/21 Ordered By: Lambert Bean Activity on Discharge: As tolerated Stand Alone Forms: Patient Portal Discharge page Care Plan Goals: control of recurrent abdominal pain with history of pouch anastomosis Health Concerns: history of ulcerative colitis Plan of Treatment: follow-up with Dr. Jimenez regarding long-term plans Assessment: doing well Discharge Date/Time: 12/01/21 18:03
== END 2021-12-01 18:03 | disposition home or self-care (01) | DRG 252 ==
LOC: HO.ED 20:39 → HO.EDOVER 22:53 → HO.S3 11-29 00:21
PROVIDERS: Physician Assistant; Admitting Provider Surgery; Emergency Provider Internal Medicine; PCP Family Medicine; Visit Provider Surgery
DX: K91.30 Postprocedural intestinal obstruction, unspecified as to partial versus complete (principal); N17.9 Acute kidney failure, unspecified; K51.912 Ulcerative colitis, unspecified with intestinal obstruction; T36.8X5A Adverse effect of other systemic antibiotics, initial encounter; Z20.822 Contact with and (suspected) exposure to COVID-19; Z96.82 Presence of neurostimulator; Z98.0 Intestinal bypass and anastomosis status; Z88.5 Allergy status to narcotic agent; Z79.899 Other long term (current) drug therapy
CPT/HCPCS: 36415; 74018; 74176; 80048; 80076; 81001; 84484; 85025; 87635; 93005; 99285; J1200; J2270; J2405

== ENCOUNTER 2022-04-07 13:13 | Outpatient (REF) | payer OTHER, SELFPAY ==
[2022-04-07 14:52] LABS: Leukocytes Stool Qualitative NEGATIVE (NEGATIVE)
[2022-04-07 16:06] LABS: Adenovirus F 40/41 Not Detected (Not Detect.); Astrovirus Not Detected (Not Detect.); Campylobacter Not Detected (Not Detect.); Cryptosporidium Not Detected (Not Detect.); Cyclospora cayetanensis Not Detected (Not Detect.); E. coli EAEC Not Detected (Not Detect.); E. coli EPEC Not Detected (Not Detect.); E. coli ETEC Not Detected (Not Detect.); E. coli STEC Not Detected (Not Detect.); Entamoeba histolytica Not Detected (Not Detect.); Giardia lamblia Not Detected (Not Detect.); Norovirus GI/GII Not Detected (Not Detect.); Plesiomonas shigelloides Not Detected (Not Detect.); Rotavirus A Not Detected (Not Detect.); Salmonella Not Detected (Not Detect.); Sapovirus Not Detected (Not Detect.); Shigella sp./EIEC Not Detected (Not Detect.); Vibrio Not Detected (Not Detect.); Vibrio Cholerae Not Detected (Not Detect.); Yersinia enterocolitica Not Detected (Not Detect.)
== END 2022-04-07 13:14 | disposition home or self-care (01) ==
LOC: HO.10HDLNP 13:13
PROVIDERS: Visit Provider Internal Medicine Gastroenterology
DX: R19.7 Diarrhea, unspecified (principal)
CPT/HCPCS: 87177; 87209; 87507; 89055

== ENCOUNTER 2022-05-27 16:51 | Inpatient (IN) | payer OTHER, SELFPAY ==
--- NOTE | ~2022-05-27 | XR_ITS ---
EXAMINATION: XR CHEST CLINICAL INFORMATION: OG tube placement. COMPARISON: Most recent chest radiograph done earlier the same day. TECHNIQUE: Frontal view of the chest was obtained. FINDINGS: Interval placement of an enteric tube with the tip in the region of the gastric body. New right perihilar and right upper lobe airspace opacity, not seen on the prior examination. Findings may be projectional or indicate early pneumonia. No pleural effusion or pneumothorax. Stable cardiomediastinal silhouette. XR/XR chest 1V IMPRESSION: 1. Enteric tube with the tip in the region of the gastric body. 2. New right perihilar and right upper lobe airspace opacities, not seen on the prior examination. Findings may be projectional or indicate early pneumonia.
--- NOTE | ~2022-05-27 | US_ITS ---
EXAMINATION: US ABDOMEN COMPLETE CLINICAL INFORMATION: Liver disease. COMPARISON: CT abdomen/pelvis 11/28/2021. TECHNIQUE: Real-time imaging of the abdominal viscera. FINDINGS: Very limited examination secondary to patient body habitus and shadowing from overlying bowel gas. Patient with altered mental status and unable to follow commands. PANCREAS: Not visualized due to shadowing from overlying bowel gas. ABDOMINAL AORTA: Not well visualized due to shadowing from overlying bowel gas. INFERIOR VENA CAVA: Not well visualized as above. LIVER: Enlarged with increased parenchymal echogenicity. No significant intrahepatic biliary ductal dilatation. Limited evaluation of focal lesions. GALLBLADDER: Cholecystectomy. COMMON BILE DUCT: Not well visualized, seen portions measuring up to 0.8 cm m in diameter. RIGHT KIDNEY: No gross hydronephrosis or nephrolithiasis. The kidney measures 9 cm in maximum dimension. LEFT KIDNEY: No gross hydronephrosis or nephrolithiasis. The kidney measures 7.2 cm in maximum dimension. SPLEEN: The spleen measures 9.2 cm in maximum dimension. FREE FLUID: None. US/US abdomen complete IMPRESSION: Very limited examination, if indicated correlation with a CT could be obtained. Hepatomegaly with increased parenchymal echogenicity suggesting hepatocellular disease or hepatic steatosis. Nonspecific CBD dilatation in the setting of cholecystectomy.
--- NOTE | ~2022-05-27 | XR_ITS ---
EXAMINATION: XR CHEST CLINICAL INFORMATION: Possible aspiration COMPARISON: Chest x-ray on 08/16/2021 TECHNIQUE: Frontal view of the chest was obtained. FINDINGS: The lung volumes are diminished. The cardiac silhouette is normal. There is mild diffuse bronchial wall thickening. There are no areas of consolidation. There are no pleural effusions or pneumothoraces. The bones and soft tissues are unremarkable for the patient's age. XR/XR chest 1V IMPRESSION: Bronchial wall thickening may be infectious and/or inflammatory in etiology.
--- NOTE | ~2022-05-27 | CT_ITS ---
EXAMINATION: CT head/brain wo IV con CLINICAL INFORMATION: Altered mental status COMPARISON: None. TECHNIQUE: Contiguous axial imaging was performed from the skull base to vertex without intravenous contrast. Sagittal and coronal reformatted images were obtained. This CT examination was performed using dose optimization techniques as appropriate, variously including the following: * Automated exposure control * Adjustment of mA and/or kV according to patient size (this includes techniques or standardized protocols for targeted exams where dose is matched to indication/reason for exam; i.e. extremities or head) Use of iterative reconstruction technique DLP: 564.89 mGy-cm mGy-cm FINDINGS: The ventricles and sulci are normal in size and configuration without significant volume loss or hydrocephalus. Mild prominence of the bilateral frontal extra-axial spaces. There is no abnormal attenuation within the brain parenchyma. No territorial loss of yonuger-white differentiation. No acute intracranial hemorrhage or extra-axial fluid collection. No mass lesion, significant mass effect, or herniation pattern. Calcific atherosclerotic disease along the carotid siphons. The orbits are grossly normal. Imaged portions of the paranasal sinuses demonstrate mild mucosal disease in the left sphenoid sinus and minimal patchy opacification within the right ethmoid air cells. The mastoid air cells are well aerated. Osseous structures are intact. CT/CT head/brain wo IV con IMPRESSION: No acute intracranial abnormality. Specifically, no CT evidence of acute intracranial hemorrhage, significant mass effect, hydrocephalus, or large territorial infarction.
--- NOTE | ~2022-05-27 | XR_ITS ---
EXAMINATION: XR CHEST CLINICAL INFORMATION: Confirm feeding tube placement. COMPARISON: None TECHNIQUE: Frontal view of the chest was obtained. FINDINGS: The lungs are hypoexpanded but clear. The heart size and pulmonary vascularity is normal. There is enteric tube with its tip in left upper quadrant likely stomach. No gross bony abnormality. XR/XR chest 1V IMPRESSION: 1. Hypoexpanded lungs without acute process. 2. Enteric tube tip in left upper quadrant likely within the stomach.
[2022-05-27 17:04] VITALS: BP 126/60; BP 131/86; PULSE 120; PULSE 122; RESP 19; TEMP 37.2; O2SAT 94; O2SAT 96; BMI 22.5
--- NOTE | 2022-05-27 17:13 | ED_ITS ---
HPI - General Adult General Chief complaint: General Medical Stated complaint: vomiting Time Seen by Provider: 05/27/22 17:09 Source: EMS Mode of arrival: EMS Limitations: altered mental status History of Present Illness HPI narrative: Patient comes to the emergency room with altered mental status. According to th e patient's family, EMS reported that the patient has been very lethargic since yesterday. Not answering questions. Occasionally vomiting, incontinent of stool. Patient is too altered to provide any history or answer any questions. Occasionally opens her eyes. Related Data Home Medications Medication Instructions Recorded Confirmed colesevelam 625 mg tablet 3 tab PO BEDTIME 02/24/20 11/29/21 diazepam 10 mg tablet 1 tab PO TID PRN muscle spasm 02/24/20 11/29/21 dicyclomine 10 mg capsule 2 cap PO BID 02/24/20 11/29/21 diphenoxylate-atropine 2.5 4 tab PO BID PRN diarrhea 02/24/20 11/29/21 mg-0.025 mg tablet hydrocodone 10 mg-acetaminophen 1 tab PO Q6H PRN Pain 02/24/20 11/29/21 325 mg tablet esomeprazole magnesium 20 mg 20 mg PO DAILY 08/16/21 11/29/21 capsule,delayed release (Nexium) gabapentin 600 mg tablet 1 tab PO BEDTIME 11/28/21 11/29/21 calcium polycarbophil 625 mg 1,250 mg PO BID 11/29/21 11/29/21 tablet (FiberCon) Allergies Allergy/AdvReac Type Severity Reaction Status Date / Time morphine [MORPHINE] AdvReac Mild NAUSEA & Verified 02/20/21 09:14 VOMITING Review of Systems Review of Systems: Yes Unobtainable due to mental condition [facility] Past Medical History Medical History (Updated 05/27/22 @ 20:55 by Alana Estevez MD) Atrial fibrillation Cerebral aneurysm rupture CHF (congestive heart failure) COPD (chronic obstructive pulmonary disease) 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 Hypertension Hyponatremia Hypothyroidism Small bowel obstruction Stomach spasm Ulcerative colitis Surgical History Hx of cholecystectomy Hx of hernia repair Hx of resection of large bowel S/P total colectomy Social History Social History Household Members: Spouse and Family Housing: House Do you presently have visiting nurse or other home services: No Alcohol intake: current Alcohol intake frequency: holidays/special occasions on ly Patient Tobacco Use Status: Never used Tobacco Smoked in Last 30 Days: No Use of substances other than those prescribed or required for medical reasons: No Advance Directives: Yes Advance Directives on File: Yes Advance Directives Date on File: 02/24/20 Patient : No service: No Current occupational status: unemployed and disabled Physical Exam ED Vital Signs: Vital Signs - 24 hr 05/27/22 17:04 05/27/22 19:08 05/27/22 18:16 Temperature 99.0 F Pulse Rate 122 H 125 H 121 H Respiratory Rate 19 16 16 Blood Pressure 131/86 136/81 130/87 Pulse Oximetry 94 97 97 Oxygen Delivery Method Room Air Room Air Room Air BMI result Body Mass Index 22.5 Const Other: Appearance: Somnolent, barely arousable, opens her eyes when her name is called Eyes: Pupils equal, round and reactive to light. ENT: Pharynx normal. Neck: Normal inspection. Neck supple. No lymph nodes noted. No crepitus CVS: Regular rhythm, tachycardic, heart rate 120-1 30s, Pulses normal. Normal S1 and S2 Respiratory: No respiratory distress. Breath sounds normal. No Wheezing. No rales Abdomen: Soft and nontender. No rigidity. No distention. Skin: Skin warm and dry. Normal skin color. Normal skin turgor. Extremities: No lower extremity edema. No Lacerations. No Rash Neuro: Oriented X 3. No motor deficit. No sensory deficit. Moving all ext remities. No slurred speech. CN 2 through 12 grossly intact Psych: calm, cooperative, normal affect Medications Administered Discontinued Medications Generic Name Dose Route Start Last Admin Trade Name Freq PRN Reason Stop Dose Admin Sodium Chloride 1,000 mls @ 999 mls/hr 05/27/22 17:10 05/27/22 19:21 Ns IVCONT 05/27/22 18:10 Infused .Q1H1M ONE Infusion Medical Decision Making Medical Decision Making MDM Narrative: -I was able to get records from [facility], patient was diagnosed and discharged from the hospital on May 03 with a diagnosis of nonhepatic hyperammonemia. Possibly secondary to polypharmacy. Patient's states unknown of her medications are new. Patient does not over medicate -patient is presenting with the same symptoms today. -patient is too obtunded to take p.o. lactulose, patient will be receiving per rectum lactulose. -head CT does not show any acute abnormalities Differential Diagnosis Differential Diagnoses: The differential diagnosis associated with the presentation includes (Encephalopathy, UTI) Admission/Observation Consideration of admission/observation: Escalation of care including admission/observation considered Consult Healthcare Provider Management of the patient was discussed with: Hospitalist Lab Data [facility] Lab Attestation statement: I reviewed the patient's lab results. 05/27/22 17:28 05/27/22 18:49 Labs: Lab Results 05/27/22 05/27/22 05/27/22 Range/Units 17:28 17:28 17:28 WBC 11.2 H (4.8-10.8) X10*3/uL RBC 5.60 H (4.20-5.50) X10*6/uL Hgb 11.7 L (12.0-16.0) g/dl Hct 38.8 (37.0-47.0) % MCV 69.3 L (80.0-98.0) fL MCH 20.9 L (27.0-33.0) pg MCHC 30.2 L (31.0-35.0) g/dl RDW 22.6 H (11.0-16.0) % Plt Count 285 D (160-400) X10*3/uL MPV TNP Immature Gran % (Auto) 0.4 (0.0-0.4) % Neut % (Auto) 81.6 H (45-73) % Lymph % (Auto) 11.6 L (20-40) % [place] % (Auto) 6.1 (2-11) % Eos % (Auto) 0.1 (0-4) % Baso % (Auto) 0.2 (0-2) % Lymph # (Auto) 1.3 (1.2-4.9) X10*3/uL [place] # (Auto) 0.7 (0.1-1.2) X10*3/uL Eos # (Auto) 0.0 (0.0-0.4) X10*3/uL Baso # (Auto) 0.0 (0.0-0.2) X10*3/uL Abs Immat Gran (auto) 0.04 H (0.00-0.03) X10*3/uL Absolute Neuts (auto) 9.1 H (2.0-8.3) x10*3/uL Absolute Nucleated RBC 0.000 (0.0-0.012) X10*3/uL Nucleated RBC % (auto) 0.0 (0.0-0.2) /100WBC Smear Tech's Comments VERIFIED PT (10.0-13.1) SEC INR (0.9-1.1) D-Dimer High Sensitivty NG/ML VBG pH (7.32-7.43) VBG pCO2 mmHg VBG pO2 mmHg VBG HCO3 (22-26) mmol/L VBG O2 Saturation % VBG Base Excess mmol/L Sodium (135-145) mmol/L Potassium (3.3-5.1) mmol/L Chloride (96-108) mmol/L Carbon Dioxide (22-29) mmol/L Anion Gap (12-20) BUN (9-16) mg/dL Creatinine (0.5-1.4) mg/dL Estim Creat Clear Calc Estimated GFR POC Glucose (60-115) mg/dL Random Glucose (60-115) mg/dL Lactic Acid (0.5-2.0) mmol/L Calcium (8.4-10.2) mg/dL Magnesium (1.6-2.6) mg/dL Total Bilirubin (0.0-1.0) mg/dL Direct Bilirubin (0.0-0.5) mg/dL AST (5-31) U/L ALT (0-31) U/L Alkaline Phosphatase (39-117) U/L Ammonia (13-55) umol/L Total Creatine Kinase (26-140) U/L Troponin I High Sens 5.7 (<3.5-17.0) ng/L B-Natriuretic Peptide 20 (<100) pg/mL Total Protein (6.5-8.0) g/dL Albumin (3.5-5.0) g/dL Lipase (8-78) U/L TSH (0.32-4.0) uIU/mL Urine Color Urine Appearance Urine pH (5.0-9.0) Ur Specific [place] (1.005-1.025) Urine Protein (Neg-Trace) mg/dL Urine Glucose (UA) (Negative) mg/dL Urine Ketones (Negative) mg/dL Urine Blood (Negative) Urine Nitrite (Negative) Ur Leukocyte Esterase (Negative) Urine RBC (0-2) /HPF Urine WBC (0-5) /HPF Ur Squamous Epith Cells (0-2) /HPF Urine Bacteria (None Seen) Hyaline Casts (0-2) /LPF Salicylates (15-30) mg/dL Urine Opiates Screen (Not Detect) Urine Fentanyl Screen (Not Detect) Acetaminophen (<30) mcg/mL Ur Barbiturates Screen (Not Detect) Ur Phencyclidine Scrn (Not Detect) Ur Amphetamines Screen (Not Detect) U Benzodiazepines Scrn (Not Detect) Urine Cocaine Screen (Not Detect) U Marijuana (THC) Screen (Not Detect) Ethyl Alcohol mg/dL COVID-19 (YODIT) (Negative) COVID-19 Clin Com 05/27/22 05/27/22 05/27/22 Range/Units 17:28 17:29 17:29 WBC (4.8-10.8) X10*3/uL RBC (4.20-5.50) X10*6/uL Hgb (12.0-16.0) g/dl Hct (37.0-47.0) % MCV (80.0-98.0) fL MCH (27.0-33.0) pg MCHC (31.0-35.0) g/dl RDW (11.0-16.0) % Plt Count (160-400) X10*3/uL MPV Immature Gran % (Auto) (0.0-0.4) % Neut % (Auto) (45-73) % Lymph % (Auto) (20-40) % [place] % (Auto) (2-11) % Eos % (Auto) (0-4) % Baso % (Auto) (0-2) % Lymph # (Auto) (1.2-4.9) X10*3/uL [place] # (Auto) (0.1-1.2) X10*3/uL Eos # (Auto) (0.0-0.4) X10*3/uL Baso # (Auto) (0.0-0.2) X10*3/uL Abs Immat Gran (auto) (0.00-0.03) X10*3/uL Absolute Neuts (auto) (2.0-8.3) x10*3/uL Absolute Nucleated RBC (0.0-0.012) X10*3/uL Nucleated RBC % (auto) (0.0-0.2) /100WBC Smear Tech's Comments PT (10.0-13.1) SEC INR (0.9-1.1) D-Dimer High Sensitivty NG/ML VBG pH (7.32-7.43) VBG pCO2 mmHg VBG pO2 mmHg VBG HCO3 (22-26) mmol/L VBG O2 Saturation % VBG Base Excess mmol/L Sodium (135-145) mmol/L Potassium (3.3-5.1) mmol/L Chloride (96-108) mmol/L Carbon Dioxide (22-29) mmol/L Anion Gap (12-20) BUN (9-16) mg/dL Creatinine (0.5-1.4) mg/dL Estim Creat Clear Calc Estimated GFR POC Glucose (60-115) mg/dL Random Glucose (60-115) mg/dL Lactic Acid 3.3 H* (0.5-2.0) mmol/L Calcium (8.4-10.2) mg/dL Magnesium (1.6-2.6) mg/dL Total Bilirubin (0.0-1.0) mg/dL Direct Bilirubin (0.0-0.5) mg/dL AST (5-31) U/L ALT (0-31) U/L Alkaline Phosphatase (39-117) U/L Ammonia 179 H (13-55) umol/L Total Creatine Kinase (26-140) U/L Troponin I High Sens (<3.5-17.0) ng/L B-Natriuretic Peptide (<100) pg/mL Total Protein (6.5-8.0) g/dL Albumin (3.5-5.0) g/dL Lipase (8-78) U/L TSH 1.15 (0.32-4.0) uIU/mL Urine Color Urine Appearance Urine pH (5.0-9.0) Ur Specific [place] (1.005-1.025) Urine Protein (Neg-Trace) mg/dL Urine Glucose (UA) (Negative) mg/dL Urine Ketones (Negative) mg/dL Urine Blood (Negative) Urine Nitrite (Negative) Ur Leukocyte Esterase (Negative) Urine RBC (0-2) /HPF Urine WBC (0-5) /HPF Ur Squamous Epith Cells (0-2) /HPF Urine Bacteria (None Seen) Hyaline Casts (0-2) /LPF Salicylates (15-30) mg/dL Urine Opiates Screen (Not Detect) Urine Fentanyl Screen (Not Detect) Acetaminophen (<30) mcg/mL Ur Barbiturates Screen (Not Detect) Ur Phencyclidine Scrn (Not Detect) Ur Amphetamines Screen (Not Detect) U Benzodiazepines Scrn (Not Detect) Urine Cocaine Screen (Not Detect) U Marijuana (THC) Screen (Not Detect) Ethyl Alcohol < 10 mg/dL COVID-19 (YODIT) (Negative) COVID-19 Clin Com 05/27/22 05/27/22 05/27/22 Range/Units 17:32 17:38 17:56 WBC (4.8-10.8) X10*3/uL RBC (4.20-5.50) X10*6/uL Hgb (12.0-16.0) g/dl Hct (37.0-47.0) % MCV (80.0-98.0) fL MCH (27.0-33.0) pg MCHC (31.0-35.0) g/dl RDW (11.0-16.0) % Plt Count (160-400) X10*3/uL MPV Immature Gran % (Auto) (0.0-0.4) % Neut % (Auto) (45-73) % Lymph % (Auto) (20-40) % [place] % (Auto) (2-11) % Eos % (Auto) (0-4) % Baso % (Auto) (0-2) % Lymph # (Auto) (1.2-4.9) X10*3/uL [place] # (Auto) (0.1-1.2) X10*3/uL Eos # (Auto) (0.0-0.4) X10*3/uL Baso # (Auto) (0.0-0.2) X10*3/uL Abs Immat Gran (auto) (0.00-0.03) X10*3/uL Absolute Neuts (auto) (2.0-8.3) x10*3/uL Absolute Nucleated RBC (0.0-0.012) X10*3/uL Nucleated RBC % (auto) (0.0-0.2) /100WBC Smear Tech's Comments PT (10.0-13.1) SEC INR (0.9-1.1) D-Dimer High Sensitivty NG/ML VBG pH 7.40 (7.32-7.43) VBG pCO2 27 mmHg VBG pO2 49 mmHg VBG HCO3 17 L (22-26) mmol/L VBG O2 Saturation 63.0 % VBG Base Excess -5.7 mmol/L Sodium (135-145) mmol/L Potassium (3.3-5.1) mmol/L Chloride (96-108) mmol/L Carbon Dioxide (22-29) mmol/L Anion Gap (12-20) BUN (9-16) mg/dL Creatinine (0.5-1.4) mg/dL Estim Creat Clear Calc Estimated GFR POC Glucose 135 H (60-115) mg/dL Random Glucose (60-115) mg/dL Lactic Acid (0.5-2.0) mmol/L Calcium (8.4-10.2) mg/dL Magnesium (1.6-2.6) mg/dL Total Bilirubin (0.0-1.0) mg/dL Direct Bilirubin (0.0-0.5) mg/dL AST (5-31) U/L ALT (0-31) U/L Alkaline Phosphatase (39-117) U/L Ammonia (13-55) umol/L Total Creatine Kinase (26-140) U/L Troponin I High Sens (<3.5-17.0) ng/L B-Natriuretic Peptide (<100) pg/mL Total Protein (6.5-8.0) g/dL Albumin (3.5-5.0) g/dL Lipase (8-78) U/L TSH (0.32-4.0) uIU/mL Urine Color Urine Appearance Urine pH (5.0-9.0) Ur Specific [place] (1.005-1.025) Urine Protein (Neg-Trace) mg/dL Urine Glucose (UA) (Negative) mg/dL Urine Ketones (Negative) mg/dL Urine Blood (Negative) Urine Nitrite (Negative) Ur Leukocyte Esterase (Negative) Urine RBC (0-2) /HPF Urine WBC (0-5) /HPF Ur Squamous Epith Cells (0-2) /HPF Urine Bacteria (None Seen) Hyaline Casts (0-2) /LPF Salicylates (15-30) mg/dL Urine Opiates Screen (Not Detect) Urine Fentanyl Screen (Not Detect) Acetaminophen (<30) mcg/mL Ur Barbiturates Screen (Not Detect) Ur Phencyclidine Scrn (Not Detect) Ur Amphetamines Screen (Not Detect) U Benzodiazepines Scrn (Not Detect) Urine Cocaine Screen (Not Detect) U Marijuana (THC) Screen (Not Detect) Ethyl Alcohol mg/dL COVID-19 (YODIT) Negative (Negative) COVID-19 Clin Com See Note 05/27/22 05/27/22 05/27/22 Range/Units 17:56 17:56 18:49 WBC (4.8-10.8) X10*3/uL RBC (4.20-5.50) X10*6/uL Hgb (12.0-16.0) g/dl Hct (37.0-47.0) % MCV (80.0-98.0) fL MCH (27.0-33.0) pg MCHC (31.0-35.0) g/dl RDW (11.0-16.0) % Plt Count (160-400) X10*3/uL MPV Immature Gran % (Auto) (0.0-0.4) % Neut % (Auto) (45-73) % Lymph % (Auto) (20-40) % [place] % (Auto) (2-11) % Eos % (Auto) (0-4) % Baso % (Auto) (0-2) % Lymph # (Auto) (1.2-4.9) X10*3/uL [place] # (Auto) (0.1-1.2) X10*3/uL Eos # (Auto) (0.0-0.4) X10*3/uL Baso # (Auto) (0.0-0.2) X10*3/uL Abs Immat Gran (auto) (0.00-0.03) X10*3/uL Absolute Neuts (auto) (2.0-8.3) x10*3/uL Absolute Nucleated RBC (0.0-0.012) X10*3/uL Nucleated RBC % (auto) (0.0-0.2) /100WBC Smear Tech's Comments PT (10.0-13.1) SEC INR (0.9-1.1) D-Dimer High Sensitivty NG/ML VBG pH (7.32-7.43) VBG pCO2 mmHg VBG pO2 mmHg VBG HCO3 (22-26) mmol/L VBG O2 Saturation % VBG Base Excess mmol/L Sodium 138 (135-145) mmol/L Potassium 4.8 (3.3-5.1) mmol/L Chloride 108 (96-108) mmol/L Carbon Dioxide 17 L (22-29) mmol/L Anion Gap 18 (12-20) BUN 26 H (9-16) mg/dL Creatinine 0.72 (0.5-1.4) mg/dL Estim Creat Clear Calc 70.8 Estimated GFR > 60 POC Glucose (60-115) mg/dL Random Glucose 130 H (60-115) mg/dL Lactic Acid (0.5-2.0) mmol/L Calcium 7.8 L (8.4-10.2) mg/dL Magnesium 1.8 (1.6-2.6) mg/dL Total Bilirubin 1.6 H (0.0-1.0) mg/dL Direct Bilirubin 0.7 H (0.0-0.5) mg/dL AST 260 H (5-31) U/L ALT 100 H (0-31) U/L Alkaline Phosphatase 161 H (39-117) U/L Ammonia (13-55) umol/L Total Creatine Kinase 32 (26-140) U/L Troponin I High Sens (<3.5-17.0) ng/L B-Natriuretic Peptide (<100) pg/mL Total Protein 5.2 L (6.5-8.0) g/dL Albumin 2.8 L (3.5-5.0) g/dL Lipase 6 L (8-78) U/L TSH (0.32-4.0) uIU/mL Urine Color Dark Yellow Urine Appearance Clear Urine pH 6.0 (5.0-9.0) Ur Specific [place] >= 1.030 H (1.005-1.025) Urine Protein Trace (Neg-Trace) mg/dL Urine Glucose (UA) Negative (Negative) mg/dL Urine Ketones 15 (Negative) mg/dL Urine Blood Negative (Negative) Urine Nitrite Negative (Negative) Ur Leukocyte Esterase Trace H (Negative) Urine RBC 0-2 (0-2) /HPF Urine WBC 0-5 (0-5) /HPF Ur Squamous Epith Cells 0-2 (0-2) /HPF Urine Bacteria None Seen (None Seen) Hyaline Casts 0-2 (0-2) /LPF Salicylates < 5.0 L (15-30) mg/dL Urine Opiates Screen POSITIVE H (Not Detect) Urine Fentanyl Screen Not Detected (Not Detect) Acetaminophen < 17 (<30) mcg/mL Ur Barbiturates Screen Not Detected (Not Detect) Ur Phencyclidine Scrn Not Detected (Not Detect) Ur Amphetamines Screen Not Detected (Not Detect) U Benzodiazepines Scrn POSITIVE H (Not Detect) Urine Cocaine Screen Not Detected (Not Detect) U Marijuana (THC) Screen Not Detected (Not Detect) Ethyl Alcohol mg/dL COVID-19 (YODIT) (Negative) COVID-19 Clin Com 05/27/22 Range/Units 18:49 WBC (4.8-10.8) X10*3/uL RBC (4.20-5.50) X10*6/uL Hgb (12.0-16.0) g/dl Hct (37.0-47.0) % MCV (80.0-98.0) fL MCH (27.0-33.0) pg MCHC (31.0-35.0) g/dl RDW (11.0-16.0) % Plt Count (160-400) X10*3/uL MPV Immature Gran % (Auto) (0.0-0.4) % Neut % (Auto) (45-73) % Lymph % (Auto) (20-40) % [place] % (Auto) (2-11) % Eos % (Auto) (0-4) % Baso % (Auto) (0-2) % Lymph # (Auto) (1.2-4.9) X10*3/uL [place] # (Auto) (0.1-1.2) X10*3/uL Eos # (Auto) (0.0-0.4) X10*3/uL Baso # (Auto) (0.0-0.2) X10*3/uL Abs Immat Gran (auto) (0.00-0.03) X10*3/uL Absolute Neuts (auto) (2.0-8.3) x10*3/uL Absolute Nucleated RBC (0.0-0.012) X10*3/uL Nucleated RBC % (auto) (0.0-0.2) /100WBC Smear Tech's Comments PT 13.3 H (10.0-13.1) SEC INR 1.2 H (0.9-1.1) D-Dimer High Sensitivty 152 NG/ML VBG pH (7.32-7.43) VBG pCO2 mmHg VBG pO2 mmHg VBG HCO3 (22-26) mmol/L VBG O2 Saturation % VBG Base Excess mmol/L Sodium (135-145) mmol/L Potassium (3.3-5.1) mmol/L Chloride (96-108) mmol/L Carbon Dioxide (22-29) mmol/L Anion Gap (12-20) BUN (9-16) mg/dL Creatinine (0.5-1.4) mg/dL Estim Creat Clear Calc Estimated GFR POC Glucose (60-115) mg/dL Random Glucose (60-115) mg/dL Lactic Acid (0.5-2.0) mmol/L Calcium (8.4-10.2) mg/dL Magnesium (1.6-2.6) mg/dL Total Bilirubin (0.0-1.0) mg/dL Direct Bilirubin (0.0-0.5) mg/dL AST (5-31) U/L ALT (0-31) U/L Alkaline Phosphatase (39-117) U/L Ammonia (13-55) umol/L Total Creatine Kinase (26-140) U/L Troponin I High Sens (<3.5-17.0) ng/L B-Natriuretic Peptide (<100) pg/mL Total Protein (6.5-8.0) g/dL Albumin (3.5-5.0) g/dL Lipase (8-78) U/L TSH (0.32-4.0) uIU/mL Urine Color Urine Appearance Urine pH (5.0-9.0) Ur Specific [place] (1.005-1.025) Urine Protein (Neg-Trace) mg/dL Urine Glucose (UA) (Negative) mg/dL Urine Ketones (Negative) mg/dL Urine Blood (Negative) Urine Nitrite (Negative) Ur Leukocyte Esterase (Negative) Urine RBC (0-2) /HPF Urine WBC (0-5) /HPF Ur Squamous Epith Cells (0-2) /HPF Urine Bacteria (None Seen) Hyaline Casts (0-2) /LPF Salicylates (15-30) mg/dL Urine Opiates Screen (Not Detect) Urine Fentanyl Screen (Not Detect) Acetaminophen (<30) mcg/mL Ur Barbiturates Screen (Not Detect) Ur Phencyclidine Scrn (Not Detect) Ur Amphetamines Screen (Not Detect) U Benzodiazepines Scrn (Not Detect) Urine Cocaine Screen (Not Detect) U Marijuana (THC) Screen (Not Detect) Ethyl Alcohol mg/dL COVID-19 (YODIT) (Negative) COVID-19 Clin Com Independent Interpretation I performed an independent interpretation of an: CT Scan (My interpretation of head CT: No acute intracranial bleed) Interpretation: FINDINGS: The ventricles and sulci are normal in size and configuration without significant volume loss or hydrocephalus. Mild prominence of the bilateral frontal extra-axial spaces.? There is no abnormal attenuation within the brain parenchyma.? No territorial loss of younger-white differentiation. No acute intracranial hemorrhage or extra-axial fluid collection.? No mass lesion, significant mass effect, or herniation pattern. Calcific atherosclerotic disease along the carotid siphons. The orbits are grossly normal.? Imaged portions of the paranasal sinuses demonstrate mild mucosal disease in the left sphenoid sinus and minimal patchy opacification within the right ethmoid air cells. The mastoid air cells are well aerated.? Osseous structures are intact. CT/CT head/brain wo IV con IMPRESSION: ? No acute intracranial abnormality. Specifically, no CT evidence of acute intracranial hemorrhage, significant mass effect, hydrocephalus, or large territorial infarction. Critical Care Time Critical Care Time Critical Care Time: Yes Total Critical Care Time: 60 Attestation: I have personally provided critical care time. Time includes review of lab data, radiology results, discussion with consultants, and monitoring for potential decompensation. Intervention performed as documented. Discharge Plan Discharge Clinical Impression: Hyperammonemic encephalopathy Patient Disposition: Admitted As Inpatient Prescriptions: No Action diphenoxylate-atropine 2.5-0.025 mg tablet 4 tab PO BID PRN (Reason: diarrhea) hydrocodone-acetaminophen 10-325 mg tablet 1 tab PO Q6H PRN (Reason: Pain) colesevelam 625 mg tablet 3 tab PO BEDTIME diazepam 10 mg tablet 1 tab PO TID PRN (Reason: muscle spasm) dicyclomine 10 mg capsule 2 cap PO BID gabapentin 600 mg tablet 1 tab PO BEDTIME calcium polycarbophil [FiberCon] 625 mg Tablet 1,250 mg PO BID esomeprazole magnesium [Nexium] 20 mg Capsule,Delayed Release(Dr/Ec) 20 mg PO DAILY
[2022-05-27 17:40] LABS: VBG Base Excess -5.7 mmol/L; VBG HCO3 17 mmol/L (22-26); VBG pCO2 27 mmHg; VBG pO2 49 mmHg
[2022-05-27 17:40] LABS: Venous Blood Gas Refer to POC result
[2022-05-27 17:47] LABS: Basophils Percent Auto 0.2 % (0-2); Eosinophils Percent Auto 0.1 % (0-4); Hematocrit 38.8 % (37.0-47.0); Hemoglobin 11.7 g/dl (12.0-16.0); Imm Gran Abs Auto 0.04 X10*3/uL (0.00-0.03); Imm Gran Pct Auto 0.4 % (0.0-0.4); Lymphocytes Absolute Auto 1.3 X10*3/uL (1.2-4.9); Lymphocytes Percent Auto 11.6 % (20-40); MANUAL DIFF FLAG SCAN; Mean Corpuscular HGB Conc 30.2 g/dl (31.0-35.0); Mean Corpuscular Hemoglobin 20.9 pg (27.0-33.0); Mean Corpuscular Volume 69.3 fL (80.0-98.0); Monocytes Absolute Auto 0.7 X10*3/uL (0.1-1.2); Monocytes Percent Auto 6.1 % (2-11); Neutrophils Absolute Auto 9.1 x10*3/uL (2.0-8.3); Neutrophils Percent Auto 81.6 % (45-73); PLT CLUMP 1; Red Cell Distribution Width 22.6 % (11.0-16.0); SCAN SMEAR FLAG 1
[2022-05-27 17:53] LABS: White Blood Count 11.2 X10*3/uL (4.8-10.8)
[2022-05-27 17:53] LABS: Ammonia 179 umol/L (13-55)
[2022-05-27 17:55] LABS: Glucose, Whole Blood 135 mg/dL (60-115)
[2022-05-27] MEDS: 0.9 % Sodium Chloride 1,000 ML 999 ML IVCONT (17:55)
[2022-05-27 17:58] LABS: Platelet Count 285 X10*3/uL (160-400)
[2022-05-27 18:01] LABS: SLIDE REVIEW VERIFIED
[2022-05-27 18:06] LABS: B Type Natriuretic Peptide 20 pg/mL (<100); Troponin-I High Sensitivity 5.7 ng/L (<3.5-17.0)
[2022-05-27 18:10] LABS: Appearance Urine Clear; Color Urine Dark Yellow; Glucose Urine UA Negative (Negative); Leukocyte Esterase Urine Trace (Negative); Nitrite Urine Negative (Negative); Specific Gravity - Urine >= 1.030 (1.005-1.025); UMIC TRIGGER UACC YES; Urine Blood Negative (Negative); Urine Ketones 15 mg/dL (Negative); Urine Protein Trace mg/dL (Neg-Trace)
[2022-05-27 18:10] LABS: Lactic Acid 3.3 mmol/L (0.5-2.0)
[2022-05-27 18:12] LABS: Ethanol < 10 mg/dL
[2022-05-27 18:16] VITALS: BP 130/87; PULSE 121; RESP 16; O2SAT 97
[2022-05-27 18:17] LABS: Amphetamine Screen Urine Not Detected (Not Detect); Barbiturates, Urine Not Detected (Not Detect); Benzodiazepines Screen Urine POSITIVE (Not Detect); Cannabinoid Screen Urine Not Detected (Not Detect); Cocaine Screen Urine Not Detected (Not Detect); Fentanyl, urine Not Detected (Not Detect); Opiate Screen Urine POSITIVE (Not Detect); Phencyclidine Screen Urine Not Detected (Not Detect)
[2022-05-27 18:18] LABS: Bacteria Urine None Seen (None Seen); Hyaline Casts Urine 0-2 /LPF (0-2); RBC Urine 0-2 /HPF (0-2); Squamous Epithelial Cell Urine 0-2 /HPF (0-2); WBC Urine 0-5 /HPF (0-5)
[2022-05-27 18:21] LABS: TSH reflex Free T4 1.15 uIU/mL (0.32-4.0)
[2022-05-27 18:24] LABS: COVID-19 Test Negative (Negative); IDNOW Serial# 16C4AD1C
[2022-05-27 19:06] LABS: INTERNATIONAL NORM RATIO 1.2 (0.9-1.1); Prothrombin Time 13.3 SEC (10.0-13.1)
[2022-05-27 19:08] VITALS: BP 136/81; PULSE 125; RESP 16; O2SAT 97
[2022-05-27 19:08] LABS: D Dimer High Sensitivity 152 NG/ML
--- NOTE | 2022-05-27 19:30 | PC.NURSE ---
Late Entry: Pt BIBA from home, increasing weakness per . Per this has happened to pt before and she was brought to [facility], where they found she had an elevated ammonia level. Pts ammonia level is elevated today as well. is aware. pts lactic acid also elevated. Pt was straight cathed for urine, two IV access points gained, blood work obtained. VSS at this time and is at bedside. Pt is minimally responsive to verbal and painful stimuli
[2022-05-27 19:34] LABS: Reflex Lactate? Lactic Acid Added
[2022-05-27 19:39] LABS: Acetaminophen LAB < 17 mcg/mL (<30); Alanine Aminotransferase 100 U/L (0-31); Albumin Level 2.8 g/dL (3.5-5.0); Alkaline Phosphatase 161 U/L (39-117); Anion Gap 18 (12-20); Aspartate Amino Transferase 260 U/L (5-31); Bilirubin Direct 0.7 mg/dL (0.0-0.5); Bilirubin Total 1.6 mg/dL (0.0-1.0); Blood Urea Nitrogen 26 mg/dL (9-16); Calcium 7.8 mg/dL (8.4-10.2); Carbon Dioxide 17 mmol/L (22-29); Chloride 108 mmol/L (96-108); Creatinine Clr Calc Pharmacy 70.8; Estimated Glomerular Filt Rate > 60; Glucose Random 130 mg/dL (60-115); Lipase 6 U/L (8-78); Magnesium 1.8 mg/dL (1.6-2.6); Potassium 4.8 mmol/L (3.3-5.1); Salicylate < 5.0 mg/dL (15-30); Sodium 138 mmol/L (135-145); Total Protein 5.2 g/dL (6.5-8.0)
--- NOTE | 2022-05-27 20:54 | PC.NURSE ---
Lactulose not available at this time, pharmacy called, will be bringing medication down
[2022-05-27] MEDS: Lactulose 320 GM/480 ML SOLUTION 200 GM PR (21:02)
--- NOTE | 2022-05-27 21:13 | P.HPHOSP_ITS ---
History of Present Illness Date of Service: 05/27/22 Chief Complaint: Altered mentation This is a 62-year-old female with pertinent history of ulcerative colitis status post complete colectomy and J-pouch formation, chronic opioid use, chronic benzo use who was brought to the emergency department by her for evaluation of altered mentation. As per the , patient was actively vomiting yesterday and became lethargic on the day of presentation. Patient completely altered and the time of my evaluation and only responding to painful stimulus. He states patient had a similar admission in early April at [facility] where she was diagnosed with non hepatic hyperammonemia. Unable to obtain review of systems. 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 Hypertension Hyponatremia Hypothyroidism Small bowel obstruction Stomach spasm Ulcerative colitis Pertinent family history: Unable to obtain Surgical History Hx of cholecystectomy Hx of hernia repair Hx of resection of large bowel S/P total colectomy Social History Household Members: Spouse and Family Housing: House Do you presently have visiting nurse or other home services: No Alcohol intake: current Alcohol intake frequency: holidays/special occasions only Patient Tobacco Use Status: Never used Tobacco Smoked in Last 30 Days: No Use of substances other than those prescribed or required for medical reasons: No Advance Directives: Yes Advance Directives on File: Yes Advance Directives Date on File: 02/24/20 Patient : No service: No Current occupational status: unemployed and disabled Meds Allergies Allergy/AdvReac Type Severity Reaction Status Date / Time morphine [MORPHINE] AdvReac Mild NAUSEA & Verified 02/20/21 09:14 VOMITING Active Medications: Current Medications Enoxaparin Sodium (Enoxaparin Sodium 40 Mg/0.4 Ml Syringe) 40 mg SUBCUT Q24H WENDY Ondansetron HCl (Ondansetron Hcl 4 Mg/2 Ml Vial) 4 mg IVPUSH Q8H PRN PRN Reason: Nausea and Vomiting Pharmacy Consult (Consult Rx Perform Med Rec) 1 each MISCELLANE ONCE PRN PRN Reason: Consult order Sodium Chloride (0.9 % Sodium Chloride Flush 3 Ml Syringe) 3 ml IVFLUSH [facility] Home Medications Medication Instructions Recorded Confirmed Last Taken Type colesevelam 625 mg tablet 3 tab PO BEDTIME 02/24/20 11/29/21 4 Days Ago History ~11/25/21 diazepam 10 mg tablet 1 tab PO TID PRN muscle spasm 02/24/20 11/29/21 4 Days Ago History ~11/25/21 dicyclomine 10 mg capsule 2 cap PO BID 02/24/20 11/29/21 4 Days Ago History ~11/25/21 diphenoxylate-atropine 2.5 4 tab PO BID PRN diarrhea 02/24/20 11/29/21 4 Days Ago History mg-0.025 mg tablet ~11/25/21 hydrocodone 10 mg-acetaminophen 1 tab PO Q6H PRN Pain 02/24/20 11/29/21 4 Days Ago History 325 mg tablet ~11/25/21 esomeprazole magnesium 20 mg 20 mg PO DAILY 08/16/21 11/29/21 4 Days Ago History capsule,delayed release (Nexium) ~11/25/21 gabapentin 600 mg tablet 1 tab PO BEDTIME 11/28/21 11/29/21 4 Days Ago History ~11/25/21 calcium polycarbophil 625 mg 1,250 mg PO BID 11/29/21 11/29/21 4 Days Ago History tablet (FiberCon) ~11/25/21 Physical Exam Vital Signs and Narrative: Vital Signs: Last Vital Signs Temp 99.0 F 05/27/22 17:04 Pulse 125 H 05/27/22 19:08 Resp 16 05/27/22 19:08 BP 136/81 05/27/22 19:08 Pulse Ox 97 05/27/22 19:08 O2 Del Method 05/27/22 19:08 BMI result Body Mass Index 22.5 Middle-aged female lying in bed in no distress Neck supple, no JVD Tachycardic with regular rhythm, S1-S2 heard Regular breath sounds bilaterally, no wheezing or crackles appreciated Abdomen nontender, no guarding, no rigidity Patient is drowsy and only responding to painful stimulus Results Labs 05/27/22 17:28 05/27/22 18:49 Labs: Laboratory Results - last 24 hr 05/27/22 05/27/22 05/27/22 17:28 17:28 17:28 MCV 69.3 L MCH 20.9 L MCHC 30.2 L RDW 22.6 H Plt Count 285 D MPV TNP Immature Gran % (Auto) 0.4 Neut % (Auto) 81.6 H Lymph % (Auto) 11.6 L [place] % (Auto) 6.1 Eos % (Auto) 0.1 Baso % (Auto) 0.2 Lymph # (Auto) 1.3 [place] # (Auto) 0.7 Eos # (Auto) 0.0 Baso # (Auto) 0.0 Abs Immat Gran (auto) 0.04 H Absolute Neuts (auto) 9.1 H Absolute Nucleated RBC 0.000 Nucleated RBC % (auto) 0.0 Smear Tech's Comments VERIFIED PT INR D-Dimer High Sensitivty VBG pH VBG pCO2 VBG pO2 VBG HCO3 VBG O2 Saturation VBG Base Excess Anion Gap Estim Creat Clear Calc Estimated GFR POC Glucose Random Glucose Lactic Acid Lactic Acid F/U @ 2Hr Calcium Magnesium Total Bilirubin Direct Bilirubin AST ALT Alkaline Phosphatase Ammonia Total Creatine Kinase Troponin I High Sens 5.7 B-Natriuretic Peptide 20 Total Protein Albumin Lipase TSH Urine Color Urine Appearance Urine pH Ur Specific [place] Urine Protein Urine Glucose (UA) Urine Ketones Urine Blood Urine Nitrite Ur Leukocyte Esterase Urine RBC Urine WBC Ur Squamous Epith Cells Urine Bacteria Hyaline Casts Salicylates Urine Opiates Screen Urine Fentanyl Screen Acetaminophen Ur Barbiturates Screen Ur Phencyclidine Scrn Ur Amphetamines Screen U Benzodiazepines Scrn Urine Cocaine Screen U Marijuana (THC) Screen Ethyl Alcohol COVID-19 (YODIT) COVID-19 Clin Com 05/27/22 05/27/22 05/27/22 17:28 17:29 17:29 MCV MCH MCHC RDW Plt Count MPV Immature Gran % (Auto) Neut % (Auto) Lymph % (Auto) [place] % (Auto) Eos % (Auto) Baso % (Auto) Lymph # (Auto) [place] # (Auto) Eos # (Auto) Baso # (Auto) Abs Immat Gran (auto) Absolute Neuts (auto) Absolute Nucleated RBC Nucleated RBC % (auto) Smear Tech's Comments PT INR D-Dimer High Sensitivty VBG pH VBG pCO2 VBG pO2 VBG HCO3 VBG O2 Saturation VBG Base Excess Anion Gap Estim Creat Clear Calc Estimated GFR POC Glucose Random Glucose Lactic Acid 3.3 H* Lactic Acid F/U @ 2Hr Calcium Magnesium Total Bilirubin Direct Bilirubin AST ALT Alkaline Phosphatase Ammonia 179 H Total Creatine Kinase Troponin I High Sens B-Natriuretic Peptide Total Protein Albumin Lipase TSH 1.15 Urine Color Urine Appearance Urine pH Ur Specific [place] Urine Protein Urine Glucose (UA) Urine Ketones Urine Blood Urine Nitrite Ur Leukocyte Esterase Urine RBC Urine WBC Ur Squamous Epith Cells Urine Bacteria Hyaline Casts Salicylates Urine Opiates Screen Urine Fentanyl Screen Acetaminophen Ur Barbiturates Screen Ur Phencyclidine Scrn Ur Amphetamines Screen U Benzodiazepines Scrn Urine Cocaine Screen U Marijuana (THC) Screen Ethyl Alcohol < 10 COVID-19 (YODIT) COVID-19 Gangkr 05/27/22 05/27/22 05/27/22 17:32 17:38 17:56 MCV MCH MCHC RDW Plt Count MPV Immature Gran % (Auto) Neut % (Auto) Lymph % (Auto) [place] % (Auto) Eos % (Auto) Baso % (Auto) Lymph # (Auto) [place] # (Auto) Eos # (Auto) Baso # (Auto) Abs Immat Gran (auto) Absolute Neuts (auto) Absolute Nucleated RBC Nucleated RBC % (auto) Smear Tech's Comments PT INR D-Dimer High Sensitivty VBG pH 7.40 VBG pCO2 27 VBG pO2 49 VBG HCO3 17 L VBG O2 Saturation 63.0 VBG Base Excess -5.7 Anion Gap Estim Creat Clear Calc Estimated GFR POC Glucose 135 H Random Glucose Lactic Acid Lactic Acid F/U @ 2Hr Calcium Magnesium Total Bilirubin Direct Bilirubin AST ALT Alkaline Phosphatase Ammonia Total Creatine Kinase Troponin I High Sens B-Natriuretic Peptide Total Protein Albumin Lipase TSH Urine Color Urine Appearance Urine pH Ur Specific [place] Urine Protein Urine Glucose (UA) Urine Ketones Urine Blood Urine Nitrite Ur Leukocyte Esterase Urine RBC Urine WBC Ur Squamous Epith Cells Urine Bacteria Hyaline Casts Salicylates Urine Opiates Screen Urine Fentanyl Screen Acetaminophen Ur Barbiturates Screen Ur Phencyclidine Scrn Ur Amphetamines Screen U Benzodiazepines Scrn Urine Cocaine Screen U Marijuana (THC) Screen Ethyl Alcohol COVID-19 (YODIT) Negative COVID-19 OY LX Therapies Com See Note 05/27/22 05/27/22 05/27/22 17:56 17:56 18:49 MCV MCH MCHC RDW Plt Count MPV Immature Gran % (Auto) Neut % (Auto) Lymph % (Auto) [place] % (Auto) Eos % (Auto) Baso % (Auto) Lymph # (Auto) [place] # (Auto) Eos # (Auto) Baso # (Auto) Abs Immat Gran (auto) Absolute Neuts (auto) Absolute Nucleated RBC Nucleated RBC % (auto) Smear Tech's Comments PT INR D-Dimer High Sensitivty VBG pH VBG pCO2 VBG pO2 VBG HCO3 VBG O2 Saturation VBG Base Excess Anion Gap 18 Estim Creat Clear Calc 70.8 Estimated GFR > 60 POC Glucose Random Glucose 130 H Lactic Acid Lactic Acid F/U @ 2Hr Calcium 7.8 L Magnesium 1.8 Total Bilirubin 1.6 H Direct Bilirubin 0.7 H AST 260 H ALT 100 H Alkaline Phosphatase 161 H Ammonia Total Creatine Kinase 32 Troponin I High Sens B-Natriuretic Peptide Total Protein 5.2 L Albumin 2.8 L Lipase 6 L TSH Urine Color Dark Yellow Urine Appearance Clear Urine pH 6.0 Ur Specific [place] >= 1.030 H Urine Protein Trace Urine Glucose (UA) Negative Urine Ketones 15 Urine Blood Negative Urine Nitrite Negative Ur Leukocyte Esterase Trace H Urine RBC 0-2 Urine WBC 0-5 Ur Squamous Epith Cells 0-2 Urine Bacteria None Seen Hyaline Casts 0-2 Salicylates < 5.0 L Urine Opiates Screen POSITIVE H Urine Fentanyl Screen Not Detected Acetaminophen < 17 Ur Barbiturates Screen Not Detected Ur Phencyclidine Scrn Not Detected Ur Amphetamines Screen Not Detected U Benzodiazepines Scrn POSITIVE H Urine Cocaine Screen Not Detected U Marijuana (THC) Screen Not Detected Ethyl Alcohol COVID-19 (YODIT) COVID-19 Clin Com 05/27/22 05/27/22 18:49 20:41 MCV MCH MCHC RDW Plt Count MPV Immature Gran % (Auto) Neut % (Auto) Lymph % (Auto) [place] % (Auto) Eos % (Auto) Baso % (Auto) Lymph # (Auto) [place] # (Auto) Eos # (Auto) Baso # (Auto) Abs Immat Gran (auto) Absolute Neuts (auto) Absolute Nucleated RBC Nucleated RBC % (auto) Smear Tech's Comments PT 13.3 H INR 1.2 H D-Dimer High Sensitivty 152 VBG pH VBG pCO2 VBG pO2 VBG HCO3 VBG O2 Saturation VBG Base Excess Anion Gap Estim Creat Clear Calc Estimated GFR POC Glucose Random Glucose Lactic Acid Lactic Acid F/U @ 2Hr 2.0 Calcium Magnesium Total Bilirubin Direct Bilirubin AST ALT Alkaline Phosphatase Ammonia Total Creatine Kinase Troponin I High Sens B-Natriuretic Peptide Total Protein Albumin Lipase TSH Urine Color Urine Appearance Urine pH Ur Specific [place] Urine Protein Urine Glucose (UA) Urine Ketones Urine Blood Urine Nitrite Ur Leukocyte Esterase Urine RBC Urine WBC Ur Squamous Epith Cells Urine Bacteria Hyaline Casts Salicylates Urine Opiates Screen Urine Fentanyl Screen Acetaminophen Ur Barbiturates Screen Ur Phencyclidine Scrn Ur Amphetamines Screen U Benzodiazepines Scrn Urine Cocaine Screen U Marijuana (THC) Screen Ethyl Alcohol COVID-19 (YODIT) COVID-19 Clin Com Imaging Radiologist's Impressions: Impressions Head CT 05/27/22 18:19 IMPRESSION: No acute intracranial abnormality. Specifically, no CT evidence of acute intracranial hemorrhage, significant mass effect, hydrocephalus, or large territorial infarction. Chest X-Ray 05/27/22 19:00 IMPRESSION: Bronchial wall thickening may be infectious and/or inflammatory in etiology. Assessment and Plan (1) Hyperammonemic encephalopathy: Status: Acute Plan This is a 62-year-old female with pertinent history of ulcerative colitis status post complete colectomy and J-pouch formation, chronic opioid use, chronic benzo use who was brought to the emergency department by her for evaluation of altered mentation. #. Hyperammonemia with encephalopathy: Was diagnosed with non hepatic hyperammonemia about 1 month ago by GI at [facility]. Obtaining ultrasound of the abdomen and consulting GI, appreciate assistance. Initiating lactulose CA. Repeat ammonia level in a.m. #. Acute lactic acidosis: Resolved with fluid resuscitation. Not due to sepsis, likely due to underlying fatty liver #. Reactive leukocytosis #. Chronic opioid and benzo use: Hold until mentation improves #. Microcytic anemia: Obtaining iron studies. No evidence of bleeding #. Elevated transaminases: Does have history of fatty liver. Workup as above #. #. #. Med rec pending DVT prophylaxis: Lovenox 40 mg daily NPO until mentation improves Full code Admit as inpatient and will require two night minimum hospital stay for close monitoring of mentation Time Spent With Patient Time: Total time managing care of this patient today ____ minutes. Quality Stroke Does the patient have a stroke diagnosis?: No VTE Prior VTE?: No VTE Risk Level:: Medical - moderate - high VTE Device Contraindication: Treatment Not Indicated VTE Drug Contraindication: N/A - Med Ordered
[2022-05-27] MEDS: Metoprolol Tartrate 5 MG/5 ML VIAL IVPUSH (21:26)
[2022-05-27] MEDS: Enoxaparin Sodium 40 MG/0.4 ML SYRINGE SUBCUT (21:26)
[2022-05-27 21:30] VITALS: BP 136/86; PULSE 109; RESP 22; O2SAT 97
--- NOTE | 2022-05-27 21:38 | PHA.MEDREC ---
Pharmacy Consult ? Medication Reconciliation Pharmacy has completed the medication reconciliation. sPOKE WITH FAMILY MEMBER IN PT ROOM AND ALSO RECORDS FROM [facility] 05/05/22
[2022-05-27 21:45] LABS: Ethanol < 10 mg/dL
[2022-05-27 21:56] LABS: Iron 68 mcg/dL (30-160); Percent Iron Saturation 34 % (15-50); Total Iron Binding Capacity 200 mcg/dL (228-428); Unsaturated Iron Binding 132 ug/dL
--- NOTE | 2022-05-27 23:10 | MHC.EDTECH ---
PT soiled with stool. Pt given pericare bed pads changed. Purewick removed. Pt given warm blanket and call antonio in reach
--- NOTE | 2022-05-27 23:13 | PC.NURSE ---
pt requested that if plans change or pt gets bed upstairs that he be called. Phone number [phone]
[2022-05-27 23:56] VITALS: BP 107/72; PULSE 107; RESP 20; TEMP 36.9; O2SAT 94
[2022-05-28] VITALS: BP 124/81; PULSE 115; RESP 20; TEMP 37.4; O2SAT 94
--- NOTE | 2022-05-28 | ECG_ITS ---
Test Reason : cp Blood Pressure : / mmHG Vent. Rate : 128 BPM Atrial Rate : 128 BPM P-R Int : 128 ms QRS Dur : 072 ms QT Int : 300 ms P-R-T Axes : 046 023 030 degrees QTc Int : 438 ms Artifact in tracing Sinus tachycardia Nonspecific ST abnormality Abnormal ECG When compared with ECG of 27-MAY-2022 17:05, No significant changes seen Referred By: Meagan Kasper Electronically Signed By:GHISLAINE BOSTON
[2022-05-28] MEDS: 0.9 % Sodium Chloride Flush 3 ML SYRINGE IVFLUSH ×3 (01:25→21:30)
[2022-05-28] MEDS: Lactulose 320 GM/480 ML SOLUTION 200 GM PR ×3 (01:25→12:19)
--- NOTE | 2022-05-28 01:46 | PC.NURSE ---
second dose of lactulose given, pt continues to remain unresponsive, with the occasional eye opening. VSS
[2022-05-28 04:00] VITALS: PULSE 115; TEMP 37.4
[2022-05-28 06:29] VITALS: BMI 22.1
--- NOTE | 2022-05-28 07:29 | P.PNIM_ITS ---
Subjective Subjective Date of Service: 05/29/22 Interval History: patient obtunded unable to provide history, at bedside provided information that 1 month ago patient had similar episode and was admitted at [facility] required 3 days to return to baseline to normal with improvement in ammonia level, and all her workup was negative. on this occasion patient is started with nausea vomiting couple days ago that got worse and yesterday after eating nair, as per patient has not been taking diazepam and oxycodone on regular basis since her discharge from [facility]. Review of Systems Review of Systems: Yes Unobtainable due to mental status Physical Exam Vital Signs: Vital Signs: Last Vital Signs Temp 99.3 F 05/28/22 04:00 Pulse 115 H 05/28/22 04:00 Resp 20 05/28/22 00:00 BP 124/81 05/28/22 00:00 Pulse Ox 94 05/28/22 00:00 O2 Del Method 05/27/22 23:56 BMI result Body Mass Index 22.1 Const: Other: General obtunded, minimal response to painful stimuli Neck supple no JVD. CVS regular rate rhythm, Respiratory lungs clear to auscultation, no respiratory distress Gastrointestinal abdomen soft, bowel sounds audible, no guarding , no rigidity. Extremities no edema. Skin no rash Objective Data Active Medications Enoxaparin Sodium (Enoxaparin Sodium 40 Mg/0.4 Ml Syringe) 40 mg SUBCUT Q24H [facility] Last Admin: 05/27/22 21:26 Dose: 40 mg Documented By: ROSIE Lactulose (Lactulose 320 Gm/480 Ml Solution) 200 gm [place] Q4H [facility] Last Admin: 05/28/22 06:08 Dose: 200 gm Documented By: STARR Ondansetron HCl (Ondansetron Hcl 4 Mg/2 Ml Vial) 4 mg IVPUSH Q8H PRN PRN Reason: Nausea and Vomiting Pharmacy Consult (Consult Rx Perform Med Rec) 1 each MISCELLANE ONCE PRN PRN Reason: Consult order Sodium Chloride (0.9 % Sodium Chloride Flush 3 Ml Syringe) 3 ml IVFLUSH QSHIFT [facility] Last Admin: 05/28/22 01:25 Dose: 3 ml Documented By: ROSIE Labs 05/27/22 17:28 05/27/22 18:49 Labs: Laboratory Results - last 24 hr 05/27/22 05/27/22 05/27/22 17:28 17:28 17:28 MCV 69.3 L MCH 20.9 L MCHC 30.2 L RDW 22.6 H Plt Count 285 D MPV TNP Immature Gran % (Auto) 0.4 Neut % (Auto) 81.6 H Lymph % (Auto) 11.[address] [place] % (Auto) 6.1 Eos % (Auto) 0.1 Baso % (Auto) 0.2 Lymph # (Auto) 1.3 [place] # (Auto) 0.7 Eos # (Auto) 0.0 Baso # (Auto) 0.0 Abs Immat Gran (auto) 0.04 H Absolute Neuts (auto) 9.1 H Absolute Nucleated RBC 0.000 Nucleated RBC % (auto) 0.0 Smear Tech's Comments VERIFIED PT INR D-Dimer High Sensitivty VBG pH VBG pCO2 VBG pO2 VBG HCO3 VBG O2 Saturation VBG Base Excess Anion Gap Estim Creat Clear Calc Estimated GFR POC Glucose Random Glucose Lactic Acid Lactic Acid F/U @ 2Hr Calcium Magnesium Iron TIBC % Saturation Unsat Iron Binding Total Bilirubin Direct Bilirubin AST ALT Alkaline Phosphatase Ammonia Total Creatine Kinase Troponin I High Sens 5.7 B-Natriuretic Peptide 20 Total Protein Albumin Lipase TSH Urine Color Urine Appearance Urine pH Ur Specific [place] Urine Protein Urine Glucose (UA) Urine Ketones Urine Blood Urine Nitrite Ur Leukocyte Esterase Urine RBC Urine WBC Ur Squamous Epith Cells Urine Bacteria Hyaline Casts Salicylates Urine Opiates Screen Urine Fentanyl Screen Acetaminophen Ur Barbiturates Screen Ur Phencyclidine Scrn Ur Amphetamines Screen U Benzodiazepines Scrn Urine Cocaine Screen U Marijuana (THC) Screen Ethyl Alcohol COVID-19 (YODIT) COVID-19 Clin Com 05/27/22 05/27/22 05/27/22 17:28 17:29 17:29 MCV MCH MCHC RDW Plt Count MPV Immature Gran % (Auto) Neut % (Auto) Lymph % (Auto) [place] % (Auto) Eos % (Auto) Baso % (Auto) Lymph # (Auto) [place] # (Auto) Eos # (Auto) Baso # (Auto) Abs Immat Gran (auto) Absolute Neuts (auto) Absolute Nucleated RBC Nucleated RBC % (auto) Smear Tech's Comments PT INR D-Dimer High Sensitivty VBG pH VBG pCO2 VBG pO2 VBG HCO3 VBG O2 Saturation VBG Base Excess Anion Gap Estim Creat Clear Calc Estimated GFR POC Glucose Random Glucose Lactic Acid 3.3 H* Lactic Acid F/U @ 2Hr Calcium Magnesium Iron TIBC % Saturation Unsat Iron Binding Total Bilirubin Direct Bilirubin AST ALT Alkaline Phosphatase Ammonia 179 H Total Creatine Kinase Troponin I High Sens B-Natriuretic Peptide Total Protein Albumin Lipase TSH 1.15 Urine Color Urine Appearance Urine pH Ur Specific [place] Urine Protein Urine Glucose (UA) Urine Ketones Urine Blood Urine Nitrite Ur Leukocyte Esterase Urine RBC Urine WBC Ur Squamous Epith Cells Urine Bacteria Hyaline Casts Salicylates Urine Opiates Screen Urine Fentanyl Screen Acetaminophen Ur Barbiturates Screen Ur Phencyclidine Scrn Ur Amphetamines Screen U Benzodiazepines Scrn Urine Cocaine Screen U Marijuana (THC) Screen Ethyl Alcohol < 10 COVID-19 (YODIT) COVID-19 [employer] 05/27/22 05/27/22 05/27/22 17:32 17:38 17:56 MCV MCH MCHC RDW Plt Count MPV Immature Gran % (Auto) Neut % (Auto) Lymph % (Auto) [place] % (Auto) Eos % (Auto) Baso % (Auto) Lymph # (Auto) [place] # (Auto) Eos # (Auto) Baso # (Auto) Abs Immat Gran (auto) Absolute Neuts (auto) Absolute Nucleated RBC Nucleated RBC % (auto) Smear Tech's Comments PT INR D-Dimer High Sensitivty VBG pH 7.40 VBG pCO2 27 VBG pO2 49 VBG HCO3 17 L VBG O2 Saturation 63.0 VBG Base Excess -5.7 Anion Gap Estim Creat Clear Calc Estimated GFR POC Glucose 135 H Random Glucose Lactic Acid Lactic Acid F/U @ 2Hr Calcium Magnesium Iron TIBC % Saturation Unsat Iron Binding Total Bilirubin Direct Bilirubin AST ALT Alkaline Phosphatase Ammonia Total Creatine Kinase Troponin I High Sens B-Natriuretic Peptide Total Protein Albumin Lipase TSH Urine Color Urine Appearance Urine pH Ur Specific [place] Urine Protein Urine Glucose (UA) Urine Ketones Urine Blood Urine Nitrite Ur Leukocyte Esterase Urine RBC Urine WBC Ur Squamous Epith Cells Urine Bacteria Hyaline Casts Salicylates Urine Opiates Screen Urine Fentanyl Screen Acetaminophen Ur Barbiturates Screen Ur Phencyclidine Scrn Ur Amphetamines Screen U Benzodiazepines Scrn Urine Cocaine Screen U Marijuana (THC) Screen Ethyl Alcohol COVID-19 (YODIT) Negative COVID-19 [employer] Com See Note 05/27/22 05/27/2223 17:56 17:56 18:49 MCV MCH MCHC RDW Plt Count MPV Immature Gran % (Auto) Neut % (Auto) Lymph % (Auto) [place] % (Auto) Eos % (Auto) Baso % (Auto) Lymph # (Auto) [place] # (Auto) Eos # (Auto) Baso # (Auto) Abs Immat Gran (auto) Absolute Neuts (auto) Absolute Nucleated RBC Nucleated RBC % (auto) Smear Tech's Comments PT INR D-Dimer High Sensitivty VBG pH VBG pCO2 VBG pO2 VBG HCO3 VBG O2 Saturation VBG Base Excess Anion Gap 18 Estim Creat Clear Calc 70.8 Estimated GFR > 60 POC Glucose Random Glucose 130 H Lactic Acid Lactic Acid F/U @ 2Hr Calcium 7.8 L Magnesium 1.8 Iron 68 TIBC 200 L % Saturation 34 Unsat Iron Binding 132 Total Bilirubin 1.6 H Direct Bilirubin 0.7 H AST 260 H ALT 100 H Alkaline Phosphatase 161 H Ammonia Total Creatine Kinase 32 Troponin I High Sens B-Natriuretic Peptide Total Protein 5.2 L Albumin 2.8 L Lipase 6 L TSH Urine Color Dark Yellow Urine Appearance Clear Urine pH 6.0 Ur Specific [place] >= 1.030 H Urine Protein Trace Urine Glucose (UA) Negative Urine Ketones 15 Urine Blood Negative Urine Nitrite Negative Ur Leukocyte Esterase Trace H Urine RBC 0-2 Urine WBC 0-5 Ur Squamous Epith Cells 0-2 Urine Bacteria None Seen Hyaline Casts 0-2 Salicylates < 5.0 L Urine Opiates Screen POSITIVE H Urine Fentanyl Screen Not Detected Acetaminophen < 17 Ur Barbiturates Screen Not Detected Ur Phencyclidine Scrn Not Detected Ur Amphetamines Screen Not Detected U Benzodiazepines Scrn POSITIVE H Urine Cocaine Screen Not Detected U Marijuana (THC) Screen Not Detected Ethyl Alcohol < 10 COVID-19 (YODIT) COVID-19 Clin Com 05/27/22 05/27/22 18:49 20:41 MCV MCH MCHC RDW Plt Count MPV Immature Gran % (Auto) Neut % (Auto) Lymph % (Auto) [place] % (Auto) Eos % (Auto) Baso % (Auto) Lymph # (Auto) [place] # (Auto) Eos # (Auto) Baso # (Auto) Abs Immat Gran (auto) Absolute Neuts (auto) Absolute Nucleated RBC Nucleated RBC % (auto) Smear Tech's Comments PT 13.3 H INR 1.2 H D-Dimer High Sensitivty 152 VBG pH VBG pCO2 VBG pO2 VBG HCO3 VBG O2 Saturation VBG Base Excess Anion Gap Estim Creat Clear Calc Estimated GFR POC Glucose Random Glucose Lactic Acid Lactic Acid F/U @ 2Hr 2.0 Calcium Magnesium Iron TIBC % Saturation Unsat Iron Binding Total Bilirubin Direct Bilirubin AST ALT Alkaline Phosphatase Ammonia Total Creatine Kinase Troponin I High Sens B-Natriuretic Peptide Total Protein Albumin Lipase TSH Urine Color Urine Appearance Urine pH Ur Specific [place] Urine Protein Urine Glucose (UA) Urine Ketones Urine Blood Urine Nitrite Ur Leukocyte Esterase Urine RBC Urine WBC Ur Squamous Epith Cells Urine Bacteria Hyaline Casts Salicylates Urine Opiates Screen Urine Fentanyl Screen Acetaminophen Ur Barbiturates Screen Ur Phencyclidine Scrn Ur Amphetamines Screen U Benzodiazepines Scrn Urine Cocaine Screen U Marijuana (THC) Screen Ethyl Alcohol COVID-19 (YODIT) COVID-19 Clin Com Assessment and Plan (1) Hyperammonemic encephalopathy: Status: Acute Plan 62-year-old female with pertinent history of ulcerative colitis status post c omplete colectomy and J-pouch formation, chronic opioid use, chronic benzo use who was brought to the emergency department by her for evaluation of altered mentation. #.? Acute hepatic encephalopathy:? Was diagnosed with non hepatic hyperammonemia about 1 month ago by GI after a recent similar episode at [facility]. normal Tylenol and salicylate, LFTs mildly elevated, INR 1.2?, abdominal ultrasound showed hepatomegaly with increased echogenicity suggestive of hepatocellular disease or hepatic steatosis abdominal and pelvic CT scan last year in November showed no liver abnormality, hepatitis panel pending. ammonia 179 on admission improved to 155 with lactulose enema on oxycodone , diazepam and dicyclomine at home likely contributing to somnolence , 1 dose of Narcan given with no affect will give 1 dose of flumazenil Repeat ammonia, BMP, LFTs in a.m. multiple attempts made to place NG tube but noted to have bleeding through the nostril therefore kvo tube feed was placed, but noted to have kinking on the x-ray attempted multiple times to remove the guidewire but was unsuccessful therefore tube removed, subsequently OG-tube placed by Dr. Shah will give lactulose q.1 hour x3 workup for chronic liver disease including iron studies, BALTAZAR, AMA, anca, alpha-1 antitrypsin, GGT, celiac antibodies, liver fibrosis test ordered by Dr. Shah continue close clinical follow-up/ supportive care with IV fluids/NPO spoke with patient's updated about clinical status #.? Acute lactic acidosis:? Resolved with fluid resuscitation.? Not due to sepsis, likely due to underlying fatty liver #.? Reactive leukocytosis follow CBC #.? Chronic opioid and benzo use:? Hold until mentation improves #.? Microcytic anemia: Obtaining iron studies.? No evidence of bleeding #.? Elevated transaminases:?follow lfts, Does have history of fatty liver.? DVT prophylaxis:? Lovenox 40 mg daily Full code patient will need continued inpatient hospitalization due to hepatic encephalopathy. Time Spent With Patient Time: Total time managing care of this patient today ____ minutes. Quality Stroke Does the patient have a stroke diagnosis?: No VTE Prior VTE?: No VTE Risk Level:: Medical - moderate - high VTE Device Contraindication: Treatment Not Indicated VTE Drug Contraindication: N/A - Med Ordered
[2022-05-28 07:45] LABS: MANUAL DIFF FLAG NO
[2022-05-28 07:50] LABS: Basophils Percent Auto 0.3 % (0-2); Hematocrit 32.3 % (37.0-47.0); Hemoglobin 9.9 g/dl (12.0-16.0); Imm Gran Abs Auto 0.03 X10*3/uL (0.00-0.03); Imm Gran Pct Auto 0.3 % (0.0-0.4); Lymphocytes Percent Auto 19.7 % (20-40); Mean Corpuscular HGB Conc 30.7 g/dl (31.0-35.0); Mean Corpuscular Hemoglobin 21.2 pg (27.0-33.0); Monocytes Percent Auto 9.9 % (2-11); Neutrophils Absolute Auto 6.9 x10*3/uL (2.0-8.3); Neutrophils Percent Auto 69.8 % (45-73); Platelet Count 375 X10*3/uL (160-400); Red Blood Count 4.68 X10*6/uL (4.20-5.50); Red Cell Distribution Width 22.5 % (11.0-16.0); White Blood Count 9.9 X10*3/uL (4.8-10.8)
[2022-05-28 08:00] VITALS: BP 140/99; PULSE 120; RESP 18; TEMP 36.3; O2SAT 94
[2022-05-28 08:05] LABS: Ammonia 155 umol/L (13-55)
[2022-05-28 08:19] LABS: Alanine Aminotransferase 87 U/L (0-31); Albumin Level 2.8 g/dL (3.5-5.0); Alkaline Phosphatase 158 U/L (39-117); Anion Gap 16 (12-20); Aspartate Amino Transferase 165 U/L (5-31); Bilirubin Total 1.6 mg/dL (0.0-1.0); Blood Urea Nitrogen 22 mg/dL (9-16); Calcium 7.8 mg/dL (8.4-10.2); Carbon Dioxide 20 mmol/L (22-29); Chloride 111 mmol/L (96-108); Creatinine Clr Calc Pharmacy 68.9; Estimated Glomerular Filt Rate > 60; Glucose Random 120 mg/dL (60-115); Potassium 3.8 mmol/L (3.3-5.1); Sodium 143 mmol/L (135-145); Total Protein 5.2 g/dL (6.5-8.0)
--- NOTE | 2022-05-28 08:58 | P.CNGI_ITS ---
History of Present Illness Data of Consult Service Date: 05/28/22 Requesting physician: Zaira Walker Primary Care Provider: John Buck MD HPI Reason for consult: elevated ammonia levels 62 YF with ulcerative colitis status post total colectomy and J-pouch formation, stenosis and chronic fecal incontinence, S/P sacral nerve stimulator to help control fecal incontinence, chronic opioid use, chronic benzo use seen at [facility] on 05/27/22 for evaluation of altered mentation.? Pt was brought to the ED by her who reported patient was vomiting yesterday and became lethargic on the day of presentation.? In the ER, patient was only responding to painful stimulus.? stated patient was hospitalized at [facility] on April 29 to with a diagnosis of nonhepatic hyperammonemia - possibly secondary to polypharmacy.? Patient's stated most of her medications are new and patient does not over medicate. Labs in the ED showed ammonia level of 179 Pt was admitted and started on lactulose enemas without significant improvement in mental status reported pt was diagnosed with UC several yrs ago and had total colectomy with J Pouch for HGD. Pt does not smoke, she takes ETOH rarely - once a month Pt is followed by Dr Jimenez and saw him 1 week ago. Pt is , lives with her and has 1 daughter. PAST GI HISTORY BY REVIEW OF MEDICAL RECORDS: Medical records from were reviewed. 05/01/22 Patient was admitted with abdominal pain, nausea vomiting, diarrhea and fecal incontinence followed by confusion and and inability to form complete sentences Patient had workup for stroke which was negative. Pt detected to have chronic ileus/partial SBO Labs showed ammonia 147 - 1st presentation of hepatic encephalopathy. reported elevated LFTs during past episodes of abdominal pain, nausea and vomiting Pt was treated with lactulose via NG tube and enemas + Rifaximin with improvement in mental status and normalization of ammonia levels Hep A, B and C serologies were negative. Pt was seen by GI and diagnosed with non hepatic hyperammonemia ? related to dehydration and starvation related to recurrent partial SBO versus polypharmacy (pt was on multiple sedating drugs - Valium, Narco, gabapentin, hydroxyzine tizanidine) Medications were held during hospitalization and patient advised to resume them after discharge with caution. At discharge, shelter therapy with lactulose or Rifaximin was not advised since since Non hepatic encephalopathy was felt to be an isolated episode. Treatment with lactulose was advised for recurrent episodes. ABD CT SCAN SHOWED: 1. Status post total colectomy with dilated small-bowel loops measuring up to 7.5 cm it 2 possible transition point in the right lower quadrant and just proximal to rectal anastomosis. Fluid seen distal to the transition point suggesting partial obstruction versus ileus. 2. 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 Hypertension Hyponatremia Hypothyroidism Peripheral neuropathy Restless leg syndrome Small bowel obstruction Stomach spasm Ulcerative colitis Family History Family History (Updated 06/14/22 @ 14:07 by Yamileth Dowd NP) Father CHF (congestive heart failure) Surgical History Surgical History Hx of cholecystectomy Hx of hernia repair Hx of resection of large bowel S/P total colectomy Social History Social History Household Members: Unknown / Unable to assess Housing: House Unable to assess alcohol history related to: Unable to respond Alcohol intake: unknown Patient Tobacco Use Status: Never used Tobacco Smoked in Last 30 Days: No Patient Interested in Nicotine Replacement: No Patient Given Instructions on How to Stop Smoking: No Second Hand Smoke Exposure: No Use of substances other than those prescribed or required for medical reasons: Unable to respond Substance Use Type: Unknown Last Used Substance: Unknown Currently Displaying Signs/Symptoms of Drug Intoxication Withdrawal: No Do you feel safe in your current relationship?: Yes Is there a partner from a previous relationship who is making you feel unsafe now?: No Are you made to feel afraid or neglected: No Advance Directives: Yes Advance Directives on File: Yes Advance Directives Date on File: 02/24/20 Do you have thoughts of harming others: None Do you have a plan to hurt others: No Plan Recently lost weight without trying: Unsure How much weight loss: Unsure Eating poorly because of decreased appetite: No Nutrition screen score: 4 Nutrition Risks: Acute nausea or vomiting x1 week Patient : No : No Poor oral hygiene: No service: No Current occupational status: unemployed and disabled Meds Allergies Allergy/AdvReac Type Severity Reaction Status Date / Time morphine [MORPHINE] AdvReac Mild NAUSEA & Verified 02/20/21 09:14 VOMITING Active Medications: Current Medications Enoxaparin Sodium (Enoxaparin Sodium 40 Mg/0.4 Ml Syringe) 40 mg SUBCUT Q24H [facility] Last Admin: 05/27/22 21:26 Dose: 40 mg Lactated Ringer's (Lr) 1,000 mls @ 100 mls/hr IVCONT .Q10H [facility] Lactulose (Lactulose 320 Gm/480 Ml Solution) 200 gm [place] Q4H [facility] Last Admin: 05/28/22 06:08 Dose: 200 gm Ondansetron HCl (Ondansetron Hcl 4 Mg/2 Ml Vial) 4 mg IVPUSH Q8H PRN PRN Reason: Nausea and Vomiting Pharmacy Consult (Consult Rx Perform Med Rec) 1 each MISCELLANE ONCE PRN PRN Reason: Consult order Sodium Chloride (0.9 % Sodium Chloride Flush 3 Ml Syringe) 3 ml IVFLUSH QSHIFT [facility] Last Admin: 05/28/22 01:25 Dose: 3 ml Home Medications Medication Instructions Recorded Confirmed Last Taken Type diazepam 10 mg tablet 1 tab PO TID PRN muscle spasm 02/24/20 06/14/22 4 Days Ago History ~11/25/21 diphenoxylate-atropine 2.5 4 tab PO BID PRN diarrhea 02/24/20 06/14/22 4 Days Ago History mg-0.025 mg tablet ~11/25/21 hydrocodone 10 mg-acetaminophen 1 tab PO Q6H PRN Pain 02/24/20 06/14/22 4 Days Ago History 325 mg tablet ~11/25/21 esomeprazole magnesium 20 mg 20 mg PO DAILY PRN Heartburn 08/16/21 06/14/22 4 Days Ago History capsule,delayed release (Nexium) ~11/25/21 gabapentin 600 mg tablet 1 tab PO BEDTIME 11/28/21 06/14/22 4 Days Ago History ~11/25/21 calcium polycarbophil 625 mg 1,250 mg PO BID 11/29/21 06/14/22 4 Days Ago History tablet (FiberCon) ~11/25/21 hydroxyzine HCl 25 mg tablet 25 mg PO QID PRN Anxiety 05/27/22 06/14/22 Unknown History tizanidine 4 mg tablet 4 mg PO BEDTIME PRN Spasms 05/27/22 06/14/22 Unknown History nitrofurantoin 1 cap PO BID 06/14/22 06/14/22 Unknown History monohydrate/macrocrystals 100 mg capsule Physical Exam Vital Signs: Vital Signs: Last Vital Signs Temp 97.4 F 05/28/22 08:00 Pulse 120 H 05/28/22 08:00 Resp 18 05/28/22 08:00 BP 140/99 H 05/28/22 08:00 Pulse Ox 94 05/28/22 08:00 O2 Del Method 05/27/22 23:56 BMI result Body Mass Index 22.1 Const: General: no acute distress, ill appearing and patient obtunded (responsive to painful stimulii) Nutritional Appearance: average body habitus Orientation/consciousness: patient obtunded (responsive to painful stimulii) Limitations: altered mental status HEENT: Head: Yes normal to inspection Eyes: Sclerae: sclerae normal Pupils: Equal, round and reactive pupils present Neck: Neck: Yes normal visual inspection Chest: Chest palpation & inspection: normal inspection of the chest Resp: Effort & Inspection: normal respiratory effort Auscultation: clear to auscultation bilaterally Cardio: Palpation: normal PMI Rate: regular rate Rhythm: regular rhythm Heart sounds: S1 normal heart sound present, S2 normal heart sound present and no murmurs GI: Inspection: Yes scar (mid line scar of past colon surgery) Palpation (GI): Soft to palpation, nontender and No hepatosplenomegaly present Auscultation: normal bowel sounds Rectal Exam - Female: deferred Skin: General skin exam: no rashes or lesions noted Neuro: General: gait normal, moves all extremities and patient obtunded (responsive to painful stimulii) Cranial nerves: Yes Equal, round and reactive pupils present Psych: Appearance: grossly normal Mental Status: mental status grossly normal Results Labs 05/28/22 07:40 05/28/22 07:40 Labs: Short CBC 05/27/22 05/28/22 Range/Units 17:28 07:40 WBC 11.2 H 9.9 (4.8-10.8) X10*3/uL Hgb 11.7 L 9.9 L (12.0-16.0) g/dl Hct 38.8 32.3 L (37.0-47.0) % Plt Count 285 D 375 D (160-400) X10*3/uL BMP 05/27/22 05/28/22 18:49 07:40 Sodium 138 143 Potassium 4.8 3.8 D Chloride 108 111 H Carbon Dioxide 17 L 20 L BUN 26 H 22 H Creatinine 0.72 0.74 Calcium 7.8 L 7.8 L Cardiac Enzymes 05/27/22 Range/Units 18:49 Total Creatine Kinase 32 (26-140) U/L Liver Function 05/27/22 05/28/22 Range/Units 18:49 07:40 Total Bilirubin 1.6 H 1.6 H (0.0-1.0) mg/dL Direct Bilirubin 0.7 H (0.0-0.5) mg/dL AST 260 H 165 H (5-31) U/L ALT 100 H 87 H (0-31) U/L Alkaline Phosphatase 161 H 158 H (39-117) U/L Albumin 2.8 L 2.8 L (3.5-5.0) g/dL Urine 05/27/22 Range/Units 17:56 Urine Color Dark Yellow Urine Appearance Clear Urine pH 6.0 (5.0-9.0) Ur Specific [place] >= 1.030 H (1.005-1.025) Urine Protein Trace (Neg-Trace) mg/dL Urine Glucose (UA) Negative (Negative) mg/dL Assessment and Plan (1) Hyperammonemic encephalopathy: Status: Resolved (2) Ulcerative colitis: Status: Inactive Plan 62 YF with UC status post total colectomy and J-pouch formation for HGD, stenosis and chronic fecal incontinence, S/P sacral nerve stimulator to help control fecal incontinence, chronic opioid use, chronic benzo use admitted to [facility] on 05/27/22 for evaluation of altered mentation.? Labs in the ED showed ammonia level of 179 Pt was admitted and started on lactulose enemas without significant improvement in mental status Pt does not smoke, she takes ETOH rarely - once a month Pt is followed by Dr Jimenez and saw him 1 week ago. 05/01/22 Patient was admitted with abdominal pain, nausea vomiting, diarrhea and fecal incontinence followed by confusion and and inability to form complete s entences Patient had workup for stroke which was negative. Pt detected to have chronic ileus/partial SBO Labs showed ammonia 147 - 1st presentation of hepatic encephalopathy. reported elevated LFTs during past episodes of abdominal pain, nausea and vomiting Pt was treated with lactulose via NG tube and enemas + Rifaximin with improvement in mental status and normalization of ammonia levels Hep A, B and C serologies were negative. Pt was seen by GI and diagnosed with non hepatic hyperammonemia ? related to dehydration and starvation related to recurrent partial SBO versus polypharmacy (pt was on multiple sedating drugs - Valium, Narco, gabapentin, hydroxyzine tizanidine) Medications were held during hospitalization and patient advised to resume them after discharge with caution. At discharge, shelter therapy with lactulose or Rifaximin was not advised since since Non hepatic encephalopathy was felt to be an isolated episode. Treatment with lactulose was advised for recurrent episodes. Elevated ammonia levels are likely due to underlying ROACH/chronic liver disease precipitated by episodes of nausea and vomiting Given hx of UC, pt is at increased risk for PSC RECOMMENDATIONS: 1. Pass NG tube and give lactulose 30 grams via NG every hour x 3 and then QID 2. Workup of chronic liver disease with iron studies, BALTAZAR. AMA, ANCA, alpha-1 antitrypsin, GGT, celiac antibodies, liver fibrosis test - order placed I will let Dr Jimenez know regarding the patient so he can FU on 05/30/22. Time Spent With Patient Time: Total time managing care of this patient today ____ minutes. Procedures Date of Service Date of Service: 05/28/22
[2022-05-28] MEDS: Lactated Ringers 1,000 ML 100 ML IVCONT ×2 (10:04→21:33)
[2022-05-28] MEDS: Naloxone HCl 0.4 MG/ML VIAL 0.1 MG IVPUSH (11:23)
[2022-05-28 12:00] VITALS: BP 141/90; PULSE 80; RESP 18; TEMP 36.6
--- NOTE | 2022-05-28 12:00 | MHC.CM.PN ---
CM MET WITH HCP/SPOUSE AT BEDSIDE. PT IN DEEP SLEEP AND UNABLE TO PARTICIPATE. NO SERVICES OR DME PRIOR TO ADMIT. NO COVID VAX. +HCP ON FILE. PCP DR. CARVAJAL AT [facility]. DP: PER SPOUSE, [place], OPEN TO [facility] REFERRALS SHOULD THAT BE RECOMMENDED . SP[facility]SE WILL TRANSPORT. CM WILL CONTINUE TO FOLLOW.
[2022-05-28] MEDS: flumazeniL 0.5 MG/5 ML VIAL 0.2 MG IVPUSH (14:09)
[2022-05-28 15:32] VITALS: BP 131/109; PULSE 132; RESP 18; TEMP 36.3; O2SAT 96
[2022-05-28 17:15] LABS: Ammonia 59 umol/L (13-55)
[2022-05-28 17:31] LABS: Gamma Glutamyl Transpeptidase 344 U/L (7-33)
[2022-05-28 17:45] LABS: Ferritin 22 ng/mL (10-250)
--- NOTE | 2022-05-28 18:24 | PC.NURSE ---
Md ordered lactulose via NG tube q1 for elevated ammonia levels, surgical MD placed ng tube, xray confirmed placement, Rn attempted to remove NG tube guide wire, would not retract, 2 MD attempted removal, guide wire would not retract, Md removed NG tube entirely, Surgical md returned from home to re insert ng tube orally.
[2022-05-28 20:00] VITALS: BP 172/104; PULSE 125; RESP 19; TEMP 36.6; O2SAT 95
[2022-05-28] MEDS: Ampicillin Sodium/Sulbactam Na 3 GM in 0.9 % Sodium Chloride 100 ML IV (21:29)
[2022-05-28] MEDS: Enoxaparin Sodium 40 MG/0.4 ML SYRINGE SUBCUT (21:30)
[2022-05-28] MEDS: Lactulose 20 GM/30 ML SOLUTION 30 GM G-TUBE ×2 (21:39→22:07)
[2022-05-29] VITALS: BP 136/97; PULSE 102; RESP 20; TEMP 37.1; O2SAT 96
[2022-05-29] MEDS: Ampicillin Sodium/Sulbactam Na 3 GM in 0.9 % Sodium Chloride 100 ML IV ×4 (02:43→20:20)
[2022-05-29 03:16] VITALS: BP 130/89; PULSE 118; RESP 20; TEMP 36.3; O2SAT 96
[2022-05-29 06:13] LABS: Hematocrit 28.5 % (37.0-47.0); Hemoglobin 8.7 g/dl (12.0-16.0); Mean Corpuscular HGB Conc 30.5 g/dl (31.0-35.0); Mean Corpuscular Hemoglobin 21.1 pg (27.0-33.0); Mean Corpuscular Volume 69.2 fL (80.0-98.0); Mean Platelet Volume 9.7 fL (9.4-12.3); Platelet Count 280 X10*3/uL (160-400); Red Blood Count 4.12 X10*6/uL (4.20-5.50); Red Cell Distribution Width 22.5 % (11.0-16.0); White Blood Count 4.9 X10*3/uL (4.8-10.8)
[2022-05-29 06:22] LABS: Ammonia 44 umol/L (13-55)
[2022-05-29] MEDS: Lactated Ringers 1,000 ML 100 ML IVCONT (06:25)
[2022-05-29 06:32] LABS: Alanine Aminotransferase 62 U/L (0-31); Albumin Level 2.3 g/dL (3.5-5.0); Alkaline Phosphatase 129 U/L (39-117); Anion Gap 13 (12-20); Aspartate Amino Transferase 92 U/L (5-31); Bilirubin Direct 0.8 mg/dL (0.0-0.5); Bilirubin Total 1.5 mg/dL (0.0-1.0); Blood Urea Nitrogen 28 mg/dL (9-16); Calcium 7.6 mg/dL (8.4-10.2); Carbon Dioxide 24 mmol/L (22-29); Chloride 113 mmol/L (96-108); Creatinine Clr Calc Pharmacy 64.5; Estimated Glomerular Filt Rate > 60; Glucose Random 113 mg/dL (60-115); Potassium 3.7 mmol/L (3.3-5.1); Sodium 146 mmol/L (135-145); Total Protein 4.3 g/dL (6.5-8.0)
[2022-05-29 08:00] VITALS: BP 140/81; PULSE 98; RESP 18; TEMP 36.6; O2SAT 98
--- NOTE | 2022-05-29 10:09 | HO.PM.IMPN ---
Subjective Subjective Date of Service: 05/29/22 Interval History: patient awake this morning, spoken couple words, has weak cough, noted to have multiple loose stools overnight, no acute overnight events, ammonia improved to 44, hemodynamically stable. Review of Systems Review of Systems: Yes Unobtainable due to mental status Physical Exam Vital Signs: Vital Signs: Last Vital Signs Temp 97.8 F 05/29/22 08:00 Pulse 98 05/29/22 08:00 Resp 18 05/29/22 08:00 BP 140/81 H 05/29/22 08:00 Pulse Ox 98 05/29/22 08:00 O2 Del Method 05/29/22 08:00 BMI result Body Mass Index 22.1 Const: Other: General? remains lethargic, opens eyes to verbal stimuli, speaking in few words Neck? supple no JVD. CVS? regular rate rhythm, Respiratory lungs clear to auscultation, diminished breath sound, no respiratory distress Gastrointestinal abdomen soft, bowel sounds audible, no guarding , no rigidity. Extremities no edema. Skin no rash Neuro moving all 4 extremities, speech clear Objective Data Active Medications Enoxaparin Sodium (Enoxaparin Sodium 40 Mg/0.4 Ml Syringe) 40 mg SUBCUT Q24H [facility] Last Admin: 05/28/22 21:30 Dose: 40 mg Documented By: ALEJANDRA Lactated Ringer's (Lr) 1,000 mls @ 100 mls/hr IVCONT .Q10H [facility] Last Admin: 05/29/22 06:25 Dose: 100 mls/hr Documented By: JAIMIE Ampicillin Sodium/Sulbactam (Sodium 3 gm/ Sodium Chloride) 100 mls @ 200 mls/hr IV Q6H [facility] Last Infusion: 05/29/22 09:46 Dose: 0 mls/hr Documented By: MERY Ondansetron HCl (Ondansetron Hcl 4 Mg/2 Ml Vial) 4 mg IVPUSH Q8H PRN PRN Reason: Nausea and Vomiting Pharmacy Consult (Consult Rx Perform Med Rec) 1 each MISCELLANE ONCE PRN PRN Reason: Consult order Sodium Chloride (0.9 % Sodium Chloride Flush 3 Ml Syringe) 3 ml IVFLUSH QSHIFT [facility] Last Admin: 05/29/22 08:00 Dose: Not Given Documented By: MERY Non-Admin Reason: IV Running Labs 05/29/22 06:05 05/29/22 06:05 Labs: Laboratory Results - last 24 hr 05/28/22 05/28/22 05/29/22 16:55 16:55 06:05 MCV MCH MCHC RDW Plt Count MPV Absolute Nucleated RBC Nucleated RBC % (auto) Anion Gap 13 Estim Creat Clear Calc 64.5 Estimated GFR > 60 Random Glucose 113 Calcium 7.6 L Ferritin 22 Total Bilirubin 1.5 H Direct Bilirubin 0.8 H GGT 344 H AST 92 H ALT 62 H Alkaline Phosphatase 129 H Ammonia 59 H Total Protein 4.3 L Albumin 2.3 L 05/29/22 05/29/22 06:05 06:05 MCV 69.2 L MCH 21.1 L MCHC 30.5 L RDW 22.5 H Plt Count 280 D MPV 9.7 Absolute Nucleated RBC 0.000 Nucleated RBC % (auto) 0.0 Anion Gap Estim Creat Clear Calc Estimated GFR Random Glucose Calcium Ferritin Total Bilirubin Direct Bilirubin GGT AST ALT Alkaline Phosphatase Ammonia 44 Total Protein Albumin Microbiology Microbiology Results: Microbiology 05/27/22 18:49 Blood Culture - Preliminary Blood - Venous No growth after 24 hours. 05/27/22 17:28 Blood Culture - Preliminary Blood - Venous No growth after 24 hours. Assessment and Plan (1) Hyperammonemic encephalopathy: Status: Acute Plan 62-year-old female with pertinent history of ulcerative colitis status post complete colectomy and J-pouch formation, chronic opioid use, chronic benzo use who was brought to the emergency department by her for evaluation of altered mentation. #.? Acute hepatic encephalopathy:? remains lethargic but awake, alert this a.m. Was diagnosed with non hepatic hyperammonemia about 1 month ago by GI after a recent similar episode at [facility], that was treated with lactulose and had normal workup. on this admission has normal Tylenol, salicylate, INR 1.2?, abdominal ultrasound showed hepatomegaly with increased echogenicity suggestive of hepatocellular disease or hepatic steatosis abdominal and pelvic CT scan last year in November showed no liver abnormality, hepatitis panel pending. LFTs trending down ammonia improved to 44 will DC OG tube workup for chronic liver disease including iron studies, BALTAZAR, AMA, anca, alpha-1 antitrypsin, GGT, celiac antibodies, liver fibrosis test pending continue IV fluids, bedside swallow eval continue supportive care will recommend to minimize use of diazepam /narcotics/ question need for chronic lactulose therapy will discuss with GI # history of ulcerative colitis status post total colectomy and J-pouch for which fall or May shins with chronic fecal incontinence and stenosis, status post sacral nerve stimulator to help control fecal incontinence #.? Acute lactic acidosis:? Resolved with fluid resuscitation.? Not due to sepsis, likely due to underlying fatty liver #.? Reactive leukocytosis follow CBC #.? Chronic opioid and benzo use:? Hold all sedative medications #.? Microcytic anemia: normal iron studies, hematocrit dropped but stable likely dilutional. #.? Elevated transaminases:? LFTs trending down likely due to fatty liver, workup for liver disease pending.? DVT prophylaxis:? Lovenox 40 mg daily Full code patient will need continued inpatient hospitalization due to hepatic encephalopathy. Time Spent With Patient Time: Total time managing care of this patient today ____ minutes. Quality Stroke Does the patient have a stroke diagnosis?: No VTE Prior VTE?: No VTE Risk Level:: Medical - moderate - high VTE Device Contraindication: Treatment Not Indicated VTE Drug Contraindication: N/A - Med Ordered
[2022-05-29] MEDS: Dextrose 5 % and Lactated Ring 1,000 ML 100 ML IVCONT ×2 (11:30→20:20)
[2022-05-29 11:37] VITALS: BP 142/96; PULSE 107; RESP 18; TEMP 36.8; O2SAT 97
--- NOTE | 2022-05-29 11:53 | PM.GIPN ---
Subjective Subjective Date of Service: 05/29/22 Interval History: Pt more awake today and confused and disoriented. Can answer some questions appropriately. She has been having persistent diarrhea - has a hx of fecal incontinence. Critical Care Time (minutes): 24 Physical Exam Vital Signs: Vital Signs: Last Vital Signs Temp 98.3 F 05/29/22 11:37 Pulse 107 H 05/29/22 11:37 Resp 18 05/29/22 11:37 BP 142/96 H 05/29/22 11:37 Pulse Ox 97 05/29/22 11:37 O2 Del Method 05/29/22 11:37 BMI result Body Mass Index 22.1 Const: General: no acute distress, confusion and ill appearing Orientation/consciousness: confusion Limitations: altered mental status HEENT: Head: Yes normal to inspection Ears: hearing grossly normal bilaterally Eyes: Sclerae: sclerae normal Pupils: Equal, round and reactive pupils present Neck: Neck: Yes normal visual inspection Chest: Chest palpation & inspection: normal inspection of the chest Resp: Effort & Inspection: normal respiratory effort Auscultation: clear to auscultation bilaterally Cardio: Palpation: normal PMI Rate: regular rate Rhythm: regular rhythm Heart sounds: S1 normal heart sound present, S2 normal heart sound present and no murmurs GI: Inspection: Yes distended and Yes scar Palpation (GI): Soft to palpation, nontender and No hepatosplenomegaly present Auscultation: normal bowel sounds Rectal Exam - Female: deferred Skin: General skin exam: no rashes or lesions noted Neuro: General: gait normal, moves all extremities and confusion Cranial nerves: Yes Equal, round and reactive pupils present Psych: Appearance: grossly normal Mental Status: other (confused) Objective Data Labs 05/29/22 06:05 05/29/22 06:05 Labs: Laboratory Results - last 24 hr 05/28/22 05/28/22 05/29/22 16:55 16:55 06:05 WBC RBC Hgb Hct MCV MCH MCHC RDW Plt Count MPV Absolute Nucleated RBC Nucleated RBC % (auto) Sodium 146 H Potassium 3.7 Chloride 113 H Carbon Dioxide 24 Anion Gap 13 BUN 28 H Creatinine 0.79 Estim Creat Clear Calc 64.5 Estimated GFR > 60 Random Glucose 113 Calcium 7.6 L Ferritin 22 Total Bilirubin 1.5 H Direct Bilirubin 0.8 H GGT 344 H AST 92 H ALT 62 H Alkaline Phosphatase 129 H Ammonia 59 H Total Protein 4.3 L Albumin 2.3 L 05/29/22 05/29/22 06:05 06:05 WBC 4.9 RBC 4.12 L Hgb 8.7 L Hct 28.5 L MCV 69.2 L MCH 21.1 L MCHC 30.5 L RDW 22.5 H Plt Count 280 D MPV 9.7 Absolute Nucleated RBC 0.000 Nucleated RBC % (auto) 0.0 Sodium Potassium Chloride Carbon Dioxide Anion Gap BUN Creatinine Estim Creat Clear Calc Estimated GFR Random Glucose Calcium Ferritin Total Bilirubin Direct Bilirubin GGT AST ALT Alkaline Phosphatase Ammonia 44 Total Protein Albumin Microbiology Microbiology Results: Microbiology 05/27/22 18:49 Blood - Venous Blood Culture - Preliminary No growth after 24 hours. 05/27/22 17:28 Blood - Venous Blood Culture - Preliminary No growth after 24 hours. Procedures Date of Service Date of Service: 05/29/22 Progress Note: A&P Assessment and plan (1) Acute hepatic encephalopathy: Status: Acute Plan 62 YF with UC status post total colectomy and J-pouch formation for HGD, stenosis and chronic fecal incontinence, S/P sacral nerve stimulator to help control fecal incontinence, chronic opioid use, chronic benzo use admitted to [facility] ED on 05/27/22 for evaluation of altered mentation.? Labs in the ED showed ammonia level of 179. Repeat ammonia level decreased to 44 today Gino-gastric tube passed yesterday and pt was given lactulose via OG tube with improvement in mental status - still confused Elevated ammonia levels are likely due to underlying ROACH/chronic liver disease + use of narcotics and sedatives. RECOMMENDATIONS: 1.? Agree with liquid diet and hold lactulose due to diarrhea. 2. Start Rifaximin 550 mg twice daily for encephalopathy - order placed. 3. Stool studies for C Diff and enteropathogens - negative. 4.? Workup of chronic liver disease with iron studies, BALTAZAR. AMA, ANCA, alpha-1 antitrypsin, GGT, celiac antibodies, liver fibrosis test - order placed and results are pending Time Spent With Patient Time: Total time managing care of this patient today ____ minutes. Quality Stroke Does the patient have a stroke diagnosis?: No VTE Prior VTE?: No VTE Risk Level:: Medical - moderate - high VTE Device Contraindication: Treatment Not Indicated VTE Drug Contraindication: N/A - Med Ordered
[2022-05-29] MEDS: rifAXIMin 550 MG TABLET PO ×2 (15:17→20:20)
[2022-05-29] MEDS: 0.9 % Sodium Chloride Flush 3 ML SYRINGE IVFLUSH (15:28)
[2022-05-29 16:00] VITALS: BP 147/103; PULSE 96; RESP 14; TEMP 36.9; O2SAT 98
[2022-05-29 17:55] LABS: CDiff Gene PCR NEGATIVE (Negative)
[2022-05-29 19:17] VITALS: BP 143/92; PULSE 106; RESP 16; TEMP 36.7; O2SAT 97
[2022-05-29] MEDS: Enoxaparin Sodium 40 MG/0.4 ML SYRINGE SUBCUT (20:20)
[2022-05-30] VITALS (8 sets, daily range): BP systolic 132–166; BP diastolic 61–106; PULSE 76–98; RESP 16–20; TEMP 36.3–37.2; O2SAT 94–98
[2022-05-30] MEDS: Ampicillin Sodium/Sulbactam Na 3 GM in 0.9 % Sodium Chloride 100 ML IV ×4 (02:38→20:00)
--- NOTE | 2022-05-30 06:08 | PC.NURSE ---
0500- PT BS for >999. MD Walker notified and ordered mejia. Mejia placed t 0530 and drained 1000cc of lili urine. Pt tolerate well.
[2022-05-30 07:31] LABS: Alanine Aminotransferase 52 U/L (0-31); Albumin Level 2.2 g/dL (3.5-5.0); Alkaline Phosphatase 114 U/L (39-117); Aspartate Amino Transferase 70 U/L (5-31); Bilirubin Direct 0.4 mg/dL (0.0-0.5); Bilirubin Total 0.9 mg/dL (0.0-1.0); Blood Urea Nitrogen 17 mg/dL (9-16); C Reactive Protein 2.36 mg/dL (< or = 0.50); Calcium 7.7 mg/dL (8.4-10.2); Creatinine Clr Calc Pharmacy 82.3; Estimated Glomerular Filt Rate > 60; Glucose Random 91 mg/dL (60-115); Total Protein 4.2 g/dL (6.5-8.0)
[2022-05-30 07:38] LABS: Anion Gap 11 (12-20); Carbon Dioxide 24 mmol/L (22-29); Chloride 109 mmol/L (96-108); Potassium 2.9 mmol/L (3.3-5.1); Sodium 141 mmol/L (135-145); Vitamin D 25-OH Total 7.8 ng/mL (>30)
[2022-05-30 07:40] LABS: Ammonia 40 umol/L (13-55)
[2022-05-30 08:00] LABS: Hematocrit 28.4 % (37.0-47.0); Hemoglobin 8.4 g/dl (12.0-16.0); Mean Corpuscular HGB Conc 29.6 g/dl (31.0-35.0); Mean Corpuscular Hemoglobin 21.2 pg (27.0-33.0); Mean Corpuscular Volume 71.5 fL (80.0-98.0); Mean Platelet Volume 9.9 fL (9.4-12.3); Platelet Count 252 X10*3/uL (160-400); Red Blood Count 3.97 X10*6/uL (4.20-5.50); Red Cell Distribution Width 22.5 % (11.0-16.0); White Blood Count 4.4 X10*3/uL (4.8-10.8)
[2022-05-30 08:06] LABS: Folate 15.8 ng/mL (> or = 4.0); Vitamin B12 1928 pg/mL (200-900)
[2022-05-30] MEDS: rifAXIMin 550 MG TABLET PO ×2 (09:54→20:01)
[2022-05-30] MEDS: Dextrose 5 % and Lactated Ring 1,000 ML 100 ML IVCONT (09:56)
--- NOTE | 2022-05-30 10:16 | MHC.CM.PN ---
Per ROUNDS discussion, Patient is still acute and not yet medically cleared for dc. Home is the goal and CM will continue to follow.
[2022-05-30 11:00] LABS: HBc Num1 0.16 S/CO (0.00-0.79); Hepatitis A Antibody IgM 0.17 Index (0-0.79); Hepatitis B Core Antibody Nonreactive (Nonreactive); Hepatitis B Surface Antigen Negative (Negative); ~HepC Num1 0.23 S/CO (0.00-0.79); ~Hepatitis A Antibody IgM Nonreactive (Nonreactive); ~Hepatitis B Surface Antibody NONREACTIVE (Nonreactive); ~Hepatitis C Antibody Nonreactive (Nonreactive)
[2022-05-30] MEDS: Acetaminophen 325 MG TABLET 650 MG PO (11:30)
[2022-05-30] MEDS: Throat Lozenge, Medicated LOZENGE 1 LOZENGE MUCOUS MEM (11:32)
--- NOTE | 2022-05-30 12:29 | P.PNIM_ITS ---
Subjective Subjective Date of Service: 05/30/22 Interval History: patient awake alert complaining of headache and dry cough, sore throat, no fevers, no chills ,denies abdominal pain, no nausea, no vomiting, incontinent of stool. Review of Systems Review of Systems: Yes all other systems are reviewed and are negative Physical Exam Vital Signs: Vital Signs: Last Vital Signs Temp 98.2 F 05/30/22 12:00 Pulse 76 05/30/22 12:00 Resp 18 05/30/22 12:00 BP 152/88 H 05/30/22 12:00 Pulse Ox 95 05/30/22 12:00 O2 Del Method 05/30/22 12:00 BMI result Body Mass Index 22.1 Const: Other: General?? remains lethargic, Answering appropriately no acute distress Neck? supple no JVD. CVS? regular rate rhythm, Respiratory lungs clear to auscultation, diminished breath sound, no respiratory distress Gastrointestinal abdomen soft, bowel sounds audible, no guarding , no rigidity. Extremities no edema. Skin no rash Neuro moving all 4 extremities, speech clear Objective Data Active Medications Acetaminophen (Acetaminophen 325 Mg Tablet) 650 mg PO Q6H PRN PRN Reason: Pain, Mild (Pain Scale 1-3) Last Admin: 05/30/22 11:30 Dose: 650 mg Documented By: VERENICE Benzocaine (Throat Lozenge, Medicated Lozenge) 1 lozenge MUCOUS MEM Q2H PRN PRN Reason: Sore Throat Last Admin: 05/30/22 11:32 Dose: 1 lozenge Documented By: VERENICE Enoxaparin Sodium (Enoxaparin Sodium 40 Mg/0.4 Ml Syringe) 40 mg SUBCUT Q24H [facility] Last Admin: 05/29/22 20:20 Dose: 40 mg Documented By: CADEN Ampicillin Sodium/Sulbactam (Sodium 3 gm/ Sodium Chloride) 100 mls @ 200 mls/hr IV Q6H [facility] Last Infusion: 05/30/22 10:26 Dose: 0 mls/hr Documented By: VERENICE Potassium Chloride (Potassium Chloride/H20) 10 meq in 100 mls @ 100 mls/hr IV Q1H [facility] Stop: 05/30/22 14:29 Potassium Cl/Dextrose/Lact Ringer's (Kcl 20 Meq In 5 % Dex/Lact Rin) 20 meq in 1,000 mls @ 100 mls/hr IVCONT .Q10H [facility] Stop: 05/30/22 22:29 Ondansetron HCl (Ondansetron Hcl 4 Mg/2 Ml Vial) 4 mg IVPUSH Q8H PRN PRN Reason: Nausea and Vomiting Pharmacy Consult (Consult Rx Perform Med Rec) 1 each MISCELLANE ONCE PRN PRN Reason: Consult order Potassium Chloride (Potassium Chloride Er 20 Meq Tab.Er.Prt) 20 meq PO ONCE ONE Stop: 05/30/22 12:26 Rifaximin (Rifaximin 550 Mg Tablet) 550 mg PO BID [facility] Last Admin: 05/30/22 09:54 Dose: 550 mg Documented By: VERENICE Sodium Chloride (0.9 % Sodium Chloride Flush 3 Ml Syringe) 3 ml IVFLUSH QSHIFT [facility] Last Admin: 05/30/22 09:55 Dose: Not Given Documented By: VERENICE Non-Admin Reason: IV Running Labs 05/30/22 06:30 05/30/22 06:30 Labs: Laboratory Results - last 24 hr 05/28/22 05/29/22 05/30/22 07:40 16:30 06:30 MCV MCH MCHC RDW Plt Count MPV Absolute Nucleated RBC Nucleated RBC % (auto) Anion Gap Estim Creat Clear Calc Estimated GFR Random Glucose Calcium Total Bilirubin Direct Bilirubin AST ALT Alkaline Phosphatase Ammonia 40 C-Reactive Protein Total Protein Albumin Vitamin B12 25-OH Vitamin D Total Folate C. difficile Tox B Gene NEGATIVE Hepatitis A IgM Ab Nonreactive Hep Bs Antigen Negative Hep Bs Antibody NONREACTIVE Hep B Core Total Ab Nonreactive Hepatitis C Ab (EIA) Nonreactive 05/30/22 05/30/22 05/30/22 06:30 06:30 06:30 MCV 71.5 L MCH 21.2 L MCHC 29.6 L RDW 22.5 H Plt Count 252 MPV 9.9 Absolute Nucleated RBC 0.000 Nucleated RBC % (auto) 0.0 Anion Gap 11 L Estim Creat Clear Calc 82.3 Estimated GFR > 60 Random Glucose 91 Calcium 7.7 L Total Bilirubin 0.9 Direct Bilirubin 0.4 AST 70 H ALT 52 H Alkaline Phosphatase 114 Ammonia C-Reactive Protein 2.36 H Total Protein 4.2 L Albumin 2.2 L Vitamin B12 1928 H 25-OH Vitamin D Total 7.8 Folate 15.8 C. difficile Tox B Gene Hepatitis A IgM Ab Hep Bs Antigen Hep Bs Antibody Hep B Core Total Ab Hepatitis C Ab (EIA) Microbiology Microbiology Results: Microbiology 05/27/22 18:49 Blood Culture - Preliminary Blood - Venous No growth after 48 hours. 05/27/22 17:28 Blood Culture - Preliminary Blood - Venous No growth after 48 hours. Assessment and Plan (1) Hyperammonemic encephalopathy: Status: Acute Plan 62-year-old female with pertinent history of ulcerative colitis status post complete colectomy and J-pouch formation, chronic opioid use, chronic benzo use who was brought to the emergency department by her for evaluation of altered mentation. #.? Acute hepatic encephalopathy:? less lethargic more awake alert answering questions appropriately. Was diagnosed with non hepatic hyperammonemia about 1 month ago by GI after a recent similar episode at [facility], that was treated with lactulose and had normal workup. on this admission has normal Tylenol, salicylate, INR 1.2?, abdominal ultrasound showed hepatomegaly with increased echogenicity suggestive of hepatocellular disease or hepatic steatosis abdominal and pelvic CT scan last year in November showed no liver abnormality, hepatitis panel nonreactive LFTs trending down ammonia improved in 40s workup for chronic liver disease including iron studies, BALTAZAR, AMA, anca, alpha-1 antitrypsin, GGT, celiac antibodies, liver fibrosis test pending continue IV fluids, advance diet to full liquid, continue rifaximin, lactulose if diarrhea resolves will recommend to minimize use of diazepam /narcotics add Tylenol and cepastat out of bed to chair as tolerated 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 # aspiration pneumonia,day 2 on IV antibiotics, afebrile is stable O2 will transition to by mouth antibiotics # history of ulcerative colitis status post total colectomy and J-pouch for wh ich fall or May shins with chronic fecal incontinence and stenosis, status post sacral nerve stimulator to help control fecal incontinence # hypokalemia likely due to IV fluids will replete and follow labs. #.? Acute lactic acidosis:? Resolved with fluid resuscitation.? Not due to sepsis, likely due to underlying fatty liver #.? Reactive leukocytosis follow CBC #.? Chronic opioid and benzo use:? Hold all sedative medications #.? Microcytic anemia: normal iron studies, hematocrit dropped but stable likely dilutional. #.? Elevated transaminases:? LFTs trending down likely due to fatty liver, workup for liver disease pending.? DVT prophylaxis:? Lovenox 40 mg daily Full code patient will need continued inpatient hospitalization due to hepatic encephalopathy. Time Spent With Patient Time: Total time managing care of this patient today ____ minutes. Quality Stroke Does the patient have a stroke diagnosis?: No VTE Prior VTE?: No VTE Risk Level:: Medical - moderate - high VTE Device Contraindication: Treatment Not Indicated VTE Drug Contraindication: N/A - Med Ordered
[2022-05-30 12:59] LABS: Adenovirus F 40/41 Not Detected (Not Detect.); Astrovirus Not Detected (Not Detect.); Campylobacter Not Detected (Not Detect.); Cryptosporidium Not Detected (Not Detect.); Cyclospora cayetanensis Not Detected (Not Detect.); E. coli EAEC Not Detected (Not Detect.); E. coli EPEC Not Detected (Not Detect.); E. coli ETEC Not Detected (Not Detect.); E. coli STEC Not Detected (Not Detect.); Entamoeba histolytica Not Detected (Not Detect.); Giardia lamblia Not Detected (Not Detect.); Norovirus GI/GII Not Detected (Not Detect.); Plesiomonas shigelloides Not Detected (Not Detect.); Rotavirus A Not Detected (Not Detect.); Salmonella Not Detected (Not Detect.); Sapovirus Not Detected (Not Detect.); Shigella sp./EIEC Not Detected (Not Detect.); Vibrio Not Detected (Not Detect.); Vibrio Cholerae Not Detected (Not Detect.); Yersinia enterocolitica Not Detected (Not Detect.)
[2022-05-30] MEDS: Potassium Chloride/H20 10 MEQ/100 ML PIGGYBACK 100 MEQ IV ×2 (13:15→14:06)
[2022-05-30] MEDS: Potassium Chloride ER 20 MEQ TAB.ER.PRT PO (13:22)
--- NOTE | 2022-05-30 13:25 | PM.GIPN ---
Subjective Subjective Date of Service: 05/30/22 Interval History: more alert today Critical Care Time (minutes): 0 Physical Exam Vital Signs: Vital Signs: Last Vital Signs Temp 98.2 F 05/30/22 12:00 Pulse 76 05/30/22 12:00 Resp 18 05/30/22 12:00 BP 152/88 H 05/30/22 12:00 Pulse Ox 95 05/30/22 12:00 O2 Del Method 05/30/22 12:00 BMI result Body Mass Index 22.1 GI: Other: abdomen is soft and nontender Extrem: Other: no asterixis Objective Data Labs 05/30/22 06:30 05/30/22 06:30 Microbiology Microbiology Results: Microbiology 05/27/22 18:49 Blood - Venous Blood Culture - Preliminary No growth after 48 hours. 05/27/22 17:28 Blood - Venous Blood Culture - Preliminary No growth after 48 hours. Procedures Date of Service Date of Service: 05/30/22 Progress Note: A&P Assessment and plan (1) Hyperammonemic encephalopathy: Status: Acute Assessment and Plan: improving continue rifaximin liver and stool tests pending. Time Spent With Patient Time: Total time managing care of this patient today ____ minutes. Quality Stroke Does the patient have a stroke diagnosis?: No VTE Prior VTE?: No VTE Risk Level:: Medical - moderate - high VTE Device Contraindication: Treatment Not Indicated VTE Drug Contraindication: N/A - Med Ordered
[2022-05-30] MEDS: KCl 20 mEq in 5 % Dex/Lact Rin 20 MEQ/1,000 ML IV.SOLN 100 MEQ IVCONT (14:06)
[2022-05-30 16:03] LABS: Alpha 1 Anti-trypsin 219 mg/dL (83-199)
[2022-05-30] MEDS: ondansetron HCL 4 MG/2 ML VIAL IVPUSH (20:00)
[2022-05-30] MEDS: HYDROcodone Bit/Acetam 5/325 TABLET 1 TAB PO (20:00)
[2022-05-31] MEDS: Famotidine/PF 20 MG/2 ML VIAL IVPUSH (00:20)
[2022-05-31] MEDS: amLODIPine Besylate 5 MG TABLET PO (00:20)
[2022-05-31] MEDS: 0.9 % Sodium Chloride Flush 3 ML SYRINGE IVFLUSH ×2 (00:21→07:51)
[2022-05-31] MEDS: Ampicillin Sodium/Sulbactam Na 3 GM in 0.9 % Sodium Chloride 100 ML IV ×4 (02:25→20:29)
[2022-05-31 04:00] VITALS: BP 148/76; PULSE 88; RESP 20; TEMP 37.1; O2SAT 98
[2022-05-31 07:08] LABS: Blood Urea Nitrogen 11 mg/dL (9-16); Calcium 7.6 mg/dL (8.4-10.2); Creatinine Clr Calc Pharmacy 78.5; Estimated Glomerular Filt Rate > 60
[2022-05-31 07:18] LABS: Anion Gap 15 (12-20); Carbon Dioxide 18 mmol/L (22-29); Chloride 105 mmol/L (96-108); Potassium 3.8 mmol/L (3.3-5.1); Sodium 134 mmol/L (135-145)
[2022-05-31 07:43] VITALS: BP 149/97; PULSE 97; RESP 20; TEMP 37.2; O2SAT 97
[2022-05-31] MEDS: Simethicone 80 MG TAB.CHEW PO ×3 (07:48→20:27)
[2022-05-31] MEDS: HYDROcodone Bit/Acetam 5/325 TABLET 1 TAB PO (07:48)
[2022-05-31] MEDS: rifAXIMin 550 MG TABLET PO ×2 (07:49→20:26)
[2022-05-31 09:56] LABS: Glucose Random 110 mg/dL (60-115)
[2022-05-31 10:53] VITALS: BP 153/99; PULSE 99; RESP 20; TEMP 36.8; O2SAT 97
[2022-05-31 11:04] LABS: Mitochondrial Antibodies NEGATIVE (NEGATIVE)
--- NOTE | 2022-05-31 12:21 | PC.NURSE ---
Addendum entered by Lena Hatch RN 05/31/22 13:57: MD at bedside to assess pt, new order for EKG - completed. Current HR 100. Pt back in bed, incontinence care provided. Safety precautions remain in place, call antonio within reach, bed alarm on. Original Note: report received from overnight RN, medical assistant per MAY. Physical therapy worked with pt today - pt OOB to chair, since getting oob pt is sinus tach with HR of 110s-130s. MD notified, no new orders at this time. Pt offering no complaints. Safety precautions in place, call antonio within reach, chair alarm on. at bedside. Encouraged to call for assistance.
--- NOTE | 2022-05-31 12:50 | ECG_ITS ---
Test Reason : CP Blood Pressure : / mmHG Vent. Rate : 138 BPM Atrial Rate : 138 BPM P-R Int : 142 ms QRS Dur : 078 ms QT Int : 288 ms P-R-T Axes : 034 005 019 degrees QTc Int : 436 ms Sinus tachycardia Inferior infarct , age undetermined Cannot rule out Anterior infarct , age undetermined Abnormal ECG When compared with ECG of 28-MAY-2022 19:51, Inferior infarct is now Present Referred By: Meagan Kasper Electronically Signed By:GHISLAINE BOSTON
[2022-05-31 13:23] LABS: Myeloperoxidase Antibody <1.0 AI; Proteinase 3 PR3 Antibodies <1.0 AI
[2022-05-31 13:48] LABS: IgA 283 mg/dL (70-320); IgG 903 mg/dL (600-1540); IgM 105 mg/dL (50-300)
--- NOTE | 2022-05-31 14:00 | HO.PM.IMPN ---
Subjective Subjective Date of Service: 05/31/22 Interval History: noted to have frequent episodes of vomiting last night after dinner, denies abdominal pain denies lightheadedness or dizziness, no nausea the present time likes are clear and show tolerating it well, participated with physical therapy but 20 minutes after ambulating noted to have sinus tachycardia without associated chest pain, no palpitations, complaining of frequent burping and gurgling. Review of Systems Review of Systems: Yes all other systems are reviewed and are negative Physical Exam Vital Signs: Vital Signs: Last Vital Signs Temp 98.2 F 05/31/22 10:53 Pulse 99 05/31/22 10:53 Resp 20 05/31/22 10:53 BP 153/99 H 05/31/22 10:53 Pulse Ox 97 05/31/22 10:53 O2 Del Method 05/31/22 10:53 O2 Flow Rate 3 05/31/22 04:00 BMI result Body Mass Index 22.1 Const: Other: General?? awake alert, vague at times, otherwise Answering questions appropriately, no acute distress, Neck? supple no JVD. CVS? regular rate rhythm, no murmurs Respiratory lungs clear to auscultation, diminished breath sound, no respiratory distress Gastrointestinal abdomen soft, bowel sounds audible, no guarding , no rigidity. Extremities no edema. Skin no rash Neuro moving all 4 extremities, speech clear Objective Data Active Medications Acetaminophen (Acetaminophen 325 Mg Tablet) 650 mg PO Q6H PRN PRN Reason: Pain, Mild (Pain Scale 1-3) Last Admin: 05/30/22 11:30 Dose: 650 mg Documented By: VERENICE Hydrocodone Bitart/Acetaminophen (Hydrocodone Bit/Acetam 5/325 Tablet) 1 tab PO Q6H PRN PRN Reason: Pain, Severe (Pain Scale 7-10) Last Admin: 05/31/22 07:48 Dose: 1 tab Documented By: VERENICE Benzocaine (Throat Lozenge, Medicated Lozenge) 1 lozenge MUCOUS MEM Q2H PRN PRN Reason: Sore Throat Last Admin: 05/30/22 11:32 Dose: 1 lozenge Documented By: VERENICE Enoxaparin Sodium (Enoxaparin Sodium 40 Mg/0.4 Ml Syringe) 40 mg SUBCUT Q24H [facility] Last Admin: 05/30/22 21:47 Dose: Not Given Documented By: YASSINE Non-Admin Reason: Patient Refused Gabapentin (Gabapentin 400 Mg Capsule) 400 mg PO BEDTIME [facility] Ampicillin Sodium/Sulbactam (Sodium 3 gm/ Sodium Chloride) 100 mls @ 200 mls/hr IV Q6H [facility] Last Admin: 05/31/22 13:35 Dose: 200 mls/hr Documented By: VERENICE Omeprazole (Omeprazole 20 Mg Capsule.Dr) 20 mg PO DAILY@0630 [facility] Ondansetron HCl (Ondansetron Hcl 4 Mg/2 Ml Vial) 4 mg IVPUSH Q8H PRN PRN Reason: Nausea and Vomiting Last Admin: 05/30/22 20:00 Dose: 4 mg Documented By: YASSINE Pharmacy Consult (Consult Rx Perform Med Rec) 1 each MISCELLANE ONCE PRN PRN Reason: Consult order Rifaximin (Rifaximin 550 Mg Tablet) 550 mg PO BID [facility] Last Admin: 05/31/22 07:49 Dose: 550 mg Documented By: VERENICE Simethicone (Simethicone 80 Mg Tab.Chew) 80 mg PO QIDWMHS PRN PRN Reason: Gas Last Admin: 05/31/22 07:48 Dose: 80 mg Documented By: VERENICE Sodium Chloride (0.9 % Sodium Chloride Flush 3 Ml Syringe) 3 ml IVFLUSH QSHIFT [facility] Last Admin: 05/31/22 07:51 Dose: 3 ml Documented By: VERENICE Labs 05/30/22 06:30 05/31/22 06:09 Labs: Laboratory Results - last 24 hr 05/28/22 05/28/22 05/31/22 16:55 16:55 06:09 Anion Gap 15 Estim Creat Clear Calc 78.5 Estimated GFR > 60 Random Glucose 110 Calcium 7.6 L [id number] 219 H IgG Total 903 IgA Total 283 IgM 105 Proteinase 3 (PR3) Ab <1.0 Myeloperoxidase Ab <1.0 Anti-Mitochondrial Ab NEGATIVE Assessment and Plan (1) Hyperammonemic encephalopathy: Status: Acute Plan 62-year-old female with pertinent history of ulcerative colitis status post complete colectomy and J-pouch formation, chronic opioid use, chronic benzo use who was brought to the emergency department by her for evaluation of altered mentation. #.? Acute hepatic encephalopathy:? more awake alert answering questions appropriately, vague at times. Was diagnosed with non hepatic hyperammonemia about 1 month ago by GI after a recent similar episode at [facility], that was treated with lactulose and had normal workup. on this admission has normal Tylenol, salicylate, INR 1.2?, abdominal ultrasound showed hepatomegaly with increased echogenicity suggestive of hepatocellular disease or hepatic steatosis abdominal and pelvic CT scan last year in November showed no liver abnormality, hepatitis panel nonreactive LFTs close to normal, ammonia in 40 workup for chronic liver disease including BALTAZAR, AMA, anca, alpha-1 antitrypsin, GGT, celiac antibodies, liver fibrosis test pending, iron studies normal, stool studies negative diet advanced to regular lactose-free, add clear Ensure recommend to minimize use of narcotics that contribute to nausea and courage out of bed to chair seen by Physical therapy they recommend acute rehab versus home with PT # sinus tachycardia noted after ambulation improved after rest EKG showed no acute ischemia normal TSH # aspiration pneumonia,day 2 on IV antibiotics, afebrile is stable O2 will transition to by mouth antibiotics # history of ulcerative colitis status post total colectomy and J-pouch for which fall or May shins with chronic fecal incontinence and stenosis, status post sacral nerve stimulator to help control fecal incontinence # hypokalemia repleted and normalized #.? Acute lactic acidosis:? Resolved with fluid resuscitation.? #.? Reactive leukocytosis resolved #.? Chronic opioid and benzo use:? placed on lower set recommend to minimize narcotics #.? Microcytic anemia: normal iron studies, hematocrit dropped but stable likely dilutional. #.? Elevated transaminases:? LFTs trending down likely due to fatty liver, workup for liver disease pending.? DVT prophylaxis:? Lovenox 40 mg daily Full code patient will need continued inpatient hospitalization due to hepatic encephalopathy, deconditioning, sinus tachycardia follow-up on tolerance of diet. Time Spent With Patient Time: Total time managing care of this patient today ____ minutes. Quality Stroke Does the patient have a stroke diagnosis?: No VTE Prior VTE?: No VTE Risk Level:: Medical - moderate - high VTE Device Contraindication: Treatment Not Indicated VTE Drug Contraindication: N/A - Med Ordered
[2022-05-31 15:08] VITALS: BP 168/107; PULSE 95; RESP 20; TEMP 36.6; O2SAT 96
[2022-05-31 15:52] LABS: Anti Nuclear Antibody Screen NEGATIVE (NEGATIVE)
--- NOTE | 2022-05-31 15:52 | PM.GIPN ---
Subjective Subjective Date of Service: 05/31/22 Interval History: seems at baseline mental status Critical Care Time (minutes): 0 Physical Exam Vital Signs: Vital Signs: Last Vital Signs Temp 97.9 F 05/31/22 15:08 Pulse 95 05/31/22 15:08 Resp 20 05/31/22 15:08 BP 168/107 H 05/31/22 15:08 Pulse Ox 96 05/31/22 15:08 O2 Del Method 05/31/22 15:08 O2 Flow Rate 3 05/31/22 04:00 BMI result Body Mass Index 22.1 Const: General: cooperative GI: Other: abdomen is soft and nontender Objective Data Labs 05/30/22 06:30 05/31/22 06:09 Microbiology Microbiology Results: Microbiology 05/27/22 18:49 Blood - Venous Blood Culture - Preliminary No growth after 48 hours. 05/27/22 17:28 Blood - Venous Blood Culture - Preliminary No growth after 48 hours. Procedures Date of Service Date of Service: 05/31/22 Progress Note: A&P Assessment and plan (1) Hyperammonemic encephalopathy: Status: Acute Assessment and Plan: started solids, somewhat full after eating relatively quickly advised slower eating simethicone switched to scheduled advised to minimize narcotics and use zofran liberally. [facility] labs pending Time Spent With Patient Time: Total time managing care of this patient today ____ minutes. Quality Stroke Does the patient have a stroke diagnosis?: No VTE Prior VTE?: No VTE Risk Level:: Medical - moderate - high VTE Device Contraindication: Treatment Not Indicated VTE Drug Contraindication: N/A - Med Ordered
[2022-05-31] MEDS: Metoprolol Tartrate 25 MG TABLET PO (16:25)
[2022-05-31 19:13] VITALS: BP 140/97; PULSE 102; RESP 20; TEMP 37.3; O2SAT 97
[2022-05-31] MEDS: Gabapentin 400 MG CAPSULE PO (20:26)
[2022-06-01] VITALS: BP 118/80; PULSE 78; RESP 20; TEMP 36.4; O2SAT 97
[2022-06-01] MEDS: Ampicillin Sodium/Sulbactam Na 3 GM in 0.9 % Sodium Chloride 100 ML IV ×2 (01:27→09:25)
[2022-06-01] MEDS: Acetaminophen 325 MG TABLET 650 MG PO (03:52)
[2022-06-01 04:00] VITALS: BP 140/95; PULSE 80; RESP 20; TEMP 36.6; O2SAT 96
[2022-06-01] MEDS: Omeprazole 20 MG CAPSULE.DR PO (05:45)
[2022-06-01 06:56] LABS: Hematocrit 30.2 % (37.0-47.0); Hemoglobin 9.2 g/dl (12.0-16.0); Mean Corpuscular HGB Conc 30.5 g/dl (31.0-35.0); Mean Corpuscular Hemoglobin 21.4 pg (27.0-33.0); Mean Corpuscular Volume 70.2 fL (80.0-98.0); Mean Platelet Volume 9.6 fL (9.4-12.3); Platelet Count 285 X10*3/uL (160-400); Red Cell Distribution Width 22.8 % (11.0-16.0); White Blood Count 6.4 X10*3/uL (4.8-10.8)
[2022-06-01 07:01] VITALS: BP 148/94; PULSE 67; RESP 20; TEMP 37.1; O2SAT 97
[2022-06-01 07:06] LABS: Ammonia 28 umol/L (13-55)
[2022-06-01 07:39] LABS: Alanine Aminotransferase 47 U/L (0-31); Albumin Level 2.4 g/dL (3.5-5.0); Alkaline Phosphatase 117 U/L (39-117); Aspartate Amino Transferase 64 U/L (5-31); Bilirubin Direct 0.5 mg/dL (0.0-0.5); Bilirubin Total 0.9 mg/dL (0.0-1.0); Blood Urea Nitrogen 9 mg/dL (9-16); Calcium 7.9 mg/dL (8.4-10.2); Creatinine Clr Calc Pharmacy 70.8; Estimated Glomerular Filt Rate > 60; Glucose Random 84 mg/dL (60-115); Total Protein 4.6 g/dL (6.5-8.0)
[2022-06-01 07:53] LABS: Anion Gap 12 (12-20); Carbon Dioxide 24 mmol/L (22-29); Chloride 102 mmol/L (96-108); Potassium 3.2 mmol/L (3.3-5.1); Sodium 135 mmol/L (135-145)
[2022-06-01] MEDS: rifAXIMin 550 MG TABLET PO (09:22)
[2022-06-01] MEDS: Simethicone 80 MG TAB.CHEW PO ×2 (09:22→12:49)
[2022-06-01] MEDS: Potassium Chloride ER 20 MEQ TAB.ER.PRT PO (09:22)
[2022-06-01] MEDS: 0.9 % Sodium Chloride Flush 3 ML SYRINGE IVFLUSH (09:23)
[2022-06-01] MEDS: Throat Lozenge, Medicated LOZENGE 1 LOZENGE MUCOUS MEM (09:32)
[2022-06-01] MEDS: HYDROcodone Bit/Acetam 5/325 TABLET 1 TAB PO (10:57)
--- NOTE | 2022-06-01 11:06 | PC.NURSE ---
mejia was removed at 1103. pt went to bathroom and urinated right after that, passed voiding trial
[2022-06-01 11:34] VITALS: BP 118/93; PULSE 108; RESP 20; TEMP 37.1; O2SAT 94
--- NOTE | 2022-06-01 12:30 | P.DS_ITS ---
DS: Providers Provider Date of Service: 06/01/22 Date of admission: 05/27/22 21:11 Primary care physician: John Buck MD Consults: 05/27/22 21:12 Consult to Gastroenterology Routine Consulting Provider: Olu Shah Reason for consultation: hyperammonemia DS: Diagnosis Discharge Diagnosis (1) Hyperammonemic encephalopathy: Status: Acute DS: Summary Hospital Course Hospital Course: history of presenting illness Date of Service: 05/27/22 Chief Complaint: Altered mentation This is a 62-year-old female with pertinent history of ulcerative colitis status post complete colectomy and J-pouch formation, chronic opioid use, chronic benzo use who was brought to the emergency department by her for evaluation of altered mentation.? As per the , patient was actively vomiting yesterday and became lethargic on the day of presentation.? Patient completely altered and the time of my evaluation and only responding to painful stimulus.? He states patient had a similar admission in early April at [facility] where she was diagnosed with non hepatic hyperammonemia.? Unable to obtain review of systems.? In the emergency department ammonia level found to be 179. hospital course 62-year-old female with pertinent history of ulcerative colitis status post complete colectomy and J-pouch formation, chronic opioid use, chronic benzo use who was brought to the emergency department by her for evaluation of altered mentation. #.? Acute hyper ammonemic encephalopathy patient admitted to intermediate care unit treated with IV fluid, PPI and lactulose via OG-tube patient responded well to above treatment, therefore diet was gradually advanced patient is tolerating well she is back to her baseline, answering questions appropriately, ammonia level returned to normal ,Tylenol and salicylate, INR 1.2?, abdominal ultrasound showed hepatomegaly with increased echogenicity suggestive of hepatocellular disease or hepatic steatosis, abdominal and pelvic CT scan last year in November showed no liver abnormality,? hepatitis panel nonreactive,? LFTs? close to normal, workup for chronic liver disease including? BALTAZAR, AMA, anca, alpha-1 antitrypsin, GGT, celiac antibodies, liver fibrosis test? pending, iron studies normal, stool studies negative, since patient is tolerating diet she is being discharged home and recommended to avoid narcotics and sedatives patient was evaluated by Physical therapy they recommend acute rehab however patient and declined and is being discharged home with VNA and PT services. recommend close outpatient follow-up with Gastroenterology. ? ? ? # ? sinus tachycardia noted after ambulation improved after rest EKG showed no acute ischemia normal TSH # ? aspiration pneumonia, afebrile, stable O2 Finished course of antibiotic #? history of ulcerative colitis status post total colectomy and J-pouch with chronic fecal incontinence and stenosis, status post sacral nerve stimulator to help control fecal incontinence, recommend follow-up with Dr. Jimenez # ? hypokalemia? repleted and normalized #.? Acute lactic acidosis:? Resolved with fluid resuscitation.? #.? Chronic opioid and benzo use:?? strongly recommend to minimize use of narcotics #.? Microcytic anemia:? normal iron studies, hematocrit dropped but stable likely dilutional recommend to follow CBC outpatient Time Spent with Patient Time attestation: Total time managing care of this patient today ____ minutes. Discharge coordination time: Greater than 30 minutes Quality: Safe Use of Opioids Does Pt have an Active Cancer Diagnosis on the Problem List?: No Quality: Stroke Does the patient have a stroke diagnosis?: No Physical Exam Vital Signs: Vital Signs: Last Vital Signs Temp 98.7 F 06/01/22 11:34 Pulse 108 H 06/01/22 11:34 Resp 20 06/01/22 11:34 BP 118/93 H 06/01/22 11:34 Pulse Ox 94 06/01/22 11:34 O2 Del Method 06/01/22 11:34 O2 Flow Rate 3 05/31/22 04:00 BMI result Body Mass Index 22.1 Const: Other: General?? awake alert, answering questions appropriately, no acute distress, Neck? supple no JVD. CVS? regular rate rhythm, no murmurs Respiratory lungs clear to auscultation, diminished breath sound, no respiratory distress Gastrointestinal abdomen soft, bowel sounds audible, no guarding , no rigidity. Extremities no edema. Skin no rash Neuro moving all 4 extremities, speech clear DS: Data Data Completed and Pending Completed studies during hospitalization [Text1]: Procedures Excision of Ileum, Via Natural or Artificial Opening Endoscopic, Diagnostic (02/24/20) Labs on day of discharge: Laboratory Results - last 24 hr 05/28/22 05/28/22 06/01/22 16:55 16:55 06:26 WBC 6.4 RBC 4.30 Hgb 9.2 L Hct 30.2 L MCV 70.2 L MCH 21.4 L MCHC 30.5 L RDW 22.8 H Plt Count 285 MPV 9.6 Absolute Nucleated RBC 0.000 Nucleated RBC % (auto) 0.0 Sodium Potassium Chloride Carbon Dioxide Anion Gap BUN Creatinine Estim Creat Clear Calc Estimated GFR Random Glucose Calcium Total Bilirubin Direct Bilirubin AST ALT Alkaline Phosphatase Ammonia Total Protein Albumin IgG Total 903 IgA Total 283 IgM 105 BALTAZAR Screen NEGATIVE BALTAZAR Titer TNP BALTAZAR Titer 2 TNP BALTAZAR Titer 3 TNP BALTAZAR Pattern TNP BALTAZAR Pattern 2 TNP BALTAZAR Pattern 3 TNP Proteinase 3 (PR3) Ab <1.0 Myeloperoxidase Ab <1.0 06/01/22 06/01/22 06:26 06:26 WBC RBC Hgb Hct MCV MCH MCHC RDW Plt Count MPV Absolute Nucleated RBC Nucleated RBC % (auto) Sodium 135 Potassium 3.2 L Chloride 102 Carbon Dioxide 24 Anion Gap 12 BUN 9 Creatinine 0.72 Estim Creat Clear Calc 70.8 Estimated GFR > 60 Random Glucose 84 Calcium 7.9 L Total Bilirubin 0.9 Direct Bilirubin 0.5 AST 64 H ALT 47 H Alkaline Phosphatase 117 Ammonia 28 Total Protein 4.6 L Albumin 2.4 L IgG Total IgA Total IgM BALTAZAR Screen BALTAZAR Titer BALTAZAR Titer 2 BALTAZAR Titer 3 BALTAZAR Pattern BALTAZAR Pattern 2 BALTAZAR Pattern 3 Proteinase 3 (PR3) Ab Myeloperoxidase Ab Preliminary micro results at discharge 05/27/22 18:49 Blood Culture - Preliminary Blood - Venous No growth after 48 hours. 05/27/22 17:28 Blood Culture - Preliminary Blood - Venous No growth after 48 hours. Discharge Plan Discharge Anticipated Discharge Date/Time: 06/01/22 12:19 Patient Disposition: Home Health Service Discharge Diagnosis: hypeammonemic encephalopathy Referrals: [facility] [Other] - 1 Week John Buck MD [Primary Care Provider] - 1 Week Discharge Medications: New simethicone [Gas Relief (simethicone)] 80 mg Tablet,Chewable 80 mg PO QIDWMHS PRN (Reason: gas pain) Qty: 120 0RF Continued diphenoxylate-atropine 2.5-0.025 mg tablet 4 tab PO BID PRN (Reason: diarrhea) hydrocodone-acetaminophen 10-325 mg tablet 1 tab PO Q6H PRN (Reason: Pain) diazepam 10 mg tablet 1 tab PO TID PRN (Reason: muscle spasm) gabapentin 600 mg tablet 1 tab PO BEDTIME calcium polycarbophil [FiberCon] 625 mg Tablet 1,250 mg PO BID tizanidine 4 mg Tablet 4 mg PO BEDTIME PRN (Reason: Spasms) hydroxyzine HCl 25 mg Tablet 25 mg PO QID PRN (Reason: Anxiety) esomeprazole magnesium [Nexium] 20 mg Capsule,Delayed Release(Dr/Ec) 20 mg PO DAILY PRN (Reason: Heartburn) Changed dicyclomine 10 mg capsule 10 mg PO QID PRN (Reason: Abdominal Discomfort) Qty: 1 0RF Discharge Orders: Discharge Order (Routine); Ordered 06/01/22 Ordered By: Meagan Kasper Diet: Advance to usual diet Activity on Discharge: As tolerated Stand Alone Forms: Patient Portal Discharge page Care Plan Goals: lethargy/ confusion resolved minimize use of opiods/ take lactose-free bland diet small meals, use Simethicone for gas pain Health Concerns: deconditioning / weakness being discharged with VNA and PT services Plan of Treatment: follow-up with primary care physician and Gastroenterology call for appointment Assessment: as above
--- NOTE | 2022-06-01 12:47 | W.MHC.F2F ---
Service Date Service Date: 06/01/22 Encounter Date of encounter: 06/01/22 Reasons for Services Signs and symptoms assessed: encephalopathy resolved Reason for penitentiary: GI/ assessment Reason for physical therapy: home safety and mobility Homebound: Leaving the home is medically contraindicated at this time without the asist of a device and/or another person due th the listed conditions above and below. Reason homebound: weakness related to hospital stay Certification: Based on the above findings, I certify that this patient is confined to the home and needs intermittent penitentiary care, physical therapy and/or speech therapy, or continues to need occupational therapy. The patient is under my care, and I have initiated the establishment of the plan of care. The patient will be followed by a physician who will periodically review the plan of care. Time Spent With Patient Time: Total time managing care of this patient today ____ minutes.
--- NOTE | 2022-06-01 12:54 | MHC.CM.PN ---
Patient has been medically cleared for dc to home today, with services. A referral was made to [facility] ([facility] spoke in person with their Director/RN/Emmett at [phone], who accepted Patient verbally and in [facility])and they have been made aware of today's dc. DC Summary and face to face has been sent to said VNA, via [facility] as discussed with Emmett.
[2022-06-04 13:18] LABS: Transglutaminase Ab IgG 4.4 U/mL; Transglutaminase IgA <1.0 U/mL
[2022-06-04 14:18] LABS: FIB-ALT 73 U/L (6-29); FIB-Alpha-2-Macroglobulin 161 mg/dL (106-279); FIB-Apolipoprotein A1 113 mg/dL (101-198); FIB-GGT 276 U/L (3-65); FIB-Haptoglobin 120 mg/dL (43-212); FIB-Total Bilirubin 1.2 mg/dL (0.2-1.2); Liver Fibrosis Stage F3; Nec Inflam Act Grade A2; Nec Inflam Act Score 0.55
== END 2022-06-01 14:34 | disposition home health service (06) ==
LOC: HO.ED 20:55 → HO.EDOVER 21:28 → HO.IMC 05-28 01:00
PROVIDERS: Internal Medicine Gastroenterology; Admitting Provider Student in an Organized Health Care Education/Training Program; Emergency Provider Emergency Medicine; PCP Family Medicine; Visit Provider Hospitalist
DX: K75.81 Nonalcoholic steatohepatitis (NASH) (principal); J69.0 Pneumonitis due to inhalation of food and vomit; E87.21 Acute metabolic acidosis; K76.82 Hepatic encephalopathy; E87.6 Hypokalemia; E03.9 Hypothyroidism, unspecified; D50.9 Iron deficiency anemia, unspecified; R00.0 Tachycardia, unspecified; K51.90 Ulcerative colitis, unspecified, without complications; Z93.4 Other artificial openings of gastrointestinal tract status; Z20.822 Contact with and (suspected) exposure to COVID-19; Z88.5 Allergy status to narcotic agent; Z96.82 Presence of neurostimulator; Z79.891 Long term (current) use of opiate analgesic; Z79.899 Other long term (current) drug therapy
CPT/HCPCS: 36415; 70450; 71045; 76700; 80048; 80053; 80076; 80143; 80179; 80307; 81001; 81596; 82077; 82103; 82140; 82306; 82550; 82607; 82728; 82746; 82784; 82803; 82947; 82977; 83540; 83605; 83690; 83735; 83880; 84443; 84484; 85025; 85027; 85379; 85610; 86021; 86038; 86039; 86140; 86255; 86256; 86364; 86704; 86706; 86709; 86803; 87040; 87340; 87493; 87507; 87635; 93005; 97162; 99285; C1758; J0295; J1650; J2405

== ENCOUNTER 2022-06-14 08:58 | Inpatient (IN) | payer OTHER, SELFPAY ==
[2022-06-14] VITALS (8 sets, daily range): BP systolic 123–145; BP diastolic 80–99; PULSE 98–120; RESP 14–20; TEMP 36.3–37.1; O2SAT 97–98; BMI 18.1
--- NOTE | ~2022-06-14 | CT_ITS ---
EXAMINATION: CT ABDOMEN AND PELVIS WITHOUT CONTRAST CLINICAL INFORMATION: nausea, vomiting; eval for obstruction COMPARISON: 11/28/2021 TECHNIQUE: Multidetector volumetric imaging was performed from the superior aspect of the liver through the pubic symphysis. Sagittal and coronal reformatted images were obtained on the technologist's workstation. This CT examination was performed using dose optimization techniques as appropriate, variously including the following: *Automated exposure control *Adjustment of mA and/or kV according to patient size (this includes techniques or standardized protocols for targeted exams where dose is matched to indication/reason for exam; i.e. extremities or head) *Use of iterative reconstruction technique DLP: 2 9 7 mGy-cm FINDINGS: LUNG BASES: Minimal dependent atelectasis and pleural parenchymal scarring in the lung bases. Small pericardial effusion. Calcific atherosclerosis in the coronary arteries. LIVER, GALLBLADDER, AND BILIARY TREE: The liver is enlarged, measuring 22 cm craniocaudal with diffuse hypoattenuation of the parenchyma, consistent with steatosis. Hepatic contour is normal. No focal lesions are identified. Gallbladder is surgically absent. No appreciable biliary ductal dilatation. PANCREAS: Atrophic. No pancreatic ductal dilatation. SPLEEN: Unremarkable. ADRENAL GLANDS: Unremarkable. KIDNEYS AND URETERS: The kidneys are normal in size, shape, and attenuation. No hydronephrosis, hydroureter, or calculi seen. No perinephric stranding. BLADDER: Unremarkable. GASTROINTESTINAL TRACT: Gastric decompression tube tip terminates in the region of the antrum in the right upper quadrant. Stomach is normal in caliber. Status post total colectomy. There is diffuse small bowel rotation with air-fluid levels. An abrupt caliber change in the distal small bowel is again noted in the right lower quadrant around the small bowel anastomoses in this region, similar to the prior study from 11/28/2021, concerning for small obstruction. No appreciable bowel wall thickening or surrounding fat stranding. No pneumatosis. No intraperitoneal free air or free fluid. ABDOMINAL WALL: No significant hernia is appreciated. LYMPH NODES: Normal. VASCULAR: Mild calcific atherosclerosis in the abdominal aorta and iliac arteries. No ureteral dilatation. PELVIC VISCERA: The uterus and adnexa are unremarkable. OSSEOUS STRUCTURES: Mild multilevel degenerative spondylosis in the thoracolumbar spine with a right-sided L5 pars defect. A sacral nerve stimulator device is noted in place. Mild osteoarthritis in the hips and SI joints. Bones are osteopenic. No acute fractures. CT/CT abdomen pelvis wo IV con IMPRESSION: 1. Small bowel obstruction with a transition point in the right lower quadrant around the small bowel anastomoses, similar to the prior study from 11/28/2021. No evidence of perforation. 2. Hepatomegaly with hepatic steatosis. 3. Small pericardial effusion. Fleischner guidelines were followed.
--- NOTE | ~2022-06-14 | XR_ITS ---
EXAMINATION: XR CHEST CLINICAL INFORMATION: Enteric tube placement. COMPARISON: Chest radiograph 05/28/2022. TECHNIQUE: Frontal view of the chest was obtained. FINDINGS: Stable appearance of the cardiomediastinal silhouette. Low lung volumes with bronchovascular crowding and subsegmental atelectasis. No discrete focal infiltrate. No pleural effusion or pneumothorax. An enteric tube terminates projecting over the region of the stomach antrum/pylorus. Nonspecific dilatation of the included bowel in the upper abdomen. No acute osseous abnormalities. Right upper quadrant surgical clips. XR/XR chest 1V IMPRESSION: 1. Enteric tube terminates projecting over the region of the stomach antrum/pylorus. 2. Low lung volumes with bronchovascular crowding and subsegmental atelectasis. 3. Nonspecific dilatation of the included bowel in the upper abdomen.
--- NOTE | ~2022-06-14 | XR_ITS ---
EXAMINATION: XR ABDOMEN KUB CLINICAL INDICATION: Persistent nausea/vomiting. COMPARISON: None available. TECHNIQUE: AP view of the abdomen. FINDINGS: There are multiple dilated small bowel loops in midabdomen suspicious for early small bowel obstruction. No organomegaly seen. No bony abnormality. There is a solitary sacral epidural electrode. No gross bony abnormality. There is enteric tube with its tip in distal nondistended stomach. XR/XR KUB IMPRESSION: Multiple dilated small bowel loops in midabdomen suspicious for early small bowel obstruction.
--- NOTE | ~2022-06-14 | FL_ITS ---
EXAMINATION: FL SMALL BOWEL SERIES CLINICAL INFORMATION: Small bowel obstruction. COMPARISON: None available. TECHNIQUE: Following a scout sniper image of the abdomen, contrast was administered orally, and interval abdominal radiographs were performed to assess for contrast progression through the small bowel. Following contrast transit through the small bowel and into the colon, the patient was placed on the fluoroscopy table, and multiple spot images were obtained. FINDINGS: Nanny Caregiver image of the abdomen demonstrates a multiple dilated bowel loops consistent with ileus or obstruction. Following oral administration of 50-50 dilution of 2 bottles of Gastrografin there is slow transition of contrast from the stomach, dilated small bowel loops into the rectum by almost 5 1/2 hours . There is no complete obstruction at this time. FLUOROSCOPY TIME: None. DOSE AREA PRODUCT: None. uGy-m2 (microgray-meter squared) FL/FL small bowel follow through IMPRESSION: Incomplete ileus or partial small obstruction. The Gastrografin transits through the entire small bowel and colon but significantly delayed transit time of 5 1/2 hours. Results were conveyed to Giselle Pricthett at 2:00 PM.
--- NOTE | ~2022-06-14 | XR_ITS ---
EXAMINATION: XR ABDOMEN KUB CLINICAL INDICATION: Vomiting COMPARISON: CT abdomen pelvis 06/17/2022, small bowel follow-through 06/18/2022 TECHNIQUE: AP view of the abdomen. FINDINGS: Again seen is evidence of small bowel obstruction with multiple dilated loops of small bowel with the largest measuring 7 cm. Compared to the 06/18/2022 small bowel study, loops appear more prominent. Minimal gas and stool is seen in the colon. Multiple chain suture suture lines are present with one in the region of the rectum and 2 within the right lower quadrant. A neural stimulator overlies the right pelvis with lead extending through the right hemisacrum. XR/XR KUB IMPRESSION: Small bowel obstruction. Slight worsening of appearances since 06/18/2022.
--- NOTE | ~2022-06-14 | XR_ITS ---
EXAMINATION: XR CHEST CLINICAL INFORMATION: Tube placement. COMPARISON: Chest x-ray 06/15/2022 TECHNIQUE: Frontal portable view of the chest was obtained. 1814 hours FINDINGS: Tubes and lines: 1. Enteric tube catheter in stomach. 2. Right-sided PICC line catheter tip at caval atrial junction. Lungs normally aerated. No pleural effusion or pneumothorax. Heart size is normal. Cardiac mediastinal contours normal. No pulmonary vascular congestion. Surgical clips right upper quadrant of abdomen. XR/XR chest 1V IMPRESSION: 1. Enteric tube catheter in stomach. 2. Right-sided PICC line catheter tip at caval atrial junction. 3. Lungs normally aerated.
--- NOTE | ~2022-06-14 | CT_ITS ---
EXAMINATION: CT ABDOMEN AND PELVIS WITHOUT CONTRAST CLINICAL INFORMATION: Severe abdominal pain. COMPARISON: Small bowel series 06/18/2022. CT scan abdomen pelvis 06/17/2022 TECHNIQUE: Multidetector volumetric imaging was performed from the superior aspect of the liver through the pubic symphysis. No intravenous contrast. Oral contrast was given. Sagittal and coronal reformatted images were obtained on the technologist's workstation. This CT examination was performed using dose optimization techniques as appropriate, variously including the following: *Automated exposure control *Adjustment of mA and/or kV according to patient size (this includes techniques or standardized protocols for targeted exams where dose is matched to indication/reason for exam; i.e. extremities or head) *Use of iterative reconstruction technique DLP: 284 mGy-cm FINDINGS: LUNG BASES: The visualized lung bases are unremarkable. LIVER, GALLBLADDER, AND BILIARY TREE: Extensive portal venous gas. Low-attenuation of liver parenchyma due to fatty change. Status post cholecystectomy. PANCREAS: Unremarkable. SPLEEN: Unremarkable. ADRENAL GLANDS: Unremarkable. KIDNEYS AND URETERS: The kidneys are normal in size, shape, and attenuation. No hydronephrosis, hydroureter, or calculi seen. No perinephric stranding. BLADDER: Bladder is nearly empty. GASTROINTESTINAL TRACT: Surgical anastomosis in the lower pelvis consistent with colectomy. Surgical anastomosis at the right side of the abdomen is well. There is extensive small bowel dilatation to the level the anastomosis. There is pneumatosis intestinalis involving a large segment of the small bowel consistent with bowel ischemia. Stomach is dilated. NG tube in the stomach. Mesentery: No free air or free fluid. ABDOMINAL WALL: No significant hernia is appreciated. LYMPH NODES: Normal. VASCULAR: Vascular calcifications of aorta. No aneurysm. PELVIC VISCERA: Unremarkable. OSSEOUS STRUCTURES: Degenerative spondylosis of lumbar spine. CT/CT abdomen pelvis wo IV con IMPRESSION: 1. Extensive small bowel dilatation with pneumatosis intestinalis and portal venous gas consistent with bowel ischemia. 2. Status post colectomy. 3. NG tube in stomach. 4. Status post cholecystectomy. Fleischner guidelines were followed. This critical result was discussed with dr. Carter on 06/28/2022, 6:44 PM and it was ascertained that the content and urgency of the report was understood at the time of direct communication.
--- NOTE | 2022-06-14 09:06 | ED.AMS ---
HPI - Altered Mental Status General Chief Complaint: Altered Mental Status Stated Complaint: AMS,ON/OFF SINCE APR PER FAMILY Time Seen by Provider: 06/14/22 09:06 Source: family and EMS Mode of arrival: EMS History of Present Illness HPI narrative: called for altered mental status. EMS found her to be tachycardic and dry. Patient has multiple visits for the same. Patient has had a lot of her small bowel removed. Today her called MD complaint: altered mental status Onset (ago): hour(s) Timing confirmed by: spouse Severity: moderate Consistency of symptoms: waxing and waning Context: history of similar presentation Related Data Home Medications Medication Instructions Recorded Confirmed diazepam 10 mg tablet 1 tab PO TID PRN muscle spasm 02/24/20 05/27/22 diphenoxylate-atropine 2.5 4 tab PO BID PRN diarrhea 02/24/20 05/27/22 mg-0.025 mg tablet hydrocodone 10 mg-acetaminophen 1 tab PO Q6H PRN Pain 02/24/20 05/27/22 325 mg tablet esomeprazole magnesium 20 mg 20 mg PO DAILY PRN Heartburn 08/16/21 05/27/22 capsule,delayed release (Nexium) gabapentin 600 mg tablet 1 tab PO BEDTIME 11/28/21 05/27/22 calcium polycarbophil 625 mg 1,250 mg PO BID 11/29/21 05/27/22 tablet (FiberCon) hydroxyzine HCl 25 mg tablet 25 mg PO QID PRN Anxiety 05/27/22 05/27/22 tizanidine 4 mg tablet 4 mg PO BEDTIME PRN Spasms 05/27/22 05/27/22 Previous Rx's Medication Instructions Recorded dicyclomine 10 mg capsule 10 mg PO QID PRN Abdominal 06/01/22 Discomfort #1 cap simethicone 80 mg chewable tablet 80 mg PO QIDWMHS PRN gas pain #120 06/01/22 (Gas Relief (simethicone)) tabs Allergies Allergy/AdvReac Type Severity Reaction Status Date / Time morphine [MORPHINE] AdvReac Mild NAUSEA & Verified 02/20/21 09:14 VOMITING Review of Systems Review of Systems: Yes Unobtainable due to mental status PMFSH Past Medical History Medical History Cerebral aneurysm rupture COPD (chronic obstructive pulmonary disease) Hx of senior living use of blood thinners Hypertension Hyponatremia Hypothyroidism Small bowel obstruction Stomach spasm Ulcerative colitis Surgical History Hx of cholecystectomy Hx of hernia repair Hx of resection of large bowel S/P total colectomy Social History Social History Household Members: Unknown / Unable to assess Housing: Unknown / Unable to assess Do you presently have visiting nurse or other home services: No Unable to assess alcohol history related to: Unknown Alcohol intake: unknown Patient Tobacco Use Status: Never used Tobacco Use of substances other than those prescribed or required for medical reasons: Unknown Substance Use Type: Unknown Advance Directives: Yes Advance Directives on File: Yes Advance Directives Date on File: 02/24/20 service: No Current occupational status: unemployed and disabled Physical Exam ED Vital Signs: Vital Signs - 24 hr 06/14/22 09:10 06/14/22 09:25 06/14/22 10:13 Temperature 98.7 F Pulse Rate 103 H 120 H 113 H Respiratory Rate 14 14 16 Blood Pressure 130/94 H 125/88 Pulse Oximetry 97 97 98 Oxygen Delivery Method Room Air Room Air Room Air 06/14/22 11:26 Temperature Pulse Rate 104 H Respiratory Rate 16 Blood Pressure 145/87 H Pulse Oximetry 98 Oxygen Delivery Method Room Air BMI result Body Mass Index 18.1 Const Other: chronically ill appearing, very thin Limitations: altered mental status HENMT Head: Yes normal to inspection Ears: external ears normal General nose exam: Normal external nose present Mouth: other (very dry) Throat: Yes posterior oropharynx normal Eyes General: appearance normal, both eyes and all related structures Neck Neck: Yes normal visual inspection Chest Chest palpation & inspection: normal inspection of the chest Resp Auscultation: clear to auscultation bilaterally Cardio Jugular venous distension: no JVD Rate: regular rate Rhythm: regular rhythm Heart sounds: S1 normal heart sound present and S2 normal heart sound present GI Inspection: Yes normal to inspection Palpation (GI): Soft to palpation, nontender and No hepatosplenomegaly present Auscultation: normal bowel sounds General: Yes no CVA tenderness Back/Spine/Pelvis Back: no CVA tenderness Skin General skin exam: no rashes or lesions noted Neuro Cranial nerves: Yes CN's II-XII intact bilaterally Motor exam (neuro): 5/5 motor strength present throughout Extrem General: Yes normal to inspection Psych Appearance: grossly normal Course Reevaluation(s) Reevaluation #1: patient has remained altered, ammonia 174, will start lactulose Time: 13:25 Reevaluation #2: I spent 40 minutes of critical care, with interventions, assessments, speaking to patient, consultants, and family. Time: 13:25 Medications Administered Discontinued Medications Generic Name Dose Route Start Last Admin Trade Name Freq PRN Reason Stop Dose Admin Sodium Chloride 1,000 mls @ 999 mls/hr 06/14/22 09:15 06/14/22 13:28 Ns IVCONT 06/14/22 11:15 Infused .Q1H1M WENDY Infusion Medical Decision Making Differential Diagnosis Differential Diagnoses: The differential diagnosis associated with the presentation includes (dehydration, renal failure, hyponatremia, hepatic encephalopathy) Consult Healthcare Provider Management of the patient was discussed with: Hospitalist (discussed with hospitalist for admission) Lab Data MDM Lab Attestation statement: I reviewed the patient's lab results. 06/14/22 09:32 06/14/22 09:32 Labs: Lab Results 06/14/22 06/14/22 06/14/22 Range/Units 09:20 09:32 09:32 WBC 8.3 (4.8-10.8) X10*3/uL RBC 5.97 H D (4.20-5.50) X10*6/uL Hgb 12.9 D (12.0-16.0) g/dl Hct 42.6 D (37.0-47.0) % MCV 71.4 L (80.0-98.0) fL MCH 21.6 L (27.0-33.0) pg MCHC 30.3 L (31.0-35.0) g/dl RDW 24.4 H (11.0-16.0) % Plt Count 714 H D (160-400) X10*3/uL MPV 8.7 L (9.4-12.3) fL Immature Gran % (Auto) 0.2 (0.0-0.4) % Neut % (Auto) 66.0 (45-73) % Lymph % (Auto) 27.4 (20-40) % [place] % (Auto) 5.9 (2-11) % Eos % (Auto) 0.1 (0-4) % Baso % (Auto) 0.4 (0-2) % Lymph # (Auto) 2.3 (1.2-4.9) X10*3/uL [place] # (Auto) 0.5 (0.1-1.2) X10*3/uL Eos # (Auto) 0.0 (0.0-0.4) X10*3/uL Baso # (Auto) 0.0 (0.0-0.2) X10*3/uL Abs Immat Gran (auto) 0.02 (0.00-0.03) X10*3/uL Absolute Neuts (auto) 5.5 (2.0-8.3) x10*3/uL Absolute Nucleated RBC 0.000 (0.0-0.012) X10*3/uL Nucleated RBC % (auto) 0.0 (0.0-0.2) /100WBC Sodium 137 (135-145) mmol/L Potassium 4.9 D (3.3-5.1) mmol/L Chloride 102 (96-108) mmol/L Carbon Dioxide 19 L (22-29) mmol/L Anion Gap 21 H (12-20) BUN 18 H (9-16) mg/dL Creatinine 0.96 (0.5-1.4) mg/dL Estim Creat Clear Calc 48.0 Estimated GFR 59 Random Glucose 109 (60-115) mg/dL Calcium 8.8 D (8.4-10.2) mg/dL Total Bilirubin 1.5 H (0.0-1.0) mg/dL Direct Bilirubin 0.5 (0.0-0.5) mg/dL AST 126 H (5-31) U/L ALT 64 H (0-31) U/L Alkaline Phosphatase 195 H (39-117) U/L Ammonia (13-55) umol/L Total Protein 6.5 (6.5-8.0) g/dL Albumin 3.2 L (3.5-5.0) g/dL Urine Color Dark Yellow Urine Appearance Clear Urine pH 6.0 (5.0-9.0) Ur Specific [place] 1.025 (1.005-1.025) Urine Protein Trace (Neg-Trace) mg/dL Urine Glucose (UA) Negative (Negative) mg/dL Urine Ketones Trace (Negative) mg/dL Urine Blood Negative (Negative) Urine Nitrite Negative (Negative) Ur Leukocyte Esterase Trace H (Negative) Urine RBC 0-2 (0-2) /HPF Urine WBC 0-5 (0-5) /HPF Ur Squamous Epith Cells 0-2 (0-2) /HPF Urine Bacteria None Seen (None Seen) Hyaline Casts 0-2 (0-2) /LPF 06/14/22 Range/Units 11:37 WBC (4.8-10.8) X10*3/uL RBC (4.20-5.50) X10*6/uL Hgb (12.0-16.0) g/dl Hct (37.0-47.0) % MCV (80.0-98.0) fL MCH (27.0-33.0) pg MCHC (31.0-35.0) g/dl RDW (11.0-16.0) % Plt Count (160-400) X10*3/uL MPV (9.4-12.3) fL Immature Gran % (Auto) (0.0-0.4) % Neut % (Auto) (45-73) % Lymph % (Auto) (20-40) % [place] % (Auto) (2-11) % Eos % (Auto) (0-4) % Baso % (Auto) (0-2) % Lymph # (Auto) (1.2-4.9) X10*3/uL [place] # (Auto) (0.1-1.2) X10*3/uL Eos # (Auto) (0.0-0.4) X10*3/uL Baso # (Auto) (0.0-0.2) X10*3/uL Abs Immat Gran (auto) (0.00-0.03) X10*3/uL Absolute Neuts (auto) (2.0-8.3) x10*3/uL Absolute Nucleated RBC (0.0-0.012) X10*3/uL Nucleated RBC % (auto) (0.0-0.2) /100WBC Sodium (135-145) mmol/L Potassium (3.3-5.1) mmol/L Chloride (96-108) mmol/L Carbon Dioxide (22-29) mmol/L Anion Gap (12-20) BUN (9-16) mg/dL Creatinine (0.5-1.4) mg/dL Estim Creat Clear Calc Estimated GFR Random Glucose (60-115) mg/dL Calcium (8.4-10.2) mg/dL Total Bilirubin (0.0-1.0) mg/dL Direct Bilirubin (0.0-0.5) mg/dL AST (5-31) U/L ALT (0-31) U/L Alkaline Phosphatase (39-117) U/L Ammonia 174 H (13-55) umol/L Total Protein (6.5-8.0) g/dL Albumin (3.5-5.0) g/dL Urine Color Urine Appearance Urine pH (5.0-9.0) Ur Specific [place] (1.005-1.025) Urine Protein (Neg-Trace) mg/dL Urine Glucose (UA) (Negative) mg/dL Urine Ketones (Negative) mg/dL Urine Blood (Negative) Urine Nitrite (Negative) Ur Leukocyte Esterase (Negative) Urine RBC (0-2) /HPF Urine WBC (0-5) /HPF Ur Squamous Epith Cells (0-2) /HPF Urine Bacteria (None Seen) Hyaline Casts (0-2) /LPF External Record Review reviewed GI records from prior admission Discharge Plan Discharge Clinical Impression: Acute hepatic encephalopathy Patient Disposition: Admitted As Inpatient
[2022-06-14 09:39] LABS: Appearance Urine Clear; Color Urine Dark Yellow; Glucose Urine UA Negative (Negative); Leukocyte Esterase Urine Trace (Negative); Nitrite Urine Negative (Negative); Specific Gravity - Urine 1.025 (1.005-1.025); UMIC TRIGGER UACC YES; Urine Blood Negative (Negative); Urine Ketones Trace mg/dL (Negative); Urine Protein Trace mg/dL (Neg-Trace)
[2022-06-14] MEDS: 0.9 % Sodium Chloride 1,000 ML 999 ML IVCONT ×2 (09:40→11:25)
[2022-06-14 09:41] LABS: MANUAL DIFF FLAG NO
--- NOTE | 2022-06-14 09:41 | PC.NURSE ---
Pt alert/oriented x1. Appears weak, mucous membranes dry. Hyperactive bowel souns with small amt of dirrhea noted. Straight cath for urine/sent. IV established and labs sent, fluids infusing. Sinus tach on tele. rate 105 at this time. Breathing even/unlabored. Skin pale, warm to touch. Rectal temp 98.6. BP stable
[2022-06-14 09:45] LABS: Basophils Percent Auto 0.4 % (0-2); Eosinophils Percent Auto 0.1 % (0-4); Hematocrit 42.6 % (37.0-47.0); Hemoglobin 12.9 g/dl (12.0-16.0); Imm Gran Abs Auto 0.02 X10*3/uL (0.00-0.03); Imm Gran Pct Auto 0.2 % (0.0-0.4); Lymphocytes Absolute Auto 2.3 X10*3/uL (1.2-4.9); Lymphocytes Percent Auto 27.4 % (20-40); Mean Corpuscular HGB Conc 30.3 g/dl (31.0-35.0); Mean Corpuscular Hemoglobin 21.6 pg (27.0-33.0); Mean Corpuscular Volume 71.4 fL (80.0-98.0); Mean Platelet Volume 8.7 fL (9.4-12.3); Monocytes Absolute Auto 0.5 X10*3/uL (0.1-1.2); Monocytes Percent Auto 5.9 % (2-11); Neutrophils Absolute Auto 5.5 x10*3/uL (2.0-8.3); Platelet Count 714 X10*3/uL (160-400); Red Blood Count 5.97 X10*6/uL (4.20-5.50); Red Cell Distribution Width 24.4 % (11.0-16.0); White Blood Count 8.3 X10*3/uL (4.8-10.8)
[2022-06-14 09:50] LABS: Bacteria Urine None Seen (None Seen); Hyaline Casts Urine 0-2 /LPF (0-2); RBC Urine 0-2 /HPF (0-2); Squamous Epithelial Cell Urine 0-2 /HPF (0-2); WBC Urine 0-5 /HPF (0-5)
[2022-06-14 10:05] LABS: Alanine Aminotransferase 64 U/L (0-31); Albumin Level 3.2 g/dL (3.5-5.0); Alkaline Phosphatase 195 U/L (39-117); Anion Gap 21 (12-20); Aspartate Amino Transferase 126 U/L (5-31); Bilirubin Direct 0.5 mg/dL (0.0-0.5); Bilirubin Total 1.5 mg/dL (0.0-1.0); Blood Urea Nitrogen 18 mg/dL (9-16); Calcium 8.8 mg/dL (8.4-10.2); Carbon Dioxide 19 mmol/L (22-29); Chloride 102 mmol/L (96-108); Estimated Glomerular Filt Rate 59; Glucose Random 109 mg/dL (60-115); Potassium 4.9 mmol/L (3.3-5.1); Sodium 137 mmol/L (135-145); Total Protein 6.5 g/dL (6.5-8.0)
--- NOTE | 2022-06-14 11:26 | PC.NURSE ---
Cleaned for small amt of yellow diarrhea. Repositioned. VSS. Remains lethargic. Nodding head when asked yes or no questions. Ammonia being drawn at this time
[2022-06-14 12:07] LABS: Ammonia 174 umol/L (13-55)
[2022-06-14] MEDS: Lactulose 20 GM/30 ML SOLUTION PO (13:31)
--- NOTE | 2022-06-14 13:57 | PHA.MEDREC ---
Pharmacy Consult ? Medication Reconciliation Pharmacy has completed the medication reconciliation. Med list obtained from
--- NOTE | 2022-06-14 13:57 | PM.IMHP ---
History of Present Illness Date of Service: 06/14/22 Attending physician on admission: Meagan Kasper Chief Complaint: Confusion 62-year-old woman presented to the ER with lethargy. According to the patient's he feels like this is secondary to dehydration. She has had issues like this over the last several years with noted hyperammonemia. She does not have any history of liver disease /cirrhosis. She has had multiple abdominal surgeries including colectomy and has chronic diarrhea which may be leading to the dehydration. Unfortunately the patient is severely encephalopathic and unable to answer any historical questions. The patient's reported that she did not have any fever, chills, nausea, vomiting, chest pain, shortness of breath. he had just noticed that she had been becoming more confused and lethargic. She was discharged on 06/01/2022 and at that time treated for the same symptoms. She required an OG tube due to severe encephalopathy/ lethargy however this time she was in able to take the lactulose orally in the ER. 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 Hypertension Hyponatremia Hypothyroidism Peripheral neuropathy Restless leg syndrome Small bowel obstruction Stomach spasm Ulcerative colitis Family History (Updated 06/14/22 @ 14:07 by Yamileth Dowd NP) Father CHF (congestive heart failure) Surgical History Hx of cholecystectomy Hx of hernia repair Hx of resection of large bowel S/P total colectomy Social History Household Members: Unknown / Unable to assess Housing: House Unable to assess alcohol history related to: Unable to respond Alcohol intake: unknown Patient Tobacco Use Status: Never used Tobacco Smoked in Last 30 Days: No Patient Interested in Nicotine Replacement: No Patient Given Instructions on How to Stop Smoking: No Second Hand Smoke Exposure: No Use of substances other than those prescribed or required for medical reasons: Unable to respond Substance Use Type: Unknown Last Used Substance: Unknown Currently Displaying Signs/Symptoms of Drug Intoxication Withdrawal: No Do you feel safe in your current relationship?: Yes Is there a partner from a previous relationship who is making you feel unsafe now?: No Are you made to feel afraid or neglected: No Advance Directives: Yes Advance Directives on File: Yes Advance Directives Date on File: 02/24/20 Do you have thoughts of harming others: None Do you have a plan to hurt others: No Plan Recently lost weight without trying: Unsure How much weight loss: Unsure Eating poorly because of decreased appetite: No Nutrition screen score: 4 Nutrition Risks: Acute nausea or vomiting x1 week Patient : No : No Poor oral hygiene: No service: No Current occupational status: unemployed and disabled Meds Allergies Allergy/AdvReac Type Severity Reaction Status Date / Time morphine [MORPHINE] AdvReac Mild NAUSEA & Verified 02/20/21 09:14 VOMITING Home Medications Medication Instructions Recorded Confirmed Last Taken Type diazepam 10 mg tablet 1 tab PO TID PRN muscle spasm 02/24/20 06/14/22 4 Days Ago History ~11/25/21 diphenoxylate-atropine 2.5 4 tab PO BID PRN diarrhea 02/24/20 06/14/22 4 Days Ago History mg-0.025 mg tablet ~11/25/21 hydrocodone 10 mg-acetaminophen 1 tab PO Q6H PRN Pain 02/24/20 06/14/22 4 Days Ago History 325 mg tablet ~11/25/21 esomeprazole magnesium 20 mg 20 mg PO DAILY PRN Heartburn 08/16/21 06/14/22 4 Days Ago History capsule,delayed release (Nexium) ~11/25/21 gabapentin 600 mg tablet 1 tab PO BEDTIME 11/28/21 06/14/22 4 Days Ago History ~11/25/21 calcium polycarbophil 625 mg 1,250 mg PO BID 11/29/21 06/14/22 4 Days Ago History tablet (FiberCon) ~11/25/21 hydroxyzine HCl 25 mg tablet 25 mg PO QID PRN Anxiety 05/27/22 06/14/22 Unknown History tizanidine 4 mg tablet 4 mg PO BEDTIME PRN Spasms 05/27/22 06/14/22 Unknown History nitrofurantoin 1 cap PO BID 06/14/22 06/14/22 Unknown History monohydrate/macrocrystals 100 mg capsule Physical Exam Vital Signs and Narrative: Vital Signs: Last Vital Signs Temp 98.7 F 06/14/22 09:10 Pulse 104 H 06/14/22 11:26 Resp 16 06/14/22 11:26 BP 145/87 H 06/14/22 11:26 Pulse Ox 98 06/14/22 11:26 O2 Del Method 06/14/22 11:26 BMI result Body Mass Index 18.1 Appearing in no acute distress, lethargic but opens eyes head is normocephalic atraumatic eyes pupils are PERRLA sclera is anicteric mouth throat mucous membranes are intact and moist lung sounds are clear to auscultation heart regular rate rhythm, clear S1, S2 positive bowel sounds, abdomen is soft, nontender neuro patient is alert, encephalopathic Results Labs 06/14/22 09:32 06/14/22 09:32 Labs: Laboratory Results - last 24 hr 06/14/22 06/14/22 06/14/22 09:20 09:32 09:32 MCV 71.4 L MCH 21.6 L MCHC 30.3 L RDW 24.4 H Plt Count 714 H D MPV 8.7 L Immature Gran % (Auto) 0.2 Neut % (Auto) 66.0 Lymph % (Auto) 27.4 [place] % (Auto) 5.9 Eos % (Auto) 0.1 Baso % (Auto) 0.4 Lymph # (Auto) 2.3 [place] # (Auto) 0.5 Eos # (Auto) 0.0 Baso # (Auto) 0.0 Abs Immat Gran (auto) 0.02 Absolute Neuts (auto) 5.5 Absolute Nucleated RBC 0.000 Nucleated RBC % (auto) 0.0 Anion Gap 21 H Estim Creat Clear Calc 48.0 Estimated GFR 59 Random Glucose 109 Calcium 8.8 D Total Bilirubin 1.5 H Direct Bilirubin 0.5 AST 126 H ALT 64 H Alkaline Phosphatase 195 H Ammonia Total Protein 6.5 Albumin 3.2 L Urine Color Dark Yellow Urine Appearance Clear Urine pH 6.0 Ur Specific [place] 1.025 Urine Protein Trace Urine Glucose (UA) Negative Urine Ketones Trace Urine Blood Negative Urine Nitrite Negative Ur Leukocyte Esterase Trace H Urine RBC 0-2 Urine WBC 0-5 Ur Squamous Epith Cells 0-2 Urine Bacteria None Seen Hyaline Casts 0-2 06/14/22 11:37 MCV MCH MCHC RDW Plt Count MPV Immature Gran % (Auto) Neut % (Auto) Lymph % (Auto) [place] % (Auto) Eos % (Auto) Baso % (Auto) Lymph # (Auto) [place] # (Auto) Eos # (Auto) Baso # (Auto) Abs Immat Gran (auto) Absolute Neuts (auto) Absolute Nucleated RBC Nucleated RBC % (auto) Anion Gap Estim Creat Clear Calc Estimated GFR Random Glucose Calcium Total Bilirubin Direct Bilirubin AST ALT Alkaline Phosphatase Ammonia 174 H Total Protein Albumin Urine Color Urine Appearance Urine pH Ur Specific [place] Urine Protein Urine Glucose (UA) Urine Ketones Urine Blood Urine Nitrite Ur Leukocyte Esterase Urine RBC Urine WBC Ur Squamous Epith Cells Urine Bacteria Hyaline Casts Assessment and Plan (1) Acute hepatic encephalopathy: Status: Acute Plan 62-year-old woman admitted with metabolic hepatic encephalopathy. Previous admission she had multiple specialize labs including BALTAZAR, AMA, Anca, alpha-1 antitrypsin, GGT, cell EF antibodies , liver fibrosis test, all negative. Metabolic hepatic encephalopathy secondary to hyperammonemia and dehydration Lactulose 30 g q.i.d. orally, if patient becomes too lethargic consider NG/ OG tube Keep NPO for now and tomorrow wake GI consultation, previously seen by Dr. Jimenez the Follow ammonia closely Mental health Hold all medications for now due to lethargy DVT prophylaxis with mechanical compression boots Attending Dr. Kasper Full code Patient requires 2 inpatient midnights for treatment of metabolic encephalopathy requiring oral lactulose and close monitoring of neuro and respiratory status Time Spent With Patient Time: Total time managing care of this patient today ____ minutes. Quality Stroke Does the patient have a stroke diagnosis?: No VTE Prior VTE?: No VTE Risk Level:: Medical - moderate - high VTE Device Contraindication: N/A - Device Ordered VTE Drug Contraindication: Treatment Not Indicated
[2022-06-14] MEDS: Dextrose 5 % and 0.9 % NaCl 1,000 ML 100 ML IVCONT (15:12)
[2022-06-14] MEDS: 0.9 % Sodium Chloride Flush 3 ML SYRINGE IVFLUSH (15:14)
[2022-06-14 15:23] LABS: COVID-19 Test Negative (Negative); IDNOW Serial# 9DB6401D
[2022-06-14] MEDS: Lactulose 320 GM/480 ML SOLUTION 200 GM PR (23:39)
[2022-06-15] MEDS: 0.9 % Sodium Chloride Flush 3 ML SYRINGE IVFLUSH ×3 (02:09→21:37)
[2022-06-15] MEDS: Dextrose 5 % and 0.9 % NaCl 1,000 ML 100 ML IVCONT ×2 (02:09→13:33)
[2022-06-15 03:19] VITALS: BP 135/83; PULSE 100; RESP 20; TEMP 36; O2SAT 96
[2022-06-15 06:55] LABS: MANUAL DIFF FLAG NO
[2022-06-15 06:59] LABS: Basophils Percent Auto 0.4 % (0-2); Eosinophils Percent Auto 0.3 % (0-4); Hematocrit 34.7 % (37.0-47.0); Hemoglobin 10.2 g/dl (12.0-16.0); Imm Gran Abs Auto 0.01 X10*3/uL (0.00-0.03); Imm Gran Pct Auto 0.1 % (0.0-0.4); Lymphocytes Absolute Auto 1.9 X10*3/uL (1.2-4.9); Lymphocytes Percent Auto 26.7 % (20-40); Mean Corpuscular HGB Conc 29.4 g/dl (31.0-35.0); Mean Corpuscular Hemoglobin 22.6 pg (27.0-33.0); Mean Corpuscular Volume 76.8 fL (80.0-98.0); Mean Platelet Volume 9.4 fL (9.4-12.3); Monocytes Absolute Auto 0.7 X10*3/uL (0.1-1.2); Monocytes Percent Auto 8.9 % (2-11); Neutrophils Absolute Auto 4.6 x10*3/uL (2.0-8.3); Neutrophils Percent Auto 63.6 % (45-73); Platelet Count 478 X10*3/uL (160-400); Red Blood Count 4.52 X10*6/uL (4.20-5.50); White Blood Count 7.3 X10*3/uL (4.8-10.8)
[2022-06-15 07:10] LABS: Ammonia 133 umol/L (13-55)
[2022-06-15 07:21] VITALS: BP 128/69; PULSE 97; RESP 16; TEMP 36.2; O2SAT 100
[2022-06-15 07:58] LABS: Alanine Aminotransferase 45 U/L (0-31); Albumin Level 2.5 g/dL (3.5-5.0); Alkaline Phosphatase 139 U/L (39-117); Anion Gap 19 (12-20); Aspartate Amino Transferase 79 U/L (5-31); Blood Urea Nitrogen 14 mg/dL (9-16); Calcium 7.9 mg/dL (8.4-10.2); Carbon Dioxide 16 mmol/L (22-29); Chloride 112 mmol/L (96-108); Creatinine Clr Calc Pharmacy 60.7; Estimated Glomerular Filt Rate > 60; Glucose Random 128 mg/dL (60-115); Magnesium 2.2 mg/dL (1.6-2.6); Potassium 3.5 mmol/L (3.3-5.1); Sodium 143 mmol/L (135-145)
[2022-06-15] MEDS: Lactulose 20 GM/30 ML SOLUTION 30 GM PO ×4 (09:37→21:37)
--- NOTE | 2022-06-15 09:48 | P.PNIM_ITS ---
Subjective Subjective Date of Service: 06/15/22 Review of Systems Follow-up encephalopathy Still lethargic but opens eyes and says some words Physical Exam Vital Signs: Vital Signs: Last Vital Signs Temp 97.2 F 06/15/22 07:21 Pulse 97 06/15/22 07:21 Resp 16 06/15/22 07:21 BP 128/69 06/15/22 07:21 Pulse Ox 100 06/15/22 07:21 O2 Del Method 06/15/22 07:21 BMI result Body Mass Index 18.1 Appearing in no acute distress lung sounds are clear to auscultation heart regular rate rhythm, clear S1, S2 positive bowel sounds, abdomen is soft, nontender neuro patient is alert, lethargic Objective Data Active Medications Dextrose/Sodium Chloride (D5ns) 1,000 mls @ 100 mls/hr IVCONT .Q10H [facility] Last Admin: 06/15/22 02:09 Dose: 100 mls/hr Documented By: [place] Lactulose (Lactulose 20 Gm/30 Ml Solution) 30 gm PO QID [facility] Last Admin: 06/15/22 09:37 Dose: 30 gm Documented By: YOLA Ondansetron HCl (Ondansetron Hcl 4 Mg/2 Ml Vial) 4 mg IVPUSH Q8H PRN PRN Reason: Nausea and Vomiting Sodium Chloride (0.9 % Sodium Chloride Flush 3 Ml Syringe) 3 ml IVFLUSH QSHIFT [facility] Last Admin: 06/15/22 09:37 Dose: Not Given Documented By: YOLA Non-Admin Reason: IV Running Labs 06/15/22 06:48 06/15/22 06:48 Labs: Laboratory Results - last 24 hr 06/14/22 06/14/22 06/14/22 09:20 09:32 09:32 MCV 71.4 L MCH 21.6 L MCHC 30.3 L RDW 24.4 H Plt Count 714 H D MPV 8.7 L Immature Gran % (Auto) 0.2 Neut % (Auto) 66.0 Lymph % (Auto) 27.4 Guthrie % (Auto) 5.9 Eos % (Auto) 0.1 Baso % (Auto) 0.4 Lymph # (Auto) 2.3 Guthrie # (Auto) 0.5 Eos # (Auto) 0.0 Baso # (Auto) 0.0 Abs Immat Gran (auto) 0.02 Absolute Neuts (auto) 5.5 Absolute Nucleated RBC 0.000 Nucleated RBC % (auto) 0.0 Anion Gap 21 H Estim Creat Clear Calc 48.0 Estimated GFR 59 Random Glucose 109 Calcium 8.8 D Magnesium Total Bilirubin 1.5 H Direct Bilirubin 0.5 AST 126 H ALT 64 H Alkaline Phosphatase 195 H Ammonia Total Protein 6.5 Albumin 3.2 L Urine RBC 0-2 Urine WBC 0-5 Ur Squamous Epith Cells 0-2 Urine Bacteria None Seen Hyaline Casts 0-2 COVID-19 (YODIT) COVID-19 Clin Com 06/14/22 06/14/22 06/15/22 11:37 14:52 06:48 MCV 76.8 L D MCH 22.6 L MCHC 29.4 L RDW 24.0 H Plt Count 478 H D MPV 9.4 Immature Gran % (Auto) 0.1 Neut % (Auto) 63.6 Lymph % (Auto) 26.7 Guthrie % (Auto) 8.9 Eos % (Auto) 0.3 Baso % (Auto) 0.4 Lymph # (Auto) 1.9 Guthrie # (Auto) 0.7 Eos # (Auto) 0.0 Baso # (Auto) 0.0 Abs Immat Gran (auto) 0.01 Absolute Neuts (auto) 4.6 Absolute Nucleated RBC 0.000 Nucleated RBC % (auto) 0.0 Anion Gap Estim Creat Clear Calc Estimated GFR Random Glucose Calcium Magnesium Total Bilirubin Direct Bilirubin AST ALT Alkaline Phosphatase Ammonia 174 H Total Protein Albumin Urine RBC Urine WBC Ur Squamous Epith Cells Urine Bacteria Hyaline Casts COVID-19 (YODIT) Negative COVID-19 Clin Com See Note 06/15/22 06/15/22 06/15/22 06:48 06:48 06:50 MCV MCH MCHC RDW Plt Count MPV Immature Gran % (Auto) Neut % (Auto) Lymph % (Auto) Guthrie % (Auto) Eos % (Auto) Baso % (Auto) Lymph # (Auto) Guthrie # (Auto) Eos # (Auto) Baso # (Auto) Abs Immat Gran (auto) Absolute Neuts (auto) Absolute Nucleated RBC Nucleated RBC % (auto) Anion Gap 19 Estim Creat Clear Calc 60.7 Estimated GFR > 60 Random Glucose 128 H Calcium 7.9 L D Magnesium 2.2 Cancelled Total Bilirubin 1.0 Direct Bilirubin AST 79 H ALT 45 H Alkaline Phosphatase 139 H Ammonia 133 H Total Protein 5.0 L Albumin 2.5 L Urine RBC Urine WBC Ur Squamous Epith Cells Urine Bacteria Hyaline Casts COVID-19 (YODIT) COVID-19 Clin Com Assessment and Plan (1) Acute hepatic encephalopathy: Status: Acute Plan 62-year-old woman admitted with metabolic hepatic encephalopathy. Previous admission she had multiple specialize labs including BALTAZAR, AMA, Anca, alpha-1 antitrypsin, GGT, cell EF antibodies , liver fibrosis test, all negative. Metabolic hepatic encephalopathy secondary to hyperammonemia and dehydration Lactulose 30 g q.i.d. orally, if patient becomes too lethargic consider NG/ OG tube Keep NPO for now untill more awake, IV fluids GI consultation, previously seen by Dr. Jimenez? Follow ammonia closely Mental health Hold all medications for now due to lethargy DVT prophylaxis with mechanical compression boots Attending Dr. Tineo Full code Patient requires 2 inpatient midnights for treatment of metabolic encephalopathy requiring oral lactulose and close monitoring of neuro and respiratory status Time Spent With Patient Time: Total time managing care of this patient today ____ minutes. Quality Stroke Does the patient have a stroke diagnosis?: No VTE Prior VTE?: No VTE Risk Level:: Medical - moderate - high VTE Device Contraindication: N/A - Device Ordered VTE Drug Contraindication: Treatment Not Indicated
[2022-06-15 11:46] VITALS: BP 145/93; PULSE 94; RESP 16; TEMP 37.3; O2SAT 99
[2022-06-15 13:11] VITALS: BMI 19.5
--- NOTE | 2022-06-15 13:16 | MHC.CLN ---
PT IS MODERATELY MALNOURISHED PT WITH MILD DEPLETED SUBCUTANEOUS FAT AND MUSCLE MASS WITH 19% SIGNIFICANT WT LOSS AND CHRONIC POOR PO INTAKE PT'S FAMILY MEMBER REPORTED WT LOSS AND POOR APPETITE X 2 YEARS DIET RX: NPO PT RECEPTIVE TO DRINKING ENSURE WHEN DIET ADVANCES SUPPLEMENT TO PROVIDE 700KCALS, 40G PROTEIN MONITOR FOR DIET ADVANCEMENT SEE ALSO FULL CLINICAL NUTRITION ASSESSMENT
--- NOTE | 2022-06-15 13:29 | MHC.CM.PN ---
EMR REVIEWED, PT ADMITTED W/AMS, CM MET W/PT EARLY THIS AM, PT WHO IS UNABLE TO ANSWER QUESTIONS HOWEVER DID SAY YES WHEN CM REQUESTED TO SPEAK W/ SANDRA, ALESSANDRO MET W/PT AND AT BEDSIDE THIS AFTERNOON AND SANDRA REPORTED PT WAS GETTING MORE CONFUSED AT HOME SO PT RETURNED TO HOSPITAL, SANDRA REPORTS PT HAS NO DME HOWEVER IS ACTIVE W/SN AND HOME PT W/[facility] THAT WAS SET UP WHEN PT D/C'D EARLIER IN MONTH. SANDRA VERIFIES PT HAS NOT BEEN VACCINATED AGAINST COVID, PCP IS MOS[facility] CARVAJAL AND HCP IS SANDRA AND COPY ON FILE FROM PREVIOUS ADMISSION ANTIC D/C HOME W/[facility]UMP OF [facility] FOR SN/HOME PT AND FAMILY FOR TRANSPORT
[2022-06-15 15:50] VITALS: BP 140/80; PULSE 120; RESP 18; TEMP 37.1; O2SAT 98
[2022-06-15] MEDS: Piperacillin Sodium/Tazobactam 3.375 GM in 0.9 % Sodium Chloride 50 ML IV (17:42)
[2022-06-15 20:00] VITALS: BP 136/100; PULSE 135; RESP 18; TEMP 37.1; O2SAT 98
[2022-06-15] MEDS: Dextrose 5 % and 0.9 % NaCl 1,000 ML 150 ML IVCONT (21:26)
[2022-06-16] VITALS: BP 137/79; PULSE 136; RESP 20; TEMP 36.1; O2SAT 97
[2022-06-16] MEDS: Piperacillin Sodium/Tazobactam 3.375 GM in 0.9 % Sodium Chloride 50 ML IV ×5 (00:21→22:32)
--- NOTE | 2022-06-16 02:50 | CONS_ITS ---
DATE OF SERVICE: 06/15/2022 REFERRING PHYSICIAN: Yamileth Dowd NP REASON FOR CONSULTATION: Encephalopathy. HISTORY OF PRESENT ILLNESS: The patient is a pleasant 62-year-old, known to me from prior evaluation. She has a history of nonalcoholic steatohepatitis and has had episodes of encephalopathy requiring lactulose and treatment in the past with rifaximin. She was admitted to the hospital after presenting to the emergency department yesterday with complaints of lethargy and altered mental status. This was reportedly associated with some dehydration according to the patient's family. She was evaluated in the emergency department, and laboratory studies were obtained which showed a hematocrit of 34.7, and an elevation of her ammonia at 174. She was started on lactulose, and her ammonia improved this morning to 133. Today, she is confused, but opens her eyes and says single syllables. PAST MEDICAL HISTORY: 1. Hypertension. 2. Ulcerative colitis, status post colectomy with J-pouch. 3. Hyponatremia. 4. COPD. 5. Hypothyroidism. 6. Fecal incontinence with sacral nerve stimulator. CURRENT MEDICATIONS: Her current medication list is reviewed in the chart. ALLERGIES: MORPHINE. FAMILY HISTORY: This is reviewed with the electronic medical record. SOCIAL HISTORY: There is no current tobacco, alcohol, or substance. REVIEW OF SYSTEMS: Not obtainable. PHYSICAL EXAMINATION: GENERAL: Shows a female lying in bed. VITAL SIGNS: Reviewed in the electronic medical record and are stable. SKIN: Anicteric. HEENT: Shows no scleral icterus. NECK: Without lymphadenopathy or thyromegaly. LUNGS: Clear. HEART: Shows regular rate and rhythm. S1, S2. No murmur. ABDOMEN: Soft without focal masses or tenderness. Bowel sounds are present. No organomegaly is noted. EXTREMITIES: Without edema. LABORATORY DATA: Remarkable for a white blood cell count of 7.3, hematocrit 34.7. IMPRESSION: Encephalopathy. I agree with treating her with lactulose as you are doing. If this is not tolerable or is unable to reverse her encephalopathy, then I would consider a trial of Xifaxan. Thanks for asking me to see her. I will follow her in the hospital with you. MD ANITHA Verde/SOHAM / [phone]
[2022-06-16 03:33] VITALS: BP 148/87; PULSE 129; RESP 20; TEMP 36.3; O2SAT 98
[2022-06-16] MEDS: Dextrose 5 % and 0.9 % NaCl 1,000 ML 150 ML IVCONT (06:55)
[2022-06-16 07:30] VITALS: BP 128/73; PULSE 119; RESP 20; TEMP 36.7; O2SAT 99
[2022-06-16 07:41] LABS: Blood Urea Nitrogen 9 mg/dL (9-16); Calcium 7.7 mg/dL (8.4-10.2); Creatinine Clr Calc Pharmacy 67.2; Estimated Glomerular Filt Rate > 60; Glucose Random 158 mg/dL (60-115)
[2022-06-16] MEDS: Potassium Chloride/H20 10 MEQ/100 ML PIGGYBACK 100 MEQ IV ×2 (09:05→12:51)
[2022-06-16] MEDS: Lactulose 20 GM/30 ML SOLUTION 30 GM PO ×2 (09:10→12:51)
[2022-06-16] MEDS: Potassium Chloride ER 20 MEQ TAB.ER.PRT 40 MEQ PO (09:10)
[2022-06-16] MEDS: 0.9 % Sodium Chloride Flush 3 ML SYRINGE IVFLUSH ×3 (09:11→22:36)
[2022-06-16 10:37] LABS: Anion Gap 19 (12-20); Carbon Dioxide 14 mmol/L (22-29); Chloride 113 mmol/L (96-108); Magnesium 1.7 mg/dL (1.6-2.6); Potassium 2.7 mmol/L (3.3-5.1); Sodium 143 mmol/L (135-145)
[2022-06-16 11:20] VITALS: BP 139/91; PULSE 107; RESP 20; TEMP 36.7; O2SAT 99
[2022-06-16 12:01] LABS: Ammonia 41 umol/L (13-55)
[2022-06-16] MEDS: Dextrose 5 % and Lactated Ring 1,000 ML 125 ML IVCONT ×2 (12:48→22:33)
[2022-06-16 15:42] VITALS: BP 128/91; PULSE 109; RESP 18; TEMP 37; O2SAT 98
[2022-06-16] MEDS: ondansetron HCL 4 MG/2 ML VIAL IVPUSH (15:44)
--- NOTE | 2022-06-16 16:45 | PM.GIPN ---
Subjective Subjective Date of Service: 06/16/22 Interval History: appears more awake Critical Care Time (minutes): 0 Physical Exam Vital Signs: Vital Signs: Last Vital Signs Temp 98.6 F 06/16/22 15:42 Pulse 109 H 06/16/22 15:42 Resp 18 06/16/22 15:42 BP 128/91 H 06/16/22 15:42 Pulse Ox 98 06/16/22 15:42 O2 Del Method Room Air 06/16/22 15:42 BMI result Body Mass Index 19.5 GI: Other: abdomen is soft and nontender Objective Data Labs 06/15/22 06:48 06/16/22 06:10 Labs: Laboratory Results - last 24 hr 06/16/22 06/16/22 06:10 11:48 Sodium 143 Potassium 2.7 L D Chloride 113 H Carbon Dioxide 14 L Anion Gap 19 BUN 9 Creatinine 0.74 Estim Creat Clear Calc 67.2 Estimated GFR > 60 Random Glucose 158 H Calcium 7.7 L Magnesium 1.7 Ammonia 41 Procedures Date of Service Date of Service: 06/16/22 Progress Note: A&P Assessment and plan (1) Acute hepatic encephalopathy: Start date: 06/16/22 Status: Acute Assessment and Plan: slow improvement required ng placement rifaximin added to regimen. Time Spent With Patient Time: Total time managing care of this patient today ____ minutes. Quality Stroke Does the patient have a stroke diagnosis?: No VTE Prior VTE?: No VTE Risk Level:: Medical - moderate - high VTE Device Contraindication: N/A - Device Ordered VTE Drug Contraindication: Treatment Not Indicated
--- NOTE | 2022-06-16 16:49 | HO.PM.IMPN ---
Subjective Subjective Date of Service: 06/16/22 Interval History: seen and examined this morning follow up for encephalopathy still lethargic, knows her name but unable to provide any other meaningful history - difficult to obtain full ROS Physical Exam Vital Signs: Vital Signs: Last Vital Signs Temp 98.6 F 06/16/22 15:42 Pulse 109 H 06/16/22 15:42 Resp 18 06/16/22 15:42 BP 128/91 H 06/16/22 15:42 Pulse Ox 98 06/16/22 15:42 O2 Del Method Room Air 06/16/22 15:42 BMI result Body Mass Index 19.5 Const: Other: lethargic Nutritional Appearance: thin Orientation/consciousness: oriented to person Resp: Effort & Inspection: normal respiratory effort and able to speak in complete sentences Cardio: Rate: tachycardic Heart sounds: S1 normal heart sound present and S2 normal heart sound present GI: Inspection: No distended Palpation (GI): Soft to palpation and nontender Neuro: Other: limited assessment given lethargy no focal deficits appreciated General: oriented to person Extrem: General: Yes no pedal edema Objective Data Active Medications Piperacillin Sod/Tazobactam (Sod 3.375 gm/ Sodium Chloride) 50 mls @ 100 mls/hr IV Q6H [facility] Last Infusion: 06/16/22 15:44 Dose: 0 mls/hr Documented By: QI Dextrose/Lactated Ringer's (D5lr) 1,000 mls @ 125 mls/hr IVCONT .Q8H [facility] Last Admin: 06/16/22 12:48 Dose: 125 mls/hr Documented By: QI Lactulose (Lactulose 20 Gm/30 Ml Solution) 30 gm PO BID [facility] Ondansetron HCl (Ondansetron Hcl 4 Mg/2 Ml Vial) 4 mg IVPUSH Q8H PRN PRN Reason: Nausea and Vomiting Last Admin: 06/16/22 15:44 Dose: 4 mg Documented By: QI Sodium Chloride (0.9 % Sodium Chloride Flush 3 Ml Syringe) 3 ml IVFLUSH QSHIFT [facility] Last Admin: 06/16/22 09:11 Dose: 3 ml Documented By: QI Labs 06/15/22 06:48 06/16/22 06:10 Labs: Laboratory Results - last 24 hr 06/16/22 06/16/22 06:10 11:48 Anion Gap 19 Estim Creat Clear Calc 67.2 Estimated GFR > 60 Random Glucose 158 H Calcium 7.7 L Magnesium 1.7 Ammonia 41 Assessment and Plan (1) Acute hepatic encephalopathy: Status: Acute Plan 62-year-old woman admitted with metabolic hepatic encephalopathy. Previous admission she had multiple specialize labs including BALTAZAR, AMA, Anca, alpha-1 antitrypsin, GGT, cell EF antibodies , liver fibrosis test, all negative. Metabolic hepatic encephalopathy secondary to hyperammonemia and dehydration continue Lactulose via NGT (placed for vomiting) - ammonia down to 41, and multiple stools, will decrease to bid dosing full liquid diet seen by GI rec current management, if no improvement consider rifaximin Hypokalemia k 2.7 likely r/t gi losses check mag replace IV & PO Mental health Hold all medications for now due to lethargy DVT prophylaxis with mechanical compression boots Attending Dr. Tineo Full code Requires ongoing inpatient management for encephalopathy, hypokalemia Time Spent With Patient Time: Total time managing care of this patient today ____ minutes. Quality Stroke Does the patient have a stroke diagnosis?: No VTE Prior VTE?: No VTE Risk Level:: Medical - moderate - high VTE Device Contraindication: N/A - Device Ordered VTE Drug Contraindication: Treatment Not Indicated
[2022-06-16 17:26] LABS: Potassium 2.8 mmol/L (3.3-5.1)
--- NOTE | 2022-06-16 18:19 | HO.PM.IMPN ---
Subjective Subjective Date of Service: 06/16/22 Physical Exam Vital Signs: Vital Signs: Last Vital Signs Temp 98.6 F 06/16/22 15:42 Pulse 109 H 06/16/22 15:42 Resp 18 06/16/22 15:42 BP 128/91 H 06/16/22 15:42 Pulse Ox 98 06/16/22 15:42 O2 Del Method Room Air 06/16/22 15:42 BMI result Body Mass Index 19.5 Objective Data Active Medications Piperacillin Sod/Tazobactam (Sod 3.375 gm/ Sodium Chloride) 50 mls @ 100 mls/hr IV Q6H [facility] Last Admin: 06/16/22 17:58 Dose: 100 mls/hr Documented By: QI Dextrose/Lactated Ringer's (D5lr) 1,000 mls @ 125 mls/hr IVCONT .Q8H [facility] Last Admin: 06/16/22 12:48 Dose: 125 mls/hr Documented By: QI Magnesium Sulfate (Magnesium Sulfate/H2o) 2 gm in 50 mls @ 25 mls/hr IV ONCE ONE Stop: 06/16/22 18:52 Lactulose (Lactulose 20 Gm/30 Ml Solution) 30 gm PO BID [facility] Ondansetron HCl (Ondansetron Hcl 4 Mg/2 Ml Vial) 4 mg IVPUSH Q8H PRN PRN Reason: Nausea and Vomiting Last Admin: 06/16/22 15:44 Dose: 4 mg Documented By: QI Rifaximin (Rifaximin 550 Mg Tablet) 550 mg PO BID [facility] Sodium Chloride (0.9 % Sodium Chloride Flush 3 Ml Syringe) 3 ml IVFLUSH QSHIFT [facility] Last Admin: 06/16/22 18:00 Dose: 3 ml Documented By: QI Labs 06/15/22 06:48 06/16/22 17:06 Labs: Laboratory Results - last 24 hr 06/16/22 06/16/22 06:10 11:48 Anion Gap 19 Estim Creat Clear Calc 67.2 Estimated GFR > 60 Random Glucose 158 H Calcium 7.7 L Magnesium 1.7 Ammonia 41 Assessment and Plan Time Spent With Patient Time: Total time managing care of this patient today ____ minutes. Quality Stroke Does the patient have a stroke diagnosis?: No VTE Prior VTE?: No VTE Risk Level:: Medical - moderate - high VTE Device Contraindication: N/A - Device Ordered VTE Drug Contraindication: Treatment Not Indicated
[2022-06-16] MEDS: Magnesium Sulfate/H2O 2 GM/50 ML PIGGYBACK IV (18:38)
[2022-06-16] MEDS: Potassium Chloride Packet 20 MEQ PACKET 40 MEQ PO (18:52)
[2022-06-16 19:13] VITALS: BP 131/90; PULSE 120; RESP 18; TEMP 36.7; O2SAT 98
--- NOTE | 2022-06-16 21:14 | PC.NURSE ---
Assumed care at 07:00. 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 Has NGT to low intermittent suction, corrected suction from continuous, has rectal tube that was replaced to help leaking, noted scant red drainage from around rectal tube, resolved spontaneously. Discussed potentially stopping the NGT low intermittent suction, but nausea returned in the afternoon, and NGT seems to help, also one dose of PRN zofran. Patient with ammonia down to 41, discussed with PA and lactulose tapered to BID. Discussed getting rid of rectal tube, but patient still with copious calle liquid stool. Patient had hypokalemia this AM, repleted with 20 meq IV Kcl and 40 MeQ of oral Klor, NGT was clamped around administration and well tolerated. Followup chemistry showed hypokalemia persisted 2.8, one time KCL PO 40 meq repeated, poorly tolerated powder. Patient also with hypomagnesmia, PA aware, and repleted with 2 GM IV MG. Discussed malnutrition with PA as pt concerned, patient refused all meals, only took 3 gingerales PO, had 400 ccs green bileous exudated to NGT, had nausea and no vomiting, Had 300 ccs of calle liquid stool and some unmeasured. Had unmeasured urine outputs due to leaking and stool-clogged purewicks. also see I&O. .
[2022-06-16] MEDS: rifAXIMin 550 MG TABLET PO (22:32)
[2022-06-17] VITALS (7 sets, daily range): BP systolic 110–145; BP diastolic 70–92; PULSE 96–114; RESP 15–18; TEMP 36.8–38.4; O2SAT 96–98
[2022-06-17] MEDS: Piperacillin Sodium/Tazobactam 3.375 GM in 0.9 % Sodium Chloride 50 ML IV ×3 (05:35→18:27)
[2022-06-17] MEDS: Dextrose 5 % and Lactated Ring 1,000 ML 125 ML IVCONT ×3 (05:35→20:35)
[2022-06-17 07:23] LABS: Anion Gap 17 (12-20); Blood Urea Nitrogen 10 mg/dL (9-16); Calcium 7.7 mg/dL (8.4-10.2); Carbon Dioxide 16 mmol/L (22-29); Chloride 114 mmol/L (96-108); Creatinine Clr Calc Pharmacy 68.1; Estimated Glomerular Filt Rate > 60; Glucose Random 114 mg/dL (60-115); Potassium 3.5 mmol/L (3.3-5.1); Sodium 143 mmol/L (135-145)
[2022-06-17 09:39] LABS: MANUAL DIFF FLAG NO
[2022-06-17 09:43] LABS: Basophils Absolute Auto 0.1 X10*3/uL (0.0-0.2); Basophils Percent Auto 0.7 % (0-2); Eosinophils Absolute Auto 0.1 X10*3/uL (0.0-0.4); Eosinophils Percent Auto 0.6 % (0-4); Hematocrit 29.8 % (37.0-47.0); Hemoglobin 8.9 g/dl (12.0-16.0); Imm Gran Abs Auto 0.02 X10*3/uL (0.00-0.03); Imm Gran Pct Auto 0.2 % (0.0-0.4); Lymphocytes Percent Auto 24.1 % (20-40); Mean Corpuscular HGB Conc 29.9 g/dl (31.0-35.0); Mean Corpuscular Volume 73.8 fL (80.0-98.0); Mean Platelet Volume 9.1 fL (9.4-12.3); Monocytes Absolute Auto 0.7 X10*3/uL (0.1-1.2); Monocytes Percent Auto 8.3 % (2-11); Neutrophils Absolute Auto 5.5 x10*3/uL (2.0-8.3); Neutrophils Percent Auto 66.1 % (45-73); Platelet Count 345 X10*3/uL (160-400); Red Blood Count 4.04 X10*6/uL (4.20-5.50); Red Cell Distribution Width 23.5 % (11.0-16.0); White Blood Count 8.4 X10*3/uL (4.8-10.8)
[2022-06-17] MEDS: 0.9 % Sodium Chloride Flush 3 ML SYRINGE IVFLUSH ×2 (09:45→20:36)
[2022-06-17] MEDS: rifAXIMin 550 MG TABLET PO ×2 (09:45→20:36)
[2022-06-17] MEDS: Lactulose 20 GM/30 ML SOLUTION 30 GM PO ×2 (09:49→20:36)
[2022-06-17 09:55] LABS: Lactic Acid 3.8 mmol/L (0.5-2.0)
[2022-06-17] MEDS: ondansetron HCL 4 MG/2 ML VIAL IVPUSH (10:41)
--- NOTE | 2022-06-17 10:53 | HO.PM.IMPN ---
Subjective Subjective Date of Service: 06/17/22 Interval History: seen and examined this morning follow up for encephalopathy initially feeling better this morning with no nausea or vomiting, NGT clamped and pt began having N/V again. denies abdominal pain more awake and alert fever 101 x 1 this am. denies cough, sob, urianary symptoms Review of Systems Review of Systems: Yes all other systems are reviewed and are negative Constitutional Constitutional: Denies chills and Reports fever(s) Cardiovascular Cardiovascular: Denies chest pain, Denies palpitations and Denies dyspnea Respiratory Respiratory: Denies cough and Denies dyspnea Gastrointestinal Gastrointestinal: Denies abdominal pain, Reports nausea and Reports vomiting Endocrine Endocrine: Denies palpitations Physical Exam Vital Signs: Vital Signs: Last Vital Signs Temp 101.1 F H 06/17/22 08:00 Pulse 97 06/17/22 08:00 Resp 18 06/17/22 08:00 BP 135/85 06/17/22 08:00 Pulse Ox 96 06/17/22 08:00 O2 Del Method Room Air 06/17/22 08:00 BMI result Body Mass Index 19.5 Const: Other: awake and alert this morning thin, chronically ill appearing Nutritional Appearance: thin Orientation/consciousness: oriented to person and oriented to place HEENT: Other: NGT present Resp: Effort & Inspection: normal respiratory effort and able to speak in complete sentences Auscultation: clear to auscultation bilaterally Cardio: Rate: tachycardic Heart sounds: S1 normal heart sound present and S2 normal heart sound present GI: Inspection: No distended Palpation (GI): Soft to palpation and nontender Neuro: Other: limited assessment given lethargy no focal deficits appreciated General: oriented to person and oriented to place Extrem: General: Yes no pedal edema Objective Data Active Medications Piperacillin Sod/Tazobactam (Sod 3.375 gm/ Sodium Chloride) 50 mls @ 100 mls/hr IV Q6H [facility] Last Infusion: 06/17/22 06:06 Dose: 0 mls/hr Documented By: SALLY Dextrose/Lactated Ringer's (D5lr) 1,000 mls @ 125 mls/hr IVCONT .Q8H [facility] Last Admin: 06/17/22 05:35 Dose: 125 mls/hr Documented By: SALLY Lactulose (Lactulose 20 Gm/30 Ml Solution) 30 gm PO BID [facility] Last Admin: 06/17/22 09:49 Dose: 30 gm Documented By: DON Ondansetron HCl (Ondansetron Hcl 4 Mg/2 Ml Vial) 4 mg IVPUSH Q8H PRN PRN Reason: Nausea and Vomiting Last Admin: 06/17/22 10:41 Dose: 4 mg Documented By: DON Rifaximin (Rifaximin 550 Mg Tablet) 550 mg PO BID [facility] Last Admin: 06/17/22 09:45 Dose: 550 mg Documented By: DON Sodium Chloride (0.9 % Sodium Chloride Flush 3 Ml Syringe) 3 ml IVFLUSH QSHIFT [facility] Last Admin: 06/17/22 09:45 Dose: 3 ml Documented By: DON Labs 06/17/22 09:34 06/17/22 06:38 Labs: Laboratory Results - last 24 hr 06/16/22 06/17/22 06/17/22 11:48 06:38 09:34 MCV 73.8 L MCH 22.0 L MCHC 29.9 L RDW 23.5 H Plt Count 345 D MPV 9.1 L Immature Gran % (Auto) 0.2 Neut % (Auto) 66.1 Lymph % (Auto) 24.1 Mcminn % (Auto) 8.3 Eos % (Auto) 0.6 Baso % (Auto) 0.7 Lymph # (Auto) 2.0 Mcminn # (Auto) 0.7 Eos # (Auto) 0.1 Baso # (Auto) 0.1 Abs Immat Gran (auto) 0.02 Absolute Neuts (auto) 5.5 Absolute Nucleated RBC 0.000 Nucleated RBC % (auto) 0.0 Anion Gap 17 Estim Creat Clear Calc 68.1 Estimated GFR > 60 Random Glucose 114 Lactic Acid Calcium 7.7 L Magnesium 2.0 Ammonia 41 06/17/22 09:34 MCV MCH MCHC RDW Plt Count MPV Immature Gran % (Auto) Neut % (Auto) Lymph % (Auto) Mcminn % (Auto) Eos % (Auto) Baso % (Auto) Lymph # (Auto) Mcminn # (Auto) Eos # (Auto) Baso # (Auto) Abs Immat Gran (auto) Absolute Neuts (auto) Absolute Nucleated RBC Nucleated RBC % (auto) Anion Gap Estim Creat Clear Calc Estimated GFR Random Glucose Lactic Acid 3.8 H* Calcium Magnesium Ammonia Assessment and Plan (1) Acute hepatic encephalopathy: Status: Acute Plan 62-year-old woman admitted with metabolic hepatic encephalopathy. Previous admission she had multiple specialize labs including BALTAZAR, AMA, Anca, alpha-1 antitrypsin, GGT, cell EF antibodies , liver fibrosis test, all negative. Acute recurrent metabolic hepatic encephalopathy secondary to hyperammonemia and dehydration has h/o ROACH,Abdominal US (05/2022) showing Hepatomegaly with increased parenchymal echogenicity suggesting hepatocellular disease or hepatic steatosis. all other workup for chronic liver dz has been unremarkable polypharmacy likely contributing factor as well continue Lactulose via NGT (placed for vomiting) - ammonia down to 41, and multiple stools, will decrease to bid dosing xifaxan added by GI pt not eating much - nutrition consult ordered. midline ordered for possible TPN GI following given N/V with clamping of NGT, will obtain CT abdomen to rule out obstruction SIRS pt meets sirs criteria with fever, tachycardia No leukocytosis Lactic acid 3.8, likely secondary to underlying liver dysfunction and not sepsis Has been on Zosyn empirically to cover for possible aspiration, UA on admission negative for infection Obtain abdominal CT to evaluate for intra-abdominal pathology No clear source of infection at this time. no respiratory or urinary symptoms follow blood cultures Hypokalemia improved with replacement likely r/t gi losses follow BMP Chronic Microcytic anemia drop in H/H likely dilutional/pt dehydrated on admission seems to be around previous baseline Mental health Hold all medications for now due to lethargy Moderate malnutrition BMI 19.6, loss of subq fat and muscle mass with wt loss and decreased PO intake DVT prophylaxis with mechanical compression boots Attending Dr. Tineo Full code Requires ongoing inpatient management for encephalopathy, hypokalemia, SIRS,N/V Time Spent With Patient Time: Total time managing care of this patient today ____ minutes. Quality Stroke Does the patient have a stroke diagnosis?: No VTE Prior VTE?: No VTE Risk Level:: Medical - moderate - high VTE Device Contraindication: N/A - Device Ordered VTE Drug Contraindication: Treatment Not Indicated
--- NOTE | 2022-06-17 11:01 | P.CDIM_ITS ---
PROVIDER RESPONSE TEXT: To clarify, the appropriate diagnosis supported by the clinical indicators: Hepatic encephalopathy: acute recurrent QUERY TEXT: PHYSICIAN'S DOCUMENTATION REQUEST Date of Query: 06/17/2022 07:44 AM EDT Patient Name: Kala Mccloud Admit Date: 06/14/2022 Dear Giselle Pritchett, A review of the medical record indicates additional documentation may be needed. Please review below and update the documentation accordingly. Clinical Indicators: Per provider H&P: Patient well known to me with a recent similar presentation with confusion and elevated ammonia leve l Per provider progress notes: Metabolic hepatic encephalopathy secondary to hyperammonemia and dehydration Please specify if patient has both metabolic AND hepatic encephalopathy. If hepatic please also speci fy whether acute/subacute, if known.Metabolic and Hepatic encephalopathy (Please specify for hepatic whether acute/subacute on chronic, chronic, or acute/subacute) Metabolic encephalopathy Hepatic encephalopathy (Please specify whether acute/subacute on chronic, chronic, or acute/subacute) Other (Please specify) Other (explain) Clinically unable to determine (explain) Thank you, Sheree Brooks, MS, RN, CCRN Use of terms such as suspected, likely, concern for, or probable (associated with a specific diagnosi s that is being evaluated, monitored, or treated as if it exists) are acceptable and can be coded in the inpatient se tting, when documented at the time of discharge. Please use your independent medical judgment in providing your response. THIS QUERY IS PART OF THE PERMANENT MEDICAL RECORD
--- NOTE | 2022-06-17 11:08 | P.CDIM_ITS ---
PROVIDER RESPONSE TEXT: To clarify, the appropriate diagnosis supported by the clinical indicators: Malnutrition is/was present and is a clinical diagnosis: moderate malnutrition QUERY TEXT: PHYSICIAN'S DOCUMENTATION REQUEST Date of Query: 06/17/2022 07:49 AM EDT Patient Name: Kala Mccloud Admit Date: 06/14/2022 Dear Giselle Pritchett, A review of the medical record indicates additional documentation may be needed. Please review below and update the documentation accordingly. Is there a diagnosis that correlates with the findings below: Clinical indicators: BMI - 18.2 Height - 5ft 5in Weight - 49.5 Per provider H&P: She has had multiple abdominal surgeries including colectomy and has chronic diarrhea which may be l eading to the dehydration. Per ED note: chronically ill appearing, very thin Per acid cleaner consult on 06/15: PT IS MODERATELY MALNOURISHED To ensure the quality of the medical record, based on the above information and the recognized standa rd for (specify malnutrition severity), could you please verify which of the following diagnoses best reflects the myranda horner's nutritional status. Malnutrition is/was present and is a clinical diagnosis (Please specify - mild, moderate, or severe) Other (Please specify) Other (explain) Clinically unable to determine (explain) Thank you, Sheree Brooks, MS, RN, CCRN Use of terms such as suspected, likely, concern for, or probable (associated with a specific diagnosi s that is being evaluated, monitored, or treated as if it exists) are acceptable and can be coded in the inpatient se tting, when documented at the time of discharge. Please use your independent medical judgment in providing your response. THIS QUERY IS PART OF THE PERMANENT MEDICAL RECORD
[2022-06-17 11:38] LABS: Reflex Lactate? Lactic Acid Added
[2022-06-17] MEDS: Potassium Chloride Packet 20 MEQ PACKET 40 MEQ PO (12:32)
[2022-06-17 12:54] LABS: ~Lactic Acid-LAB USE ONLY 3.9 mmol/L (0.5-2.0)
--- NOTE | 2022-06-17 13:38 | MHC.CLN ---
RE: CONSULT PT IS MODERATELY MALNOURISHED PT WITH MILD DEPLETED SUBCUTANEOUS FAT AND MUSCLE MASS WITH 19% SIGNIFICANT WT LOSS AND CHRONIC POOR PO INTAKE SEE ALSO FULL CLINICAL NUTRITION ASSESSMENT DATED 06/15/22 PT'S FAMILY MEMBER REPORTED WT LOSS AND POOR APPETITE X 2 YEARS DIET ADVANCED TO F/L PT RECEPTIVE TO DRINKING ENSURE-ADDED ENSURE SUPPLEMENT TO PROVIDE 700KCALS, 40G PROTEIN NOTED PT REFUSING ALL MEALS AND ONLY DRINKING G-GISELA 0% PO RECORDED IF TPN NEEDED RECOMMEND D15AA4.25 AT 35ML/HR WITH CENTRAL LINE ACCESS TO PROVIDE 596KCALS, 42G PROTEIN IF PPN NEEDED R/T NO CENTRAL LINE ACCESS; RECOMMEND D10AA4.25 AT 35ML/HR TO PROVIDE 428KCALS, 36G PROTEIN REPLETE LYTES NEEDED CONSULT RD VIA TIGER TEXT IF NEEDED
--- NOTE | 2022-06-17 14:00 | CA_ITS ---
Transthoracic Echocardiogram Patient (Last, First, Middle): Kala Mccloud M Gender: Female Date of : 1960 Age: 62 Procedure Date: 06/17/2022 Procedure Type: Transthoracic Echocardiogram [place] [facility] [place]: 165.1 cm Weight: 53.07 kg BSA: 1.58 m2 Heart Rate: bpm BP: 139 / 92 mmHg Senior Systems Administrator: TO Referring MD: Giselle ZURITA Appellate Law Clerk: Andrew Slade MD Symptoms: eval pericardial effusion Study Quality: Technically Difficult ECG Rhythm: Sinus Conclusions: - 1. Technically limited study with poor apical views and study terminated as patient was not able to tolerate 2. Limited views of left ventricle on parasternal view appeared to show normal LV systolic function 3. There is trivial aortic regurgitation 4. No obvious large pericardial effusion Findings Procedure Information The study quality is limited by the patients inability to tolerate the test. Left Ventricle Regional wall motion abnormalities can not be excluded due to suboptimal endocardial definition. apical views were limited. On parasternal views LV systolic function appears normal Right Ventricle The right ventricle was not well visualized. Atria The left atrium was not well visualized. Interatrial shunt cannot be excluded. The right atrium was not well visualized. Aortic Valve Normal aortic valve structure and function. There is no aortic valve stenosis. There is trace (trivial) aortic valve regurgitation. Mitral Valve Likely normal mitral valve structure and function. There is trace mitral valve regurgitation. There is no mitral valve stenosis. Pulmonic Valve The pulmonic valve was not well visualized. Tricuspid Valve The tricuspid valve was not well visualized. Tricuspid regurgitation envelope is inadequate for calculation of right ventricular systolic pressure. Great Vessels The pulmonary artery was not well visualized. The asc aorta is normal in size. Venous The inferior vena cava was not well visualized. Pericardium/Pleural no obvious large pericardial effusion noted. Study was limited due to patient's inability to tolerate Prior Study Comparison No prior study available for comparison. Measurements 2D Linear Measurements IVSd: 0.81 0.6-0.9/0.6-1.0 cm LVIDd: 4.36 3.9-5.3/4.2-5.9 cm LVIDd Index: 2.76 2.4-3.2/2.2-3.1 cm/m2 LVIDs: 3.08 2.0-3.6 cm LVPWd: 0.67 0.7-1.1 cm LA Diam: 2.80 2.7-3.8/3.0-4.0 cm LAIDs Index: 1.77 1.5-2.3 cm/m2 LV Mass: 120.31 67-162/88-224 g LV Mass Index: 76.14 43-95/49-115 g/m2 LVOT Diam: 2.00 3.0+(-)1.3 cm Mitral Valve E'Lateral: 9.57 LVOT LVOT Pk Edmundo: 0.71 LVOT Mn Edmundo: 0.48 LVOT VTI: 0.11 LVOT Pk Grad: 2.00 LVOT Mn Grad: 1.00 LVOT Diam: 2.00 LVOT Area: 3.14 Diastolic Function E' Laterial: 9.57 Right Ventricle TAPSE (mm): 21.60 TVS' Edmundo: 20.00 Tricuspid Valve TR Pk Edmundo: 2.42 TR Pk Grad: 23.00 Great Vessels Aorta Sinus of Valsalva: 3.27 2.0-3.5 cm Ao Asc: 3.40 2.1-3.4 cm Updated in Other Vendor System with Status of Final Andrew Slade MD electronically signed on 06/18/2022 11:39:39 AM with status of Final
[2022-06-17 14:25] LABS: Reflex Lactate? 2 Y
--- NOTE | 2022-06-17 16:11 | MHC.CM.PN ---
EMR REVIEWED AND PER MD ROUNDS NOT MEDICALLY CLEARED FOR DC (sbo, encephalopathy) CM WILL CONTINUE TO FOLLOW
--- NOTE | 2022-06-17 16:22 | PM.GIPN ---
Subjective Subjective Date of Service: 06/17/22 Interval History: more alert depressed Critical Care Time (minutes): 0 Physical Exam Vital Signs: Vital Signs: Last Vital Signs Temp 99.5 F 06/17/22 15:32 Pulse 106 H 06/17/22 15:32 Resp 16 06/17/22 15:32 BP 145/92 H 06/17/22 15:32 Pulse Ox 98 06/17/22 15:32 O2 Del Method Room Air 06/17/22 15:32 BMI result Body Mass Index 19.5 GI: Other: abdomen is soft and nontender Objective Data Labs 06/17/22 09:34 06/17/22 06:38 Procedures Date of Service Date of Service: 06/17/22 Progress Note: A&P Assessment and plan (1) Acute hepatic encephalopathy: Status: Acute Assessment and Plan: encephalopathy is improving continue xifaxan I don't think she has a small bowel obstruction ct schanges are chronic, she has diarrhea from lactulose and the last ileoscopy of the pouch looked ok. Time Spent With Patient Time: Total time managing care of this patient today ____ minutes. Quality Stroke Does the patient have a stroke diagnosis?: No VTE Prior VTE?: No VTE Risk Level:: Medical - moderate - high VTE Device Contraindication: N/A - Device Ordered VTE Drug Contraindication: Treatment Not Indicated
[2022-06-18] MEDS: Piperacillin Sodium/Tazobactam 3.375 GM in 0.9 % Sodium Chloride 50 ML IV ×5 (00:03→22:04)
[2022-06-18 04:00] VITALS: BP 142/90; PULSE 94; RESP 18; TEMP 36.5; O2SAT 97
[2022-06-18 04:07] LABS: Cancel Lactic Acid Canceled
[2022-06-18] MEDS: Dextrose 5 % and Lactated Ring 1,000 ML 125 ML IVCONT (06:02)
[2022-06-18 07:23] VITALS: BP 131/91; PULSE 93; RESP 16; TEMP 36.7; O2SAT 98
[2022-06-18 08:19] LABS: Hematocrit 31.8 % (37.0-47.0); Hemoglobin 9.5 g/dl (12.0-16.0); Mean Corpuscular HGB Conc 29.9 g/dl (31.0-35.0); Mean Corpuscular Volume 73.6 fL (80.0-98.0); Mean Platelet Volume 9.4 fL (9.4-12.3); Platelet Count 292 X10*3/uL (160-400); Red Blood Count 4.32 X10*6/uL (4.20-5.50); White Blood Count 6.5 X10*3/uL (4.8-10.8)
[2022-06-18 08:44] LABS: Anion Gap 16 (12-20); Blood Urea Nitrogen 10 mg/dL (9-16); Calcium 7.9 mg/dL (8.4-10.2); Carbon Dioxide 21 mmol/L (22-29); Chloride 106 mmol/L (96-108); Estimated Glomerular Filt Rate > 60; Glucose Random 97 mg/dL (60-115); Potassium 3.5 mmol/L (3.3-5.1); Sodium 139 mmol/L (135-145)
[2022-06-18] MEDS: Diatrizoate Meglumine, Sodium 120 ML SOLUTION PO (08:59)
[2022-06-18] MEDS: Lactulose 20 GM/30 ML SOLUTION 30 GM PO ×2 (09:00→22:04)
[2022-06-18] MEDS: rifAXIMin 550 MG TABLET PO ×2 (09:01→22:04)
[2022-06-18] MEDS: 0.9 % Sodium Chloride Flush 3 ML SYRINGE IVFLUSH ×3 (09:01→22:04)
[2022-06-18 11:09] VITALS: BP 121/95; PULSE 119; RESP 16; TEMP 36.7; O2SAT 96
--- NOTE | 2022-06-18 11:28 | P.CONGS_ITS ---
History of Present Illness Consult details Consult date: 06/18/22 Narrative: Consult because of the inability to tolerate p.o.. Chart was reviewed patient evaluated. Patient very as a very complex past medical and surgical history. She had an upper GI study today and was actually passing oral contrast per rectum according to the patient. She is a bit frustrated because of her alejandro bility to tolerate any diet. 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 Hypertension Hyponatremia Hypothyroidism Peripheral neuropathy Restless leg syndrome Small bowel obstruction Stomach spasm Ulcerative colitis Family History Family History (Updated 06/14/22 @ 14:07 by Yamileth Dowd NP) Father CHF (congestive heart failure) Surgical History Surgical History Hx of cholecystectomy Hx of hernia repair Hx of resection of large bowel S/P total colectomy Social History Social History Household Members: Unknown / Unable to assess Housing: House Unable to assess alcohol history related to: Unable to respond Alcohol intake: unknown Patient Tobacco Use Status: Never used Tobacco Smoked in Last 30 Days: No Patient Interested in Nicotine Replacement: No Patient Given Instructions on How to Stop Smoking: No Second Hand Smoke Exposure: No Use of substances other than those prescribed or required for medical reasons: Unable to respond Substance Use Type: Unknown Last Used Substance: Unknown Currently Displaying Signs/Symptoms of Drug Intoxication Withdrawal: No Do you feel safe in your current relationship?: Yes Is there a partner from a previous relationship who is making you feel unsafe now?: No Are you made to feel afraid or neglected: No Advance Directives: Yes Advance Directives on File: Yes Advance Directives Date on File: 02/24/20 Do you have thoughts of harming others: None Do you have a plan to hurt others: No Plan Recently lost weight without trying: Unsure How much weight loss: Unsure Eating poorly because of decreased appetite: No Nutrition screen score: 4 Nutrition Risks: Acute nausea or vomiting x1 week Patient : No : No Poor oral hygiene: No service: No Current occupational status: unemployed and disabled Meds Allergies Allergy/AdvReac Type Severity Reaction Status Date / Time morphine [MORPHINE] AdvReac Mild NAUSEA & Verified 02/20/21 09:14 VOMITING Active Medications: Current Medications Piperacillin Sod/Tazobactam (Sod 3.375 gm/ Sodium Chloride) 50 mls @ 100 mls/hr IV Q6H ON LICENSE OF [facility] Last Infusion: 06/18/22 06:42 Dose: Infused Dextrose/Lactated Ringer's (D5lr) 1,000 mls @ 125 mls/hr IVCONT .Q8H [facility] OF [facility] Last Admin: 06/18/22 06:02 Dose: 125 mls/hr Lactulose (Lactulose 20 Gm/30 Ml Solution) 30 gm PO BID [facility] Last Admin: 06/18/22 09:00 Dose: 30 gm Metoclopramide HCl (Metoclopramide Hcl 10 Mg/2 Ml Vial) 5 mg IVPUSH Q6H PRN PRN Reason: Nausea and Vomiting Ondansetron HCl (Ondansetron Hcl 4 Mg/2 Ml Vial) 4 mg IVPUSH Q8H PRN PRN Reason: Nausea and Vomiting Last Admin: 06/17/22 10:41 Dose: 4 mg Rifaximin (Rifaximin 550 Mg Tablet) 550 mg PO BID [facility] OF [facility] Last Admin: 06/18/22 09:01 Dose: 550 mg Sodium Chloride (0.9 % Sodium Chloride Flush 3 Ml Syringe) 3 ml IVFLUSH QSHIFT ON LICENSE OF [facility] Last Admin: 06/18/22 09:01 Dose: 3 ml Home Medications Medication Instructions Recorded Confirmed Last Taken Type diazepam 10 mg tablet 1 tab PO TID PRN muscle spasm 02/24/20 06/14/22 4 Days Ago History ~11/25/21 diphenoxylate-atropine 2.5 4 tab PO BID PRN diarrhea 02/24/20 06/14/22 4 Days Ago History mg-0.025 mg tablet ~11/25/21 hydrocodone 10 mg-acetaminophen 1 tab PO Q6H PRN Pain 02/24/20 06/14/22 4 Days Ago History 325 mg tablet ~11/25/21 esomeprazole magnesium 20 mg 20 mg PO DAILY PRN Heartburn 08/16/21 06/14/22 4 Days Ago History capsule,delayed release (Nexium) ~11/25/21 gabapentin 600 mg tablet 1 tab PO BEDTIME 11/28/21 06/14/22 4 Days Ago History ~11/25/21 calcium polycarbophil 625 mg 1,250 mg PO BID 11/29/21 06/14/22 4 Days Ago History tablet (FiberCon) ~11/25/21 hydroxyzine HCl 25 mg tablet 25 mg PO QID PRN Anxiety 05/27/22 06/14/22 Unknown History tizanidine 4 mg tablet 4 mg PO BEDTIME PRN Spasms 05/27/22 06/14/22 Unknown History nitrofurantoin 1 cap PO BID 06/14/22 06/14/22 Unknown History monohydrate/macrocrystals 100 mg capsule Physical Exam Vital Signs: Vital Signs: Last Vital Signs Temp 98.1 F 06/18/22 11:09 Pulse 119 H 06/18/22 11:09 Resp 16 06/18/22 11:09 BP 121/95 H 06/18/22 11:09 Pulse Ox 96 06/18/22 11:09 O2 Del Method Room Air 06/18/22 11:09 BMI result Body Mass Index 19.5 GI: Other: Abdomen is minimally distended. Mild left lower quadrant tenderness. No evidence of any guarding, rebound, or rigidity. Results Labs 06/18/22 07:15 06/18/22 07:15 Labs: Abnormal lab results 06/17/22 06/18/22 06/18/22 Range/Units 12:22 07:15 07:15 Hgb 9.5 L (12.0-16.0) g/dl Hct 31.8 L (37.0-47.0) % MCV 73.6 L (80.0-98.0) fL MCH 22.0 L (27.0-33.0) pg MCHC 29.9 L (31.0-35.0) g/dl RDW 23.0 H (11.0-16.0) % Carbon Dioxide 21 L (22-29) mmol/L Lactic Acid F/U @ 2Hr 3.9 H* (0.5-2.0) mmol/L Calcium 7.9 L (8.4-10.2) mg/dL Short CBC 06/18/22 Range/Units 07:15 WBC 6.5 (4.8-10.8) X10*3/uL Hgb 9.5 L (12.0-16.0) g/dl Hct 31.8 L (37.0-47.0) % Plt Count 292 (160-400) X10*3/uL BMP 06/18/22 07:15 Sodium 139 Potassium 3.5 Chloride 106 Carbon Dioxide 21 L BUN 10 Creatinine 0.70 Calcium 7.9 L Urine 06/14/22 Range/Units 09:20 Urine Color Dark Yellow Urine Appearance Clear Urine pH 6.0 (5.0-9.0) Ur Specific Haugen 1.025 (1.005-1.025) Urine Protein Trace (Neg-Trace) mg/dL Urine Glucose (UA) Negative (Negative) mg/dL All other labs normal. Assessment and Plan (1) Small bowel anastomotic dilation: Status: Acute Plan Unofficial reading of upper GI demonstrates no evidence of any small-bowel obstruction. Consider prokinetic agents, incentive spirometry, out of bed/ambulate. No acute surgical issues at this time. Time Spent With Patient Time: Total time managing care of this patient today ____ minutes. Procedures Date of Service Date of Service: 06/18/22
[2022-06-18 12:14] LABS: Magnesium 1.7 mg/dL (1.6-2.6); Phosphorus 3.2 mg/dL (2.7-4.5)
--- NOTE | 2022-06-18 13:14 | P.PNIM_ITS ---
Subjective Subjective Date of Service: 06/18/22 Interval History: seen and examined this morning follow up for N/V small bowel follow through this am, passing contrast still with nausea. no subsequent fever Review of Systems Review of Systems: Yes all other systems are reviewed and are negative Constitutional Constitutional: Denies chills and Denies fever(s) Cardiovascular Cardiovascular: Denies chest pain, Denies palpitations and Denies dyspnea Respiratory Respiratory: Denies cough and Denies dyspnea Gastrointestinal Gastrointestinal: Reports nausea and Reports vomiting Endocrine Endocrine: Denies palpitations Physical Exam Vital Signs: Vital Signs: Last Vital Signs Temp 98.1 F 06/18/22 11:09 Pulse 119 H 06/18/22 11:09 Resp 16 06/18/22 11:09 BP 121/95 H 06/18/22 11:09 Pulse Ox 96 06/18/22 11:09 O2 Del Method Room Air 06/18/22 11:09 BMI result Body Mass Index 19.5 Const: Other: awake and alert this morning thin, chronically ill appearing appears tired Nutritional Appearance: thin HEENT: Other: NGT present Resp: Effort & Inspection: normal respiratory effort and able to speak in complete sentences Auscultation: clear to auscultation bilaterally Cardio: Rate: tachycardic Heart sounds: S1 normal heart sound present and S2 normal heart sound present GI: Inspection: No distended Palpation (GI): Soft to palpation and nontender Neuro: Other: limited assessment given lethargy no focal deficits appreciated Extrem: General: Yes no pedal edema Objective Data Active Medications Piperacillin Sod/Tazobactam (Sod 3.375 gm/ Sodium Chloride) 50 mls @ 100 mls/hr IV Q6H [facility] Last Admin: 06/18/22 12:42 Dose: 100 mls/hr Documented By: RITA Lactulose (Lactulose 20 Gm/30 Ml Solution) 30 gm PO BID [facility] Last Admin: 06/18/22 09:00 Dose: 30 gm Documented By: RITA Metoclopramide HCl (Metoclopramide Hcl 10 Mg/2 Ml Vial) 5 mg IVPUSH Q6H PRN PRN Reason: Nausea and Vomiting Ondansetron HCl (Ondansetron Hcl 4 Mg/2 Ml Vial) 4 mg IVPUSH Q8H PRN PRN Reason: Nausea and Vomiting Last Admin: 06/17/22 10:41 Dose: 4 mg Documented By: DON Rifaximin (Rifaximin 550 Mg Tablet) 550 mg PO BID [facility] Last Admin: 06/18/22 09:01 Dose: 550 mg Documented By: RITA Sodium Chloride (0.9 % Sodium Chloride Flush 3 Ml Syringe) 3 ml IVFLUSH QSHIFT [facility] Last Admin: 06/18/22 09:01 Dose: 3 ml Documented By: RITA Labs 06/18/22 07:15 06/18/22 07:15 Labs: Laboratory Results - last 24 hr 06/18/22 06/18/22 07:15 07:15 MCV 73.6 L MCH 22.0 L MCHC 29.9 L RDW 23.0 H Plt Count 292 MPV 9.4 Absolute Nucleated RBC 0.000 Nucleated RBC % (auto) 0.0 Anion Gap 16 Estim Creat Clear Calc 71.0 Estimated GFR > 60 Random Glucose 97 Calcium 7.9 L Phosphorus 3.2 Magnesium 1.7 Microbiology Microbiology Results: Microbiology 06/17/22 09:33 Blood Culture - Preliminary Blood - Venous No growth after 24 hours. 06/17/22 09:34 Blood Culture - Preliminary Blood - Venous No growth after 24 hours. Assessment and Plan (1) Acute hepatic encephalopathy: Status: Acute Plan 62-year-old woman admitted with metabolic hepatic encephalopathy. Previous admission she had multiple specialize labs including BALTAZAR, AMA, Anca, alpha-1 antitrypsin, GGT, cell EF antibodies , liver fibrosis test, all negative. Acute recurrent metabolic hepatic encephalopathy secondary to hyperammonemia and dehydration has h/o ROACH,Abdominal US (05/2022) showing Hepatomegaly with increased parenchymal echogenicity suggesting hepatocellular disease or hepatic steatosis. all other workup for chronic liver dz has been unremarkable polypharmacy likely contributing factor as well continue Lactulose via NGT (placed for vomiting) - ammonia down to 41, with multiple stools, will decrease to bid dosing xifaxan added by GI GI following Persistent nausea/vomiting CT abdomen with concern over SBO, but changes appear chronic and likely r/t narrowing from previous anastamosis site. has SBFT, pt passing contrast h/o UC s/p colectomy with J-pouch will start reglan and attempt to clamp NGT no appetite, hasn't eaten in several days - IR won't place PICC until BCx negative x 48 hrs will start PPN via peripheral line until pt able to tolerate diet encourage ambulation, IS SIRS pt meets sirs criteria with fever, tachycardia. appears to have had isolated fever. No leukocytosis Lactic acid 3.8, likely secondary to underlying liver dysfunction and not sepsis Has been on Zosyn empirically to cover for possible aspiration, UA on admission negative for infection No clear source of infection at this time. no respiratory or urinary symptoms Blood cultures negative to date Hypokalemia improved with replacement likely r/t gi losses follow BMP Chronic Microcytic anemia drop in H/H likely dilutional/pt dehydrated on admission seems to be around previous baseline Mental health Hold all medications for now due to lethargy Moderate malnutrition BMI 19.6, loss of subq fat and muscle mass with wt loss and decreased PO intake will start PPN as above DVT prophylaxis with mechanical compression boots Attending Dr. Conti Full code Requires ongoing inpatient management for encephalopathy, hypokalemia, SIRS,N/V Time Spent With Patient Time: Total time managing care of this patient today ____ minutes. Quality Stroke Does the patient have a stroke diagnosis?: No VTE Prior VTE?: No VTE Risk Level:: Medical - moderate - high VTE Device Contraindication: N/A - Device Ordered VTE Drug Contraindication: Treatment Not Indicated
[2022-06-18 16:00] VITALS: BP 135/93; PULSE 116; RESP 18; TEMP 36.1; O2SAT 95
[2022-06-18] MEDS: Metoclopramide HCl 10 MG/2 ML VIAL 5 MG IVPUSH (17:55)
[2022-06-18 20:00] VITALS: BP 119/95; PULSE 122; RESP 17; TEMP 36.1; O2SAT 97
[2022-06-19] VITALS (7 sets, daily range): BP systolic 114–143; BP diastolic 86–108; PULSE 114–137; RESP 12–18; TEMP 36–37.3; O2SAT 94–97
--- NOTE | 2022-06-19 | ECG_ITS ---
Test Reason : tachy Blood Pressure : / mmHG Vent. Rate : 127 BPM Atrial Rate : 127 BPM P-R Int : 118 ms QRS Dur : 072 ms QT Int : 312 ms P-R-T Axes : 038 043 052 degrees QTc Int : 453 ms Sinus tachycardia Nonspecific ST abnormality Abnormal ECG When compared with ECG of 31-MAY-2022 12:55, Criteria for Inferior infarct are no longer Present Referred By: Naty Ho Electronically Signed By:KLAUS WILL MD
[2022-06-19] MEDS: traZODone HCL 50 MG TABLET PO (02:04)
[2022-06-19] MEDS: ondansetron HCL 4 MG/2 ML VIAL IVPUSH ×2 (02:07→21:38)
[2022-06-19] MEDS: HYDROmorphone HCl 0.5 MG/0.5 ML SYRINGE IVPUSH (02:08)
[2022-06-19] MEDS: Piperacillin Sodium/Tazobactam 3.375 GM in 0.9 % Sodium Chloride 50 ML IV ×4 (05:35→23:37)
[2022-06-19 08:03] LABS: Anion Gap 17 (12-20); Blood Urea Nitrogen 18 mg/dL (9-16); Calcium 8.3 mg/dL (8.4-10.2); Carbon Dioxide 25 mmol/L (22-29); Chloride 101 mmol/L (96-108); Creatinine Clr Calc Pharmacy 52.3; Estimated Glomerular Filt Rate 60; Glucose Random 177 mg/dL (60-115); Potassium 3.2 mmol/L (3.3-5.1); Sodium 140 mmol/L (135-145)
--- NOTE | 2022-06-19 09:01 | P.PNIM_ITS ---
Subjective Subjective Date of Service: 06/19/22 Interval History: follow up for N/V small bowel follow through this am, passing contrast still with nausea. no subsequent fever Physical Exam Vital Signs: Vital Signs: Last Vital Signs Temp 98.3 F 06/19/22 07:30 Pulse 114 H 06/19/22 07:30 Resp 12 06/19/22 07:30 BP 143/96 H 06/19/22 07:30 Pulse Ox 97 06/19/22 07:30 O2 Del Method Room Air 06/19/22 07:30 BMI result Body Mass Index 19.5 Const: Other: awake and alert this morning thin, chronically ill appearing appears tired Objective Data Active Medications Piperacillin Sod/Tazobactam (Sod 3.375 gm/ Sodium Chloride) 50 mls @ 100 mls/hr IV Q6H [facility] Stop: 06/20/22 17:59 Last Infusion: 06/19/22 06:28 Dose: 0 mls/hr Documented By: SALLY Amino Acids/Electrolytes/Dextrose (Clinimix E 4.25%-10%) 840 mls @ 35 mls/hr IV DAILY@1800 [facility] Stop: 06/19/22 17:59 Last Admin: 06/18/22 17:56 Dose: 35 mls/hr Documented By: RITA Lactulose (Lactulose 20 Gm/30 Ml Solution) 30 gm PO BID [facility] Last Admin: 06/18/22 22:04 Dose: 30 gm Documented By: SALLY Metoclopramide HCl (Metoclopramide Hcl 10 Mg/2 Ml Vial) 5 mg IVPUSH Q6H PRN PRN Reason: Nausea and Vomiting Last Admin: 06/18/22 17:55 Dose: 5 mg Documented By: RITA Ondansetron HCl (Ondansetron Hcl 4 Mg/2 Ml Vial) 4 mg IVPUSH Q8H PRN PRN Reason: Nausea and Vomiting Last Admin: 06/19/22 02:07 Dose: 4 mg Documented By: ANTMORELIA Rifaximin (Rifaximin 550 Mg Tablet) 550 mg PO BID [facility] Last Admin: 06/18/22 22:04 Dose: 550 mg Documented By: ANTOIC Sodium Chloride (0.9 % Sodium Chloride Flush 3 Ml Syringe) 3 ml IVFLUSH QSHIFT [facility] Last Admin: 06/18/22 22:04 Dose: 3 ml Documented By: ANTOIC Labs 06/18/22 07:15 06/19/22 07:07 Labs: Laboratory Results - last 24 hr 06/18/22 06/19/22 07:15 07:07 Anion Gap 17 Estim Creat Clear Calc 52.3 Estimated GFR 60 Random Glucose 177 H Calcium 8.3 L Phosphorus 3.2 Magnesium 1.7 Microbiology Microbiology Results: Microbiology 06/17/22 09:33 Blood Culture - Preliminary Blood - Venous No growth after 24 hours. 06/17/22 09:34 Blood Culture - Preliminary Blood - Venous No growth after 24 hours. Assessment and Plan (1) Acute hepatic encephalopathy: Status: Acute Plan 62-year-old woman admitted with metabolic hepatic encephalopathy. Previous admission she had multiple specialize labs including BALTAZAR, AMA, Anca, alpha-1 antitrypsin, GGT, cell EF antibodies , liver fibrosis test, all negative. Acute recurrent metabolic hepatic encephalopathy secondary to hyperammonemia and dehydration has h/o ROACH,Abdominal US (05/2022) showing Hepatomegaly with increased parenchymal echogenicity suggesting hepatocellular disease or hepatic steatosis. all other workup for chronic liver dz has been unremarkable polypharmacy likely contributing factor as well continue Lactulose via NGT (placed for vomiting) - ammonia down to 41, with mu ltiple stools, continue Bid xifaxan added by GI GI following Persistent nausea/vomiting CT abdomen with concern over SBO, but changes appear chronic and likely r/t narrowing from previous anastamosis site. has SBFT, pt passing contrast h/o UC s/p colectomy with J-pouch . seen by surgery, no acute surgical issues continue reglan and try to remove NGT no appetite, hasn't eaten in several days - IR won't place PICC until BCx negative x 48 hrs PPN via peripheral line until pt able to tolerate diet encourage ambulation, IS SIRS met criteria with fever, tachycardia. appears to have had isolated fever. No leukocytosis Lactic acid 3.8, likely secondary to underlying liver dysfunction and not sepsis Has been on Zosyn empirically to cover for possible aspiration, UA on admission negative for infection No clear source of infection at this time. no respiratory or urinary symptoms Blood cultures negative to date DC Abx if culture negative x 48 Hypokalemia replace likely r/t gi losses follow BMP Chronic Microcytic anemia drop in H/H likely dilutional/pt dehydrated on admission seems to be around previous baseline Mental health Hold all medications for now due to lethargy Moderate malnutrition BMI 19.6, loss of subq fat and muscle mass with wt loss and decreased PO intake will start PPN as above DVT prophylaxis with mechanical compression boots Full code Requires ongoing inpatient management for encephalopathy, hypokalemia, SIRS,N/V Time Spent With Patient Time: Total time managing care of this patient today ____ minutes. Quality Stroke Does the patient have a stroke diagnosis?: No VTE Prior VTE?: No VTE Risk Level:: Medical - moderate - high VTE Device Contraindication: N/A - Device Ordered VTE Drug Contraindication: Treatment Not Indicated
[2022-06-19] MEDS: Metoclopramide HCl 10 MG/2 ML VIAL 5 MG IVPUSH ×3 (09:10→23:35)
[2022-06-19] MEDS: rifAXIMin 550 MG TABLET PO ×2 (09:10→20:12)
[2022-06-19] MEDS: Lactulose 20 GM/30 ML SOLUTION 30 GM PO ×2 (09:10→20:10)
[2022-06-19] MEDS: 0.9 % Sodium Chloride Flush 3 ML SYRINGE IVFLUSH ×3 (09:11→20:13)
[2022-06-19] MEDS: Potassium Chloride Packet 20 MEQ PACKET NG-TUBE (09:29)
[2022-06-19 10:03] LABS: Magnesium 2.1 mg/dL (1.6-2.6)
[2022-06-19] MEDS: HYDROmorphone HCl 0.5 MG/0.5 ML SYRINGE 0.25 MG IVPUSH ×2 (17:28→21:54)
[2022-06-20] VITALS (8 sets, daily range): BP systolic 107–147; BP diastolic 70–102; PULSE 115–138; RESP 13–20; TEMP 36–37.2; O2SAT 91–97
[2022-06-20] MEDS: HYDROmorphone HCl 0.5 MG/0.5 ML SYRINGE 0.25 MG IVPUSH ×4 (01:33→19:05)
--- NOTE | 2022-06-20 02:34 | PC.NURSE ---
0127 Notified MD Pt has been sustaining 130-150 hear rate since 2129,rectal temp 99.0,pt in 11/03 requested to give pain meds 1/2 hour early MD approved.
[2022-06-20] MEDS: ondansetron HCL 4 MG/2 ML VIAL IVPUSH ×2 (05:38→13:23)
[2022-06-20] MEDS: Piperacillin Sodium/Tazobactam 3.375 GM in 0.9 % Sodium Chloride 50 ML IV ×2 (06:21→13:23)
[2022-06-20 06:39] LABS: Anion Gap 23 (12-20); Blood Urea Nitrogen 24 mg/dL (9-16); Calcium 9.1 mg/dL (8.4-10.2); Carbon Dioxide 23 mmol/L (22-29); Chloride 93 mmol/L (96-108); Creatinine Clr Calc Pharmacy 33.7; Estimated Glomerular Filt Rate 36; Glucose Random 156 mg/dL (60-115); Potassium 3.9 mmol/L (3.3-5.1); Sodium 135 mmol/L (135-145)
[2022-06-20] MEDS: 0.9 % Sodium Chloride Flush 3 ML SYRINGE IVFLUSH (08:09)
[2022-06-20] MEDS: Lactulose 20 GM/30 ML SOLUTION 30 GM PO (08:09)
[2022-06-20] MEDS: rifAXIMin 550 MG TABLET PO (08:09)
--- NOTE | 2022-06-20 08:56 | ECG_ITS ---
Test Reason : tachycardia Blood Pressure : / mmHG Vent. Rate : 134 BPM Atrial Rate : 134 BPM P-R Int : 122 ms QRS Dur : 074 ms QT Int : 288 ms P-R-T Axes : 033 020 045 degrees QTc Int : 430 ms Sinus tachycardia Nonspecific ST and T wave abnormality Borderline EKG When compared with ECG of 19-JUN-2022 01:44, No significant change was found Referred By: [facility] Electronically Signed By:GHISLAINE BOSTON
--- NOTE | 2022-06-20 11:05 | MHC.SLORD ---
Speech Language Pathology Order Status: Attempted to see pt for bedside swallow eval. Pt away for procedure. RN will notify RUBBING BED OPERATOR when pt has returned.
--- NOTE | 2022-06-20 11:20 | HO.PM.IMPN ---
Subjective Subjective Date of Service: 06/20/22 Interval History: follow up for N/V NGT removed yesterday, N/V started again Review of Systems alert, oriented Physical Exam Vital Signs: Vital Signs: Last Vital Signs Temp 97.5 F 06/20/22 10:42 Pulse 138 H 06/20/22 10:42 Resp 16 06/20/22 10:42 BP 139/90 H 06/20/22 10:42 Pulse Ox 93 06/20/22 10:42 O2 Del Method Room Air 06/20/22 10:42 BMI result Body Mass Index 19.5 Const: Other: awake and alert this morning thin, chronically ill appearing appears tired Objective Data Active Medications Hydromorphone HCl (Hydromorphone Hcl 0.5 Mg/0.5 Ml Syringe) 0.25 mg IVPUSH Q4H PRN; Protocol PRN Reason: Pain, Severe (Pain Scale 7-10) Last Admin: 06/20/22 06:19 Dose: 0.25 mg Documented By: CHASTITY Piperacillin Sod/Tazobactam (Sod 3.375 gm/ Sodium Chloride) 50 mls @ 100 mls/hr IV Q6H [facility] Stop: 06/20/22 17:59 Last Infusion: 06/20/22 08:48 Dose: 0 mls/hr Documented By: TIMMY Lactulose (Lactulose 20 Gm/30 Ml Solution) 30 gm PO BID [facility] Last Admin: 06/20/22 08:09 Dose: 30 gm Documented By: TIMMY Metoclopramide HCl (Metoclopramide Hcl 10 Mg/2 Ml Vial) 5 mg IVPUSH Q6H PRN PRN Reason: Nausea and Vomiting Last Admin: 06/19/22 23:35 Dose: 5 mg Documented By: CHASTITY Ondansetron HCl (Ondansetron Hcl 4 Mg/2 Ml Vial) 4 mg IVPUSH Q8H PRN PRN Reason: Nausea and Vomiting Last Admin: 06/20/22 05:38 Dose: 4 mg Documented By: CHASTITY Rifaximin (Rifaximin 550 Mg Tablet) 550 mg PO BID [facility] Last Admin: 06/20/22 08:09 Dose: 550 mg Documented By: TIMMY Sodium Chloride (0.9 % Sodium Chloride Flush 3 Ml Syringe) 3 ml IVFLUSH QSHIFT [facility] Last Admin: 06/20/22 08:09 Dose: 3 ml Documented By: TIMMY Labs 06/18/22 07:15 06/20/22 06:10 Labs: Laboratory Results - last 24 hr 06/20/22 06:10 Anion Gap 23 H Estim Creat Clear Calc 33.7 Estimated GFR 36 Random Glucose 156 H Calcium 9.1 D Microbiology Microbiology Results: Microbiology 06/17/22 09:33 Blood Culture - Preliminary Blood - Venous No growth after 48 hours. 06/17/22 09:34 Blood Culture - Preliminary Blood - Venous No growth after 48 hours. Assessment and Plan (1) Acute hepatic encephalopathy: Status: Acute Plan 62-year-old woman admitted with metabolic hepatic encephalopathy. Previous admission she had multiple specialize labs including BALTAZAR, AMA, Anca, alpha-1 antitrypsin, GGT, cell EF antibodies , liver fibrosis test, all negative. Acute recurrent metabolic hepatic encephalopathy secondary to hyperammonemia and dehydration has h/o ROACH,Abdominal US (05/2022) showing Hepatomegaly with increased parenchymal echogenicity suggesting hepatocellular disease or hepatic steatosis. all other workup for chronic liver dz has been unremarkable polypharmacy likely contributing factor as well continue Lactulose via NGT (placed for vomiting) - ammonia down to 41, with multiple stools, continue Bid xifaxan added by GI GI following Persistent nausea/vomiting CT abdomen with concern over SBO, but changes appear chronic and likely r/t narrowing from previous anastamosis site. has SBFT, pt passing contrast h/o UC s/p colectomy with J-pouch . seen by surgery, no acute surgical issues continue reglan and try to remove NGT no appetite, hasn't eaten in several days - IR won't place PICC until BCx negative x 48 hrs PPN via peripheral line until pt able to tolerate diet, PICC line encourage ambulation, IS SIRS met criteria with fever, tachycardia. appears to have had isolated fever. No leukocytosis Lactic acid 3.8, likely secondary to underlying liver dysfunction and not sepsis Has been on Zosyn empirically to cover for possible aspiration, UA on admission negative for infection No clear source of infection at this time. no respiratory or urinary symptoms Blood cultures negative to date DC Abx if culture negative x 48 Hypokalemia replace and resolved likely r/t gi losses follow BMP Chronic Microcytic anemia drop in H/H likely dilutional/pt dehydrated on admission seems to be around previous baseline Mental health Hold all medications for now due to lethargy Moderate malnutrition BMI 19.6, loss of subq fat and muscle mass with wt loss and decreased PO intake will start PPN as above DVT prophylaxis with mechanical compression boots Full code Requires ongoing inpatient management for encephalopathy, hypokalemia, SIRS,N/V Time Spent With Patient Time: Total time managing care of this patient today ____ minutes. Quality Stroke Does the patient have a stroke diagnosis?: No VTE Prior VTE?: No VTE Risk Level:: Medical - moderate - high VTE Device Contraindication: N/A - Device Ordered VTE Drug Contraindication: Treatment Not Indicated
--- NOTE | 2022-06-20 11:52 | MHC.CLN ---
F/U PT IS MODERATELY MALNOURISHED SEE FULL CLINICAL NUTRITION ASSESSMENT DATED 06/15/22 DIET RETURNED TO NPO PT RECEIVED PPN MONDAY INTO MONDAY D10AA4.25 AT 35ML/HR PROVIDED 596KCALS, 42G PROTEIN PPN THEN D/C ON MONDAY 06/19 PPN TO RESTART PER PHARM AND MD: DISCUSSED WITH PHARMACIST RECOMMEND D10AA4.25 AT 50ML/HR TO PROVIDE 612KCALS, 51G PROTEIN REPLETE LYTES NEEDED
[2022-06-20 13:07] LABS: Albumin Level 3.1 g/dL (3.5-5.0); Magnesium 2.2 mg/dL (1.6-2.6); Phosphorus 5.5 mg/dL (2.7-4.5); Triglycerides 129 mg/dL
--- NOTE | 2022-06-20 13:20 | HO.PICC ---
PICC Line Insertion [facility] INSERTION Diagnosis: [PARALYTIC ILEUS/SOB] Indication: NEEDS ACCESS FOR TPN Pertinent Labs: [REVIEWED] Technique: Following informed consent including risks, benefits and alternatives and using sterile technique including cap and mask, sterile gown, glove and drape, the [RIGHT] arm was prepped and draped in the usual sterile fashion of full barrier technique with CHG. Following completion of [place] Protocol the skin and soft tissues were anesthetized with 1% Lidocaine plain. Using ultrasound guidance, [RIGHT BRACHIAL] vein access was obtained AND ACCESSED ON FIRST ATTEMPT. Over an 0.018 wire through peel-away sheath, a [5FR TRIPLE LUMEN (PASV] PICC line was positioned. Catheter length is [37CM] internal length, [0CM] external length, for a total trimmed length of [37CM]. The procedure was performed in [RM. 272]. Tip verification was performed by Dewayne Burrell with [facility] 3CG. Tip located in SVC. Ultrasound was used to document vein patency and for needle entry. A formal ultrasound picture and cardiac rhythm strip was recorded. Vascular Mall Manager has released the line for use and it is currently dressed with a StatLock, Tegaderm, and CHG disc. Verification has been performed for blood return and line patency. Arm Circumference: [20CM] Equipment: [[employer] SOLO ] Catheter Type: [5FR TRIPLE LUMEN PICC PASV] Lot #: [[id number]]
--- NOTE | 2022-06-20 15:08 | MHC.CM.PN ---
Per MD rounds patient will discharge with a PICC line for IV ABX. A referral has been sent to [facility]. [facility] will resume services. Patients spouse will provide transport home.
[2022-06-20] MEDS: Heparin Sodium,Porcine Flush 50 UNITS/5 ML SYRINGE IVFLUSH (15:33)
[2022-06-20] MEDS: Metoclopramide HCl 10 MG/2 ML VIAL 5 MG IVPUSH (15:39)
--- NOTE | 2022-06-20 18:12 | PC.NURSE ---
Patient has been tachycardiac throughout the day, HR between 130-150, msg sent to provider to let him know
[2022-06-20 19:10] LABS: Hematocrit 40.9 % (37.0-47.0); Hemoglobin 12.6 g/dl (12.0-16.0); Mean Corpuscular HGB Conc 30.8 g/dl (31.0-35.0); Mean Corpuscular Hemoglobin 22.3 pg (27.0-33.0); Mean Corpuscular Volume 72.4 fL (80.0-98.0); Mean Platelet Volume 9.7 fL (9.4-12.3); Platelet Count 503 X10*3/uL (160-400); Red Blood Count 5.65 X10*6/uL (4.20-5.50); Red Cell Distribution Width 23.8 % (11.0-16.0); White Blood Count 15.3 X10*3/uL (4.8-10.8)
[2022-06-21] MEDS: ondansetron HCL 4 MG/2 ML VIAL IVPUSH ×3 (02:21→20:12)
[2022-06-21 02:56] VITALS: BP 126/93; PULSE 128; RESP 20; TEMP 36.1; O2SAT 94
[2022-06-21] MEDS: Metoclopramide HCl 10 MG/2 ML VIAL 5 MG IVPUSH ×2 (04:39→15:12)
[2022-06-21 07:32] LABS: Albumin Level 3.3 g/dL (3.5-5.0); Anion Gap 21 (12-20); Blood Urea Nitrogen 38 mg/dL (9-16); Calcium 9.4 mg/dL (8.4-10.2); Carbon Dioxide 26 mmol/L (22-29); Chloride 89 mmol/L (96-108); Glucose Random 205 mg/dL (60-115); Magnesium 2.6 mg/dL (1.6-2.6); Phosphorus 5.1 mg/dL (2.7-4.5); Potassium 3.8 mmol/L (3.3-5.1); Sodium 132 mmol/L (135-145); Triglycerides 185 mg/dL
[2022-06-21 07:43] LABS: Creatinine Clr Calc Pharmacy 16.1; Estimated Glomerular Filt Rate 15
[2022-06-21 07:58] VITALS: BP 128/104; PULSE 122; RESP 20; TEMP 36.6; O2SAT 97
--- NOTE | 2022-06-21 09:38 | MHC.CLN ---
F/U DIET REMAINS NPO PPN TO CONTINUE: DISCUSSED WITH PHARMACIST RECOMMEND D10AA4.25 AT 65ML/HR TO PROVIDE 796KCALS, 66G PROTEIN REPLETE LYTES NEEDED MONITOR FOR DIET ADVANCEMENT
[2022-06-21 09:51] VITALS: BMI 19.5
--- NOTE | 2022-06-21 09:51 | P.PNIM_ITS ---
Subjective Subjective Date of Service: 06/21/22 Interval History: follow up for N/V, malnutrition continue to have n/v but better, no abd pain Physical Exam Vital Signs: Vital Signs: Last Vital Signs Temp 97.8 F 06/21/22 07:58 Pulse 122 H 06/21/22 07:58 Resp 20 06/21/22 07:58 BP 128/104 H 06/21/22 07:58 Pulse Ox 97 06/21/22 07:58 O2 Del Method Room Air 06/21/22 07:58 O2 Flow Rate 2 06/21/22 02:56 BMI result Body Mass Index 19.5 Const: Other: awake and alert this morning thin, chronically ill appearing appears tired Objective Data Active Medications Heparin Sodium (Porcine) (Heparin Sodium,Porcine Flush 50 Units/5 Ml Syringe) 50 units IVFLUSH QSHIFT [facility] Last Admin: 06/21/22 02:21 Dose: Not Given Documented By: YASSINE Non-Admin Reason: IV Running Hydromorphone HCl (Hydromorphone Hcl 0.5 Mg/0.5 Ml Syringe) 0.25 mg IVPUSH Q4H PRN; Protocol PRN Reason: Pain, Severe (Pain Scale 7-10) Last Admin: 06/20/22 19:05 Dose: 0.25 mg Documented By: MARYAM Potassium Chloride 60 meq/Sodium Chloride 70 meq/Magnesium Sulfate 10 meq/Calcium Gluconate 9.3 meq/Multivitamins 10 ml/ Trace Metals 1 ml/ Amino Acids/Electrolytes/Dextrose 1,200 mls @ 50 mls/hr IVCONT DAILY@1800 [facility] Stop: 06/21/22 17:59 Last Admin: 06/20/22 18:50 Dose: 50 mls/hr Documented By: TIMMY Lactulose (Lactulose 20 Gm/30 Ml Solution) 30 gm PO BID [facility] Last Admin: 06/20/22 20:08 Dose: Not Given Documented By: YASSINE Non-Admin Reason: lethargic Metoclopramide HCl (Metoclopramide Hcl 10 Mg/2 Ml Vial) 5 mg IVPUSH Q6H PRN PRN Reason: Nausea and Vomiting Last Admin: 06/21/22 04:39 Dose: 5 mg Documented By: YASSINE Ondansetron HCl (Ondansetron Hcl 4 Mg/2 Ml Vial) 4 mg IVPUSH Q8H PRN PRN Reason: Nausea and Vomiting Last Admin: 06/21/22 02:21 Dose: 4 mg Documented By: YASSINE Rifaximin (Rifaximin 550 Mg Tablet) 550 mg PO BID [facility] Last Admin: 06/20/22 20:08 Dose: Not Given Documented By: YASSINE Non-Admin Reason: lethargic Sodium Chloride (0.9 % Sodium Chloride Flush 3 Ml Syringe) 3 ml IVFLUSH QSHIFT [facility] Last Admin: 06/21/22 02:21 Dose: Not Given Documented By: YASSINE Non-Admin Reason: IV Running Labs 06/20/22 18:59 06/21/22 06:08 Labs: Laboratory Results - last 24 hr 06/20/22 06/20/22 06/20/22 06:10 18:59 18:59 MCV 72.4 L MCH 22.3 L MCHC 30.8 L RDW 23.8 H Plt Count 503 H D MPV 9.7 Absolute Nucleated RBC 0.000 Nucleated RBC % (auto) 0.0 Anion Gap Estim Creat Clear Calc Estimated GFR Random Glucose Calcium Phosphorus 5.5 H Magnesium 2.2 Albumin 3.1 L Triglycerides 129 Blood Type O Positive Antibody Screen NEGATIVE 06/21/22 06:08 MCV MCH MCHC RDW Plt Count MPV Absolute Nucleated RBC Nucleated RBC % (auto) Anion Gap 21 H Estim Creat Clear Calc 16.1 Estimated GFR 15 Random Glucose 205 H Calcium 9.4 Phosphorus 5.1 H Magnesium 2.6 Albumin 3.3 L Triglycerides 185 Blood Type Antibody Screen Assessment and Plan (1) Acute hepatic encephalopathy: Status: Acute Plan 62-year-old woman admitted with metabolic hepatic encephalopathy. Previous admission she had multiple specialize labs including BALTAZAR, AMA, Anca, alpha-1 antitrypsin, GGT, cell EF antibodies , liver fibrosis test, all negative. Acute recurrent metabolic hepatic encephalopathy d/t ROACH secondary to hyperammonemia and dehydration has h/o ROACH,Abdominal US (05/2022) showing Hepatomegaly with increased parenchymal echogenicity suggesting hepatocellular disease or hepatic steatosis. all other workup for chronic liver dz has been unremarkable polypharmacy likely contributing factor as well continue Lactulose - ammonia, check ammonia if altered xifaxan added by GI Persistent nausea/vomiting CT abdomen with concern of SBO, but changes appear chronic and likely r/t narrowing from previous anastamosis site. has SBFT, pt passing contrast h/o UC s/p colectomy with J-pouch . seen by surgery, no acute surgical issues continue reglan, NGT removed no appetite, hasn't eaten in several days - Has PICC line since 06/20 and on PPN SIRS met criteria with fever, tachycardia. appears to have had isolated fever. No leukocytosis Lactic acid 3.8, likely secondary to underlying liver dysfunction and not sepsis Has been on Zosyn empirically to cover for possible aspiration, UA on admission negative for infection No clear source of infection at this time. no respiratory or urinary symptoms Blood cultures negative to date DC Abx if culture negative x 48 Hypokalemia replace and resolved likely r/t gi losses follow BMP Chronic Microcytic anemia drop in H/H likely dilutional/pt dehydrated on admission seems to be around previous baseline Mental health Hold all medications for now due to lethargy Moderate malnutrition BMI 19.6, loss of subq fat and muscle mass with wt loss and decreased PO intake continue PPN and when able oral intake as well DVT prophylaxis with mechanical compression boots Full code Requires ongoing inpatient management for encephalopathy, hypokalemia, SIRS,N/V Time Spent With Patient Time: Total time managing care of this patient today ____ minutes. Quality Stroke Does the patient have a stroke diagnosis?: No VTE Prior VTE?: No VTE Risk Level:: Medical - moderate - high VTE Device Contraindication: N/A - Device Ordered VTE Drug Contraindication: Treatment Not Indicated
[2022-06-21] MEDS: 0.9 % Sodium Chloride Flush 3 ML SYRINGE IVFLUSH (10:23)
[2022-06-21] MEDS: Lactulose 20 GM/30 ML SOLUTION 30 GM PO (10:23)
[2022-06-21] MEDS: rifAXIMin 550 MG TABLET PO (10:23)
[2022-06-21] MEDS: HYDROmorphone HCl 0.5 MG/0.5 ML SYRINGE 0.25 MG IVPUSH ×3 (10:34→20:12)
--- NOTE | 2022-06-21 11:29 | MHC.SL.SWA ---
Speech Pathologist Impression: Esophageal Dysphagia Risk of Aspiration Due to: Lethargy Poor PO Intake Weak Cough Weak Voice Dysphasia Diet Status: Downgrade Liquid Consistency and Strategies for Safe Swallow: Liquid Intake Recommendation: Thin Liquid Intake Strategies: Straws OK Solid Food Consistency: Dietary Recommendations: Pureed (NDD1) Additional Modifications to Solid Foods: Recommending Full Liquids at this time given GI issues slowly resolving. Oral Medication Intake: Crushed with Puree Please contact the pharmacy regarding appropriate crushable or liquid drug formulations that are available whenever modified delivery is recommended. Compensatory Strategies and Precautions to be Taken for Safe Swallow: Recommend smaller, more frequent portions ( grazing ), HoB upright before and after meals at least 30 minutes. Supervision While Eating and Drinking for Safe Swallow: Intermittent Supervision Foods to Avoid: Difficult to digest solids. Swallowing Recommended Treatments: Compens. Strategy Educat. Recommendation for Speech: Inpatient Speech Therapy Comment: SIGN MAKER will continue to monitor potential for further upgrade. Frequency/Duration: Daily Cashier Credit Clinican/Clinical Fellow: No Supervisory Statement: I have reviewed and agree with the student/clinical fellow's documentation: N/A Speech Language Pathologist: Lico Cordova M.A., CCC-SIGN MAKER
[2022-06-21 11:46] VITALS: BP 120/93; PULSE 124; RESP 18; TEMP 36.8; O2SAT 97
[2022-06-21] MEDS: Omeprazole 20 MG CAPSULE.DR PO (15:02)
--- NOTE | 2022-06-21 15:23 | PM.GIPN ---
Subjective Subjective Date of Service: 06/21/22 Interval History: c/o reflux Critical Care Time (minutes): 0 Physical Exam Vital Signs: Vital Signs: Last Vital Signs Temp 98.3 F 06/21/22 11:46 Pulse 124 H 06/21/22 11:46 Resp 18 06/21/22 11:46 BP 120/93 H 06/21/22 11:46 Pulse Ox 97 06/21/22 11:46 O2 Del Method Nasal Cannula 06/21/22 11:46 O2 Flow Rate 2 06/21/22 11:46 BMI result Body Mass Index 19.5 GI: Other: abdomen is soft Objective Data Labs 06/20/22 18:59 06/21/22 06:08 Labs: Laboratory Results - last 24 hr 06/20/22 06/20/22 06/21/22 18:59 18:59 06:08 WBC 15.3 H RBC 5.65 H D Hgb 12.6 D Hct 40.9 D MCV 72.4 L MCH 22.3 L MCHC 30.8 L RDW 23.8 H Plt Count 503 H D MPV 9.7 Absolute Nucleated RBC 0.000 Nucleated RBC % (auto) 0.0 Sodium 132 L Potassium 3.8 Chloride 89 L Carbon Dioxide 26 Anion Gap 21 H BUN 38 H Creatinine 3.09 H Estim Creat Clear Calc 16.1 Estimated GFR 15 Random Glucose 205 H Calcium 9.4 Phosphorus 5.1 H Magnesium 2.6 Albumin 3.3 L Triglycerides 185 Blood Type O Positive Antibody Screen NEGATIVE Microbiology Microbiology Results: Microbiology 06/17/22 09:33 Blood - Venous Blood Culture - Preliminary No growth after 48 hours. 06/17/22 09:34 Blood - Venous Blood Culture - Preliminary No growth after 48 hours. Procedures Date of Service Date of Service: 06/21/22 Progress Note: A&P Assessment and plan (1) Acute hepatic encephalopathy: Status: Acute Assessment and Plan: doing better add omeprazole for reflux Time Spent With Patient Time: Total time managing care of this patient today ____ minutes. Quality Stroke Does the patient have a stroke diagnosis?: No VTE Prior VTE?: No VTE Risk Level:: Medical - moderate - high VTE Device Contraindication: N/A - Device Ordered VTE Drug Contraindication: Treatment Not Indicated
[2022-06-21 15:56] VITALS: BP 106/72; PULSE 122; RESP 13; TEMP 36.2; O2SAT 90
[2022-06-21 19:20] VITALS: BP 120/85; PULSE 124; RESP 12; TEMP 36.6; O2SAT 96
[2022-06-22] VITALS (8 sets, daily range): BP systolic 122–138; BP diastolic 60–86; PULSE 81–120; RESP 14–20; TEMP 36–36.8; O2SAT 94–99
[2022-06-22] MEDS: HYDROmorphone HCl 0.5 MG/0.5 ML SYRINGE 0.25 MG IVPUSH ×4 (02:11→20:11)
[2022-06-22] MEDS: Omeprazole 20 MG CAPSULE.DR PO (05:40)
[2022-06-22 08:55] LABS: Albumin Level 3.1 g/dL (3.5-5.0); Magnesium 2.3 mg/dL (1.6-2.6); Phosphorus 1.6 mg/dL (2.7-4.5); Triglycerides 253 mg/dL
[2022-06-22 08:56] LABS: Anion Gap 14 (12-20); Calcium 8.8 mg/dL (8.4-10.2); Carbon Dioxide 26 mmol/L (22-29); Chloride 91 mmol/L (96-108); Glucose Random 116 mg/dL (60-115); Potassium 4.2 mmol/L (3.3-5.1); Sodium 127 mmol/L (135-145)
[2022-06-22 09:13] LABS: Blood Urea Nitrogen 47 mg/dL (9-16); Creatinine Clr Calc Pharmacy 31.6; Estimated Glomerular Filt Rate 33
--- NOTE | 2022-06-22 09:42 | PM.CNNEP ---
History of Present Illness Reason for Consult Consult date: 06/22/22 Reason for consult: JOBY Chief Complaint Chief complaint: AMS,ON/OFF SINCE APR PER FAMILY History of Present Illness Narrative: ?62-year-old woman presented to the ER with lethargy.? According to the patient's he feels like this is secondary to dehydration.? She has had issues like this over the last several years with noted hyperammonemia.? She does not have any history of liver disease /cirrhosis.? She has had multiple abdominal surgeries including colectomy and has chronic diarrhea which may be leading to the dehydration. Baseline serum creatinine 0.7 mg/dL. She had an abrupt increase in serum creatinine up to 1.7 and 3.09 yesterday. However today serum creatinine is trending down to 1.7. She is been actually difficulty urinating as well. The initial CT scan on admission did not show any obstruction. This was about a week ago. Review of Systems Constitutional: Denies chills, Denies headache(s), Denies weakness and Denies weight loss Denies dizziness, Denies headache(s), Denies hearing loss and Denies epistaxis Cardiovascular: Denies pedal edema and Denies dyspnea on exertion Respiratory: Denies cough, Denies pain with cough and Denies dyspnea on exertion Gastrointestinal: Denies abdominal pain, Denies vomiting and Denies hematemesis Genitourinary: Denies hematuria, Reports difficulty voiding and Denies flank pain Musculoskeletal: Denies joint swelling Denies dizziness, Denies headache(s), Denies paresthesias and Denies weakness [facility] Past Medical History Medical History (Updated 06/14/22 @ 14:03 by Yamileth Dowd NP) Cerebral aneurysm rupture COPD (chronic obstructive pulmonary disease) 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 Hypertension Hyponatremia Hypothyroidism Peripheral neuropathy Restless leg syndrome Small bowel obstruction Stomach spasm Ulcerative colitis Family History Family History (Updated 06/14/22 @ 14:07 by Yamileth Dowd NP) Father CHF (congestive heart failure) Surgical History Surgical History Hx of cholecystectomy Hx of hernia repair Hx of resection of large bowel S/P total colectomy Social History Social History Household Members: Unknown / Unable to assess Housing: House Unable to assess alcohol history related to: Unable to respond Alcohol intake: unknown Patient Tobacco Use Status: Never used Tobacco Smoked in Last 30 Days: No Patient Interested in Nicotine Replacement: No Patient Given Instructions on How to Stop Smoking: No Second Hand Smoke Exposure: No Use of substances other than those prescribed or required for medical reasons: Unable to respond Substance Use Type: Unknown Last Used Substance: Unknown Currently Displaying Signs/Symptoms of Drug Intoxication Withdrawal: No Do you feel safe in your current relationship?: Yes Is there a partner from a previous relationship who is making you feel unsafe now?: No Are you made to feel afraid or neglected: No Advance Directives: Yes Advance Directives on File: Yes Advance Directives Date on File: 02/24/20 Do you have thoughts of harming others: None Do you have a plan to hurt others: No Plan Recently lost weight without trying: Unsure How much weight loss: Unsure Eating poorly because of decreased appetite: No Nutrition screen score: 4 Nutrition Risks: Acute nausea or vomiting x1 week Patient : No : No Poor oral hygiene: No service: No Current occupational status: unemployed and disabled Meds Allergies Allergy/AdvReac Type Severity Reaction Status Date / Time morphine [MORPHINE] AdvReac Mild NAUSEA & Verified 02/20/21 09:14 VOMITING Active Medications: Current Medications Heparin Sodium (Porcine) (Heparin Sodium,Porcine Flush 50 Units/5 Ml Syringe) 50 units IVFLUSH [facility] Last Admin: 06/22/22 00:39 Dose: Not Given Hydromorphone HCl (Hydromorphone Hcl 0.5 Mg/0.5 Ml Syringe) 0.25 mg IVPUSH Q4H PRN; Protocol PRN Reason: Pain, Severe (Pain Scale 7-10) Last Admin: 06/22/22 02:11 Dose: 0.25 mg Potassium Chloride 60 meq/Sodium Chloride 70 meq/Magnesium Sulfate 5 meq/Calcium Gluconate 4.65 meq/Amino Acids/Electrolytes/Dextrose 2,058.75 mls @ 85.781 mls/hr IVCONT DAILY@1800 [facility] Stop: 06/22/22 17:59 Last Admin: 06/21/22 19:54 Dose: 85.78 mls/hr Sodium Chloride (Ns) 1,000 mls @ 100 mls/hr IVCONT .Q10H [facility] Lactulose (Lactulose 20 Gm/30 Ml Solution) 30 gm PO BID [facility] Last Admin: 06/21/22 20:18 Dose: Not Given Metoclopramide HCl (Metoclopramide Hcl 10 Mg/2 Ml Vial) 5 mg IVPUSH Q6H PRN PRN Reason: Nausea and Vomiting Last Admin: 06/21/22 15:12 Dose: 5 mg Omeprazole (Omeprazole 20 Mg Capsule.Dr) 20 mg PO DAILY@0630 [facility] Last Admin: 06/22/22 05:40 Dose: 20 mg Ondansetron HCl (Ondansetron Hcl 4 Mg/2 Ml Vial) 4 mg IVPUSH Q8H PRN PRN Reason: Nausea and Vomiting Last Admin: 06/21/22 20:12 Dose: 4 mg Rifaximin (Rifaximin 550 Mg Tablet) 550 mg PO BID [facility] Last Admin: 06/21/22 20:18 Dose: Not Given Sodium Chloride (0.9 % Sodium Chloride Flush 3 Ml Syringe) 3 ml IVFLUSH QSHIFT [facility] Last Admin: 06/22/22 00:40 Dose: Not Given Home Medications Medication Instructions Recorded Confirmed Last Taken Type diazepam 10 mg tablet 1 tab PO TID PRN muscle spasm 02/24/20 06/14/22 4 Days Ago History ~11/25/21 diphenoxylate-atropine 2.5 4 tab PO BID PRN diarrhea 02/24/20 06/14/22 4 Days Ago History mg-0.025 mg tablet ~11/25/21 hydrocodone 10 mg-acetaminophen 1 tab PO Q6H PRN Pain 02/24/20 06/14/22 4 Days Ago History 325 mg tablet ~11/25/21 esomeprazole magnesium 20 mg 20 mg PO DAILY PRN Heartburn 08/16/21 06/14/22 4 Days Ago History capsule,delayed release (Nexium) ~11/25/21 gabapentin 600 mg tablet 1 tab PO BEDTIME 11/28/21 06/14/22 4 Days Ago History ~11/25/21 calcium polycarbophil 625 mg 1,250 mg PO BID 11/29/21 06/14/22 4 Days Ago History tablet (FiberCon) ~11/25/21 hydroxyzine HCl 25 mg tablet 25 mg PO QID PRN Anxiety 05/27/22 06/14/22 Unknown History tizanidine 4 mg tablet 4 mg PO BEDTIME PRN Spasms 05/27/22 06/14/22 Unknown History nitrofurantoin 1 cap PO BID 06/14/22 06/14/22 Unknown History monohydrate/macrocrystals 100 mg capsule Physical Exam Vital Signs: Last Vital Signs Temp 97.4 F 06/22/22 07:38 Pulse 120 H 06/22/22 07:38 Resp 20 06/22/22 07:38 BP 128/86 06/22/22 07:38 Pulse Ox 95 06/22/22 07:38 O2 Del Method Nasal Cannula 06/22/22 07:38 O2 Flow Rate 2 06/22/22 07:38 BMI result Body Mass Index 19.5 ?Appearing in no acute distress, lethargic but opens eyes ?head is normocephalic atraumatic ?eyes pupils are PERRLA sclera is anicteric ?mouth throat mucous membranes are intact and moist ?lung sounds are clear to auscultation ?heart regular rate rhythm, clear? S1, S2 ?positive bowel sounds, abdomen is soft, nontender ?neuro patient is alert, Results Lab Results 06/20/22 18:59 06/22/22 08:16 Lab results: Chemistry 06/20/22 06/21/22 06/22/22 06:10 06:08 08:16 Sodium 135 132 L 127 L Potassium 3.9 D 3.8 4.2 Carbon Dioxide 23 26 26 BUN 24 H 38 H 47 H Creatinine 1.47 H 3.09 H 1.57 H Calcium 9.1 D 9.4 8.8 D Phosphorus 5.5 H 5.1 H 06/22/22 08:16 Sodium Potassium Carbon Dioxide BUN Creatinine Calcium Phosphorus 1.6 L Hematology 06/20/22 18:59 WBC 15.3 H Hgb 12.6 D Plt Count 503 H D Assessment and Plan (1) Hyponatremia: Status: Acute (2) Acute kidney injury: Status: Acute Plan 62-year-old woman with acute kidney injury And hyponatremia in a setting of hepatic encephalopathy. differential diagnosis with acute kidney injury would include hypoperfusion. However urinary retention / obstruction still a possibility given her symptoms. Urine sediment showed bland therefore glomerulonephritis or interstitial disease seems unlikely at this time. She has hyponatremia history of cirrhosis clinically she appears hypovolemic. She probably has hypovolemic hyponatremia. Recommendation Check urine for sodium, creatinine, osmolarity. IV hydration with normal saline at 80 cc/hour. Keep intake more than the output. Restrict hypotonic fluids / free water intake. bladder scan. If she has retention then would recommend a Amanda catheter for the next 24-48 hours to monitor urine output and to see if there is any ongoing obstruction. We will follow closely with the team. Time Spent With Patient Time: Total time managing care of this patient today ____ minutes. Procedures Date of Service Date of Service: 06/22/22
[2022-06-22] MEDS: Heparin Sodium,Porcine Flush 50 UNITS/5 ML SYRINGE IVFLUSH ×2 (10:48→15:42)
[2022-06-22] MEDS: Lactulose 20 GM/30 ML SOLUTION 30 GM PO (10:48)
[2022-06-22] MEDS: rifAXIMin 550 MG TABLET PO (10:49)
[2022-06-22] MEDS: 0.9 % Sodium Chloride 1,000 ML 100 ML IVCONT ×2 (10:49→22:00)
[2022-06-22] MEDS: 0.9 % Sodium Chloride Flush 3 ML SYRINGE IVFLUSH ×2 (10:49→15:42)
[2022-06-22] MEDS: ondansetron HCL 4 MG/2 ML VIAL IVPUSH ×2 (11:19→20:11)
--- NOTE | 2022-06-22 11:24 | MHC.CLN ---
F/U DIET ADVANCED TO F/L PPN TO CONTINUE: DISCUSSED WITH PHARMACIST CONTINUE D10AA4.25 AT 65ML/HR TO PROVIDE 796KCALS, 66G PROTEIN (1.2G/KG) REPLETE LYTES NEEDED WILL ADD ENSURE BID WITH F/L DIET TO INCREASE KCALS SUPP TO PROVIDE 700KCALS, 40G PROTEIN WITH 100% ACCEPTANCE
--- NOTE | 2022-06-22 11:58 | HO.PM.IMPN ---
Subjective Subjective Date of Service: 06/22/22 Interval History: f/u n/v vomiting, encephalopathy, overall better, Cr is better sodium low Review of Systems alert, oriented Constitutional Constitutional: Denies chills, Denies fever(s), Denies headache(s), Denies weakness and Denies weight loss ENT Ears, Nose, Mouth, and Throat: Denies dizziness, Denies headache(s), Denies hearing loss and Denies epistaxis Cardiovascular Cardiovascular: Denies chest pain, Denies pedal edema, Denies palpitations, Denies dyspnea and Denies dyspnea on exertion Respiratory Respiratory: Denies cough, Denies pain with cough, Denies dyspnea and Denies dyspnea on exertion Gastrointestinal Gastrointestinal: Denies abdominal pain, Reports nausea, Denies vomiting and Denies hematemesis Musculoskeletal Musculoskeletal: Denies joint swelling Neurologic Neurologic: Denies dizziness, Denies headache(s), Denies paresthesias and Denies weakness Endocrine Endocrine: Denies palpitations Physical Exam Vital Signs: Vital Signs: Last Vital Signs Temp 98.3 F 06/22/22 11:02 Pulse 115 H 06/22/22 11:02 Resp 20 06/22/22 11:02 BP 122/80 06/22/22 11:02 Pulse Ox 97 06/22/22 11:02 O2 Del Method Nasal Cannula 06/22/22 11:02 O2 Flow Rate 2 06/22/22 11:02 BMI result Body Mass Index 19.5 Const: Other: awake and alert this morning thin, chronically ill appearing appears tired Objective Data Active Medications Heparin Sodium (Porcine) (Heparin Sodium,Porcine Flush 50 Units/5 Ml Syringe) 50 units IVFLUSH [facility] Last Admin: 06/22/22 10:48 Dose: 50 units Documented By: MILES Hydromorphone HCl (Hydromorphone Hcl 0.5 Mg/0.5 Ml Syringe) 0.25 mg IVPUSH Q4H PRN; Protocol PRN Reason: Pain, Severe (Pain Scale 7-10) Last Admin: 06/22/22 11:19 Dose: 0.25 mg Documented By: MILES Potassium Chloride 60 meq/Sodium Chloride 70 meq/Magnesium Sulfate 5 meq/Calcium Gluconate 4.65 meq/Amino Acids/Electrolytes/Dextrose 2,058.75 mls @ 85.781 mls/hr IVCONT DAILY@1800 [facility] Stop: 06/22/22 17:59 Last Admin: 06/21/22 19:54 Dose: 85.78 mls/hr Documented By: MARYAM Sodium Chloride (Ns) 1,000 mls @ 100 mls/hr IVCONT .Q10H [facility] Last Admin: 06/22/22 10:49 Dose: 100 mls/hr Documented By: MILES Potassium Chloride 60 meq/Sodium Chloride 50 meq/Magnesium Sulfate 5 meq/Calcium Gluconate 4.65 meq/Sodium Phosphate 40 mmol/Multivitamins 10 ml/ Trace Metals 1 ml/ Amino Acids/Electrolytes/Dextrose 1,560 mls @ 65 mls/hr IVCONT DAILY@1800 [facility] Stop: 06/23/22 17:59 Lactulose (Lactulose 20 Gm/30 Ml Solution) 30 gm PO BID [facility] Last Admin: 06/22/22 10:48 Dose: 30 gm Documented By: MILES Metoclopramide HCl (Metoclopramide Hcl 10 Mg/2 Ml Vial) 5 mg IVPUSH Q6H PRN PRN Reason: Nausea and Vomiting Last Admin: 06/21/22 15:12 Dose: 5 mg Documented By: TIMMY Omeprazole (Omeprazole 20 Mg Capsule.Dr) 20 mg PO DAILY@0630 [facility] Last Admin: 06/22/22 05:40 Dose: 20 mg Documented By: NITZA Ondansetron HCl (Ondansetron Hcl 4 Mg/2 Ml Vial) 4 mg IVPUSH Q8H PRN PRN Reason: Nausea and Vomiting Last Admin: 06/22/22 11:19 Dose: 4 mg Documented By: MILES Rifaximin (Rifaximin 550 Mg Tablet) 550 mg PO BID [facility] Last Admin: 06/22/22 10:49 Dose: 550 mg Documented By: MILES Sodium Chloride (0.9 % Sodium Chloride Flush 3 Ml Syringe) 3 ml IVFLUSH QSHIFT [facility] Last Admin: 06/22/22 10:49 Dose: 3 ml Documented By: MILES Labs 06/20/22 18:59 06/22/22 08:16 Labs: Laboratory Results - last 24 hr 06/22/22 06/22/22 08:16 08:16 Anion Gap 14 Estim Creat Clear Calc 31.6 Estimated GFR 33 Random Glucose 116 H Calcium 8.8 D Phosphorus 1.6 L Magnesium 2.3 Albumin 3.1 L Triglycerides 253 Microbiology Microbiology Results: Microbiology 06/17/22 09:33 Blood Culture - Final Blood - Venous No growth after 5 days. 06/17/22 09:34 Blood Culture - Final Blood - Venous No growth after 5 days. Assessment and Plan (1) Acute hepatic encephalopathy: Status: Acute Plan 62-year-old woman admitted with metabolic hepatic encephalopathy. Previous admission she had multiple specialize labs including BALTAZAR, AMA, Anca, alpha-1 antitrypsin, GGT, cell EF antibodies , liver fibrosis test, all negative. 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 has SBFT, pt passing contrast h/o UC s/p colectomy with J-pouch . seen by surgery, no acute surgical issues continue reglan, NGT removed no appetite, hasn't eaten in several days - Has PICC line since 06/20 and on PPN, overall n/v better SIRS met criteria with fever, tachycardia. appears to have had isolated fever. No leukocytosis Lactic acid 3.8, likely secondary to underlying liver dysfunction and not sepsis Has been on Zosyn empirically to cover for possible aspiration, UA on admission negative for infection No clear source of infection at this time. no respiratory or urinary symptoms Blood cultures negative to date DC Abx if culture negative x 48 Hypokalemia replace and resolved likely r/t gi losses follow BMP JOBY likely prerenal --Creatine better 1.57 from 3, Nephro consult Hyponatremia 127 likely related to excess free water, free water restriction Chronic Microcytic anemia drop in H/H likely dilutional/pt dehydrated on admission seems to be around previous baseline Mental health Hold all medications for now due to lethargy Moderate malnutrition BMI 19.6, loss of subq fat and muscle mass with wt loss and decreased PO intake continue PPN and when able oral intake as well, will consider potential DC with TPN at home DVT heparin Full code Requires ongoing inpatient management for encephalopathy, hypokalemia, SIRS,N/V Time Spent With Patient Time: Total time managing care of this patient today ____ minutes. Quality Stroke Does the patient have a stroke diagnosis?: No VTE Prior VTE?: No VTE Risk Level:: Medical - moderate - high VTE Device Contraindication: N/A - Device Ordered VTE Drug Contraindication: Treatment Not Indicated
--- NOTE | 2022-06-22 12:13 | HE.PHANOTE ---
Patient is on PPN, Ирина Richards had suggested to give at a rate of 65 ml/min. Upon pharmacy editing the script the order defaulted to total volume and changed the volume from 1560 to 2058.75 thus changing the rate from 65 ml/hr to 85 ml/hr. Called Susie immediately upon discovery for recommendations/insight. Patient received extra protein/ liquid, labs will reflect within the next few days. Changed upon discovery (06/22 @1200) to the correct rate of 65ml/min. PPN itself was correct, however, incorrect rate. Tigertexted RN to switch rate, RN switch quickly.?
--- NOTE | 2022-06-22 12:19 | MHC.CM.PN ---
EMR REVIEWED AND PER MD ROUNDS, PT IS NOT MEDICALLY CLEARED FOR DC (CONTINUED PPN, N/V) PT MAY DC HOME ON PPN, [facility]NA UPDATED. CM WILL CONTINUE TO FOLLOW. JAQUELINE FROM [facility] IN AND MET WITH PT/[facility] CONSULTANT.
--- NOTE | 2022-06-22 15:33 | MHC.SLORD ---
Addendum entered and electronically signed by Sierra Corrigan MA, CCC-HOSE TESTER 06/23/22 09:03: D.S. Original Note: Speech Language Pathology Order Status: Per check in w/ RN, pt remains on clear liquid diet d/t GI reasons. Pt reportedly tolerating diet; no s/s aspiration w/ thin liquids. HOSE TESTER evaluated pt yesterday 06/21 and recommended a diet upgrade of puree solids (NDD1) and thin liquids when pt no longer requires full liquid diet.
[2022-06-22] MEDS: Metoclopramide HCl 10 MG/2 ML VIAL 5 MG IVPUSH ×2 (15:41→22:54)
--- NOTE | 2022-06-22 15:56 | PM.GIPN ---
Subjective Subjective Date of Service: 06/22/22 Interval History: c/o nausea no vomiting Critical Care Time (minutes): 0 Physical Exam Vital Signs: Vital Signs: Last Vital Signs Temp 98.3 F 06/22/22 11:02 Pulse 115 H 06/22/22 11:02 Resp 20 06/22/22 11:02 BP 122/80 06/22/22 11:02 Pulse Ox 97 06/22/22 11:02 O2 Del Method Nasal Cannula 06/22/22 11:02 O2 Flow Rate 2 06/22/22 11:02 BMI result Body Mass Index 19.5 GI: Other: abdomen is soft and nontender Objective Data Labs 06/20/22 18:59 06/22/22 08:16 Labs: Laboratory Results - last 24 hr 06/22/22 06/22/22 08:16 08:16 Sodium 127 L Potassium 4.2 Chloride 91 L Carbon Dioxide 26 Anion Gap 14 BUN 47 H Creatinine 1.57 H Estim Creat Clear Calc 31.6 Estimated GFR 33 Random Glucose 116 H Calcium 8.8 D Phosphorus 1.6 L Magnesium 2.3 Albumin 3.1 L Triglycerides 253 Microbiology Microbiology Results: Microbiology 06/17/22 09:33 Blood - Venous Blood Culture - Final No growth after 5 days. 06/17/22 09:34 Blood - Venous Blood Culture - Final No growth after 5 days. Procedures Date of Service Date of Service: 06/22/22 Progress Note: A&P Assessment and plan (1) Acute hepatic encephalopathy: Status: Acute Assessment and Plan: cont xifaxan, lactulose treat nausea advance diet as tolerated. Time Spent With Patient Time: Total time managing care of this patient today ____ minutes. Quality Stroke Does the patient have a stroke diagnosis?: No VTE Prior VTE?: No VTE Risk Level:: Medical - moderate - high VTE Device Contraindication: N/A - Device Ordered VTE Drug Contraindication: Treatment Not Indicated
[2022-06-23] MEDS: HYDROmorphone HCl 0.5 MG/0.5 ML SYRINGE 0.25 MG IVPUSH ×4 (00:49→18:18)
[2022-06-23] MEDS: 0.9 % Sodium Chloride Flush 3 ML SYRINGE IVFLUSH ×3 (00:59→18:22)
[2022-06-23] MEDS: Heparin Sodium,Porcine Flush 50 UNITS/5 ML SYRINGE IVFLUSH ×3 (00:59→18:18)
[2022-06-23 04:00] VITALS: BP 134/94; PULSE 103; RESP 18; TEMP 36.7; O2SAT 98
[2022-06-23] MEDS: ondansetron HCL 4 MG/2 ML VIAL IVPUSH (04:02)
[2022-06-23 07:05] LABS: Anion Gap 12 (12-20); Calcium 8.1 mg/dL (8.4-10.2); Carbon Dioxide 22 mmol/L (22-29); Chloride 98 mmol/L (96-108); Glucose Random 114 mg/dL (60-115); Potassium 3.8 mmol/L (3.3-5.1); Sodium 128 mmol/L (135-145)
[2022-06-23 07:29] LABS: Blood Urea Nitrogen 28 mg/dL (9-16); Creatinine Clr Calc Pharmacy 67.2; Estimated Glomerular Filt Rate > 60
[2022-06-23 07:39] LABS: Albumin Level 2.7 g/dL (3.5-5.0); Phosphorus 1.6 mg/dL (2.7-4.5)
[2022-06-23 07:58] VITALS: BP 128/92; PULSE 110; RESP 20; TEMP 36; O2SAT 96
--- NOTE | 2022-06-23 08:06 | MHC.CLN ---
F/U DIET ADVANCED TO F/L PPN TO CONTINUE: DISCUSSED WITH PHARMACIST CONTINUE D10AA4.25 AT 65ML/HR TO PROVIDE 796KCALS, 66G PROTEIN (1.2G/KG) REPLETE LYTES NEEDED PT RECEIVING ENSURE BID WITH F/L DIET TO INCREASE KCALS SUPP PROVIDES 700KCALS, 40G PROTEIN WITH 100% ACCEPTANCE 25% X2 MEALS SPOKE WITH [facility] NURSE YESTERDAY FOR D/C HOME ON PPN FOLLOWING WITH TEAM
[2022-06-23] MEDS: rifAXIMin 550 MG TABLET PO ×2 (09:25→20:35)
[2022-06-23] MEDS: Metoclopramide HCl 10 MG/2 ML VIAL 5 MG IVPUSH (09:46)
[2022-06-23] MEDS: 0.9 % Sodium Chloride 1,000 ML 100 ML IVCONT (09:55)
--- NOTE | 2022-06-23 11:16 | PM.PNNEP ---
Subjective Subjective Date of Service: 06/23/22 Interval history: c/o nausea no vomiting Physical Exam Vital Signs: Vital Signs: Last Vital Signs Temp 96.8 F 06/23/22 07:58 Pulse 110 H 06/23/22 07:58 Resp 20 06/23/22 07:58 BP 128/92 H 06/23/22 07:58 Pulse Ox 96 06/23/22 07:58 O2 Del Method Nasal Cannula 06/23/22 07:58 O2 Flow Rate 2 06/23/22 07:58 BMI result Body Mass Index 19.5 Const: Other: awake and alert this morning thin, chronically ill appearing appears tired Cardio: Rate: regular rate and tachycardic Heart sounds: S1 normal heart sound present and S2 normal heart sound present GI: Other: abdomen is soft and nontender : General: Yes no CVA tenderness Back/Spine/Pelvis: Back: no CVA tenderness Extrem: General: Yes no pedal edema Objective Data Labs 06/20/22 18:59 06/23/22 06:39 Labs: Laboratory Results - last 24 hr 06/23/22 06:39 Sodium 128 L Potassium 3.8 Chloride 98 Carbon Dioxide 22 Anion Gap 12 BUN 28 H Creatinine 0.74 Estim Creat Clear Calc 67.2 Estimated GFR > 60 Random Glucose 114 Calcium 8.1 L D Phosphorus 1.6 L Magnesium 2.0 Albumin 2.7 L Microbiology Microbiology Results: Microbiology 06/17/22 09:33 Blood - Venous Blood Culture - Final No growth after 5 days. 06/17/22 09:34 Blood - Venous Blood Culture - Final No growth after 5 days. Procedures Date of Service Date of Service: 06/23/22 Assessment & Plan Assessment and plan (1) Hyponatremia: Status: Acute (2) Acute kidney injury: Status: Acute Plan 62-year-old woman with acute kidney injury And hyponatremia in a setting of hepatic encephalopathy. differential diagnosis with acute kidney injury would include hypoperfusion. However urinary retention / obstruction still a possibility given her symptoms. Urine sediment showed bland therefore glomerulonephritis or interstitial disease seems unlikely at this time. She has hyponatremia history of cirrhosis clinically she appears hypovolemic. She probably has hypovolemic hyponatremia. At present serum sodium is gradually improving. Serum creatinine improved as well. Recommendation Check urine for sodium, creatinine, osmolarity. IV hydration with normal saline at 80 cc/hour. Keep intake more than the output. Restrict hypotonic fluids / free water intake. bladder scan. P.r.n. If she has retention then would recommend a Amanda catheter for the next 24-48 hours to monitor urine output and to see if there is any ongoing obstruction. We will follow closely with the team. Time Spent With Patient Time: Total time managing care of this patient today ____ minutes. Progress Note: Quality Stroke Does the patient have a stroke diagnosis?: No
[2022-06-23 12:00] VITALS: BP 134/96; PULSE 108; RESP 20; TEMP 36.6; O2SAT 96
[2022-06-23 12:46] LABS: Creatinine Urine 98.93 mg/dL; Sodium Urine Random < 20.0 mmol/L
--- NOTE | 2022-06-23 13:15 | PM.GIPN ---
Subjective Subjective Date of Service: 06/23/22 Interval History: tolerating liquids, would like to start solids Critical Care Time (minutes): 0 Physical Exam Vital Signs: Vital Signs: Last Vital Signs Temp 97.8 F 06/23/22 12:00 Pulse 108 H 06/23/22 12:00 Resp 20 06/23/22 12:00 BP 134/96 H 06/23/22 12:00 Pulse Ox 96 06/23/22 12:00 O2 Del Method Room Air 06/23/22 12:00 O2 Flow Rate 2 06/23/22 07:58 BMI result Body Mass Index 19.5 GI: Other: abdomen is soft and nontender Objective Data Labs 06/20/22 18:59 06/23/22 06:39 Labs: Laboratory Results - last 24 hr 06/23/22 06/23/22 06:39 12:07 Sodium 128 L Potassium 3.8 Chloride 98 Carbon Dioxide 22 Anion Gap 12 BUN 28 H Creatinine 0.74 Estim Creat Clear Calc 67.2 Estimated GFR > 60 Random Glucose 114 Calcium 8.1 L D Phosphorus 1.6 L Magnesium 2.0 Albumin 2.7 L Ur Random Sodium < 20.0 Urine Creatinine 98.93 Microbiology Microbiology Results: Microbiology 06/17/22 09:33 Blood - Venous Blood Culture - Final No growth after 5 days. 06/17/22 09:34 Blood - Venous Blood Culture - Final No growth after 5 days. Procedures Date of Service Date of Service: 06/23/22 Progress Note: A&P Assessment and plan (1) Acute hepatic encephalopathy: Status: Acute Time Spent With Patient Time: Total time managing care of this patient today ____ minutes. Quality Stroke Does the patient have a stroke diagnosis?: No VTE Prior VTE?: No VTE Risk Level:: Medical - moderate - high VTE Device Contraindication: N/A - Device Ordered VTE Drug Contraindication: Treatment Not Indicated
--- NOTE | 2022-06-23 14:23 | P.PNIM_ITS ---
Subjective Subjective Date of Service: 06/23/22 Interval History: Had some nausea and vomitting overnight, and was very upset with care overnight that she was not attended to use commode and a needle was found in the her bed but did experienced a niddle and in fact the need was closed and not used Physical Exam Vital Signs: Vital Signs: Last Vital Signs Temp 97.8 F 06/23/22 12:00 Pulse 108 H 06/23/22 12:00 Resp 20 06/23/22 12:00 BP 134/96 H 06/23/22 12:00 Pulse Ox 96 06/23/22 12:00 O2 Del Method Room Air 06/23/22 12:00 O2 Flow Rate 2 06/23/22 07:58 BMI result Body Mass Index 19.5 Const: Other: awake and alert this morning thin, chronically ill appearing appears tired Objective Data Active Medications Dicyclomine HCl (Dicyclomine Hcl 10 Mg Capsule) 10 mg PO TIDAC PRN PRN Reason: cramping Heparin Sodium (Porcine) (Heparin Sodium,Porcine Flush 50 Units/5 Ml Syringe) 50 units IVFLUSH QSHIFT [facility] Last Admin: 06/23/22 09:24 Dose: 50 units Documented By: CHRIS Hydromorphone HCl (Hydromorphone Hcl 0.5 Mg/0.5 Ml Syringe) 0.25 mg IVPUSH Q4H PRN; Protocol PRN Reason: Pain, Severe (Pain Scale 7-10) Last Admin: 06/23/22 13:55 Dose: 0.25 mg Documented By: CHRIS Sodium Chloride (Ns) 1,000 mls @ 100 mls/hr IVCONT .Q10H [facility] Last Admin: 06/23/22 09:55 Dose: 100 mls/hr Documented By: CHRIS Potassium Chloride 60 meq/Sodium Chloride 50 meq/Magnesium Sulfate 5 meq/Calcium Gluconate 4.65 meq/Sodium Phosphate 40 mmol/Multivitamins 10 ml/ Trace Metals 1 ml/ Amino Acids/Electrolytes/Dextrose 1,560 mls @ 65 mls/hr IVCONT DAILY@1800 [facility] Stop: 06/23/22 17:59 Last Admin: 06/22/22 17:35 Dose: 65 mls/hr Documented By: MILES Potassium Chloride 20 meq/Sodium Chloride 70 meq/Magnesium Sulfate 5 meq/Potassium Phosphate 60 mmol/Calcium Gluconate 4.65 meq/Sodium Phosphate 40 mmol/Amino Acids/Electrolytes/Dextrose 1,560 mls @ 65 mls/hr IVCONT DAILY@1800 [facility] Stop: 06/24/22 17:59 Lactulose (Lactulose 20 Gm/30 Ml Solution) 30 gm PO BID [facility] Last Admin: 06/23/22 09:25 Dose: Not Given Documented By: CHRIS Non-Admin Reason: Patient Refused Metoclopramide HCl (Metoclopramide Hcl 10 Mg/2 Ml Vial) 5 mg IVPUSH Q6H PRN PRN Reason: Nausea and Vomiting Last Admin: 06/23/22 09:46 Dose: 5 mg Documented By: CHRIS Omeprazole (Omeprazole 20 Mg Capsule.) 20 mg PO DAILY@0630 [facility] Last Admin: 06/23/22 06:20 Dose: Not Given Documented By: ESTELLA Non-Admin Reason: Patient Refused Ondansetron HCl (Ondansetron Hcl 4 Mg/2 Ml Vial) 4 mg IVPUSH Q8H PRN PRN Reason: Nausea and Vomiting Last Admin: 06/23/22 04:02 Dose: 4 mg Documented By: ESTELLA Rifaximin (Rifaximin 550 Mg Tablet) 550 mg PO BID [facility] Last Admin: 06/23/22 09:25 Dose: 550 mg Documented By: CHRIS Sodium Chloride (0.9 % Sodium Chloride Flush 3 Ml Syringe) 3 ml IVFLUSH QSHIFT [facility] Last Admin: 06/23/22 09:24 Dose: 3 ml Documented By: CHRIS Labs 06/20/22 18:59 06/23/22 06:39 Labs: Laboratory Results - last 24 hr 06/23/22 06/23/22 06:39 12:07 Anion Gap 12 Estim Creat Clear Calc 67.2 Estimated GFR > 60 Random Glucose 114 Calcium 8.1 L D Phosphorus 1.6 L Magnesium 2.0 Albumin 2.7 L Ur Random Sodium < 20.0 Urine Creatinine 98.93 Microbiology Microbiology Results: Microbiology 06/17/22 09:33 Blood Culture - Final Blood - Venous No growth after 5 days. 06/17/22 09:34 Blood Culture - Final Blood - Venous No growth after 5 days. Assessment and Plan (1) Acute hepatic encephalopathy: Status: Acute Plan 62-year-old woman admitted with metabolic hepatic encephalopathy. Previous admission she had multiple specialize labs including BALTAZAR, AMA, Anca, alpha-1 antitrypsin, GGT, cell EF antibodies , liver fibrosis test, all negative. 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 has SBFT, pt passing contrast h/o UC s/p colectomy with J-pouch . seen by surgery, no acute surgical issues continue reglan, NGT removed no appetite, hasn't eaten in several days - Has PICC line since 06/20 and on PPN, overall n/v better xray of abdomen given persistent vomitting SIRS met criteria with fever, tachycardia. appears to have had isolated fever. No leukocytosis Lactic acid 3.8, likely secondary to underlying liver dysfunction and not sepsis Has been on Zosyn empirically to cover for possible aspiration, UA on admission negative for infection No clear source of infection at this time. no respiratory or urinary symptoms Blood cultures negative to date DC Abx if culture negative x 48 Hypokalemia replace and resolved likely r/t gi losses follow BMP JOBY likely prerenal --Creatine better 1.57 from 3, Nephro consult Hyponatremia 128 likely related to excess free water, free water restriction Chronic Microcytic anemia drop in H/H likely dilutional/pt dehydrated on admission seems to be around previous baseline Mental health Hold all medications for now due to lethargy Moderate malnutrition BMI 19.6, loss of subq fat and muscle mass with wt loss and decreased PO intake continue PPN and when able oral intake as well, will consider potential DC with TPN at home DVT heparin Full code Requires ongoing inpatient management for encephalopathy, hypokalemia, SIRS,N/V Time Spent With Patient Time: Total time managing care of this patient today ____ minutes. Quality Stroke Does the patient have a stroke diagnosis?: No VTE Prior VTE?: No VTE Risk Level:: Medical - moderate - high VTE Device Contraindication: N/A - Device Ordered VTE Drug Contraindication: Treatment Not Indicated
[2022-06-23 15:06] LABS: Osmolality Urine 737 mosm/kg (373-1093)
[2022-06-23 15:14] VITALS: BP 140/85; PULSE 112; RESP 18; TEMP 37.1; O2SAT 98
--- NOTE | 2022-06-23 15:36 | MHC.CM.PN ---
PT MAY DC HOME ON TPN REFERRALS WERE MADE FOR [facility] AND [facility] INDICATED THERE WILL BE A COST. THEY ARE UNABLE TO CONFIRM DEFINITELY UNTIL PTS HOSPITAL BILLS ARE PROCESSED, BUT IT APPEARS IT WILL BE $252 / WEEK FOR ABOUT 2 MONTHS BEFORE PT REACHES HER OOP COPAYS/DEDUCTIBLES. PT REPORTS THAT IS FINE AND SHE WANTS TO MOVE FORWARD WITH PLAN TO DC HOME [facility] HAS INDICATED THEY COULD PROVIDE A RN MONDAY AFTERNOON/EVENING IF [facility] CAN COVER TOMORROW, THEN [facility] CAN RESUME PTS CARE AFTER THAT
[2022-06-23] MEDS: Dicyclomine HCl 10 MG CAPSULE PO (16:48)
[2022-06-23 20:00] VITALS: BP 136/89; PULSE 107; RESP 18; TEMP 36.2; O2SAT 97
[2022-06-23] MEDS: Lactulose 20 GM/30 ML SOLUTION 30 GM PO (20:35)
[2022-06-24] VITALS: BP 145/98; PULSE 112; RESP 18; TEMP 36.6; O2SAT 97
[2022-06-24] MEDS: HYDROmorphone HCl 0.5 MG/0.5 ML SYRINGE 0.25 MG IVPUSH ×5 (00:03→20:58)
[2022-06-24] MEDS: Heparin Sodium,Porcine Flush 50 UNITS/5 ML SYRINGE IVFLUSH ×3 (00:04→18:01)
[2022-06-24] MEDS: 0.9 % Sodium Chloride 1,000 ML 100 ML IVCONT (00:05)
[2022-06-24] MEDS: Dicyclomine HCl 10 MG CAPSULE PO ×3 (00:28→20:58)
[2022-06-24 04:00] VITALS: BP 140/96; PULSE 105; RESP 18; TEMP 37.1; O2SAT 94
[2022-06-24] MEDS: Omeprazole 20 MG CAPSULE.DR PO (05:02)
[2022-06-24 07:23] VITALS: BP 138/92; PULSE 102; RESP 20; TEMP 36.6; O2SAT 94
[2022-06-24] MEDS: ondansetron HCL 4 MG/2 ML VIAL IVPUSH ×2 (08:52→18:01)
[2022-06-24] MEDS: rifAXIMin 550 MG TABLET PO ×2 (08:52→19:57)
[2022-06-24] MEDS: 0.9 % Sodium Chloride Flush 3 ML SYRINGE IVFLUSH ×2 (08:52→17:09)
--- NOTE | 2022-06-24 10:48 | MHC.CLN ---
F/U DIET ADVANCED TO REGULAR PO INTAKE 25% PT CONTINUES TO C/O N/V BUT IMPROVED PPN TO CONTINUE: DISCUSSED WITH PHARMACIST CONTINUE D10AA4.25 AT 65ML/HR TO PROVIDE 796KCALS, 66G PROTEIN (1.2G/KG) REPLETE LYTES NEEDED WILL RE-START ENSURE BID WITH REGULAR DIET TO INCREASE KCALS SUPP PROVIDES 700KCALS, 40G PROTEIN WITH 100% ACCEPTANCE SPOKE WITH [facility] FOR POSSIBLE D/C HOME ON PPN FOLLOWING WITH TEAM
[2022-06-24 11:45] VITALS: BP 134/96; PULSE 102; RESP 20; TEMP 37.2; O2SAT 96
--- NOTE | 2022-06-24 11:47 | PM.PNNEP ---
Subjective Subjective Date of Service: 06/24/22 Interval history: Events noted. All recent data reviewed Physical Exam Vital Signs: Vital Signs: Last Vital Signs Temp 97.9 F 06/24/22 07:23 Pulse 102 H 06/24/22 07:23 Resp 20 06/24/22 07:23 BP 138/92 H 06/24/22 07:23 Pulse Ox 94 06/24/22 07:23 O2 Del Method Room Air 06/24/22 07:23 O2 Flow Rate 2 06/23/22 07:58 BMI result Body Mass Index 19.5 Const: General: no acute distress Eyes: EOM: EOMs intact bilaterally Neck: Neck: Yes supple Resp: Auscultation: diminished lung sounds Cardio: Rate: regular rate GI: Palpation (GI): Soft to palpation Neuro: General: moves all extremities Objective Data Labs 06/20/22 18:59 06/23/22 06:39 Labs: Laboratory Results - last 24 hr 06/23/22 06/23/22 12:07 12:07 Urine Osmolality 737 Ur Random Sodium < 20.0 Urine Creatinine 98.93 Microbiology Microbiology Results: Microbiology 06/17/22 09:33 Blood - Venous Blood Culture - Final No growth after 5 days. 06/17/22 09:34 Blood - Venous Blood Culture - Final No growth after 5 days. Procedures Date of Service Date of Service: 06/24/22 Assessment & Plan Assessment and plan (1) Hyponatremia: Status: Acute Assessment and Plan: ?62-year-old woman with acute kidney injury And hyponatremia in a setting of hepatic encephalopathy.? serum sodium improved and stable.? Serum creatinine improved as well. Continue current supportive care for now Progress Note: Quality Stroke Does the patient have a stroke diagnosis?: No
--- NOTE | 2022-06-24 12:17 | P.PNIM_ITS ---
Subjective Subjective Date of Service: 06/24/22 Interval History: She has some nausea overnight but no vomitting and in general is feeling much better today no diarrhea, no confusion Physical Exam Vital Signs: Vital Signs: Last Vital Signs Temp 98.9 F 06/24/22 11:45 Pulse 102 H 06/24/22 11:45 Resp 20 06/24/22 11:45 BP 134/96 H 06/24/22 11:45 Pulse Ox 96 06/24/22 11:45 O2 Del Method Room Air 06/24/22 11:45 O2 Flow Rate 2 06/23/22 07:58 BMI result Body Mass Index 19.5 Const: Other: General: AO X 3, no acute distress Resp: CTA bilateral CVS: S1,S2,RRR GI: +BS, NT, no distention Skin: No rash Neuro: motor grossly intact Psych: appropriate affect Objective Data Active Medications Dicyclomine HCl (Dicyclomine Hcl 10 Mg Capsule) 10 mg PO TIDAC PRN PRN Reason: cramping Last Admin: 06/24/22 08:52 Dose: 10 mg Documented By: CHRIS Heparin Sodium (Porcine) (Heparin Sodium,Porcine Flush 50 Units/5 Ml Syringe) 50 units IVFLUSH QSHIFT [facility] Last Admin: 06/24/22 09:01 Dose: 50 units Documented By: CHRIS Hydromorphone HCl (Hydromorphone Hcl 0.5 Mg/0.5 Ml Syringe) 0.25 mg IVPUSH Q4H PRN; Protocol PRN Reason: Pain, Severe (Pain Scale 7-10) Last Admin: 06/24/22 11:29 Dose: 0.25 mg Documented By: CHRIS Potassium Chloride 20 meq/Sodium Chloride 70 meq/Magnesium Sulfate 5 meq/Potassium Phosphate 60 mmol/Calcium Gluconate 4.65 meq/Sodium Phosphate 40 mmol/Amino Acids/Electrolytes/Dextrose 1,560 mls @ 65 mls/hr IVCONT DAILY@1800 [facility] Stop: 06/24/22 17:59 Last Admin: 06/23/22 18:20 Dose: 65 mls/hr Documented By: CHRIS Lactulose (Lactulose 20 Gm/30 Ml Solution) 30 gm PO BID [facility] Last Admin: 06/24/22 08:54 Dose: Not Given Documented By: CHRIS Non-Admin Reason: Patient Refused Metoclopramide HCl (Metoclopramide Hcl 10 Mg/2 Ml Vial) 5 mg IVPUSH Q6H PRN PRN Reason: Nausea and Vomiting Last Admin: 06/23/22 09:46 Dose: 5 mg Documented By: CHRIS Omeprazole (Omeprazole 20 Mg Capsule.) 20 mg PO DAILY@0630 [facility] Last Admin: 06/24/22 05:02 Dose: 20 mg Documented By: CADEN Ondansetron HCl (Ondansetron Hcl 4 Mg/2 Ml Vial) 4 mg IVPUSH Q8H PRN PRN Reason: Nausea and Vomiting Last Admin: 06/24/22 08:52 Dose: 4 mg Documented By: CHRIS Rifaximin (Rifaximin 550 Mg Tablet) 550 mg PO BID [facility] Last Admin: 06/24/22 08:52 Dose: 550 mg Documented By: CHRIS Sodium Chloride (0.9 % Sodium Chloride Flush 3 Ml Syringe) 3 ml IVFLUSH QSHIFT [facility] Last Admin: 06/24/22 08:52 Dose: 3 ml Documented By: CHRIS Labs 06/20/22 18:59 06/23/22 06:39 Labs: Laboratory Results - last 24 hr 06/23/22 06/23/22 12:07 12:07 Urine Osmolality 737 Ur Random Sodium < 20.0 Urine Creatinine 98.93 Assessment and Plan (1) Acute hepatic encephalopathy: Status: Acute Plan 62-year-old woman admitted with metabolic hepatic encephalopathy. Previous admission she had multiple specialize labs including BALTAZAR, AMA, Anca, alpha-1 antitrypsin, GGT, cell EF antibodies , liver fibrosis test, all negative. Acute recurrent metabolic hepatic encephalopathy d/t ROACH causing hyp erammonemia and dehydration treated with lactulose and Rifaximin and she's lucid at this time, continue lactulose, hold for diarrhea Persistent nausea/vomiting CT abdomen with concern of SBO, but changes appear chronic and likely r/t narrowing from previous anastamosis site. has SBFT, pt passing contrast h/o UC s/p colectomy with J-pouch . seen by surgery, no acute surgical issues Overall better and is tolerating liquid diet Has PICC line since 06/20 and on PPN, overall n/v better xray of abdomen if persistent vomitting SIRS met criteria with fever, tachycardia. appears to have had isolated fever. No leukocytosis Lactic acid 3.8, likely secondary to underlying liver dysfunction and not sepsis Has been on Zosyn empirically to cover for possible aspiration, UA on admission negative for infection No clear source of infection at this time. no respiratory or urinary symptoms Blood cultures negative to date DC Abx if culture negative x 48 Hypokalemia replace and resolved likely r/t gi losses follow BMP JOBY likely prerenal --Creatine is normal now Hyponatremia 128 likely related to excess free water, free water restriction Chronic Microcytic anemia drop in H/H likely dilutional/pt dehydrated on admission seems to be around previous baseline Mental health--continue meds Moderate protein calory malnutrition BMI 19.6, loss of subq fat and muscle mass with wt loss and decreased PO intake continue PPN and when able oral intake as well, will consider potential DC with TPN at home DVT heparin Full code Requires ongoing inpatient management for encephalopathy, hypokalemia, SIRS,N/V Time Spent With Patient Time: Total time managing care of this patient today ____ minutes. Quality Stroke Does the patient have a stroke diagnosis?: No VTE Prior VTE?: No VTE Risk Level:: Medical - moderate - high VTE Device Contraindication: N/A - Device Ordered VTE Drug Contraindication: Treatment Not Indicated
--- NOTE | 2022-06-24 12:44 | MHC.SL.DTX ---
Regular Solids/Thin Liquids Dysphagia Diet modifications: N/a Last documented Solid diet consistencies: Regular Last documented Liquid consistency: Thin Changes made to current diet?: No Liquid Consistency and Strategies: Liquid Intake Recommendation: Thin Compensatory Strategies for Safe Swallow: Compensatory Strategies for Safe Swallow(b): Sitting Upright (90 deg) Small Bites and Sips Alternate Liquids/Solids Rate of Ingestion Change Solid Food Consistency: Dietary Recommendations: Regular Additional Modifications to Solids: N/a Oral Medication Intake: Crushed with Puree Strategies and Precautions to be Taken for Safe Swallow: Sitting Upright (90 deg) Small Bites and Sips Alternate Liquids/Solids Rate of Ingestion Change Supervision While Eating and/Drinking: Intermittent Supervision Foods to Avoid: Difficult to digest solids. Swallowing Recommended Treatments: Compens. Strategy Educat. Recommendation for Speech: Inpatient Speech Therapy Comment: [employer] will continue to monitor potential for further upgrade. Additional Comments: Treatment: Pt is more alert and energetic this morning with no new complaints. She has been tolerating Regular Solids for the past 24 hrs. She demonstrates ability to eat a peanut butter cracker with small bites independently. She eats only 50% of the item before stopping. She demonstrates good insight and awareness of her swallowing issues and is deemed safe for discharge on her current diet. Strategic Communications Specialist Clinican/Clinical Fellow: No Supervisory Statement: I have reviewed and agree with the student/clinical fellow's documentation: N/A Speech Language Pathologist: Lico Cordova M.A., [facility] [employer]
[2022-06-24 14:23] LABS: Anion Gap 14 (12-20); Blood Urea Nitrogen 14 mg/dL (9-16); Calcium 8.4 mg/dL (8.4-10.2); Carbon Dioxide 19 mmol/L (22-29); Chloride 100 mmol/L (96-108); Creatinine Clr Calc Pharmacy 82.8; Estimated Glomerular Filt Rate > 60; Glucose Random 124 mg/dL (60-115); Magnesium 1.8 mg/dL (1.6-2.6); Phosphorus 3.6 mg/dL (2.7-4.5); Potassium 3.6 mmol/L (3.3-5.1); Sodium 129 mmol/L (135-145)
--- NOTE | 2022-06-24 14:48 | MHC.CM.PN ---
EMR REVIEWED AND CM SPOKE WITH [facility] JAQUELINE WHO INFORMS CM THAT [facility] NURSE WILL NOT BE ABLE TO MANAGE THE TPN INITIATION UNTIL TUESDAY 06/27. AWARE.
[2022-06-24 15:14] VITALS: BP 154/98; PULSE 128; RESP 18; TEMP 36.6; O2SAT 98
--- NOTE | 2022-06-24 15:32 | PM.GIPN ---
Subjective Subjective Date of Service: 06/24/22 Interval History: tolerating some solids, still some intermittent nausea Critical Care Time (minutes): 0 Physical Exam Vital Signs: Vital Signs: Last Vital Signs Temp 97.8 F 06/24/22 15:14 Pulse 128 H 06/24/22 15:14 Resp 18 06/24/22 15:14 BP 154/98 H 06/24/22 15:14 Pulse Ox 98 06/24/22 15:14 O2 Del Method Room Air 06/24/22 15:14 O2 Flow Rate 2 06/23/22 07:58 BMI result Body Mass Index 19.5 Const: Other: mental status seems at baseline GI: Other: abdomen is firm and nontender Objective Data Labs 06/20/22 18:59 06/24/22 13:58 Labs: Laboratory Results - last 24 hr 06/24/22 06/24/22 12:21 13:58 Sodium TNP 129 L Potassium TNP 3.6 Chloride TNP 100 Carbon Dioxide TNP 19 L Anion Gap TNP 14 BUN TNP 14 Creatinine TNP 0.60 Estim Creat Clear Calc TNP 82.8 Estimated GFR TNP > 60 Random Glucose TNP 124 H Calcium TNP 8.4 Phosphorus TNP 3.6 Magnesium TNP 1.8 Albumin TNP 3.0 L Microbiology Microbiology Results: Microbiology 06/17/22 09:33 Blood - Venous Blood Culture - Final No growth after 5 days. 06/17/22 09:34 Blood - Venous Blood Culture - Final No growth after 5 days. Procedures Date of Service Date of Service: 06/24/22 Progress Note: A&P Assessment and plan (1) Acute hepatic encephalopathy: Status: Acute Assessment and Plan: appears improved continue xifaxan, dicyclomine Time Spent With Patient Time: Total time managing care of this patient today ____ minutes. Quality Stroke Does the patient have a stroke diagnosis?: No VTE Prior VTE?: No VTE Risk Level:: Medical - moderate - high VTE Device Contraindication: N/A - Device Ordered VTE Drug Contraindication: Treatment Not Indicated
[2022-06-24 19:18] VITALS: BP 159/95; PULSE 108; RESP 18; TEMP 36.7; O2SAT 98
[2022-06-25] VITALS (8 sets, daily range): BP systolic 115–145; BP diastolic 84–97; PULSE 94–120; RESP 12–20; TEMP 36.8–37.1; O2SAT 93–98
[2022-06-25] MEDS: HYDROmorphone HCl 0.5 MG/0.5 ML SYRINGE 0.25 MG IVPUSH ×5 (02:01→21:03)
[2022-06-25] MEDS: ondansetron HCL 4 MG/2 ML VIAL IVPUSH ×3 (02:09→23:28)
[2022-06-25] MEDS: Heparin Sodium,Porcine Flush 50 UNITS/5 ML SYRINGE IVFLUSH ×4 (02:10→23:30)
[2022-06-25] MEDS: Omeprazole 20 MG CAPSULE.DR PO (06:38)
[2022-06-25] MEDS: rifAXIMin 550 MG TABLET PO ×2 (08:51→21:18)
[2022-06-25] MEDS: Dicyclomine HCl 10 MG CAPSULE PO ×2 (08:53→21:02)
[2022-06-25] MEDS: 0.9 % Sodium Chloride Flush 3 ML SYRINGE IVFLUSH ×3 (08:55→21:08)
[2022-06-25 10:05] LABS: Glucose, Whole Blood 129 mg/dL (60-115)
--- NOTE | 2022-06-25 10:08 | HO.PM.IMPN ---
Subjective Subjective Date of Service: 06/25/22 Interval History: She has some nausea overnight but no vomitting and in general is feeling much better today, no nausea vomitting Physical Exam Vital Signs: Vital Signs: Last Vital Signs Temp 98.2 F 06/25/22 07:37 Pulse 94 06/25/22 07:37 Resp 18 06/25/22 07:37 BP 132/87 06/25/22 07:37 Pulse Ox 98 06/25/22 07:37 O2 Del Method Room Air 06/25/22 04:00 O2 Flow Rate 1 06/25/22 00:00 BMI result Body Mass Index 19.5 Const: Other: mental status seems at baseline HEENT: Other: General: AO X 3, no acute distress Resp: CTA bilateral CVS: S1,S2,RRR GI: +BS, NT, no distention Skin: No rash Neuro: motor grossly intact Psych: appropriate affect GI: Other: abdomen is firm and nontender Objective Data Active Medications Dicyclomine HCl (Dicyclomine Hcl 10 Mg Capsule) 10 mg PO TIDAC PRN PRN Reason: cramping Last Admin: 06/25/22 08:53 Dose: 10 mg Documented By: ARVIN Heparin Sodium (Porcine) (Heparin Sodium,Porcine Flush 50 Units/5 Ml Syringe) [facility] Last Admin: 06/25/22 08:53 Dose: 50 units Documented By: ARVIN Hydromorphone HCl (Hydromorphone Hcl 0.5 Mg/0.5 Ml Syringe) 0.25 mg IVPUSH Q4H PRN; Protocol PRN Reason: Pain, Severe (Pain Scale 7-10) Last Admin: 06/25/22 06:38 Dose: 0.25 mg Documented By: ROSANNE Multivitamins 10 ml/ Trace Metals 1 ml/ Amino Acids/Electrolytes/Dextrose 1,560 mls @ 65 mls/hr IVCONT DAILY@1800 [facility] Stop: 06/25/22 17:59 Last Infusion: 06/25/22 07:00 Dose: 65 mls/hr Documented By: ARVIN Lactulose (Lactulose 20 Gm/30 Ml Solution) 30 gm PO BID [facility] Last Admin: 06/25/22 08:51 Dose: Not Given Documented By: ARVIN Non-Admin Reason: Patient Refused Metoclopramide HCl (Metoclopramide Hcl 10 Mg/2 Ml Vial) 5 mg IVPUSH Q6H PRN PRN Reason: Nausea and Vomiting Last Admin: 06/23/22 09:46 Dose: 5 mg Documented By: CHRIS Omeprazole (Omeprazole 20 Mg Capsule.) 20 mg PO DAILY@0630 [facility] Last Admin: 06/25/22 06:38 Dose: 20 mg Documented By: ROSANNE Ondansetron HCl (Ondansetron Hcl 4 Mg/2 Ml Vial) 4 mg IVPUSH Q8H PRN PRN Reason: Nausea and Vomiting Last Admin: 06/25/22 02:09 Dose: 4 mg Documented By: ROSANNE Rifaximin (Rifaximin 550 Mg Tablet) 550 mg PO BID [facility] Last Admin: 06/25/22 08:51 Dose: 550 mg Documented By: ARVIN Sodium Chloride (0.9 % Sodium Chloride Flush 3 Ml Syringe) 3 ml IVFLUSH QSHIFT [facility] Last Admin: 06/25/22 08:55 Dose: 3 ml Documented By: ARVIN Labs 06/20/22 18:59 06/24/22 13:58 Labs: Laboratory Results - last 24 hr 06/24/22 06/24/22 06/25/22 12:21 13:58 10:01 Anion Gap TNP 14 Estim Creat Clear Calc TNP 82.8 Estimated GFR TNP > 60 POC Glucose 129 H Random Glucose TNP 124 H Calcium TNP 8.4 Phosphorus TNP 3.6 Magnesium TNP 1.8 Albumin TNP 3.0 L Assessment and Plan (1) Acute hepatic encephalopathy: Status: Acute Plan 62-year-old woman admitted with metabolic hepatic encephalopathy. Previous admission she had multiple specialize labs including BALATZAR, AMA, Anca, alpha-1 antitrypsin, GGT, cell EF antibodies , liver fibrosis test, all negative. 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 has SBFT, pt passing contrast h/o UC s/p colectomy with J-pouch . seen by surgery, no acute surgical issues Overall better and is tolerating present diet Has PICC line since 06/20 and on PPN, overall n/v better xray of abdomen if persistent vomitting, will be going with PPN SIRS met criteria with fever, tachycardia. appears to have had isolated fever. No leukocytosis Lactic acid 3.8, likely secondary to underlying liver dysfunction and not sepsis Has been on Zosyn empirically to cover for possible aspiration, UA on admission negative for infection No clear source of infection at this time. no respiratory or urinary symptoms Blood cultures negative to date DC Abx if culture negative x 48 Hypokalemia replace and resolved likely r/t gi losses follow BMP JOBY likely prerenal --Creatine is normal now Hyponatremia 128 likely related to excess free water, free water restriction Chronic Microcytic anemia drop in H/H likely dilutional/pt dehydrated on admission seems to be around previous baseline Mental health--continue meds Moderate protein calory malnutrition BMI 19.6, loss of subq fat and muscle mass with wt loss and decreased PO intake continue PPN and when able oral intake as well, will consider potential DC with TPN at home DVT heparin Full code Requires ongoing inpatient management for encephalopathy, hypokalemia, SIRS,N/V Time Spent With Patient Time: Total time managing care of this patient today ____ minutes. Quality Stroke Does the patient have a stroke diagnosis?: No VTE Prior VTE?: No VTE Risk Level:: Medical - moderate - high VTE Device Contraindication: N/A - Device Ordered VTE Drug Contraindication: Treatment Not Indicated
[2022-06-25 11:52] LABS: Albumin Level 3.3 g/dL (3.5-5.0); Anion Gap 15 (12-20); Blood Urea Nitrogen 15 mg/dL (9-16); Calcium 8.6 mg/dL (8.4-10.2); Carbon Dioxide 20 mmol/L (22-29); Chloride 96 mmol/L (96-108); Creatinine Clr Calc Pharmacy 78.9; Estimated Glomerular Filt Rate > 60; Glucose Random 116 mg/dL (60-115); Magnesium 1.7 mg/dL (1.6-2.6); Phosphorus 2.1 mg/dL (2.7-4.5); Potassium 3.6 mmol/L (3.3-5.1); Sodium 127 mmol/L (135-145)
--- NOTE | 2022-06-25 14:36 | PM.PNNEP ---
Subjective Subjective Date of Service: 06/25/22 Interval history: feeling much better today, no nausea vomiting Physical Exam Vital Signs: Vital Signs: Last Vital Signs Temp 98.3 F 06/25/22 11:45 Pulse 114 H 06/25/22 11:45 Resp 18 06/25/22 11:45 BP 145/97 H 06/25/22 11:45 Pulse Ox 95 06/25/22 11:45 O2 Del Method Room Air 06/25/22 04:00 O2 Flow Rate 1 06/25/22 00:00 BMI result Body Mass Index 19.5 Const: General: no acute distress Eyes: EOM: EOMs intact bilaterally Neck: Neck: Yes supple Resp: Auscultation: diminished lung sounds Cardio: Rate: regular rate GI: Palpation (GI): Soft to palpation Neuro: General: moves all extremities Objective Data Labs 06/20/22 18:59 06/25/22 11:25 Labs: Laboratory Results - last 24 hr 06/25/22 06/25/22 10:01 11:25 Sodium 127 L Potassium 3.6 Chloride 96 Carbon Dioxide 20 L Anion Gap 15 BUN 15 Creatinine 0.63 Estim Creat Clear Calc 78.9 Estimated GFR > 60 POC Glucose 129 H Random Glucose 116 H Calcium 8.6 Phosphorus 2.1 L Magnesium 1.7 Albumin 3.3 L Microbiology Microbiology Results: Microbiology 06/17/22 09:33 Blood - Venous Blood Culture - Final No growth after 5 days. 06/17/22 09:34 Blood - Venous Blood Culture - Final No growth after 5 days. Procedures Date of Service Date of Service: 06/25/22 Assessment & Plan Assessment and plan (1) Hyponatremia: Status: Acute Assessment and Plan: ?62-year-old woman with acute kidney injury And hyponatremia in a setting of hepatic encephalopathy.? serum sodium? improved and stable.? Serum creatinine improved as well. Continue current supportive care for now Time Spent With Patient Time: Total time managing care of this patient today ____ minutes. Progress Note: Quality Stroke Does the patient have a stroke diagnosis?: No
[2022-06-25] MEDS: Acetaminophen 325 MG TABLET 650 MG PO (19:46)
[2022-06-25] MEDS: Metoclopramide HCl 10 MG/2 ML VIAL 5 MG IVPUSH (21:08)
[2022-06-26] MEDS: HYDROmorphone HCl 0.5 MG/0.5 ML SYRINGE 0.25 MG IVPUSH ×6 (01:06→20:41)
[2022-06-26] MEDS: Metoclopramide HCl 10 MG/2 ML VIAL 5 MG IVPUSH ×2 (03:58→14:54)
[2022-06-26 04:00] VITALS: BP 126/90; PULSE 120; RESP 15; TEMP 36.8; O2SAT 98
[2022-06-26] MEDS: Omeprazole 20 MG CAPSULE.DR PO (05:07)
[2022-06-26 07:24] VITALS: BP 135/84; PULSE 105; RESP 18; TEMP 36.6; O2SAT 97
[2022-06-26 08:26] LABS: Albumin Level 3.3 g/dL (3.5-5.0); Anion Gap 15 (12-20); Blood Urea Nitrogen 16 mg/dL (9-16); Calcium 8.8 mg/dL (8.4-10.2); Carbon Dioxide 20 mmol/L (22-29); Chloride 97 mmol/L (96-108); Creatinine Clr Calc Pharmacy 78.9; Estimated Glomerular Filt Rate > 60; Glucose Random 123 mg/dL (60-115); Magnesium 1.9 mg/dL (1.6-2.6); Phosphorus 4.1 mg/dL (2.7-4.5); Potassium 4.2 mmol/L (3.3-5.1); Sodium 128 mmol/L (135-145)
[2022-06-26] MEDS: Lactulose 20 GM/30 ML SOLUTION 30 GM PO ×2 (09:30→20:41)
[2022-06-26] MEDS: 0.9 % Sodium Chloride Flush 3 ML SYRINGE IVFLUSH ×2 (09:30→20:41)
[2022-06-26] MEDS: rifAXIMin 550 MG TABLET PO ×2 (09:46→20:41)
[2022-06-26] MEDS: Heparin Sodium,Porcine Flush 50 UNITS/5 ML SYRINGE IVFLUSH ×3 (09:51→20:42)
[2022-06-26 11:28] VITALS: BP 128/88; PULSE 107; RESP 18; TEMP 36.7; O2SAT 98
--- NOTE | 2022-06-26 11:50 | HO.PM.IMPN ---
Subjective Subjective Date of Service: 06/26/22 Interval History: She is doing goood with no nause or vomitting this morning. Physical Exam Vital Signs: Vital Signs: Last Vital Signs Temp 98.1 F 06/26/22 11:28 Pulse 107 H 06/26/22 11:28 Resp 18 06/26/22 11:28 BP 128/88 06/26/22 11:28 Pulse Ox 98 06/26/22 11:28 O2 Del Method Room Air 06/26/22 11:28 O2 Flow Rate 1 06/25/22 00:00 BMI result Body Mass Index 19.5 Const: Other: General: AO X 3, no acute distress Resp: CTA bilateral CVS: S1,S2,RRR GI: +BS, NT, no distention Skin: No rash Neuro: motor grossly intact Psych: appropriate affect Objective Data Active Medications Acetaminophen (Acetaminophen 325 Mg Tablet) 650 mg PO Q6H PRN PRN Reason: Pain, Mild (Pain Scale 1-3) Last Admin: 06/25/22 19:46 Dose: 650 mg Documented By: CHASTITY Dicyclomine HCl (Dicyclomine Hcl 10 Mg Capsule) 10 mg PO TIDAC PRN PRN Reason: cramping Last Admin: 06/25/22 21:02 Dose: 10 mg Documented By: CHASTITY Heparin Sodium (Porcine) (Heparin Sodium,Porcine Flush 50 Units/5 Ml Syringe) [facility] Last Admin: 06/26/22 09:51 Dose: 50 units Documented By: TIMMY Hydromorphone HCl (Hydromorphone Hcl 0.5 Mg/0.5 Ml Syringe) 0.25 mg IVPUSH Q4H PRN; Protocol PRN Reason: Pain, Severe (Pain Scale 7-10) Last Admin: 06/26/22 09:30 Dose: 0.25 mg Documented By: TIMMY Potassium Chloride 70 meq/Sodium Chloride 70 meq/Magnesium Sulfate 10 meq/Potassium Phosphate 30 mmol/Calcium Gluconate 4.65 meq/Sodium Phosphate 40 mmol/Amino Acids/Electrolytes/Dextrose 1,560 mls @ 65 mls/hr IVCONT DAILY@1800 [facility] Stop: 06/26/22 17:59 Last Admin: 06/25/22 17:45 Dose: 65 mls/hr Documented By: ARVIN Potassium Chloride 40 meq/Sodium Chloride 35 meq/Magnesium Sulfate 5 meq/Potassium Phosphate 7 mmol/Calcium Gluconate 2.325 meq/Sodium Phosphate 20 mmol/Amino Acids/Electrolytes/Dextrose 1,044 mls @ 65 mls/hr IVCONT DAILY@1800 [facility] Stop: 06/27/22 17:59 Potassium Chloride 40 meq/Sodium Chloride 35 meq/Magnesium Sulfate 5 meq/Potassium Phosphate 7 mmol/Calcium Gluconate 2.325 meq/Sodium Phosphate 20 mmol/Amino Acids/Electrolytes/Dextrose 1,040 mls @ 65 mls/hr IVCONT DAILY@1800 [facility] Stop: 06/27/22 09:59 Lactulose (Lactulose 20 Gm/30 Ml Solution) 30 gm PO BID [facility] Last Admin: 06/26/22 09:30 Dose: 30 gm Documented By: TIMMY Metoclopramide HCl (Metoclopramide Hcl 10 Mg/2 Ml Vial) 5 mg IVPUSH Q6H PRN PRN Reason: Nausea and Vomiting Last Admin: 06/26/22 03:58 Dose: 5 mg Documented By: CHASTITY Omeprazole (Omeprazole 20 Mg Capsule.) 20 mg PO DAILY@0630 [facility] Last Admin: 06/26/22 05:07 Dose: 20 mg Documented By: CHASTITY Ondansetron HCl (Ondansetron Hcl 4 Mg/2 Ml Vial) 4 mg IVPUSH Q8H PRN PRN Reason: Nausea and Vomiting Last Admin: 06/25/22 23:28 Dose: 4 mg Documented By: CHASTITY Rifaximin (Rifaximin 550 Mg Tablet) 550 mg PO BID [facility] Last Admin: 06/26/22 09:46 Dose: 550 mg Documented By: TIMMY Sodium Chloride (0.9 % Sodium Chloride Flush 3 Ml Syringe) [facility] Last Admin: 06/26/22 09:30 Dose: 3 ml Documented By: TIMMY Labs 06/20/22 18:59 06/26/22 07:42 Labs: Laboratory Results - last 24 hr 06/25/22 06/26/22 11:25 07:42 Anion Gap 15 15 Estim Creat Clear Calc 78.9 78.9 Estimated GFR > 60 > 60 Random Glucose 116 H 123 H Calcium 8.6 8.8 Phosphorus 2.1 L 4.1 Magnesium 1.7 1.9 Albumin 3.3 L 3.3 L Assessment and Plan (1) Acute hepatic encephalopathy: Status: Acute Plan 62-year-old woman admitted with metabolic hepatic encephalopathy. Previous admission she had multiple specialize labs including BALTAZAR, AMA, Anca, alpha-1 antitrypsin, GGT, cell EF antibodies , liver fibrosis test, all negative. 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 has SBFT, pt passing contrast h/o UC s/p colectomy with J-pouch . seen by surgery, no acute surgical issues Overall better and is tolerating present diet Has PICC line since 06/20 and on PPN, overall n/v better xray of abdomen if persistent vomitting, will be going with PPN SIRS met criteria with fever, tachycardia. appears to have had isolated fever. No leukocytosis Lactic acid 3.8, likely secondary to underlying liver dysfunction and not sepsis Has been on Zosyn empirically to cover for possible aspiration, UA on admission negative for infection No clear source of infection at this time. no respiratory or urinary symptoms Blood cultures negative to date DC Abx if culture negative x 48 Hypokalemia replace and resolved likely r/t gi losses follow BMP JOBY likely prerenal --Creatine is normal now Hyponatremia 128 likely related to excess free water, free water restriction Chronic Microcytic anemia drop in H/H likely dilutional/pt dehydrated on admission seems to be around previous baseline Mental health--continue meds Moderate protein calory malnutrition BMI 19.6, loss of subq fat and muscle mass with wt loss and decreased PO intake continue PPN and when able oral intake as well, will consider potential DC with TPN at home DVT heparin Full code Requires ongoing inpatient management for encephalopathy, hypokalemia, SIRS,N/V Time Spent With Patient Time: Total time managing care of this patient today ____ minutes. Quality Stroke Does the patient have a stroke diagnosis?: No VTE Prior VTE?: No VTE Risk Level:: Medical - moderate - high VTE Device Contraindication: N/A - Device Ordered VTE Drug Contraindication: Treatment Not Indicated
[2022-06-26] MEDS: Dicyclomine HCl 10 MG CAPSULE PO ×2 (12:04→20:50)
[2022-06-26] MEDS: ondansetron HCL 4 MG/2 ML VIAL IVPUSH (12:49)
[2022-06-26 15:12] VITALS: BP 153/102; PULSE 107; RESP 17; TEMP 37.2; O2SAT 92
[2022-06-26 18:59] VITALS: BP 126/92; PULSE 113; RESP 17; TEMP 37.2; O2SAT 97
[2022-06-26 23:16] VITALS: BP 127/85; PULSE 135; RESP 17; TEMP 37.1; O2SAT 92
[2022-06-27] VITALS (7 sets, daily range): BP systolic 91–143; BP diastolic 58–101; PULSE 114–138; RESP 16–20; TEMP 36.1–36.7; O2SAT 95–100
[2022-06-27] MEDS: ondansetron HCL 4 MG/2 ML VIAL IVPUSH ×3 (00:28→17:21)
[2022-06-27] MEDS: HYDROmorphone HCl 0.5 MG/0.5 ML SYRINGE 0.25 MG IVPUSH ×2 (00:53→09:20)
[2022-06-27] MEDS: Metoclopramide HCl 10 MG/2 ML VIAL 5 MG IVPUSH ×2 (06:13→11:38)
--- NOTE | 2022-06-27 08:43 | MHC.CM.PN ---
Addendum entered by Jennifer Milton RN 06/27/22 09:02: CM RECEIVED CALL FROM [facility] WHO REQUESTED UPDATED LABS/MD NOTE/DIETARY/TPN ORDERS, DOCUMENTS SENT VIA [facility] REPORTS PT WILL BE ABLE TO D/C LATER TODAY AND NURSE AVAILABLE FOR TODAY Original Note: EMR REVIEWED, MESSAGE SENT TO [facility] TO CONFIRM IF NURSE AVAILABLE FOR SOC FOR TODAY, CM AWAITING RESPONSE.
[2022-06-27] MEDS: Heparin Sodium,Porcine Flush 50 UNITS/5 ML SYRINGE IVFLUSH ×2 (09:20→16:10)
[2022-06-27] MEDS: 0.9 % Sodium Chloride Flush 3 ML SYRINGE IVFLUSH ×2 (09:21→16:08)
--- NOTE | 2022-06-27 09:49 | P.PNIM_ITS ---
Subjective Subjective Date of Service: 06/27/22 Interval History: She is again experiencing nausea and vomitting this morning. and not able to keep food down Physical Exam Vital Signs: Vital Signs: Last Vital Signs Temp 97.5 F 06/27/22 07:52 Pulse 114 H 06/27/22 07:52 Resp 16 06/27/22 07:52 BP 122/60 06/27/22 07:52 Pulse Ox 96 06/27/22 07:52 O2 Del Method Room Air 06/27/22 07:52 O2 Flow Rate 1 06/25/22 00:00 BMI result Body Mass Index 19.5 Const: Other: General: AO X 3, no acute distress Resp: CTA bilateral CVS: S1,S2,RRR GI: +BS, NT, no distention Skin: No rash Neuro: motor grossly intact Psych: appropriate affect Objective Data Active Medications Acetaminophen (Acetaminophen 325 Mg Tablet) 650 mg PO Q6H PRN PRN Reason: Pain, Mild (Pain Scale 1-3) Last Admin: 06/25/22 19:46 Dose: 650 mg Documented By: BRIGNikhil Dicyclomine HCl (Dicyclomine Hcl 10 Mg Capsule) 10 mg PO TIDAC PRN PRN Reason: cramping Last Admin: 06/26/22 20:50 Dose: 10 mg Documented By: ANTOIC Heparin Sodium (Porcine) (Heparin Sodium,Porcine Flush 50 Units/5 Ml Syringe) 50 units IVFLUSH [facility] Last Admin: 06/27/22 09:20 Dose: 50 units Documented By: GEESCDALILA Hydromorphone HCl (Hydromorphone Hcl 0.5 Mg/0.5 Ml Syringe) 0.25 mg IVPUSH Q4H PRN; Protocol PRN Reason: Pain, Severe (Pain Scale 7-10) Last Admin: 06/27/22 09:20 Dose: 0.25 mg Documented By: RITA Potassium Chloride 40 meq/Sodium Chloride 35 meq/Magnesium Sulfate 5 meq/Potassium Phosphate 7 mmol/Calcium Gluconate 2.325 meq/Sodium Phosphate 20 mmol/Amino Acids/Electrolytes/Dextrose 1,040 mls @ 65 mls/hr IVCONT DAILY@1800 [facility] Stop: 06/27/22 09:59 Last Admin: 06/26/22 18:16 Dose: 65 mls/hr Documented By: TIMMY Potassium Chloride 40 meq/Sodium Chloride 35 meq/Magnesium Sulfate 5 meq/Potassium Phosphate 7 mmol/Calcium Gluconate 2.325 meq/Sodium Phosphate 20 mmol/Amino Acids/Electrolytes/Dextrose 1,044 mls @ 65 mls/hr IVCONT DAILY@1800 [facility] Stop: 06/27/22 17:59 Lactulose (Lactulose 20 Gm/30 Ml Solution) 30 gm PO BID [facility] Last Admin: 06/27/22 09:20 Dose: Not Given Documented By: RITA Non-Admin Reason: Patient Refused Metoclopramide HCl (Metoclopramide Hcl 10 Mg/2 Ml Vial) 5 mg IVPUSH Q6H PRN PRN Reason: Nausea and Vomiting Last Admin: 06/27/22 06:13 Dose: 5 mg Documented By: ANTMORELIA Omeprazole (Omeprazole 20 Mg Capsule.Dr) 20 mg PO DAILY@0630 [facility] Last Admin: 06/27/22 06:09 Dose: Not Given Documented By: ANTMORELIA Non-Admin Reason: Patient Refused Ondansetron HCl (Ondansetron Hcl 4 Mg/2 Ml Vial) 4 mg IVPUSH Q8H PRN PRN Reason: Nausea and Vomiting Last Admin: 06/27/22 09:20 Dose: 4 mg Documented By: RITA Sodium Chloride (0.9 % Sodium Chloride Flush 3 Ml Syringe) 3 ml IVFLUSH QSHIFT [facility] Last Admin: 06/27/22 09:21 Dose: 3 ml Documented By: RITA Labs 06/20/22 18:59 06/26/22 07:42 Assessment and Plan (1) Acute hepatic encephalopathy: Status: Acute Plan 62-year-old woman admitted with ROACH frequent hospitalization for hepatic encephalopathy who was admitted yet again with hepatic encephalopathy . Altered mental status due to hepatic encephalopathy and metabolic encepha lopathy. She was completly unresponsive and could not tolerated oral intake on presentation, ammonia level was 174 06/14. An NG tube was inserted and was given lactulose and Rifaximin that way with rapid improvment in her mental status and as of 06/16 ammonia level came down to 41 and she has remained lucid since. She is continue lactulose and Rifaximin as recommended and should avoid skipping doses unless diarrhea is not telerated to avoid being in the same same situation . Nausea and vomitting--Initial CT of abd/pelvis from 06/17 was read as Small bowel obstruction with a transition point in the right lower quadrant around the small bowel anastomoses, similar to the prior study from 11/28/2021. She was evaluated by surgery and changes are deemed chronic from from history of Ulcerative colitis (UC) and s/p colectomy with J-pouch. She had upper GI with Small bowel follow through on 06/18 with he Gastrografin transits through the entire small bowel and colon but significantly delayed transit time of 5 1/2 hours . She was evaluated by Surgery with no indication for interv ention. Ultimately NGT was removed and was started on diet. She was also seen by GI and started on Bentyl which seems to be helping. She is also toleratig oral diet but has intermittent vomitting. Has PICC line since 06/20 and on PPN, overall n/v better xray of abdomen if persistent vomitting, will be going with PPN SIRS met criteria with fever, tachycardia. appears to have had isolated fever. No leukocytosis Lactic acid 3.8, likely secondary to underlying liver dysfunction and not sepsis She was on on Zosyn empirically to cover for possible aspiration, UA on admission negative for infection No source of infection so ultimately Zosyn was discontinued. Acute lactic acidosis was likely related to acute encephalopathy above. Hypokalemia---was related to diarrhea, replaced with supplement. JOBY likely prerenal --She developped JOBY on 06/21 with Cratinine of 3.09 likely from renal hypoperfusion from diarrhea, and this has resolved with fluid replacment. Serum cratinine as of 06/26 was 0.63 HypOnatremia 128 likely related to excess free water, free water restriction. Sodium level seem to stabolize around Chronic Microcytic anemia drop in H/H likely dilutional/pt dehydrated on admission seems to be around previous baseline Mental health--continue meds Moderate to severe protein calory malnutrition BMI 19.6, loss of subq fat and muscle mass with wt loss and decreased PO intake. She has been started on PPN and a PICC line was inserted on 06/20, given that she so nutritional depleted, will continue PPN upon discharge for 2 to 3 weeks. A home infusion service is being arranged for this. She is not in favor of going to rehab DVT heparin Full code Requires ongoing inpatient management for encephalopathy, hypokalemia, SIRS,N/V Time Spent With Patient Time: Total time managing care of this patient today ____ minutes. Quality Stroke Does the patient have a stroke diagnosis?: No VTE Prior VTE?: No VTE Risk Level:: Medical - moderate - high VTE Device Contraindication: N/A - Device Ordered VTE Drug Contraindication: Treatment Not Indicated
[2022-06-27 11:14] LABS: Hematocrit 33.6 % (37.0-47.0); Mean Corpuscular HGB Conc 29.8 g/dl (31.0-35.0); Mean Corpuscular Hemoglobin 22.4 pg (27.0-33.0); Mean Corpuscular Volume 75.3 fL (80.0-98.0); Mean Platelet Volume 10.1 fL (9.4-12.3); NRBC Pct Auto 0.2 /100WBC (0.0-0.2); Platelet Count 349 X10*3/uL (160-400); Red Blood Count 4.46 X10*6/uL (4.20-5.50); Red Cell Distribution Width 21.7 % (11.0-16.0); White Blood Count 16.6 X10*3/uL (4.8-10.8)
--- NOTE | 2022-06-27 11:30 | MHC.CLN ---
F/U PO INTAKE LIMITED; C/O N/V INCREASING AGAIN DIET RX: REGULAR PPN TO CONTINUE: CONTINUE D10AA4.25 AT 65ML/HR TO PROVIDE 796KCALS, 66G PROTEIN (1.2G/KG) REPLETE LYTES NEEDED PT RECEIVING ENSURE BID WITH REGULAR DIET TO INCREASE KCALS SUPP PROVIDES 700KCALS, 40G PROTEIN WITH 100% ACCEPTANCE PER CM; [facility] FOR POSSIBLE D/C HOME TODAY WITH PPN FOLLOWING WITH TEAM
[2022-06-27 12:05] LABS: Anion Gap 22 (12-20); Blood Urea Nitrogen 31 mg/dL (9-16); Calcium 9.5 mg/dL (8.4-10.2); Carbon Dioxide 14 mmol/L (22-29); Chloride 93 mmol/L (96-108); Creatinine Clr Calc Pharmacy 43.2; Estimated Glomerular Filt Rate 48; Glucose Random 252 mg/dL (60-115); Potassium 4.7 mmol/L (3.3-5.1); Sodium 124 mmol/L (135-145)
[2022-06-27 14:35] LABS: Albumin Level 3.8 g/dL (3.5-5.0); Magnesium 2.4 mg/dL (1.6-2.6); Phosphorus 5.8 mg/dL (2.7-4.5)
--- NOTE | 2022-06-27 14:55 | MHC.CM.PN ---
CM ATTEMPTING TO FIND ADDITIONAL [facility]NA COVERAGE FROM [facility] REPORT THEY CAN NOT COVER HOME PT W/[facility], PER [facility] PT'S HAS NOT MADE PAYMENT ARRANGEMENTS YET AND WILL NOT BE ABLE TO D/C UNTIL THAT IS ARRANGED. CM DISCUSSED W/P.T. WHO REPORTED THEY HAVE BEEN UNABLE TO MEET W/PT TODAY D/T PT'S NAUSEA AND VOMITING AND WILL REVISIT IN AM. PER HOSPITALIST PT HAS VOMITED APPROX 1000CC'S AND WILL NOT BE CLEARED FOR D/C TODAY.
--- NOTE | 2022-06-27 17:11 | PM.PNNEP ---
Subjective Subjective Date of Service: 06/27/22 Interval history: Seen and examied, events noted Physical Exam Vital Signs: Vital Signs: Last Vital Signs Temp 97.7 F 06/27/22 15:49 Pulse 128 H 06/27/22 15:49 Resp 20 06/27/22 15:49 BP 138/100 H 06/27/22 15:58 Pulse Ox 95 06/27/22 15:49 O2 Del Method Room Air 06/27/22 15:49 O2 Flow Rate 1 06/25/22 00:00 BMI result Body Mass Index 19.5 Const: Other: awake and alert this morning thin, chronically ill appearing appears tired General: no acute distress Eyes: EOM: EOMs intact bilaterally Neck: Neck: Yes supple Resp: Auscultation: diminished lung sounds Cardio: Rate: regular rate and tachycardic Heart sounds: S1 normal heart sound present and S2 normal heart sound present GI: Other: abdomen is soft and nontender Palpation (GI): Soft to palpation : General: Yes no CVA tenderness Back/Spine/Pelvis: Back: no CVA tenderness Neuro: General: moves all extremities Extrem: General: Yes no pedal edema Objective Data Labs 06/27/22 10:48 06/27/22 10:48 Labs: Laboratory Results - last 24 hr 06/27/22 06/27/22 10:48 10:48 WBC 16.6 H RBC 4.46 D Hgb 10.0 L D Hct 33.6 L MCV 75.3 L MCH 22.4 L MCHC 29.8 L RDW 21.7 H Plt Count 349 D MPV 10.1 Absolute Nucleated RBC 0.030 H Nucleated RBC % (auto) 0.2 Sodium 124 L Potassium 4.7 Chloride 93 L Carbon Dioxide 14 L Anion Gap 22 H BUN 31 H Creatinine 1.15 Estim Creat Clear Calc 43.2 Estimated GFR 48 Random Glucose 252 H Calcium 9.5 D Phosphorus 5.8 H Magnesium 2.4 Albumin 3.8 Microbiology Microbiology Results: Microbiology 06/17/22 09:33 Blood - Venous Blood Culture - Final No growth after 5 days. 06/17/22 09:34 Blood - Venous Blood Culture - Final No growth after 5 days. Procedures Date of Service Date of Service: 06/27/22 Assessment & Plan Assessment and plan (1) Hyponatremia: Status: Acute Assessment and Plan: ?62-year-old woman with acute kidney injury And hyponatremia in a setting of hepatic encephalopathy. Again SNA decr and now decr HCO3 and incr AG RE: repeat labs including ketones and lactae; need to r/o ;lab error--on TPN now; depending on repeat labs jamarcus y need toadjust IVF; cj ? Time Spent With Patient Time: Total time managing care of this patient today ____ minutes. Progress Note: Quality Stroke Does the patient have a stroke diagnosis?: No
[2022-06-27 18:59] LABS: Lactic Acid 1.6 mmol/L (0.5-2.0)
[2022-06-27 19:18] LABS: Anion Gap 22 (12-20); Carbon Dioxide 18 mmol/L (22-29); Chloride 87 mmol/L (96-108); Potassium 6.2 mmol/L (3.3-5.1); Sodium 121 mmol/L (135-145)
[2022-06-27 21:32] LABS: Anion Gap 22 (12-20); Blood Urea Nitrogen 43 mg/dL (9-16); Calcium 9.6 mg/dL (8.4-10.2); Carbon Dioxide 18 mmol/L (22-29); Chloride 91 mmol/L (96-108); Creatinine Clr Calc Pharmacy 34.5; Estimated Glomerular Filt Rate 37; Glucose Random 160 mg/dL (60-115); Potassium 4.6 mmol/L (3.3-5.1); Sodium 126 mmol/L (135-145)
[2022-06-27] MEDS: Lactulose 20 GM/30 ML SOLUTION 30 GM PO (22:14)
[2022-06-28] VITALS (10 sets, daily range): BP systolic 134–166; BP diastolic 90–103; PULSE 98–125; RESP 14–20; TEMP 36.1–37.2; O2SAT 97–100
[2022-06-28] MEDS: ondansetron HCL 4 MG/2 ML VIAL IVPUSH ×3 (01:17→17:54)
[2022-06-28] MEDS: HYDROmorphone HCl 0.5 MG/0.5 ML SYRINGE 0.25 MG IVPUSH ×5 (01:17→19:51)
[2022-06-28] MEDS: Heparin Sodium,Porcine Flush 50 UNITS/5 ML SYRINGE IVFLUSH ×3 (01:33→17:42)
[2022-06-28] MEDS: Metoclopramide HCl 10 MG/2 ML VIAL 5 MG IVPUSH ×3 (05:27→18:56)
[2022-06-28] MEDS: Omeprazole 20 MG CAPSULE.DR PO (05:28)
[2022-06-28] MEDS: Lactulose 20 GM/30 ML SOLUTION 30 GM PO (08:40)
[2022-06-28] MEDS: 0.9 % Sodium Chloride Flush 3 ML SYRINGE IVFLUSH ×2 (08:41→17:54)
[2022-06-28 10:09] LABS: Anion Gap 24 (12-20); Blood Urea Nitrogen 58 mg/dL (9-16); Calcium 9.6 mg/dL (8.4-10.2); Carbon Dioxide 22 mmol/L (22-29); Chloride 88 mmol/L (96-108); Creatinine Clr Calc Pharmacy 23.3; Estimated Glomerular Filt Rate 24; Glucose Random 160 mg/dL (60-115); Magnesium 2.5 mg/dL (1.6-2.6); Potassium 4.7 mmol/L (3.3-5.1); Sodium 129 mmol/L (135-145)
--- NOTE | 2022-06-28 10:55 | MHC.CLN ---
F/U PT BACK TO NPO C/O N/V INCREASING YESTERDAY PPN TO CONTINUE: REVIEWED LABS-SERUM NA VERY SLOWLY IMPROVING DISCUSSED WITH PHARMACY CONTINUE D10AA4.25 AT 65ML/HR TO PROVIDE 796KCALS, 66G PROTEIN (1.2G/KG) CHECK TRIGS-IF WNL; CAN GIVE 16ML OF 20% LIPIDS TO PROVIDE AN ADDITIONAL 768KCALS REPLETE LYTES NEEDED FOLLOWING WITH TEAM
[2022-06-28 11:45] LABS: Triglycerides 92 mg/dL
--- NOTE | 2022-06-28 13:12 | MHC.CM.PN ---
EMR REVIEWED, P.T. RECOMMENDING STR, PT CONT'S W/NV AND NOT READY FOR D/C AT THIS TIME. [facility] MET W/CM AND REPORTED THEY WILL CONT TO FOLLOW REGARDLESS IF PT GOES TO STR VS HOME W/SERVICES, CM WILL SEND OUT BROAD REFERRAL TO DETERMINE IF ANY SNFS CAN ACOMMODATE TPN MANAGEMENT AND WILL FOLLOW UP W/PT ON BED OFFERS, CM WILL CONT TO FOLLOW D/C NEEDS.
--- NOTE | 2022-06-28 13:15 | P.PNGS_ITS ---
Subjective Subjective Date of Service: 06/28/22 Interval history: Patient and chart were evaluated. Patient complaining of intractable vomiting and lower abdominal pain. She is passing flatus and some stool . Patient had upper GI for approximately 2 weeks ago which demonstrated although slow, nonetheless no evidence of complete small bowelobstruction. Looking through her chart, she also had ileoscopy which demonstrated no anastomotic stricture or evidence of pouchitis. KUB this afternoon shows multiple dilated loops of small bowel, essentially unchanged from prior films. Mild leukocytosis noted Physical Exam Vital Signs: Vital Signs: Last Vital Signs Temp 97.8 F 06/28/22 11:23 Pulse 113 H 06/28/22 11:23 Resp 16 06/28/22 11:23 BP 136/90 H 06/28/22 11:23 Pulse Ox 97 06/28/22 11:23 O2 Del Method Room Air 06/28/22 11:23 O2 Flow Rate 1 06/25/22 00:00 BMI result Body Mass Index 19.5 GI: Other: Abdomen is mildly distended with lower abdominal mild tenderness but without evidence of any guarding, rebound, or rigidity. No gross evidence of peritonitis. Objective Data Active Medications Acetaminophen (Acetaminophen 325 Mg Tablet) 650 mg PO Q6H PRN PRN Reason: Pain, Mild (Pain Scale 1-3) Last Admin: 06/25/22 19:46 Dose: 650 mg Documented By: BRIGC Dicyclomine HCl (Dicyclomine Hcl 10 Mg Capsule) 10 mg PO TIDAC PRN PRN Reason: cramping Last Admin: 06/26/22 20:50 Dose: 10 mg Documented By: ANTOIC Heparin Sodium (Porcine) (Heparin Sodium,Porcine Flush 50 Units/5 Ml Syringe) 50 units IVFLUSH [facility] Last Admin: 06/28/22 08:41 Dose: 50 units Documented By: RIOSCEL Hydromorphone HCl (Hydromorphone Hcl 0.5 Mg/0.5 Ml Syringe) 0.25 mg IVPUSH Q4H PRN; Protocol PRN Reason: Pain, Severe (Pain Scale 7-10) Last Admin: 06/28/22 11:14 Dose: 0.25 mg Documented By: GEESCEL Sodium Chloride 35 meq/Magnesium Sulfate 5 meq/Calcium Gluconate 2.325 meq/Amino Acids/Electrolytes/Dextrose 975 mls @ 65 mls/hr IVCONT DAILY@1800 [facility] Stop: 06/29/22 08:59 Fat Emulsion Intravenous (Intralipid) 192 mls @ 16 mls/hr IVCONT BID@0600,1800 [facility] Stop: 06/29/22 17:59 Sodium Chloride 35 meq/Magnesium Sulfate 5 meq/Calcium Gluconate 2.325 meq/Amino Acids/Electrolytes/Dextrose 585 mls @ 65 mls/hr IVCONT DAILY@0900 [facility] Stop: 06/29/22 17:59 Lactulose (Lactulose 20 Gm/30 Ml Solution) 30 gm PO BID [facility] Last Admin: 06/28/22 08:40 Dose: 30 gm Documented By: RITA Metoclopramide HCl (Metoclopramide Hcl 10 Mg/2 Ml Vial) 5 mg IVPUSH Q6H PRN PRN Reason: Nausea and Vomiting Last Admin: 06/28/22 12:36 Dose: 5 mg Documented By: RIAT Omeprazole (Omeprazole 20 Mg Capsule.Dr) 20 mg PO DAILY@0630 [facility] Last Admin: 06/28/22 05:28 Dose: 20 mg Documented By: LAURA Ondansetron HCl (Ondansetron Hcl 4 Mg/2 Ml Vial) 4 mg IVPUSH Q8H PRN PRN Reason: Nausea and Vomiting Last Admin: 06/28/22 08:41 Dose: 4 mg Documented By: RITA Sodium Chloride (0.9 % Sodium Chloride Flush 3 Ml Syringe) 3 ml IVFLUSH QSHIFT [facility] Last Admin: 06/28/22 08:41 Dose: 3 ml Documented By: RITA Labs 06/27/22 10:48 06/28/22 09:36 Labs: Laboratory Results - last 24 hr 06/27/22 06/27/22 06/27/22 10:48 18:24 18:25 Anion Gap 22 H Estim Creat Clear Calc Estimated GFR Random Glucose Lactic Acid 1.6 Calcium Phosphorus 5.8 H Magnesium 2.4 Albumin 3.8 Triglycerides 06/27/22 06/28/22 20:44 09:36 Anion Gap 22 H 24 H Estim Creat Clear Calc 34.5 23.3 Estimated GFR 37 24 Random Glucose 160 H 160 H Lactic Acid Calcium 9.6 9.6 Phosphorus 7.0 H Magnesium 2.5 Albumin Triglycerides 92 Procedures Date of Service Date of Service: 06/28/22 Progress Note: A&P Assessment and plan (1) Abdominal pain: Status: Inactive Plan Persistent vomiting, inability to tolerate p.o. and nonspecific abdominal pain. GI dysmotility of unknown etiology. The patient has been on a regimen of promotility agents with limited success. upper GI from approximately 2 weeks ago demonstrated slow transit but patient did eventually pass contrast per BM. Condider a low flow state to small intestine or SBO etiologies in DDX. Patient has a significant list of comorbidities. She is a very suboptimal op erative candidate. Discussed the case with Dr. Carter, hospitalist, and current plan is to arrange for CT scan of abdomen pelvis with NG tube contrast, and direct further therapy based on these results. If true organic pathology is identified, appropriate discussion Will need to be had with patient and family members regarding operative intervention and high probability of significant morbidity and possible mortality. Addendum; CT scan findings demonstrate profound pnuematosis intestinalis and extensive portal venous air. I d/w Dr Carter as well as patient's the very dire situation for Mrs. Mccloud. This is essentially a non-survivable circumstance,especially with her co-morbidities and GI surgical history ,and any operative intervention would be futile .A more reasonable option would be to consider BONE DRIER status for her. After a discussion with Mr Mccloud ,he has agreed to the latter (BONE DRIER) and I have communicated this to Dr. Carter,who will make the appropriate arrangements for this. Time Spent With Patient Time: Total time managing care of this patient today ____ minutes. Quality Stroke Does the patient have a stroke diagnosis?: No VTE Prior VTE?: No VTE Risk Level:: Medical - moderate - high VTE Device Contraindication: N/A - Device Ordered VTE Drug Contraindication: Treatment Not Indicated
--- NOTE | 2022-06-28 13:43 | PM.PNNEP ---
Subjective Subjective Date of Service: 06/28/22 Interval history: Seen and examied, events noted Physical Exam Vital Signs: Vital Signs: Last Vital Signs Temp 97.8 F 06/28/22 11:23 Pulse 113 H 06/28/22 11:23 Resp 16 06/28/22 11:23 BP 136/90 H 06/28/22 11:23 Pulse Ox 97 06/28/22 11:23 O2 Del Method Room Air 06/28/22 11:23 O2 Flow Rate 1 06/25/22 00:00 BMI result Body Mass Index 19.5 Const: Other: awake and alert this morning thin, chronically ill appearing appears tired General: no acute distress Eyes: EOM: EOMs intact bilaterally Neck: Neck: Yes supple Resp: Auscultation: diminished lung sounds Cardio: Rate: regular rate and tachycardic Heart sounds: S1 normal heart sound present and S2 normal heart sound present GI: Other: abdomen is soft and nontender Palpation (GI): Soft to palpation : General: Yes no CVA tenderness Back/Spine/Pelvis: Back: no CVA tenderness Neuro: General: moves all extremities Extrem: General: Yes no pedal edema Objective Data Labs 06/27/22 10:48 06/28/22 09:36 Labs: Laboratory Results - last 24 hr 06/27/22 06/27/22 06/27/22 10:48 18:24 18:25 Sodium 121 L Potassium 6.2 H* D Chloride 87 L Carbon Dioxide 18 L Anion Gap 22 H BUN Creatinine Estim Creat Clear Calc Estimated GFR Random Glucose Lactic Acid 1.6 Calcium Phosphorus 5.8 H Magnesium 2.4 Albumin 3.8 Triglycerides 06/27/22 06/28/22 20:44 09:36 Sodium 126 L 129 L Potassium 4.6 D 4.7 Chloride 91 L 88 L Carbon Dioxide 18 L 22 Anion Gap 22 H 24 H BUN 43 H 58 H Creatinine 1.44 H 2.13 H Estim Creat Clear Calc 34.5 23.3 Estimated GFR 37 24 Random Glucose 160 H 160 H Lactic Acid Calcium 9.6 9.6 Phosphorus 7.0 H Magnesium 2.5 Albumin Triglycerides 92 Microbiology Microbiology Results: Microbiology 06/17/22 09:33 Blood - Venous Blood Culture - Final No growth after 5 days. 06/17/22 09:34 Blood - Venous Blood Culture - Final No growth after 5 days. Procedures Date of Service Date of Service: 06/28/22 Assessment & Plan Assessment and plan (1) Hyponatremia: Status: Acute Assessment and Plan: ?62-year-old woman with acute kidney injury And hyponatremia in a setting of hepatic encephalopathy. - JOBY: suspect renal hypopperfusion from dehydration vs HRS - HypoNa: SNa incr grad except for the one outlying SNa 121 but thise labs were abnl with transient decr in HCO3 as we ll ( ques lab error) REC: cont IVF and check yurine studies, may need IV albumin as well Will follow clsoley with team ? Time Spent With Patient Time: Total time managing care of this patient today ____ minutes. Progress Note: Quality Stroke Does the patient have a stroke diagnosis?: No
[2022-06-28] MEDS: HYDROmorphone HCl 0.5 MG/0.5 ML SYRINGE IVPUSH ×4 (14:45→22:54)
[2022-06-28 15:37] LABS: Anion Gap 21 (12-20); Carbon Dioxide 22 mmol/L (22-29); Chloride 89 mmol/L (96-108); Creatinine Clr Calc Pharmacy 21.4; Estimated Glomerular Filt Rate 21; Potassium 4.4 mmol/L (3.3-5.1); Sodium 128 mmol/L (135-145)
--- NOTE | 2022-06-28 15:58 | PM.GIPN ---
Subjective Subjective Date of Service: 06/28/22 Interval History: recurrent vomiting, required NGT again Critical Care Time (minutes): 0 Physical Exam Vital Signs: Vital Signs: Last Vital Signs Temp 96.9 F 06/28/22 15:17 Pulse 120 H 06/28/22 15:17 Resp 20 06/28/22 15:17 BP 166/100 H 06/28/22 15:17 Pulse Ox 99 06/28/22 15:17 O2 Del Method Room Air 06/28/22 15:17 O2 Flow Rate 1 06/25/22 00:00 BMI result Body Mass Index 19.5 GI: Other: abdomen is distended, with mild tenderness diffusely Objective Data Labs 06/27/22 10:48 06/28/22 15:08 Labs: Laboratory Results - last 24 hr 06/27/22 06/27/22 06/27/22 18:24 18:25 20:44 Sodium 121 L 126 L Potassium 6.2 H* D 4.6 D Chloride 87 L 91 L Carbon Dioxide 18 L 18 L Anion Gap 22 H 22 H BUN 43 H Creatinine 1.44 H Estim Creat Clear Calc 34.5 Estimated GFR 37 Random Glucose 160 H Lactic Acid 1.6 Calcium 9.6 Phosphorus Magnesium Triglycerides 06/28/22 06/28/22 09:36 15:08 Sodium 129 L 128 L Potassium 4.7 4.4 Chloride 88 L 89 L Carbon Dioxide 22 22 Anion Gap 24 H 21 H BUN 58 H Creatinine 2.13 H 2.32 H Estim Creat Clear Calc 23.3 21.4 Estimated GFR 24 21 Random Glucose 160 H Lactic Acid Calcium 9.6 Phosphorus 7.0 H Magnesium 2.5 Triglycerides 92 Microbiology Microbiology Results: Microbiology 06/17/22 09:33 Blood - Venous Blood Culture - Final No growth after 5 days. 06/17/22 09:34 Blood - Venous Blood Culture - Final No growth after 5 days. Procedures Date of Service Date of Service: 06/28/22 Progress Note: A&P Assessment and plan (1) Acute hepatic encephalopathy: Status: Acute Assessment and Plan: see below Plan reviewed xrays to date with Dr Leyva repeat CT pending may need surgical reevaluation Time Spent With Patient Time: Total time managing care of this patient today ____ minutes. Quality Stroke Does the patient have a stroke diagnosis?: No VTE Prior VTE?: No VTE Risk Level:: Medical - moderate - high VTE Device Contraindication: N/A - Device Ordered VTE Drug Contraindication: Treatment Not Indicated
[2022-06-28] MEDS: 0.9 % Sodium Chloride 1,000 ML 80 ML IVCONT (16:14)
[2022-06-28] MEDS: Albumin Human 25 % 100 ML IV (17:35)
[2022-06-28] MEDS: Fat Emulsions 20% 250 ML 16 ML IVCONT (17:42)
[2022-06-28] MEDS: Diatrizoate Meglumine, Sodium 30 ML SOLUTION PO (17:49)
--- NOTE | 2022-06-28 18:12 | P.PNIM_ITS ---
Subjective Subjective Date of Service: 06/28/22 Interval History: Persistent nausea vomiting, also has intermittentabdominal pain. Review of Systems no fever or chills, last bowel movement this morning liquidy persistent vomitin-to ng suction mild elevated wbc Physical Exam Vital Signs: Vital Signs: Last Vital Signs Temp 96.9 F 06/28/22 15:17 Pulse 120 H 06/28/22 15:17 Resp 20 06/28/22 15:17 BP 166/100 H 06/28/22 15:17 Pulse Ox 99 06/28/22 15:17 O2 Del Method Room Air 06/28/22 15:17 O2 Flow Rate 1 06/25/22 00:00 BMI result Body Mass Index 19.5 Appearance: Alert.? Oriented X3.? ng suction.? cvs: rrr, [id number] . res: clear to auscultation ,no rhonchii or wheezing abd: no rebound or guarding , bs present,soft , abd pain (unable to tell one area) on/off ext pulses present , no cyanosis. neuro: axo3 , nonfocal. Objective Data Active Medications Acetaminophen (Acetaminophen 325 Mg Tablet) 650 mg PO Q6H PRN PRN Reason: Pain, Mild (Pain Scale 1-3) Last Admin: 06/25/22 19:46 Dose: 650 mg Documented By: CHASTITY Dicyclomine HCl (Dicyclomine Hcl 10 Mg Capsule) 10 mg PO TIDAC PRN PRN Reason: cramping Last Admin: 06/26/22 20:50 Dose: 10 mg Documented By: SHAHANAOIC Heparin Sodium (Porcine) (Heparin Sodium,Porcine Flush 50 Units/5 Ml Syringe) 50 units IVFLUSH [facility] Last Admin: 06/28/22 17:42 Dose: 50 units Documented By: ALEJA Hydromorphone HCl (Hydromorphone Hcl 0.5 Mg/0.5 Ml Syringe) 0.25 mg IVPUSH Q4H PRN; Protocol PRN Reason: Pain, Severe (Pain Scale 7-10) Last Admin: 06/28/22 15:49 Dose: 0.25 mg Documented By: ALEJA Sodium Chloride 35 meq/Magnesium Sulfate 5 meq/Calcium Gluconate 2.325 meq/Amino Acids/Electrolytes/Dextrose 975 mls @ 65 mls/hr IVCONT DAILY@1800 [facility] Stop: 06/29/22 08:59 Last Admin: 06/28/22 17:42 Dose: 65 mls/hr Documented By: ALEJA Fat Emulsion Intravenous (Intralipid) 192 mls @ 16 mls/hr IVCONT BID@0600,1800 [facility] Stop: 06/29/22 17:59 Last Admin: 06/28/22 17:42 Dose: 16 mls/hr Documented By: ALEJA Sodium Chloride 35 meq/Magnesium Sulfate 5 meq/Calcium Gluconate 2.325 meq/Amino Acids/Electrolytes/Dextrose 585 mls @ 65 mls/hr IVCONT DAILY@0900 [facility] Stop: 06/29/22 17:59 Sodium Chloride (Ns) 1,000 mls @ 80 mls/hr IVCONT .[id number] [facility] Last Admin: 06/28/22 16:14 Dose: 80 mls/hr Documented By: ALEJA Albumin Human (Kedbumin 25 %) 100 mls @ 100 mls/hr IV Q6H [facility] Stop: 06/29/22 11:14 Last Admin: 06/28/22 17:35 Dose: 100 mls/hr Documented By: ALEJA Lactulose (Lactulose 20 Gm/30 Ml Solution) 30 gm PO BID [facility] Last Admin: 06/28/22 08:40 Dose: 30 gm Documented By: RITA Metoclopramide HCl (Metoclopramide Hcl 10 Mg/2 Ml Vial) 5 mg IVPUSH Q6H PRN PRN Reason: Nausea and Vomiting Last Admin: 06/28/22 12:36 Dose: 5 mg Documented By: RITA Omeprazole (Omeprazole 20 Mg Capsule.Dr) 20 mg PO DAILY@0630 [facility] Last Admin: 06/28/22 05:28 Dose: 20 mg Documented By: LAURA Ondansetron HCl (Ondansetron Hcl 4 Mg/2 Ml Vial) 4 mg IVPUSH Q8H PRN PRN Reason: Nausea and Vomiting Last Admin: 06/28/22 17:54 Dose: 4 mg Documented By: ALEJA Sodium Chloride (0.9 % Sodium Chloride Flush 3 Ml Syringe) 3 ml IVFLUSH QSHIFT [facility] Last Admin: 06/28/22 17:54 Dose: 3 ml Documented By: ALEJA Labs 06/27/22 10:48 06/28/22 15:08 Labs: Laboratory Results - last 24 hr 06/27/22 06/27/22 06/27/22 18:24 18:25 20:44 Anion Gap 22 H 22 H Estim Creat Clear Calc 34.5 Estimated GFR 37 Random Glucose 160 H Lactic Acid 1.6 Calcium 9.6 Phosphorus Magnesium Triglycerides 06/28/22 06/28/22 09:36 15:08 Anion Gap 24 H 21 H Estim Creat Clear Calc 23.3 21.4 Estimated GFR 24 21 Random Glucose 160 H Lactic Acid Calcium 9.6 Phosphorus 7.0 H Magnesium 2.5 Triglycerides 92 Assessment and Plan (1) Small bowel ischemia: Status: Acute Plan 62-year-old woman admitted with? ROACH frequent hospitalization for hepatic encephalopathy who was admitted yet again with hepatic encephalopathy . Altered mental status due to hepatic encephalopathy and metabolic encephalopathy, hypokalemia, JOBY, hyponatremia,Chronic Microcytic anemia,Mode rate to severe protein calory malnutrition: history of Ulcerative colitis (UC) and s/p? colectomy with J-pouch: patient was seen by GI and surgery: She had upper GI with Small bowel follow through on 06/18 with he Gastrografin transits through the entire small bowel and colon but significantly delayed transit time of 5 1/2 hours , patient was treated with bowel rest, hydration, Reglan, IV pain medications, electrolyte repletion as well as given lactulose and rifaximin for hepatic encephalopathy. also seen by GI: Suad Palomino also was receiving PPN due to persistent nausea vomiting placed on ngt suction -KUB was showing earlier SBO, subsequently CT abdomen was repeated today:showed finding of bowel ischemia, also patient had a KI worsening. surgery d/w above is discussed with patient's Miguel- decided for therapeutic riding instructor considering poor prognosis Time Spent With Patient Time: Total time managing care of this patient today ____ minutes. Quality Stroke Does the patient have a stroke diagnosis?: No VTE Prior VTE?: No VTE Risk Level:: Medical - moderate - high VTE Device Contraindication: N/A - Device Ordered VTE Drug Contraindication: Treatment Not Indicated
[2022-06-28] MEDS: Lidocaine 4 % Patch ADH..PATCH 1 PATCH TRANSDERMA (18:44)
--- NOTE | 2022-06-28 19:21 | PC.NURSE ---
abdominal CTscan ordered with oral contrast , prep started at 15:20 via ngtube . Pt reported increased abdominal pain with the prerp , DR Carter was contacted at that time and MD instructed to medicate patient for pain and continue the prep. medicated with dilauded during the prep for abdominal pain with some results . Patient went for the CTscan and DR Carter explained results to pt's husbund . Lodocaine patch ordered and applied , topical analgesic ordered . patient reported nausea, no vomiting ,medicated with zofran and reglan
[2022-06-28] MEDS: Scopolamine 1.5 MG PATCH.TD.3 TRANSDERMA (20:05)
[2022-06-28] MEDS: LORazepam 0.5 MG TABLET SUBLINGUAL (20:05)
--- NOTE | 2022-06-28 21:18 | PC.NURSE ---
patient made COM tonight , NGtube removed , TPN and lipids stopped , iv fluids stopped, pt medicated for abdominal pain
--- NOTE | 2022-06-28 21:56 | PC.NURSE ---
abdominal pain 10/10 , dilauded frequency increased to q1 hr
[2022-06-29] VITALS: RESP 20
[2022-06-29] MEDS: 0.9 % Sodium Chloride Flush 3 ML SYRINGE IVFLUSH (00:36)
[2022-06-29] MEDS: HYDROmorphone HCl 0.5 MG/0.5 ML SYRINGE IVPUSH ×2 (00:36→02:16)
[2022-06-29] MEDS: Heparin Sodium,Porcine Flush 50 UNITS/5 ML SYRINGE IVFLUSH (00:37)
--- NOTE | 2022-06-29 05:56 | PM.EVENT ---
Event Note Date of Service: 06/29/22 Event Note: pt passed at 2:45 ma at bedside notified Time Spent With Patient Time: Total time managing care of this patient today ____ minutes.
--- NOTE | 2022-06-29 07:39 | PM.DDS ---
Discharge Sum: Prov Provider Primary care physician: John Buck MD Consults: 06/14/22 16:22 Consult to Gastroenterology Routine Consulting Provider: Tee Jimenez Reason for consultation: hepatic encephalopathy 06/17/22 12:53 Consult to General Surgery [place]ine [place]ing [place] [facility] [facility] Reason for consultation: sbo Has provider been notified: No 06/22/22 08:31 Consult to Nephrology Routine Consulting Provider: Damion Moser Reason for consultation: Joby Has provider been notified: No Pronouncing clinician: Naty Ho Discharge Sum: Diag Contributing Factors (1) Small bowel ischemia: Discharge Sum: Summary Date and Time Date of admission: 06/14/22 14:54 Summary Details: 62-year-old Fhistory of nonalcoholic steatohepatitis and has had episodes of encephalopathy?requiring lactulose and treatment in the past with rifaximin admitted due to hepatic encephalopathy and metabolic encephalopathy,patient also has history of Ulcerative colitis (UC) and s/p? colectomy with J-pouch,,Chronic Microcytic anemia,Moderate to severe protein calorie malnutrition ,during hospital course also had hypokalemia, JOBY, hyponatremia,persistent nausea,vomting requiring ngt suction . Patient was started on lactulose for hepatic/metabolic encephalopathy,hospital course further complicated nausea/vomting,joby,hyponatremia :ct abd 06/17: ?Small bowel obstruction with a transition point in the right lower quadrant around the small bowel anastomoses, similar to the prior study from 11/28/2021. She was evaluated by surgery and changes are deemed chronic from? from history of Ulcerative colitis (UC) and s/p? colectomy with J-pouch. She had upper GI with Small bowel follow through on 06/18 with he Gastrografin transits through the entire small bowel and colon but significantly delayed transit time of 5 1/2 hours . above treated with bowel rest, hydration, Reglan, IV Dilaudid, She was evaluated by Surgery with no indication for intervention intially : NG tube was removed and given trial for p.o. intake, but patient continued to have persistent nausea vomiting,abd pain -was on NGT suction subsequently and her renal function also started worsening-subsequently CT scan abdomen was done : Showed possible bowel ischemia, surgery re-evaluate the patient and discussed with the family(patient 's- Miguel) who decided for comfort measures . patient passed at 2:45 am as per night physician note and notified. Additional Data Attending physician: Kalli Carter MD
[2022-07-02 22:03] LABS: Beta-Hydroxybutyrate 0.09 mmol/L
== END 2022-06-29 02:45 | disposition expired | DRG 252 ==
LOC: HO.ED 13:28 → HO.EDOVER 14:59 → HO.IMC 15:30
PROVIDERS: Internal Medicine; Internal Medicine Hypertension Specialist; Internal Medicine Nephrology; Physician Assistant Medical; Admitting Provider Nurse Practitioner Acute Care; Emergency Provider Emergency Medicine; PCP Family Medicine; Visit Provider Internal Medicine
DX: K91.31 Postprocedural partial intestinal obstruction (principal); G93.41 Metabolic encephalopathy; K55.9 Vascular disorder of intestine, unspecified; E43 Unspecified severe protein-calorie malnutrition; K76.82 Hepatic encephalopathy; N17.9 Acute kidney failure, unspecified; E72.20 Disorder of urea cycle metabolism, unspecified; R65.10 Systemic inflammatory response syndrome (SIRS) of non-infectious origin without acute organ dysfunction; K74.00 Hepatic fibrosis, unspecified; E87.1 Hypo-osmolality and hyponatremia; E86.0 Dehydration; D50.9 Iron deficiency anemia, unspecified; E03.9 Hypothyroidism, unspecified; Z68.1 Body mass index [BMI] 19.9 or less, adult; F39 Unspecified mood [affective] disorder; K63.89 Other specified diseases of intestine; E86.1 Hypovolemia; Z51.5 Encounter for palliative care; G62.9 Polyneuropathy, unspecified; J44.9 Chronic obstructive pulmonary disease, unspecified; E87.6 Hypokalemia; R15.9 Full incontinence of feces; Z93.4 Other artificial openings of gastrointestinal tract status; Z96.82 Presence of neurostimulator; K75.81 Nonalcoholic steatohepatitis (NASH); Z20.822 Contact with and (suspected) exposure to COVID-19; Z79.899 Other long term (current) drug therapy
CPT/HCPCS: 36415; 36573; 71045; 74018; 74176; 74250; 80048; 80051; 80053; 80076; 81001; 82010; 82040; 82140; 82565; 82947; 83605; 83735; 83935; 84100; 84132; 84300; 84478; 85025; 85027; 86850; 86900; 86901; 87040; 87635; 92526; 92610; 93005; 93306; 97162; 99285; C1751; J0610; J0612; J1170; J1642; J2405; J2543; J2550; J2765; J3475; P9047; Q9957